=== PATIENT | female | born 1945 | race Caucasian/White ===

== ENCOUNTER 2020-04-24 12:38 | Outpatient (REF) | payer MEDICARE, SELFPAY | END 2020-04-24 12:39 | disposition home or self-care (01) | LOC: HO.HMGCLDS 12:38 | PROVIDERS: PCP Nurse Practitioner Family; Visit Provider Internal Medicine | DX: Z20.822 Contact with and (suspected) exposure to COVID-19 (principal) | CPT/HCPCS: 36415; C9803; U0003; U0005 ==

== ENCOUNTER → 2020-05-12 13:14 | Outpatient (BNVA) | payer MEDICARE, SELFPAY | PROVIDERS: PCP Nurse Practitioner Family; Visit Provider Internal Medicine | DX: J44.9 Chronic obstructive pulmonary disease, unspecified (principal); R91.8 Other nonspecific abnormal finding of lung field | CPT/HCPCS: 99212 ==

== ENCOUNTER 2020-05-19 15:06 | Outpatient (REF) | payer MEDICARE, SELFPAY ==
--- NOTE | ~2020-05-19 | CT_ITS ---
EXAMINATION: CT CHEST WITHOUT CONTRAST CLINICAL INFORMATION: Other nonspecific abnormal finding of lung field. Pulmonary nodules. COMPARISON: Previous chest CT scan most recent August 2018 TECHNIQUE: Multidetector volumetric CT imaging of the chest was done. Axial MIP volume rendering provided. Sagittal and coronal reformatted images were obtained. This CT examination was performed using dose optimization techniques as appropriate, variously including the following: *Automated exposure control *Adjustment of mA and/or kV according to patient size (this includes techniques or standardized protocols for targeted exams where dose is matched to indication/reason for exam; i.e. extremities or head) *Use of iterative reconstruction technique DLP: 135 mGy-cm FINDINGS: LUNGS: There is evidence of emphysema. There is biapical pleural and parenchymal scarring, right greater than left. There is a new abnormal parenchymal density in the medial right lung apex abutting the mediastinum. This measures 1.8 x 0.6 cm in transverse and maximum AP dimension axial image 99 series 4. There is a second new triangular-shaped abnormal parenchymal density in the posterior lateral right upper lobe measuring 0.8 x 1 cm in greatest dimension axial image 112 series 4. These areas may be related to pleural and parenchymal scarring. There is a new 3 mm right lower lobe nodule axial image 437 series 4. No other new pulmonary nodules are seen. There is extensive scarring or subsegmental atelectasis seen in the right middle lobe that is stable. There is a 3 mm right upper lobe nodule axial image 106 series 4 that is stable. There is a 3 x 5 mm peripheral or subpleural left upper lobe nodule adjacent to the fissure axial image 202 series 4 that is stable. There are linear reticular markings in the left upper lobe axial image 249 series 4 that is stable. MEDIASTINUM: There is evidence of atherosclerotic disease. The mediastinum is otherwise normal. PLEURA: There is no pleural effusion. There is a small focus of pleural thickening and calcification adjacent to the right upper lobe axial image 140 series 4 that is stable. AXILLA: No lymphadenopathy. UPPER ABDOMEN: There is a gallstone in the gallbladder. OSSEOUS STRUCTURES: There are degenerative changes of the spine. CT/CT chest wo con IMPRESSION: Emphysema. Biapical pleural parenchymal scarring, right greater than left. 2 new peripheral or subpleural parenchymal opacities in the right upper lobe, question related to increasing pleural and parenchymal scarring. New 3 mm right lower lobe nodule. Attention on follow-up recommended. Otherwise stable pulmonary findings. Gallstone.
== END 2020-05-19 15:07 | disposition home or self-care (01) ==
LOC: HO.CT 15:06
PROVIDERS: Visit Provider Internal Medicine
DX: R91.8 Other nonspecific abnormal finding of lung field (principal)
CPT/HCPCS: 71250

== ENCOUNTER 2020-10-19 08:07 | Outpatient (REF) | payer MEDICARE, SELFPAY ==
--- NOTE | ~2020-10-19 | MM_ITS ---
EXAMINATION: MM SCREENING DIGITAL BREAST TOMOSYNTHESIS, BILATERAL CLINICAL INFORMATION: Screening. Asymptomatic. No known family history breast cancer. The lifetime risk of breast cancer based on the Tyrer-Cuzick Model is 3%. COMPARISON: Mammography: 01/30/2018, outside mammography 10/14/2016 and 05/07/2014 ([facility], [place], [place]). TECHNIQUE: Digital breast tomosynthesis is performed in both the craniocaudal and mediolateral oblique views along with computer-aided detection (CAD). Synthesized 2D images are generated from the tomosynthesis. Additional left CC view is provided. FINDINGS: There are scattered areas of fibroglandular density (ACR BI-RADS breast composition Category b). The right breast has new 2 cm spiculated mass mid 9:30 o'clock position. There are numerous heterogeneous coarse calcifications within the lesion, some extending anteriorly for approximately 3 cm. The right MLO view also has an oval asymmetric density along posterior nipple line 4.2 cm from the nipple 0.7 x 1.2 cm. Finding is likely chronic shifting fibroglandular tissue, similar to outside right MLO views from 2016 and 2014. The axilla and skin contours are unremarkable. Left breast parenchymal pattern is similar to prior exams. There is no interval mass or architectural abnormality or abnormal calcifications. The axilla and skin contours are unremarkable. MM/MM tomosynthesis screening BI IMPRESSION: Right: -New 2 cm spiculated mass mid 9:30 position with heterogeneous calcifications extending anteriorly from the lesion. -Asymmetric parenchymal density anterior central on MLO possibly chronic shifting fibroglandular tissue. Left: -No mammographic evidence of malignancy. ASSESSMENT: BI-RADS 0: Incomplete - Need Additional Imaging Evaluation RECOMMENDATION: 1. Additional views of the right breast (magnification CC and magnification ML for the calcifications and 3D spot ML for the asymmetric parenchymal density). 2. Targeted ultrasound right breast. 3. Radiology department staff will contact the patient for additional imaging. This patient's information was entered into a reminder system with a target due date for their next mammogram.
== END 2020-10-19 08:08 | disposition home or self-care (01) ==
LOC: HO.MAMMO 08:07
PROVIDERS: PCP Nurse Practitioner Family; Visit Provider Nurse Practitioner Family
DX: Z12.31 Encounter for screening mammogram for malignant neoplasm of breast (principal)
CPT/HCPCS: 77063; 77067

== ENCOUNTER 2020-10-27 07:42 | Outpatient (REF) | payer MEDICARE, SELFPAY ==
[2020-10-27 08:40] LABS: Alanine Aminotransferase 21 U/L (0-31); Albumin Level 4.2 g/dL (3.5-5.0); Alkaline Phosphatase 86 U/L (39-117); Anion Gap 12 (12-20); Aspartate Amino Transferase 16 U/L (5-31); Bilirubin Total 0.9 mg/dL (0.0-1.0); Blood Urea Nitrogen 9 mg/dL (9-16); Calcium 9.1 mg/dL (8.4-10.2); Carbon Dioxide 28 mmol/L (22-29); Chloride 107 mmol/L (96-108); Cholesterol 144 mg/dL; Estimated Glomerular Filt Rate > 60; Glucose Fasting 119 mg/dL (60-99); HDL Cholesterol 47 mg/dL; LDL Cholesterol Calculated 83 mg/dl; Potassium 3.6 mmol/L (3.3-5.1); Sodium 143 mmol/L (135-145); Total Protein 6.5 g/dL (6.5-8.0); Triglycerides 71 mg/dL
[2020-10-27 09:03] LABS: TSH reflex Free T4 1.24 uIU/mL (0.32-4.0)
== END 2020-10-27 07:43 | disposition home or self-care (01) ==
LOC: HO.LAB 07:42
PROVIDERS: PCP Nurse Practitioner Family; Visit Provider Nurse Practitioner Family
DX: I10 Essential (primary) hypertension (principal)
CPT/HCPCS: 36415; 80053; 80061; 84443

== ENCOUNTER 2020-10-29 14:03 | Outpatient (REF) | payer MEDICARE, SELFPAY ==
--- NOTE | ~2020-10-29 | MM_ITS ---
EXAMINATION: MM DIAGNOSTIC DIGITAL BREAST TOMOSYNTHESIS, RIGHT TARGETED RIGHT BREAST ULTRASOUND CLINICAL INFORMATION: Spiculated mass with calcifications as well as question to other densities within the right breast. COMPARISON: Mammography: 10/19/2020nd studies dating back to 11/16/2010 TECHNIQUE: Digital breast tomosynthesis is performed. 2D images are generated from the tomosynthesis. The following views are obtained: Spot magnification views of the right breast in craniocaudal and 90 degree mediolateral views. Targeted right breast ultrasound. FINDINGS: There are scattered areas of fibroglandular density (ACR BI-RADS breast composition Category b). Additional mammographic images demonstrate the spiculated calcified mass to be very suspicious looking lying superiorly approximately 11 cm from the nipple measuring approximately 2.9 x 2.5 cm in size. There are some linear calcifications leading anteriorly from the mass. More anteriorly and at the nipple line laterally there is a somewhat ill-defined but not spiculated density which appears more prominent than on prior study measuring approximately 2.0 x 0.8 cm in size 8 cm from the nipple with question of a few calcifications within it as well as the linear calcifications from the larger mass lining to that region. About the inferior lateral aspect of the right breast there is a poorly defined density which appears more prominent than on prior study without spiculated margins or calcifications measuring approximately 1.4 x 0.5 cm in size 5 cm from nipple. MM/MM tomosynthesis added views R Impression: Very suspicious right breast mass approximately 10 o'clock position which is spiculated with calcifications. On ultrasound the abnormality appears significantly smaller than on mammography. The other question densities about the central and inferior lateral aspect of the right breast are not identified on ultrasound. With the appearance of the suspicious lesion and some linear calcification seen directed in the location of the other lesions I would recommend stereotactic core biopsy for the 2 other lesions while ultrasound biopsy of the calcified spiculated lesion could be performed. If there is any question as to whether the other 2 lesions should be sampled then breast MRI could be performed to determine if the other 2 right breast lesions are suspicious. MRI may also be able to better demonstrate the extent of disease present. ASSESSMENT: BI-RADS 4: Suspicious (subcategory 4C: High suspicion for malignancy) RECOMMENDATION: Ultrasound-guided core biopsy of spiculated calcified mass. Stereotactic core biopsy the other 2 more anterior right breast lesions with consideration of Breast MRI prior to stereotactic core biopsy of the other 2 lesions more inferior and lateral to determine if these are suspicious by MRI as well as extent of disease with the radiating microcalcifications. The above recommendation was called to referring provider's office by breast center navigator and myself..
--- NOTE | ~2020-10-29 | US_ITS ---
EXAMINATION: US DIAGNOSTIC ULTRASOUND BREAST, RIGHT CLINICAL INFORMATION: Three right breast densities for ultrasound evaluation. COMPARISON: Mammography of same day and studies dating back to 11/16/2010. TECHNIQUE: Ultrasound of the breast is performed with real-time rodriguez scale imaging and color Doppler. FINDINGS: Targeted right breast ultrasound was then performed. At the 10 o'clock position approximately 10 cm from the nipple there is a heterogeneous irregularly marginated mass measuring 1.4 x 1.2 x 1.7 cm in size with distal sound shadowing. Echogenic calcifications are present. The lesion is taller than wide. No definite internal vascularity was noted. No other masses were identified on ultrasound about the lateral aspect of the right breast. No abnormal axillary lymph nodes appreciated. Results are discussed with the patient at time of visit. US/US breast RT limited IMPRESSION: Very suspicious right breast mass approximately 10 o'clock position which is spiculated with calcifications. On ultrasound the abnormality appears significantly smaller than on mammography. The other question densities about the central and inferior lateral aspect of the right breast are fully identified on ultrasound. With the appearance of the suspicious lesion and some linear calcification seen directed in the location of the other lesions I would recommend stereotactic core biopsy for the 2 other lesions while ultrasound biopsy of the calcified spiculated lesion could be performed. If there is any question as to whether the other 2 lesions should be sampled then breast MRI could be performed to determine if the other 2 right breast lesions are suspicious. MRI would also be able to better demonstrate the extent of disease present. ASSESSMENT: BI-RADS 4: Suspicious (subcategory 4C: High suspicion for malignancy) RECOMMENDATION: Ultrasound-guided core biopsy of spiculated calcified mass. Stereotactic core biopsy for the other 2 more anterior right breast lesions with Consideration of Breast MRI prior to stereotactic core biopsy of the other 2 lesions more inferior and lateral to determine if these are suspicious by MRI. The above recommendation was called to referring provider's office by breast center navigator. I also spoke with Tiffanie Borrero RN at that office about the questioned of getting MRI and patient will be referred to a surgeon.
== END 2020-10-29 14:04 | disposition home or self-care (01) ==
LOC: HO.MAMMO 14:03
PROVIDERS: PCP Nurse Practitioner Family; Visit Provider Nurse Practitioner Family
DX: N64.89 Other specified disorders of breast (principal); R92.1 Mammographic calcification found on diagnostic imaging of breast
CPT/HCPCS: 76642; 77061; 77065

== ENCOUNTER → 2020-11-06 08:21 | Outpatient (BNVA) | payer MEDICARE, SELFPAY | PROVIDERS: PCP Nurse Practitioner Family; Referring Provider Nurse Practitioner Family; Visit Provider Surgery | DX: R92.8 Other abnormal and inconclusive findings on diagnostic imaging of breast (principal) | CPT/HCPCS: 99202 ==

== ENCOUNTER 2020-11-09 07:58 | Outpatient (REF) | payer MEDICARE, SELFPAY ==
--- NOTE | ~2020-11-09 | US_ITS ---
EXAMINATION: STEREOTACTIC TOMOSYNTHESIS-GUIDED VACUUM-ASSISTED BREAST BIOPSY (TWO SITES), RIGHT SPECIMEN RADIOGRAPHS (TWO SPECIMENS), RIGHT UTRASOUND-GUIDED CORE BIOPSY BREAST, RIGHT POST PROCEDURE DIGITAL MAMMOGRAM, RIGHT CLINICAL INFORMATION: 74-year-old with new 2 cm spiculated mass mid 9:30 o'clock position with associated heterogeneous coarse calcifications for ultrasound-guided core biopsy. There are 2 smaller asymmetric densities anterior lateral to the mass right breast for stereotactic sampling. COMPARISON: Mammography 10/19/2020, 10/29/2020, targeted right breast ultrasound 10/29/2020. TECHNIQUE/PROCEDURE STEREOTACTIC BIOPSY RIGHT BREAST - 2 SITES: Informed consent was obtained from the patient after discussion of the benefits, risks, and alternatives to biopsy today. Patient appeared to understand. Gave opportunity for questions. Patient signed consent form. Specimen A: BIOPSY TABLE: Hologic Affirm Prone Biopsy System. LESION: anterior 8:00 position, right breast. LOCAL ANESTHESIA: 10 mL 1% lidocaine; 10 mL 1% lidocaine with epinephrine. DERMATOTOMY: Single skin lino dermatotomy performed. NEEDLE: Suros Eviva 9-gauge vacuum assisted core biopsy device. APPROACH: lateral medial. TARGETING: Digital breast tomosynthesis used for targeting. CORES: 9. CLIP: Suros SecurMark T-shaped marker. SPECIMEN RADIOGRAPH (A): Specimen radiograph is taken in separate room using digital mammography. There are scattered parenchymal densities in the excised cores. Specimen B: Fresh biopsy supplies are used for 2nd biopsy site. BIOPSY TABLE: Hologic Affirm Prone Biopsy System. LESION: mid 8:30 o'clock position, right breast. LOCAL ANESTHESIA: 5 mL 1% lidocaine; 10 mL 1% lidocaine with epinephrine. DERMATOTOMY: Single skin lino dermatotomy performed. NEEDLE: Suros Eviva 9-gauge vacuum assisted core biopsy device. APPROACH: lateral medial. TARGETING: Digital breast tomosynthesis used for targeting. CORES: 8. CLIP: Suros SecurMark Barrel-shaped marker. SPECIMEN RADIOGRAPH (B): Specimen radiograph is taken in separate room using digital mammography. There are scattered parenchymal densities in the excised cores. The patient tolerated the procedure well. No immediate complications. Following the biopsy, patient brought to ultrasound suite for final biopsy right breast. TECHNIQUE/PROCEDURE ULTRASOUND-GUIDED BIOPSY RIGHT BREAST: Proper informed consent is obtained from the patient after discussion of the procedure, potential risks and complications, and alternatives. Patient was given an opportunity for questions. The patient appeared to understand. The patient consented to the procedure and signed the consent form. GUIDANCE: Ultrasound-guided; aseptic technique. LESION: Dominant irregular spiculated mass with heterogeneous calcifications right breast, posterior 9:00. APPROACH: Lateral medial. ANESTHESIA: 15 mL 1% lidocaine. DERMATOTOMY: Single skin lino dermatotomy performed. NEEDLE: 14-gauge Achieve core biopsy device with 13.5-gauge co-axial guide needle. CORES: 7. CLIP: HydroMARK; shape: butterfly. POST PROCEDURE UNILATERAL DIGITAL MAMMOGRAM: The post biopsy mammogram is performed in separate room using separate digital mammography equipment from the biopsy procedure. CC and ML views are obtained. Initially, 3-D imaging was performed, this followed by standard 2-D imaging. There are scattered areas of fibroglandular density (breast composition category: b). The clip markers are in position. The HydroMARK clip is not visible on the 3-D images due to the blooming artifact of the heterogeneous calcifications. The HydroMARK clip is clearly visualized within the mass on the standard non-synthesized 2-D images. No gross hematoma. The patient tolerated the procedure well. No immediate complications. Home instructions reviewed with the patient. Final pathology results are pending. US/US breast ndl core biopsy RT IMPRESSION: 1. Status post 3D stereotactic biopsy right breast anterior 8:00 and mid 8:30 positions (two sites). 2. Status post ultrasound-guided core biopsy right breast, posterior 9:00 position. 2. Clip placed at each location (T shape, Barrel shape, Butterfly shape) 3. Pathology pending. An addendum report will be issued.
== END 2020-11-09 07:59 | disposition home or self-care (01) ==
LOC: HO.MAMMO 07:58
PROVIDERS: Visit Provider Surgery
DX: C50.411 Malignant neoplasm of upper-outer quadrant of right female breast (principal); N64.89 Other specified disorders of breast
CPT/HCPCS: 19081; 19082; 19083; 88305; 88341; 88342; 88360

== ENCOUNTER → 2020-11-11 10:51 | Outpatient (BNVA) | payer MEDICARE, SELFPAY | PROVIDERS: PCP Nurse Practitioner Family; Visit Provider Internal Medicine | DX: J44.9 Chronic obstructive pulmonary disease, unspecified (principal); R91.8 Other nonspecific abnormal finding of lung field | CPT/HCPCS: 99212 ==

== ENCOUNTER → 2020-11-12 12:57 | Outpatient (BNVA) | payer MEDICARE, SELFPAY | PROVIDERS: PCP Nurse Practitioner Family; Referring Provider Nurse Practitioner Family; Visit Provider Surgery | DX: C50.411 Malignant neoplasm of upper-outer quadrant of right female breast (principal); R92.0 Mammographic microcalcification found on diagnostic imaging of breast; M81.0 Age-related osteoporosis without current pathological fracture; M11.20 Other chondrocalcinosis, unspecified site; I10 Essential (primary) hypertension; E78.5 Hyperlipidemia, unspecified; F17.210 Nicotine dependence, cigarettes, uncomplicated; Z17.1 Estrogen receptor negative status [ER-] | CPT/HCPCS: 99212 ==

== ENCOUNTER → 2020-11-27 08:38 | Outpatient (REF) | payer MEDICARE, SELFPAY ==
--- NOTE | 2020-11-27 08:41 | CA_ITS ---
Transthoracic Echocardiogram Patient (Last, First, Middle): Chayo Nevarez M Gender: Female Date of : 1945 Age: 75 Procedure Date: 11/27/2020 Procedure Type: Transthoracic Echocardiogram Location: OP Height: 165.1 cm Weight: 68.04 kg BSA: 1.75 m2 Heart Rate: bpm BP: 132 / 80 mmHg Hose Mender: Referring MD: Yuan Edwards MD Symptoms: Pre chemotherapy for triple negative breast cancer. Study Quality: Fair ECG Rhythm: Sinus Conclusions: - The left ventricular systolic function is low normal. The calculated ejection fraction is 52% by biplane method. - Mildly increased right ventricular cavity size. - No obvious valvular pathology seen on this study. Findings Procedure Information Contrast agent, definity, is being given per protocol with complications as noted. Left Ventricle Normal left ventricular cavity size. There is mildly increased left ventricular wall thickness. The left ventricular systolic function is low normal. The calculated ejection fraction is 52% by biplane method. There is no evidence of regional wall motion abnormalities. Diastolic function is normal for age. Right Ventricle Mildly increased right ventricular cavity size. There is normal right ventricular systolic function. Atria Both atria are normal in size. Aortic Valve There is a normal trileaflet aortic valve. There is no aortic valve stenosis. There is no aortic valve regurgitation. Mitral Valve The mitral valve appears normal. There is no mitral valve regurgitation. There is no mitral valve stenosis. Pulmonic Valve The pulmonic valve was not well visualized. Tricuspid Valve There is trace tricuspid valve regurgitation. The pulmonary artery systolic pressure is normal. Great Vessels The aortic annulus, sinuses of valsalva, and asc aorta are normal in size. Venous The inferior vena cava is normal in size and collapses greater than 50% with inspiration. Pericardium/Pleural There is no evidence of pericardial effusion. Prior Study Comparison No prior study available for comparison. Recommendations, Care & Conclusions No obvious valvular pathology seen on this study. Measurements 2D Linear Measurements IVSd: 1.12 0.6-0.9/0.6-1.0 cm LVIDd: 4.64 3.9-5.3/4.2-5.9 cm LVIDd Index: 2.65 2.4-3.2/2.2-3.1 cm/m2 LVIDs: 2.59 2.0-3.6 cm LVPWd: 1.13 0.7-1.1 cm Ao Root: 3.40 2.1-3.5 cm LA Diam: 3.60 2.7-3.8/3.0-4.0 cm LAIDs Index: 2.06 1.5-2.3 cm/m2 LV Mass: 236.27 67-162/88-224 g LV Mass Index: 135.01 43-95/49-115 g/m2 LVOT Diam: 2.20 3.0+(-)1.3 cm 2D Systolic Function EF 4C: 54.30 >55% EF 2C: 49.60 >55% EF BiP: 52.20 >55% Mitral Valve MV Pk E: 0.42 MV PK A: 0.60 MV Decel Time: 249.00 E/A: 0.70 E'Lateral: 7.18 E'Medial: 5.66 E/E' Med: 7.30 E/E' Lat: 5.80 PHT: 73.00 MVA PHT: 3.01 Decel Rowan: 1.67 Aortic Valve AoV Pk Scout: 1.07 AoV Mn Scout: 0.66 AoV VTI: 0.22 AoV Pk Grad: 5.00 Aov Mn Grad: 2.00 ANNABELLE Cont.VTI: 3.15 LVOT LVOT Pk Scout: 0.76 LVOT Mn Scout: 0.45 LVOT VTI: 0.19 LVOT Pk Grad: 2.00 LVOT Mn Grad: 1.00 LVOT Diam: 2.20 LVOT Area: 3.80 Diastolic Function MV Pk E: 0.42 MV Pk A: 0.60 E/A: 0.70 E'Medial: 5.66 E/E' Med: 7.30 E' Laterial: 7.18 E/E' Lat: 5.80 Right Ventricle TAPSE (mm): 19.00 TVS' Scout: 13.00 Tricuspid Valve TR Pk Scout: 1.69 TR Pk Grad: 11.00 Great Vessels Aorta Ao Root-2D: 3.40 2.0-3.7 cm Ao Asc: 3.50 2.1-3.4 cm Pulmonary Valve PV Pk Scout: 0.65 Peak PV Grad: 2.00 Updated in Other Vendor System with Status of Final Jonathan Bobo MD electronically signed on 11/28/2020 2:16:18 PM with status of Final
== END ==
LOC: HO.CARD 08:38
PROVIDERS: PCP Nurse Practitioner Family; Visit Provider Internal Medicine Medical Oncology
DX: Z01.818 Encounter for other preprocedural examination (principal); C50.919 Malignant neoplasm of unspecified site of unspecified female breast
CPT/HCPCS: 93306; Q9957

== ENCOUNTER 2020-12-16 12:52 | Day surgery (SDC) | payer MEDICARE, SELFPAY ==
--- NOTE | ~2020-12-16 | IR_ITS ---
PROCEDURE: IR INSERTION OF TUNNEL CATHETER CLINICAL INFORMATION: Right breast cancer. COMPARISON: None TECHNIQUE: Procedure and risks and benefits including bleeding, infection and pneumothorax were discussed patient and informed consent was obtained. All elements of maximal sterile barrier technique followed including use of cap, mask, sterile gown, sterile gloves, a sterile full body drape and hand hygiene. Also followed skin preparation with 2% chlorhexidine for cutaneous antisepsis, and sterile ultrasound preparation with sterile gel and probe cover when applicable. The left neck and upper chest were prepped and draped in the usual sterile fashion. The skin and soft tissues were anesthetized with 1% lidocaine with epinephrine. A small incision was made. Using ultrasound guidance and a 5 [place]ian micropuncture system, left internal jugular vein access was obtained. Over a 0.018 wire, a 5 [place]ian dilator was positioned in the left innominate vein. The skin and soft tissues of the left upper anterior chest were anesthetized with 1% lidocaine with epinephrine. A small incision was made. Using blunt dissection, subcutaneous pocket was created. A subcutaneous tunnel from the chest the neck incision was anesthetized with 1% lidocaine with epinephrine. Using a tunneler, a 6.6 [place]ian single-lumen catheter was tunneled from the chest to the neck incision. The catheter was attached to the port. The port and catheter were flushed. A 0.035 guidewire was advanced through the 5 [place]ian dilator into the IVC. 5 [place]ian dilator was exchanged for a peel-away sheath. Using bent wire technique, catheter length was estimated and the catheter was cut. Catheter length is 24 cm. Catheter was fed through the peel-away sheath. The neck incision was closed using a 4-0 absorbable subcuticular suture. Chest incision was closed using three 3-0 absorbable interrupted sutures followed by a running 4-0 absorbable subcuticular suture. Patient given Versed 1 mg and fentanyl 50 mcg intravenously during the procedure. Continuous hemodynamic monitoring was provided by a registered nurse under my direct vision. Total sedation was 44 minutes. Real-time ultrasound guidance was used to document vein patency and for needle entry. A formal ultrasound picture was recorded. Fluoroscopy time 0.8 minutes. DAP 10 Gy-cm2. One saved fluoroscopic image. FINDINGS: There is a left internal jugular Port-A-Cath with tip projecting over the SVC. IR/IR cvc insert tunnel w prt/psychiatric security nurse IMPRESSION: Left internal jugular single lumen 6.6 [place]ian Dignity Port-A-Cath placement.
[2020-12-16 13:04] VITALS: BMI 27.4
[2020-12-16 13:27] LABS: MANUAL DIFF FLAG NO
[2020-12-16 13:31] LABS: Basophils Percent Auto 0.1 % (0-2); Eosinophils Percent Auto 0.2 % (0-4); Hematocrit 44.1 % (37-47); Hemoglobin 15.3 g/dl (12.0-16.0); Imm Gran Abs Auto 0.11 X10*3/uL (0.00-0.03); Imm Gran Pct Auto 0.9 % (0.0-0.4); Lymphocytes Absolute Auto 2.3 X10*3/uL (1.2-4.9); Lymphocytes Percent Auto 18.1 % (20-40); Mean Corpuscular HGB Conc 34.7 g/dl (31.0-35.0); Mean Corpuscular Hemoglobin 29.7 pg (27.0-33.0); Mean Corpuscular Volume 85.6 fL (80-98); Mean Platelet Volume 8.6 fL (9.4-12.3); Monocytes Absolute Auto 1.2 X10*3/uL (0.1-1.2); Monocytes Percent Auto 9.4 % (2-11); Neutrophils Absolute Auto 8.9 X10*3/uL (2.0-8.3); Neutrophils Percent Auto 71.3 % (45-73); Platelet Count 380 X10*3/uL (160-400); Red Blood Count 5.15 X10*6/uL (4.20-5.50); Red Cell Distribution Width 12.5 % (11.0-16.0); White Blood Count 12.4 X10*3/uL (4.8-10.8)
[2020-12-16 13:36] LABS: INTERNATIONAL NORM RATIO 0.9 (0.9-1.1); Prothrombin Time 10.5 SEC (9.9-13.0)
[2020-12-16 13:39] LABS: Partial Thromboplastin Time 26.9 SEC (24.1-38.0)
[2020-12-16 14:00] LABS: Blood Urea Nitrogen 17 mg/dL (9-16); Creatinine Clr Calc Pharmacy 51.8; Estimated Glomerular Filt Rate 56
[2020-12-16 14:20] LABS: Anion Gap 14 (12-20); Carbon Dioxide 28 mmol/L (22-29); Chloride 96 mmol/L (96-108); Potassium 2.9 mmol/L (3.3-5.1); Sodium 135 mmol/L (135-145)
--- NOTE | 2020-12-16 16:25 | HO.RADPN ---
RADIOLOGY Narrative Narrative: [facility]J 6.6 fr single lumen Dignity port placed. Tip in SVC.
[2020-12-16 16:35] VITALS: BP 145/75; PULSE 60; RESP 18; TEMP 36.2; O2SAT 94
[2020-12-16 16:45] VITALS: BP 137/73; PULSE 55; RESP 16; O2SAT 94
[2020-12-16 17:00] VITALS: BP 133/68; PULSE 60; RESP 16; O2SAT 93
[2020-12-16 17:30] VITALS: BP 131/76; PULSE 62; TEMP 36.5; O2SAT 94
[2020-12-17 07:43] LABS: Alanine Aminotransferase 16 U/L (0-31); Albumin Level 4.2 g/dL (3.5-5.0); Alkaline Phosphatase 87 U/L (39-117); Aspartate Amino Transferase 14 U/L (5-31); Bilirubin Direct 0.4 mg/dL (0.0-0.5); Bilirubin Total 0.9 mg/dL (0.0-1.0); Total Protein 6.7 g/dL (6.5-8.0)
[2020-12-17 08:03] LABS: Thyroid Stimulating Hormone 1.76 uIU/mL (0.32-4.0)
[2020-12-17 08:18] LABS: HBS Num1 0.65 mIU/mL (0-7.99); Hepatitis B Core Antibody Nonreactive (Nonreactive); ~Hepatitis B Surface Antibody NONREACTIVE (Nonreactive)
[2020-12-17 08:33] LABS: HBsAGNum1 0.15 S/CO (0.00-0.99); Hepatitis B Surface Antigen Negative (Negative)
== END 2020-12-16 17:36 | disposition home or self-care (01) ==
PROVIDERS: Radiology Diagnostic Radiology; PCP Nurse Practitioner Family; Visit Provider Radiology Diagnostic Radiology
DX: C50.411 Malignant neoplasm of upper-outer quadrant of right female breast (principal); Z17.1 Estrogen receptor negative status [ER-]; D47.2 Monoclonal gammopathy; I10 Essential (primary) hypertension; J44.9 Chronic obstructive pulmonary disease, unspecified
CPT/HCPCS: 36415; 36561; 76937; 80051; 80076; 82565; 84443; 84520; 85025; 85610; 85730; 86704; 86706; 87340; 99152; 99153; C1769; C1788; J0690; J1642; J2250; J3010

== ENCOUNTER 2021-01-07 10:45 | Outpatient (REF) | payer MEDICARE, SELFPAY ==
--- NOTE | ~2021-01-07 | FL_ITS ---
EXAMINATION: XR FLUOROSCOPY CLINICAL INFORMATION: No blood withdrawal lung port aspiration. COMPARISON: None TECHNIQUE: Contrast injection of the left-sided port was performed under fluoroscopy. FINDINGS: There is contrast visualized within the SVC on contrast injection of the left-sided port consistent with widely patent port catheter. FLUOROSCOPY TIME: 0.8 minute DOSE AREA PRODUCT: 17.849 mGy-m2 (microgray-meter squared) FL/FL fluoroscopy <1hr IMPRESSION: Widely patent left-sided venous port.
== END 2021-01-07 10:46 | disposition home or self-care (01) ==
LOC: HO.XRAY 10:45
PROVIDERS: PCP Nurse Practitioner Family; Visit Provider Internal Medicine Medical Oncology
DX: C50.911 Malignant neoplasm of unspecified site of right female breast (principal)
CPT/HCPCS: 76000

== ENCOUNTER 2021-01-18 12:02 | Inpatient (IN) | payer MEDICARE, SELFPAY ==
--- NOTE | ~2021-01-18 | XR_ITS ---
EXAMINATION: XR CHEST CLINICAL INFORMATION: Dyspnea COMPARISON: 03/14/2018 TECHNIQUE: Frontal view of the chest was obtained. FINDINGS: CT compatible left chest wall port overlies the region of confluence of the left brachiocephalic vein with the SVC. Cardiac leads overlie the chest. The lungs are hyperexpanded. There is known emphysema. No dense consolidation. No edema or effusion. No pneumothorax. The cardiomediastinal silhouette is unchanged, with a calcified aorta. XR/XR chest 1V IMPRESSION: Hyperexpanded lungs with no acute pulmonary finding.
--- NOTE | ~2021-01-18 | CT_ITS ---
EXAMINATION: CT ANGIOGRAM OF THE CHEST WITH AND WITHOUT CONTRAST (CT PULMONARY ANGIOGRAM FOR PE) CLINICAL INFORMATION: Dyspnea COMPARISON: Radiograph 01/18/2021. CT from 05/19/2020. TECHNIQUE: Prior to contrast administration, noncontrast localization images were obtained. Subsequently, multidetector volumetric imaging was performed from the thoracic inlet to below the diaphragms following the administration of 65 mL Omnipaque 350 intravenous contrast. No contrast reaction reported Sagittal, coronal, and MIP oblique sagittal reformatted images were obtained on the CT workstation, uploaded to PACS, and reviewed. This CT examination was performed using dose optimization techniques as appropriate, variously including the following: *Automated exposure control *Adjustment of mA and/or kV according to patient size (this includes techniques or standardized protocols for targeted exams where dose is matched to indication/reason for exam; i.e. extremities or head) *Use of iterative reconstruction technique Total exam dose-length product 334 mGy-cm FINDINGS: QUALITY OF STUDY/CONTRAST BOLUS: Satisfactory. PULMONARY ARTERIES: No central or segmental pulmonary emboli. THORACIC AORTA: No aneurysm or dissection. LUNG: The central airways are patent. There is severe centrilobular and paraseptal emphysema. Minimal opacity noted at the lung bases at the right middle lobe and lingula, likely representing atelectasis. Linear bibasilar atelectasis posteriorly. No dense consolidation. PLEURA: No pleural effusion or pneumothorax. MEDIASTINUM: Normal heart size. No pericardial effusion. No hilar or mediastinal lymphadenopathy. Left chest wall port terminating in the brachiocephalic vein. No evidence of septal bowing or right heart strain. CHEST WALL/AXILLA: No axillary or internal mammary lymphadenopathy. Nodular soft tissue density in the right breast soft tissues. This is seen previously with evidence of prior intervention. OSSEOUS STRUCTURES: Mild degenerative changes throughout the spine. New since 05/19/2020, there is mild height loss of the T7 vertebral body. There is approximately 40% loss of anterior vertebral body height. UPPER ABDOMEN: Cholelithiasis. Mild nodular thickening both adrenal glands, likely lipid rich adenomas. No reflux of contrast into the hepatic veins to suggest elevated right heart pressures. CT/CT angio chest PE protocol IMPRESSION: 1. No pulmonary embolism. 2. Severe emphysema. No acute pulmonary finding. VTE: negative
[2021-01-18 13:35] VITALS: BP 164/87; PULSE 98; RESP 20; TEMP 36.5; O2SAT 94; BMI 27.4
--- NOTE | 2021-01-18 14:19 | ECG_ITS ---
Test Reason : DYSPNEA Blood Pressure : / mmHG Vent. Rate : 086 BPM Atrial Rate : 086 BPM P-R Int : 116 ms QRS Dur : 078 ms QT Int : 370 ms P-R-T Axes : 059 020 055 degrees QTc Int : 442 ms Sinus rhythm with occasional Premature ventricular complexes Nonspecific T wave abnormality Anterior leads Abnormal ECG When compared with ECG of 14-MAR-2018 02:53, No significant changes seen Referred By: Robert Staples Electronically Signed By:JACOBO CHATMAN MD
--- NOTE | 2021-01-18 14:23 | ED.GENADULT ---
HPI - General Adult General Chief complaint: Dyspnea Stated complaint: diff breathing Time Seen by Provider: 01/18/21 14:07 Source: patient, family and old records reviewed Limitations: no limitations History of Present Illness HPI narrative: Patient with a history of COPD and a recent diagnosis of breast cancer currently getting chemotherapy, presents with 3 weeks of worsening dyspnea. She is typically not home oxygen dependent. She typically can walk without limits. Her breathing has gotten worse over the last 3 weeks for now she gets very dyspneic and has to rest after approximately 10 ft. When it started she had a cough with green sputum. Cough and sputum have resolved. No fevers or chills. No chest pain other than while she coughs. No leg swelling or calf pain. No history of thromboembolic disease. She does have a history of pneumonia and COPD exacerbations in the past but states they were never as bad as this and always get better with prednisone. She has been on prednisone for the past 4 days, 30 mg daily, with no improvement. She called her PCP recommended she come to the emergency department for further workup. She also complains of a recently placed Port-A-Cath which has been nonfunctioning. She apparently had a skin infection after the insertion as well. She was supposed to go to see the interventional radiologist today for evaluation of about possible removal. Her last chemotherapy was last . Her last lab work was last Monday. Related Data Home Medications Medication Instructions Recorded Confirmed calcium carbonate 500 mg calcium 500 mg PO DAILY 05/12/20 01/14/21 (1,250 mg) tablet (Calcium 500) fluticasone fur. 100 mcg-umeclid 1 puff PO DAILY 11/17/20 01/14/21 62.5 mcg-vilant 25 mcg inhalat.powder (Trelegy Ellipta) ondansetron HCl 4 mg tablet 8 mg PO Q8H PRN 12/31/20 01/14/21 (Zofran) Previous Rx's Medication Instructions Recorded albuterol sulfate 90 mcg/actuation 1 inh INHALATION QID PRN 30 Days 01/21/20 aerosol inhaler (Ventolin HFA) #18 g trazodone 100 mg tablet 100 mg PO BEDTIME #30 tab 08/04/20 amlodipine 5 mg tablet 5 mg PO DAILY #90 tab 10/19/20 acetaminophen 650 mg 650 mg PO Q8H PRN 30 Days #90 tab 12/09/20 tablet,extended release cetirizine 10 mg tablet (All Day 10 mg PO BID PRN 30 Days #60 tab 12/09/20 Allergy (cetirizine)) dexamethasone 4 mg tablet 4 mg PO BID #100 tab 12/10/20 (Decadron) atorvastatin 40 mg tablet 40 mg PO DAILY 90 Days #90 tab 12/24/20 oxybutynin chloride 5 mg tablet 5 mg PO BID 30 Days #60 tab 12/24/20 lisinopril 40 mg tablet 40 mg PO DAILY 90 Days #90 tab 01/12/21 cephalexin 250 mg/5 mL oral 500 mg PO BID #10 ml 01/13/21 suspension cephalexin 500 mg capsule 500 mg PO Q8H #30 cap 01/15/21 levofloxacin 500 mg tablet 500 mg PO Q24H #10 tab 01/15/21 prednisone 10 mg tablet 30 mg PO DAILY #30 tab 01/15/21 Allergies Allergy/AdvReac Type Severity Reaction Status Date / Time hydrochlorothiazide Allergy Unknown hives Verified 12/30/20 12:20 Review of Systems Constitutional: Comments: No fevers chills or weight loss Cardiovascular: Comments: No chest pain Respiratory: Comments: Positive dyspnea with minimal exertion. Initially cough with sputum. No phlegm now. Gastrointestinal: Comments: No nausea vomiting diarrhea or constipation Musculoskeletal: Comments: No leg swelling or calf pain Integumentary/Breasts: Comments: No rash. Redness over her Port-A-Cath site is improving but not resolved completely Neurologic: Comments: No weakness numbness or paresthesias [facility] Past Medical History Medical History (Updated 01/18/21 @ 17:04 by Robert Staples MD) Allergies Anxiety Bladder prolapse Chondrocalcinosis COPD (chronic obstructive pulmonary disease) COPD (chronic obstructive pulmonary disease) Dyslipidemia HTN (hypertension) Mixed incontinence urge and stress Monoclonal gammopathies Osteoporosis Physical exam Pulmonary nodules Surgical History History of section Family History Family History Father No problems noted. Mother HTN (hypertension) CVD (cardiovascular disease) Stroke Brother No problems noted. Sister No problems noted. Son No problems noted. Daughter No problems noted. Other Substance use disorder Social History Social History Housing: Other (mobile home ) Alcohol intake: never Patient Tobacco Use Status: Former Tobacco user Years Smoked: 20 years ago e-Cigarette/Vaping Use: Never Used Second Hand Smoke Exposure: Yes Use of substances other than those prescribed or required for medical reasons: No Advance Directives: Yes Advance Directives on File: Yes Advance Directives Date on File: 12/24/20 Current occupational status: retired Current occupation: works as [employer] Current occupational exposures/hazards: No Physical Exam Vital Signs: Vital Signs: Last Vital Signs Temp 98.4 F 01/18/21 15:25 Pulse 115 H 01/18/21 16:35 Resp 24 H 01/18/21 16:35 BP 165/89 H 01/18/21 15:25 Pulse Ox 97 01/18/21 16:35 Body Mass Index 27.4 Const: General: cooperative, comfortable and no acute distress HENMT: Other: Normocephalic atraumatic Resp: Other: Diminished bilaterally without wheezes rales or rhonchi Cardio: Other: Regular rate and rhythm without murmurs rubs or gallops Skin: Other: Mild erythema over Port-A-Cath insertion site without fluctuance or abscess noted. No other skin abnormalities Neuro: Other: Alert and oriented. No focal neuro deficits Extrem: Other: No pedal edema. No calf tenderness Course Course Course Narrative: Dyspnea with minimal exertion in the setting of active breast cancer on chemotherapy. Pneumonia COPD exacerbation Thromboembolic/pulmonary embolism Pulmonary fibrosis Cardiac ischemia COVID-19 infection 3:47 p.m.. Workup shows white count of 5.9 with 85.4% neutrophils. Creatinine is normal Chest x-ray shows no obvious cause of patient's dyspnea. CT scan ordere 5:[address] scan shows no evidence of PE or pneumonia. Patient, however, gets very dyspneic on minimal exertion. Respiratory rate goes up above 30. Maintains oxygen saturation around 90% with this however. Will hospitalized for further treatment of COPD exacerbation Medical Decision Making Lab Data Result diagrams: 01/18/21 15:08 01/18/21 15:08 Labs: Lab Results 01/18/21 01/18/21 01/18/21 Range/Units 15:08 15:08 15:08 WBC 5.9 (4.8-10.8) X10*3/uL RBC 3.84 L (4.20-5.50) X10*6/uL Hgb 11.3 L (12.0-16.0) g/dl Hct 33.3 L (37.0-47.0) % MCV 86.7 (80.0-98.0) fL MCH 29.4 (27.0-33.0) pg MCHC 33.9 (31.0-35.0) g/dl RDW 15.6 (11.0-16.0) % Plt Count 262 (160-400) X10*3/uL MPV 8.7 L (9.4-12.3) fL Immature Gran % (Auto) 4.1 H (0.0-0.4) % Neut % (Auto) 85.4 H (45-73) % Lymph % (Auto) 4.6 L (20-40) % [place] % (Auto) 5.6 (2-11) % Eos % (Auto) 0.0 (0-4) % Baso % (Auto) 0.3 (0-2) % Lymph # (Auto) 0.3 L (1.2-4.9) X10*3/uL [place] # (Auto) 0.3 (0.1-1.2) X10*3/uL Eos # (Auto) 0.0 (0.0-0.4) X10*3/uL Baso # (Auto) 0.0 (0.0-0.2) X10*3/uL Abs Immat Gran (auto) 0.24 H (0.00-0.03) X10*3/uL Absolute Neuts (auto) 5.02 (2.0-8.3) x10*3/uL Absolute Nucleated RBC 0.000 (0.0-0.012) X10*3/uL Nucleated RBC % (auto) 0.0 (0.0-0.2) /100WBC D-Dimer 898 NG/ML Sodium (135-145) mmol/L Potassium (3.3-5.1) mmol/L Chloride (96-108) mmol/L Carbon Dioxide (22-29) mmol/L Anion Gap (12-20) BUN (9-16) mg/dL Creatinine (0.5-1.4) mg/dL Estim Creat Clear Calc Estimated GFR Random Glucose (60-115) mg/dL Lactic Acid 1.9 (0.5-2.0) mmol/L Calcium (8.4-10.2) mg/dL Total Bilirubin (0.0-1.0) mg/dL AST (5-31) U/L ALT (0-31) U/L Alkaline Phosphatase (39-117) U/L Troponin I High Sens (<3.5-17.0) ng/L B-Natriuretic Peptide (<100) pg/mL Total Protein (6.5-8.0) g/dL Albumin (3.5-5.0) g/dL Urine Color Urine Appearance Urine pH (5.0-8.0) Ur Specific [place] (1.005-1.025) Urine Protein (NEG-TRACE) MG/DL Urine Glucose (UA) (NEG) MG/DL Urine Ketones (NEG) MG/DL Urine Blood (NEG) Urine Nitrite (NEG) Ur Leukocyte Esterase (NEG) Influenza Type A (PCR) (Negative) Influenza Type B (PCR) (Negative) RSV RNA Qual (PCR) (Negative) SARS-CoV-2 RNA (RT-PCR) (Negative) 01/18/21 01/18/21 01/18/21 Range/Units 15:08 15:08 15:08 WBC (4.8-10.8) X10*3/uL RBC (4.20-5.50) X10*6/uL Hgb (12.0-16.0) g/dl Hct (37.0-47.0) % MCV (80.0-98.0) fL MCH (27.0-33.0) pg MCHC (31.0-35.0) g/dl RDW (11.0-16.0) % Plt Count (160-400) X10*3/uL MPV (9.4-12.3) fL Immature Gran % (Auto) (0.0-0.4) % Neut % (Auto) (45-73) % Lymph % (Auto) (20-40) % [place] % (Auto) (2-11) % Eos % (Auto) (0-4) % Baso % (Auto) (0-2) % Lymph # (Auto) (1.2-4.9) X10*3/uL [place] # (Auto) (0.1-1.2) X10*3/uL Eos # (Auto) (0.0-0.4) X10*3/uL Baso # (Auto) (0.0-0.2) X10*3/uL Abs Immat Gran (auto) (0.00-0.03) X10*3/uL Absolute Neuts (auto) (2.0-8.3) x10*3/uL Absolute Nucleated RBC (0.0-0.012) X10*3/uL Nucleated RBC % (auto) (0.0-0.2) /100WBC D-Dimer NG/ML Sodium 138 (135-145) mmol/L Potassium 3.6 (3.3-5.1) mmol/L Chloride 102 (96-108) mmol/L Carbon Dioxide 27 (22-29) mmol/L Anion Gap 13 (12-20) BUN 11 (9-16) mg/dL Creatinine 0.74 (0.5-1.4) mg/dL Estim Creat Clear Calc 68.5 Estimated GFR > 60 Random Glucose 138 H (60-115) mg/dL Lactic Acid (0.5-2.0) mmol/L Calcium 8.6 (8.4-10.2) mg/dL Total Bilirubin 0.9 (0.0-1.0) mg/dL AST 11 D (5-31) U/L ALT 24 (0-31) U/L Alkaline Phosphatase 93 (39-117) U/L Troponin I High Sens 3.6 (<3.5-17.0) ng/L B-Natriuretic Peptide 111 H (<100) pg/mL Total Protein 6.0 L (6.5-8.0) g/dL Albumin 3.9 (3.5-5.0) g/dL Urine Color Urine Appearance Urine pH (5.0-8.0) Ur Specific [place] (1.005-1.025) Urine Protein (NEG-TRACE) MG/DL Urine Glucose (UA) (NEG) MG/DL Urine Ketones (NEG) MG/DL Urine Blood (NEG) Urine Nitrite (NEG) Ur Leukocyte Esterase (NEG) Influenza Type A (PCR) NEGATIVE (Negative) Influenza Type B (PCR) NEGATIVE (Negative) RSV RNA Qual (PCR) NEGATIVE (Negative) SARS-CoV-2 RNA (RT-PCR) NEGATIVE (Negative) 01/18/21 Range/Units 16:34 WBC (4.8-10.8) X10*3/uL RBC (4.20-5.50) X10*6/uL Hgb (12.0-16.0) g/dl Hct (37.0-47.0) % MCV (80.0-98.0) fL MCH (27.0-33.0) pg MCHC (31.0-35.0) g/dl RDW (11.0-16.0) % Plt Count (160-400) X10*3/uL MPV (9.4-12.3) fL Immature Gran % (Auto) (0.0-0.4) % Neut % (Auto) (45-73) % Lymph % (Auto) (20-40) % [place] % (Auto) (2-11) % Eos % (Auto) (0-4) % Baso % (Auto) (0-2) % Lymph # (Auto) (1.2-4.9) X10*3/uL [place] # (Auto) (0.1-1.2) X10*3/uL Eos # (Auto) (0.0-0.4) X10*3/uL Baso # (Auto) (0.0-0.2) X10*3/uL Abs Immat Gran (auto) (0.00-0.03) X10*3/uL Absolute Neuts (auto) (2.0-8.3) x10*3/uL Absolute Nucleated RBC (0.0-0.012) X10*3/uL Nucleated RBC % (auto) (0.0-0.2) /100WBC D-Dimer NG/ML Sodium (135-145) mmol/L Potassium (3.3-5.1) mmol/L Chloride (96-108) mmol/L Carbon Dioxide (22-29) mmol/L Anion Gap (12-20) BUN (9-16) mg/dL Creatinine (0.5-1.4) mg/dL Estim Creat Clear Calc Estimated GFR Random Glucose (60-115) mg/dL Lactic Acid (0.5-2.0) mmol/L Calcium (8.4-10.2) mg/dL Total Bilirubin (0.0-1.0) mg/dL AST (5-31) U/L ALT (0-31) U/L Alkaline Phosphatase (39-117) U/L Troponin I High Sens (<3.5-17.0) ng/L B-Natriuretic Peptide (<100) pg/mL Total Protein (6.5-8.0) g/dL Albumin (3.5-5.0) g/dL Urine Color YELLOW Urine Appearance CLEAR Urine pH 5.5 (5.0-8.0) Ur Specific [place] <= 1.005 (1.005-1.025) Urine Protein NEG (NEG-TRACE) MG/DL Urine Glucose (UA) NEG (NEG) MG/DL Urine Ketones NEG (NEG) MG/DL Urine Blood TRACE (NEG) Urine Nitrite NEG (NEG) Ur Leukocyte Esterase NEG (NEG) Influenza Type A (PCR) (Negative) Influenza Type B (PCR) (Negative) RSV RNA Qual (PCR) (Negative) SARS-CoV-2 RNA (RT-PCR) (Negative) Discharge Plan Discharge Patient Disposition: Admitted As Inpatient Prescriptions: No Action trazodone 100 mg tablet 100 mg PO BEDTIME Qty: 30 RF: 5 amlodipine 5 mg tablet 5 mg PO DAILY Qty: 90 RF: 1 atorvastatin 40 mg tablet 40 mg PO DAILY 90 Days Qty: 90 RF: 2 oxybutynin chloride 5 mg tablet 5 mg PO BID 30 Days Qty: 60 RF: 2 lisinopril 40 mg tablet 40 mg PO DAILY 90 Days Qty: 90 RF: 3 Trelegy Ellipta 100-62.5-25 mcg blister with device 1 puff PO DAILY RF: 0 ondansetron HCl [Zofran] 4 mg tablet 8 mg PO Q8H PRN (Reason: Nausea) RF: 0 cephalexin 250 mg/5 mL Suspension For Reconstitution 500 mg PO BID Qty: 10 RF: 0 prednisone 10 mg Tablet 30 mg PO DAILY Qty: 30 RF: 4 cephalexin 500 mg Capsule 500 mg PO Q8H Qty: 30 RF: 4 levofloxacin 500 mg Tablet 500 mg PO Q24H Qty: 10 RF: 4 dexamethasone [Decadron] 4 mg Tablet 4 mg PO BID Qty: 100 RF: 4 acetaminophen 650 mg tablet extended release 650 mg PO Q8H PRN (Reason: pain) 30 Days Qty: 90 RF: 0 cetirizine [All Day Allergy (cetirizine)] 10 mg tablet 10 mg PO BID PRN (Reason: allergy symptoms) 30 Days Qty: 60 RF: 2 albuterol sulfate [Ventolin HFA] 90 mcg/actuation HFA aerosol inhaler 1 inh inhalation QID PRN (Reason: shortness of breath or wheezing) 30 Days Qty: 18 RF: 12 calcium carbonate [Calcium 500] 500 mg calcium (1,250 mg) tablet 500 mg PO DAILY RF: 0
[2021-01-18] MEDS: Albuterol Sulfate (0.083%) 2.5 MG/3 ML VIAL.NEB 10 MG INHALE (14:40)
[2021-01-18] MEDS: Ipratropium Bromide 0.5 MG/2.5 ML SOLUTION INHALE (14:40)
[2021-01-18 14:41] VITALS: PULSE 96
[2021-01-18 15:17] LABS: MANUAL DIFF FLAG NO
[2021-01-18] MEDS: methylPREDNISolone Sod Succ 125 MG/2 ML VIAL IVPUSH (15:17)
[2021-01-18 15:25] VITALS: BP 165/89; PULSE 100; RESP 22; TEMP 36.9; O2SAT 99
[2021-01-18 15:26] LABS: D Dimer 898 NG/ML
[2021-01-18 15:28] LABS: Lactic Acid 1.9 mmol/L (0.5-2.0)
[2021-01-18 15:29] LABS: Basophils Percent Auto 0.3 % (0-2); Hematocrit 33.3 % (37.0-47.0); Hemoglobin 11.3 g/dl (12.0-16.0); Imm Gran Abs Auto 0.24 X10*3/uL (0.00-0.03); Imm Gran Pct Auto 4.1 % (0.0-0.4); Lymphocytes Absolute Auto 0.3 X10*3/uL (1.2-4.9); Lymphocytes Percent Auto 4.6 % (20-40); Mean Corpuscular HGB Conc 33.9 g/dl (31.0-35.0); Mean Corpuscular Hemoglobin 29.4 pg (27.0-33.0); Mean Corpuscular Volume 86.7 fL (80.0-98.0); Mean Platelet Volume 8.7 fL (9.4-12.3); Monocytes Absolute Auto 0.3 X10*3/uL (0.1-1.2); Monocytes Percent Auto 5.6 % (2-11); Neutrophils Absolute Auto 5.02 x10*3/uL (2.0-8.3); Neutrophils Percent Auto 85.4 % (45-73); Platelet Count 262 X10*3/uL (160-400); Red Blood Count 3.84 X10*6/uL (4.20-5.50); Red Cell Distribution Width 15.6 % (11.0-16.0); White Blood Count 5.9 X10*3/uL (4.8-10.8)
[2021-01-18 15:33] LABS: Alanine Aminotransferase 24 U/L (0-31); Albumin Level 3.9 g/dL (3.5-5.0); Alkaline Phosphatase 93 U/L (39-117); Anion Gap 13 (12-20); Aspartate Amino Transferase 11 U/L (5-31); Bilirubin Total 0.9 mg/dL (0.0-1.0); Blood Urea Nitrogen 11 mg/dL (9-16); Calcium 8.6 mg/dL (8.4-10.2); Carbon Dioxide 27 mmol/L (22-29); Chloride 102 mmol/L (96-108); Creatinine Clr Calc Pharmacy 68.5; Estimated Glomerular Filt Rate > 60; Glucose Random 138 mg/dL (60-115); Potassium 3.6 mmol/L (3.3-5.1); Sodium 138 mmol/L (135-145)
[2021-01-18 15:38] LABS: B Type Natriuretic Peptide 111 pg/mL (<100); Troponin-I High Sensitivity 3.6 ng/L (<3.5-17.0)
[2021-01-18] MEDS: iohexoL 350 MG/ML 100 ML INFUS..BTL 65 ML IV (16:13)
[2021-01-18 16:28] LABS: Influenza A PCR NEGATIVE (Negative); Influenza B PCR NEGATIVE (Negative); Resp Syncy Virus RNA Qual PCR NEGATIVE (Negative); SARS COV2 PCR INHOUSE NEGATIVE (Negative)
[2021-01-18 16:35] VITALS: PULSE 115; RESP 24; O2SAT 97
[2021-01-18 16:46] LABS: Appearance Urine CLEAR; Color Urine YELLOW; Glucose Urine UA NEG (NEG); Leukocyte Esterase Urine NEG (NEG); Nitrite Urine NEG (NEG); PH 5.5 (5.0-8.0); Specific Gravity - Urine <= 1.005 (1.005-1.025); UACC Culture Trigger NO; Urine Blood TRACE (NEG); Urine Ketones NEG (NEG); Urine Protein NEG (NEG-TRACE)
--- NOTE | 2021-01-18 17:01 | PC.NURSE ---
Pt ambulated to the bathroom and pt became tachypneic to a rate of 30 with increased with of breathing and a noted room air spo2 of 88%. Pt placed back in bed and on oxygen via NC at 4lpm with noted improvements. notified.
[2021-01-18 17:02] LABS: WBC Urine 0-2 /HPF (0-4)
--- NOTE | 2021-01-18 17:27 | PM.IMHP ---
History of Present Illness Date of Service: 01/18/21 Chief Complaint: Shortness of breath 75F with recent diagnosis of triple negative breast cancer, started on chemotherapy 4 weeks prior to presentation, complaining of 3 weeks progressive shortness of breath. Patient reports that her shortness of breath is worse on exertion, also reporting orthopnea and sleeps on 2 pillows. She does have severe COPD but is not on home oxygen. She notes a dry cough and chest pain associated with the cough. Denies fever chills. She was started on prednisone, however, she had no improvement. Patient was also recently treated for port site infection. She is still on cephalexin and Levaquin. In ED CT chest was done which was negative for pulmonary embolism or pneumonia. Review of Systems Review of Systems: Constitutional: Denies fever, denies Chills Eyes: denies blurry vision ENT: denies sore throat CVS: chest pain Respiratory: dyspnea GI: no abdominal pain : denies dysuria MSK: denies neck pain Skin: denies rash Neuro: denies specific motor weakness Psych: denies suicidal ideation Endocrine: denies heat/cold intolerance Hematologic: denies easy bleeding Allergy: denies hives [facility] Medical History Allergies Anxiety Bladder prolapse Chondrocalcinosis COPD (chronic obstructive pulmonary disease) COPD (chronic obstructive pulmonary disease) Dyslipidemia HTN (hypertension) Mixed incontinence urge and stress Monoclonal gammopathies Osteoporosis Physical exam Pulmonary nodules Family History Father No problems noted. Mother HTN (hypertension) CVD (cardiovascular disease) Stroke Brother No problems noted. Sister No problems noted. Son No problems noted. Daughter No problems noted. Other Substance use disorder Pertinent family history: . 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 100 mcg-umeclid 1 puff PO DAILY 11/17/20 01/14/21 Unknown History 62.5 mcg-vilant 25 mcg inhalat.powder (Trelegy Ellipta) ondansetron HCl 4 mg tablet 8 mg PO Q8H PRN 12/31/20 01/14/21 Unknown History (Zofran) chlorthalidone 25 mg tablet 1 tab PO DAILY 01/18/21 Unknown History Physical Exam Vital Signs and Narrative: Vital Signs: Last Vital Signs Temp 98.4 F 01/18/21 15:25 Pulse 115 H 01/18/21 16:35 Resp 24 H 01/18/21 16:35 BP 165/89 H 01/18/21 15:25 Pulse Ox 97 01/18/21 16:35 Body Mass Index 27.4 General: Dyspneic, stops to catch her breath after several sentences, cushinoid appearance HEENT: atraumatic Neck: normal to visual inspection CVS: S1, S2, irregular and rapid Resp: Diminished breath sounds Chest: non tender GI: soft, non tender, non distended, hernia present : no CVA tenderness Skin: no rashes Extremities: no edema Neuro: Oriented X3, grossly intact Psych: cooperative Results Labs CBC and Chem 7: 01/18/21 15:08 01/18/21 15:08 Labs: Laboratory Results - last 24 hr 01/18/21 01/18/21 01/18/21 15:08 15:08 15:08 MCV 86.7 MCH 29.4 MCHC 33.9 RDW 15.6 Plt Count 262 MPV 8.7 L Immature Gran % (Auto) 4.1 H Neut % (Auto) 85.4 H Lymph % (Auto) 4.6 L [place] % (Auto) 5.6 Eos % (Auto) 0.0 Baso % (Auto) 0.3 Lymph # (Auto) 0.3 L [place] # (Auto) 0.3 Eos # (Auto) 0.0 Baso # (Auto) 0.0 Abs Immat Gran (auto) 0.24 H Absolute Neuts (auto) 5.02 Absolute Nucleated RBC 0.000 Nucleated RBC % (auto) 0.0 D-Dimer 898 Anion Gap Estim Creat Clear Calc Estimated GFR Random Glucose Lactic Acid 1.9 Calcium Total Bilirubin AST ALT Alkaline Phosphatase Troponin I High Sens B-Natriuretic Peptide Total Protein Albumin Urine Color Urine Appearance Urine pH Ur Specific [place] Urine Protein Urine Glucose (UA) Urine Ketones Urine Blood Urine Nitrite Ur Leukocyte Esterase Urine RBC Urine WBC Ur Squamous Epith Cells Urine Bacteria Influenza Type A (PCR) Influenza Type B (PCR) RSV RNA Qual (PCR) SARS-CoV-2 RNA (RT-PCR) 01/18/21 01/18/21 01/18/21 15:08 15:08 15:08 MCV MCH MCHC RDW Plt Count MPV Immature Gran % (Auto) Neut % (Auto) Lymph % (Auto) [place] % (Auto) Eos % (Auto) Baso % (Auto) Lymph # (Auto) [place] # (Auto) Eos # (Auto) Baso # (Auto) Abs Immat Gran (auto) Absolute Neuts (auto) Absolute Nucleated RBC Nucleated RBC % (auto) D-Dimer Anion Gap 13 Estim Creat Clear Calc 68.5 Estimated GFR > 60 Random Glucose 138 H Lactic Acid Calcium 8.6 Total Bilirubin 0.9 AST 11 D ALT 24 Alkaline Phosphatase 93 Troponin I High Sens 3.6 B-Natriuretic Peptide 111 H Total Protein 6.0 L Albumin 3.9 Urine Color Urine Appearance Urine pH Ur Specific [place] Urine Protein Urine Glucose (UA) Urine Ketones Urine Blood Urine Nitrite Ur Leukocyte Esterase Urine RBC Urine WBC Ur Squamous Epith Cells Urine Bacteria Influenza Type A (PCR) NEGATIVE Influenza Type B (PCR) NEGATIVE RSV RNA Qual (PCR) NEGATIVE SARS-CoV-2 RNA (RT-PCR) NEGATIVE 01/18/21 16:34 MCV MCH MCHC RDW Plt Count MPV Immature Gran % (Auto) Neut % (Auto) Lymph % (Auto) [place] % (Auto) Eos % (Auto) Baso % (Auto) Lymph # (Auto) [place] # (Auto) Eos # (Auto) Baso # (Auto) Abs Immat Gran (auto) Absolute Neuts (auto) Absolute Nucleated RBC Nucleated RBC % (auto) D-Dimer Anion Gap Estim Creat Clear Calc Estimated GFR Random Glucose Lactic Acid Calcium Total Bilirubin AST ALT Alkaline Phosphatase Troponin I High Sens B-Natriuretic Peptide Total Protein Albumin Urine Color YELLOW Urine Appearance CLEAR Urine pH 5.5 Ur Specific [place] <= 1.005 Urine Protein NEG Urine Glucose (UA) NEG Urine Ketones NEG Urine Blood TRACE Urine Nitrite NEG Ur Leukocyte Esterase NEG Urine RBC 1-4 Urine WBC 0-2 Ur Squamous Epith Cells NONE Urine Bacteria NONE Influenza Type A (PCR) Influenza Type B (PCR) RSV RNA Qual (PCR) SARS-CoV-2 RNA (RT-PCR) Imaging Radiologist's Impressions: Impressions Chest X-Ray 01/18/21 14:19 IMPRESSION: Hyperexpanded lungs with no acute pulmonary finding. Chest CTA 01/18/21 15:06 IMPRESSION: 1. No pulmonary embolism. 2. Severe emphysema. No acute pulmonary finding. VTE: negative Assessment and Plan (1) COPD (chronic obstructive pulmonary disease): Status: Acute (2) HTN (hypertension): Status: Acute (3) Triple negative malignant neoplasm of breast: Status: Acute 75F presented with sob COPD with exacerbation Was 90% on room air, oxygen supplementation for goal of 90-94% Solu-Medrol Bronchodilators Frequent PVCs Will check echo Recent port site infection Culture grew MSSA Continue cephalexin Can discontinue Levaquin Hypertension Amlodipine, lisinopril Hyperlipidemia Statin Triple negative breast cancer Outpatient follow-up MGUS Outpatient follow-up DVT prophylaxis- Xarelto DNR DNI Quality Stroke Does the patient have a stroke diagnosis?: No VTE Prior VTE?: No VTE Risk Level:: Medical - moderate - high VTE Device Contraindication: Treatment Not Indicated VTE Drug Contraindication: N/A - Med Ordered
--- NOTE | 2021-01-18 18:08 | PHA.MEDREC ---
Pharmacy Consult ? Medication Reconciliation Pharmacy has completed the medication reconciliation. Jannette DavisD
[2021-01-18 20:12] VITALS: BP 164/85; PULSE 84; RESP 17; TEMP 37.2; O2SAT 97
--- NOTE | 2021-01-18 20:20 | PC.NURSE ---
This RN attempted report x 1
[2021-01-18 22:16] VITALS: BP 167/80; PULSE 96; RESP 20; TEMP 37.1; O2SAT 93
[2021-01-18] MEDS: methylPREDNISolone Sod Succ 125 MG/2 ML VIAL 60 MG IVPUSH (22:34)
[2021-01-19] VITALS: BP 128/77; PULSE 82; RESP 18; TEMP 35.9; O2SAT 98
[2021-01-19] MEDS: 0.9 % Sodium Chloride Flush 3 ML SYRINGE IVFLUSH ×2 (02:16→08:50)
[2021-01-19 04:00] VITALS: BP 169/77; PULSE 85; RESP 20; TEMP 36; O2SAT 94
[2021-01-19 06:11] LABS: Hematocrit 28.4 % (37.0-47.0); Hemoglobin 9.9 g/dl (12.0-16.0); Mean Corpuscular HGB Conc 34.9 g/dl (31.0-35.0); Mean Corpuscular Hemoglobin 29.6 pg (27.0-33.0); Mean Platelet Volume 8.7 fL (9.4-12.3); Platelet Count 254 X10*3/uL (160-400); Red Blood Count 3.34 X10*6/uL (4.20-5.50); Red Cell Distribution Width 15.3 % (11.0-16.0); White Blood Count 4.8 X10*3/uL (4.8-10.8)
[2021-01-19 06:20] LABS: Anion Gap 14 (12-20); Blood Urea Nitrogen 11 mg/dL (9-16); Calcium 8.1 mg/dL (8.4-10.2); Carbon Dioxide 25 mmol/L (22-29); Chloride 101 mmol/L (96-108); Creatinine Clr Calc Pharmacy 76.8; Estimated Glomerular Filt Rate > 60; Glucose Fasting 177 mg/dL (60-99); Magnesium 1.6 mg/dL (1.6-2.6); Potassium 3.7 mmol/L (3.3-5.1); Sodium 136 mmol/L (135-145)
[2021-01-19 07:31] VITALS: BP 182/95; PULSE 81; RESP 19; TEMP 37; O2SAT 94
--- NOTE | 2021-01-19 08:00 | CA_ITS ---
Transthoracic Echocardiogram Patient (Last, First, Middle): Chayo Nevarez M Gender: Female Date of : 1945 Age: 75 Procedure Date: 01/19/2021 Procedure Type: Transthoracic Echocardiogram [place] [facility] [place]: 165.1 cm Weight: 74.84 kg BSA: 1.82 m2 Heart Rate: bpm BP: 169 / 77 mmHg Club Manager: VH/CP Referring MD: Nain Pacheco MD Die Repair: Augustus Peacock MD Symptoms: sob Study Quality: Fair ECG Rhythm: Sinus Conclusions: - 1. Moderately reduced LV ejection fraction with LVEF of 35-40% with grade 1 diastolic dysfunction 2. Normal cardiac valvular Doppler 3. Normal RV systolic pressure 4. Upper limits of normal ascending aortic size 5. No gross pericardial effusion Findings Left Ventricle Normal left ventricular cavity size. There is normal left ventricular wall thickness. The left ventricular systolic function is moderately decreased. The visually estimated ejection fraction is between 35-40%. There is moderate global hypokinesis. Spectral Doppler is indicative of an impaired relaxation filling pattern. E/E prime ratio is <8, consistent with normal filling pressures. Evidence suggests grade I (mild) diastolic dysfunction. Right Ventricle Normal right ventricular cavity size and systolic function. Atria The left atrium is normal in size. There is lipomatous hypertrophy of the interatrial septum. There is no evidence of interatrial shunt. The right atrium is normal in size. Aortic Valve The aortic valve structure and function is likely normal. There is no aortic valve stenosis. There is no aortic valve regurgitation. Mitral Valve Normal mitral valve structure and function. There is trace mitral valve regurgitation. There is no mitral valve stenosis. Pulmonic Valve The pulmonic valve was not well visualized. Tricuspid Valve Likely normal tricuspid valve structure and function. There is trace tricuspid valve regurgitation. The right ventricular systolic pressure is normal. Normal right atrial pressure. There is no evidence of pulmonary hypertension. Great Vessels The pulmonary artery was not well visualized. There is mild dilatation of the ascending aorta measuring 3.70 cm. Venous The inferior vena cava is normal in size and collapses greater than 50% with inspiration. Pericardium/Pleural There is no evidence of pericardial effusion. Prior Study Comparison Changes noted compared to prior study dated: 11/27/2020. LV systolic function is reduced Measurements 2D Linear Measurements IVSd: 1.05 0.6-0.9/0.6-1.0 cm LVIDd: 5.43 3.9-5.3/4.2-5.9 cm LVIDd Index: 2.98 2.4-3.2/2.2-3.1 cm/m2 LVIDs: 3.97 2.0-3.6 cm LVPWd: 1.09 0.7-1.1 cm Ao Root: 3.50 2.1-3.5 cm LA Diam: 3.70 2.7-3.8/3.0-4.0 cm LAIDs Index: 2.03 1.5-2.3 cm/m2 LV Mass: 284.64 67-162/88-224 g LV Mass Index: 156.40 43-95/49-115 g/m2 LVOT Diam: 2.50 3.0+(-)1.3 cm 2D Systolic Function EF 4C: 39.00 >55% EF 2C: 36.50 >55% EF BiP: 38.70 >55% Mitral Valve MV Pk E: 0.40 MV PK A: 0.99 MV Decel Time: 336.00 E/A: 0.40 E'Lateral: 4.03 E'Medial: 3.59 E/E' Med: 11.20 E/E' Lat: 10.00 PHT: 98.00 MVA PHT: 2.24 Decel [place]: 1.20 Aortic Valve AoV Pk Scout: 1.25 AoV Mn Scout: 0.88 AoV VTI: 0.26 AoV Pk Grad: 6.00 Aov Mn Grad: 4.00 ANNABELLE Cont.VTI: 3.62 LVOT LVOT Pk Scout: 0.83 LVOT Mn Scout: 0.58 LVOT VTI: 0.19 LVOT Pk Grad: 3.00 LVOT Mn Grad: 2.00 LVOT Diam: 2.50 LVOT Area: 4.91 Diastolic Function MV Pk E: 0.40 MV Pk A: 0.99 E/A: 0.40 E'Medial: 3.59 E/E' Med: 11.20 E' Laterial: 4.03 E/E' Lat: 10.00 Tricuspid Valve TR Pk Scout: 2.82 TR Pk Grad: 32.00 RA Press: 3.00 RVSP: 35.00 Great Vessels Aorta Ao Root-2D: 3.50 2.0-3.7 cm Ao Asc: 3.70 2.1-3.4 cm Pulmonary Valve PV Pk Scout: 0.71 Peak PV Grad: 2.00 Updated in Other Vendor System with Status of Final Augustus Peacock MD electronically signed on 01/19/2021 1:33:30 PM with status of Final
[2021-01-19] MEDS: methylPREDNISolone Sod Succ 125 MG/2 ML VIAL 60 MG IVPUSH (08:49)
[2021-01-19 08:50] VITALS: BP 182/95; PULSE 81
[2021-01-19] MEDS: Atorvastatin Calcium 40 MG TABLET PO (08:50)
[2021-01-19] MEDS: Calcium + Vitamin D 250 MG TABLET PO (08:50)
[2021-01-19] MEDS: amLODIPine Besylate 5 MG TABLET PO (08:50)
[2021-01-19] MEDS: Rivaroxaban 10 MG TABLET PO (08:50)
[2021-01-19] MEDS: lisinopriL 40 MG TABLET PO (08:50)
[2021-01-19] MEDS: cephALEXin 500 MG CAPSULE PO (09:09)
[2021-01-19 10:00] VITALS: BP 140/88; O2SAT 94
[2021-01-19 11:42] VITALS: BP 152/86; PULSE 104; RESP 19; TEMP 36.7; O2SAT 91
--- NOTE | 2021-01-19 11:47 | P.DS_ITS ---
DS: Providers Provider Date of Service: 01/19/21 Date of admission: 01/18/21 17:26 Primary care physician: Teo Guo [facility] DS: Diagnosis Discharge Diagnosis (1) COPD (chronic obstructive pulmonary disease): Status: Acute (2) HTN (hypertension): Status: Acute (3) Triple negative malignant neoplasm of breast: Status: Acute DS: Summary Hospital Course Hospital Course: Patient was admitted for COPD with exacerbation. She was given Solu-Medrol and bronchodilators. Her symptoms significantly improved faster than expected by the next day she was feeling much better close to baseline. She will be transitioned back to p.o. prednisone and discharged. Patient was noted to have frequent PVCs on telemetry, echo was done and report is pending, this should be followed up as outpatient. Time Spent with Patient Time attestation: Total time spent providing and/or coordinating discharge services: Discharge coordination time: Greater than 30 minutes Quality: Stroke Does the patient have a stroke diagnosis?: No Physical Exam Vital Signs: Vital Signs: Last Vital Signs Temp 98.0 F 01/19/21 11:42 Pulse 104 H 01/19/21 11:42 Resp 19 01/19/21 11:42 BP 152/86 H 01/19/21 11:42 Pulse Ox 91 L 01/19/21 11:42 Body Mass Index 27.4 General: AO X 3, no acute distress Resp: diminished, no accessory muscles used CVS: S1,S2,RRR GI: soft, non tender, non distended Neuro: motor grossly intact, alert Psych: appropriate affect, appropriate insight DS: Data Data Completed and Pending Labs on day of discharge: Laboratory Results - last 24 hr 01/18/21 01/18/21 01/18/21 15:08 15:08 15:08 WBC 5.9 RBC 3.84 L Hgb 11.3 L Hct 33.3 L MCV 86.7 MCH 29.4 MCHC 33.9 RDW 15.6 Plt Count 262 MPV 8.7 L Immature Gran % (Auto) 4.1 H Neut % (Auto) 85.4 H Lymph % (Auto) 4.6 L [place] % (Auto) 5.6 Eos % (Auto) 0.0 Baso % (Auto) 0.3 Lymph # (Auto) 0.3 L [place] # (Auto) 0.3 Eos # (Auto) 0.0 Baso # (Auto) 0.0 Abs Immat Gran (auto) 0.24 H Absolute Neuts (auto) 5.02 Absolute Nucleated RBC 0.000 Nucleated RBC % (auto) 0.0 D-Dimer 898 Sodium Potassium Chloride Carbon Dioxide Anion Gap BUN Creatinine Estim Creat Clear Calc Estimated GFR Random Glucose Fasting Glucose Lactic Acid 1.9 Calcium Magnesium Total Bilirubin AST ALT Alkaline Phosphatase Troponin I High Sens B-Natriuretic Peptide Total Protein Albumin Urine Color Urine Appearance Urine pH Ur Specific [place] Urine Protein Urine Glucose (UA) Urine Ketones Urine Blood Urine Nitrite Ur Leukocyte Esterase Urine RBC Urine WBC Ur Squamous Epith Cells Urine Bacteria Influenza Type A (PCR) Influenza Type B (PCR) RSV RNA Qual (PCR) SARS-CoV-2 RNA (RT-PCR) 01/18/21 01/18/21 01/18/21 15:08 15:08 15:08 WBC RBC Hgb Hct MCV MCH MCHC RDW Plt Count MPV Immature Gran % (Auto) Neut % (Auto) Lymph % (Auto) [place] % (Auto) Eos % (Auto) Baso % (Auto) Lymph # (Auto) [place] # (Auto) Eos # (Auto) Baso # (Auto) Abs Immat Gran (auto) Absolute Neuts (auto) Absolute Nucleated RBC Nucleated RBC % (auto) D-Dimer Sodium 138 Potassium 3.6 Chloride 102 Carbon Dioxide 27 Anion Gap 13 BUN 11 Creatinine 0.74 Estim Creat Clear Calc 68.5 Estimated GFR > 60 Random Glucose 138 H Fasting Glucose Lactic Acid Calcium 8.6 Magnesium Total Bilirubin 0.9 AST 11 D ALT 24 Alkaline Phosphatase 93 Troponin I High Sens 3.6 B-Natriuretic Peptide 111 H Total Protein 6.0 L Albumin 3.9 Urine Color Urine Appearance Urine pH Ur Specific [place] Urine Protein Urine Glucose (UA) Urine Ketones Urine Blood Urine Nitrite Ur Leukocyte Esterase Urine RBC Urine WBC Ur Squamous Epith Cells Urine Bacteria Influenza Type A (PCR) NEGATIVE Influenza Type B (PCR) NEGATIVE RSV RNA Qual (PCR) NEGATIVE SARS-CoV-2 RNA (RT-PCR) NEGATIVE 01/18/21 01/19/21 01/19/21 16:34 05:25 05:25 WBC 4.8 RBC 3.34 L Hgb 9.9 L Hct 28.4 L MCV 85.0 MCH 29.6 MCHC 34.9 RDW 15.3 Plt Count 254 MPV 8.7 L Immature Gran % (Auto) Neut % (Auto) Lymph % (Auto) [place] % (Auto) Eos % (Auto) Baso % (Auto) Lymph # (Auto) [place] # (Auto) Eos # (Auto) Baso # (Auto) Abs Immat Gran (auto) Absolute Neuts (auto) Absolute Nucleated RBC 0.000 Nucleated RBC % (auto) 0.0 D-Dimer Sodium 136 Potassium 3.7 Chloride 101 Carbon Dioxide 25 Anion Gap 14 BUN 11 Creatinine 0.66 Estim Creat Clear Calc 76.8 Estimated GFR > 60 Random Glucose Fasting Glucose 177 H Lactic Acid Calcium 8.1 L Magnesium 1.6 Total Bilirubin AST ALT Alkaline Phosphatase Troponin I High Sens B-Natriuretic Peptide Total Protein Albumin Urine Color YELLOW Urine Appearance CLEAR Urine pH 5.5 Ur Specific [place] <= 1.005 Urine Protein NEG Urine Glucose (UA) NEG Urine Ketones NEG Urine Blood TRACE Urine Nitrite NEG Ur Leukocyte Esterase NEG Urine RBC 1-4 Urine WBC 0-2 Ur Squamous Epith Cells NONE Urine Bacteria NONE Influenza Type A (PCR) Influenza Type B (PCR) RSV RNA Qual (PCR) SARS-CoV-2 RNA (RT-PCR) Discharge Plan Discharge Patient Disposition: Home, Self-Care Discharge Diagnosis: copd Referrals: Teo Guo 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[employer] [Primary Care Provider] - 1 Week Discharge Medications: Continued trazodone 100 mg tablet 100 mg PO BEDTIME Qty: 30 RF: 5 amlodipine 5 mg tablet 5 mg PO DAILY Qty: 90 RF: 1 atorvastatin 40 mg tablet 40 mg PO DAILY 90 Days Qty: 90 RF: 2 oxybutynin chloride 5 mg tablet 5 mg PO BID 30 Days Qty: 60 RF: 2 lisinopril 40 mg tablet 40 mg PO DAILY 90 Days Qty: 90 RF: 3 Trelegy Ellipta 100-62.5-25 mcg blister with device 1 puff PO DAILY RF: 0 ondansetron HCl [Zofran] 4 mg tablet 8 mg PO Q8H PRN (Reason: Nausea) RF: 0 prednisone 10 mg Tablet 30 mg PO DAILY Qty: 30 RF: 4 cephalexin 500 mg Capsule 500 mg PO Q8H Qty: 30 RF: 4 dexamethasone [Decadron] 4 mg Tablet 4 mg PO BID Qty: 100 RF: 4 calcium carbonate-vitamin D3 500 mg(1,250mg) -125 unit Tablet 1 tab PO DAILY RF: 0 acetaminophen 650 mg tablet extended release 650 mg PO Q8H PRN (Reason: pain) 30 Days Qty: 90 RF: 0 cetirizine [All Day Allergy (cetirizine)] 10 mg tablet 10 mg PO BID PRN (Reason: allergy symptoms) 30 Days Qty: 60 RF: 2 albuterol sulfate [Ventolin HFA] 90 mcg/actuation HFA aerosol inhaler 1 inh inhalation QID PRN (Reason: shortness of breath or wheezing) 30 Days Qty: 18 RF: 12 Discontinued levofloxacin 500 mg Tablet 500 mg PO Q24H Qty: 10 RF: 4 Discharge Orders: Discharge Order (Routine); Ordered 01/19/21 Ordered By: Nain Pacheco Diet: advance to usual diet Activity on Discharge: As tolerated Stand Alone Forms: Patient Portal Discharge page Care Plan Goals: recovery Health Concerns: copd Plan of Treatment: prednisone Assessment: see above
--- NOTE | 2021-01-19 12:20 | MHC.CM.PN ---
IMM FEMALE 75 DX COPD IS ADMITTED AND DISCHARGED TODAY. SHE IS INDEPENDENT ALL FUNCTIONAL MOBILITY. [facility] NO SERVICES, DTR PROVIDING TRANSPORT TO HOME.
[2021-01-19 15:08] LABS: MANUAL DIFF FLAG NO
[2021-01-19 15:12] LABS: Basophils Percent Auto 0.2 % (0-2); Imm Gran Abs Auto 0.23 X10*3/uL (0.00-0.03); Imm Gran Pct Auto 4.5 % (0.0-0.4); Lymphocytes Absolute Auto 0.3 X10*3/uL (1.2-4.9); Lymphocytes Percent Auto 5.3 % (20-40); Monocytes Absolute Auto 0.2 X10*3/uL (0.1-1.2)
== END 2021-01-19 13:08 | disposition home or self-care (01) | DRG 192 ==
LOC: HO.ED 17:04 → HO.EDOVER 17:36 → HO.S3 19:36
PROVIDERS: Admitting Provider Internal Medicine; Emergency Provider Emergency Medicine; PCP Nurse Practitioner Family; Visit Provider Internal Medicine
DX: J44.1 Chronic obstructive pulmonary disease with (acute) exacerbation (principal); C50.919 Malignant neoplasm of unspecified site of unspecified female breast; I10 Essential (primary) hypertension; E78.5 Hyperlipidemia, unspecified; I49.3 Ventricular premature depolarization; Z20.822 Contact with and (suspected) exposure to COVID-19; Z87.891 Personal history of nicotine dependence; Z79.899 Other long term (current) drug therapy; Z66 Do not resuscitate
CPT/HCPCS: 0241U; 36415; 71045; 71275; 80048; 80053; 81001; 83605; 83735; 83880; 84484; 85025; 85027; 85379; 87040; 93005; 93306; 94640; 94644; 99285; J2930; Q9967

== ENCOUNTER → 2021-01-21 14:54 | Outpatient (BNVA) | payer MEDICARE, SELFPAY | PROVIDERS: PCP Nurse Practitioner Family; Visit Provider Internal Medicine | DX: J44.9 Chronic obstructive pulmonary disease, unspecified (principal); J30.9 Allergic rhinitis, unspecified; R09.02 Hypoxemia | CPT/HCPCS: 99212 ==

== ENCOUNTER 2021-02-03 10:39 | Inpatient (IN) | payer MEDICARE, SELFPAY ==
[2021-02-03] VITALS (10 sets, daily range): BP systolic 120–159; BP diastolic 68–78; PULSE 87–118; RESP 18–30; TEMP 36.8; O2SAT 87–99; BMI 25.7
--- NOTE | ~2021-02-03 | XR_ITS ---
EXAMINATION: XR CHEST CLINICAL INFORMATION: Shortness of breath COMPARISON: 02/03/2021 TECHNIQUE: Frontal view of the chest was obtained. FINDINGS: Left IJ port catheter tip terminates in the SVC. Pulmonary emphysema is noted with hyperexpanded lungs and patchy hyperlucency in the upper lobes. Patchy airspace consolidation is present within the midlungs and lung bases, most notably at the lateral aspect of the right lung base. This airspace consolidation is slightly more pronounced as compared to prior. No pneumothorax or pleural effusion. Cardiac and mediastinal contours are unchanged. No acute osseous findings. Degenerative spondylosis in the thoracic spine. Bilateral acromioclavicular and glenohumeral osteoarthritis. XR/XR chest 1V IMPRESSION: 1. Slight worsening of the patchy multifocal airspace consolidation in the midlungs and lung bases 2. Pulmonary emphysema.
--- NOTE | ~2021-02-03 | US_ITS ---
EXAMINATION: US VENOUS ULTRASOUND WITH DOPPLER LOWER EXTREMITY, BILATERAL CLINICAL INFORMATION: Pulmonary emboli. COMPARISON: None TECHNIQUE: Ultrasound of the deep veins is performed from the hip to the calf with compression sonography and color and pulse Doppler assessment. Spectral analysis with color-flow imaging is performed. FINDINGS: RIGHT: There is normal venous compression and respiratory variation and augmented flow. The visualized common femoral vein, superficial femoral vein, profunda femoral vein, popliteal vein, and the trifurcation region shows no evidence of deep venous thrombosis. There is no significant popliteal fossa cyst. LEFT: There is normal venous compression and respiratory variation and augmented flow. The visualized common femoral vein, superficial femoral vein, profunda femoral vein, popliteal vein, and the trifurcation region shows no evidence of deep venous thrombosis. There is no significant popliteal fossa cyst. If the patient's symptoms persist, followup ultrasound in 5 days 7 days might be of value to exclude proximal propagation from a non-visualized calf vein. US/US venous duplex LE BI IMPRESSION: No DVT demonstrated in the bilateral lower extremity.
--- NOTE | ~2021-02-03 | XR_ITS ---
EXAMINATION: XR CHEST CLINICAL INFORMATION: SOB and cough. COMPARISON: Chest x-ray 01/18/2021 TECHNIQUE: Frontal view of the chest was obtained. FINDINGS: The lungs are well-expanded with patchy reticular interstitial changes in both midlungs and lower lobes and patchy consolidation right CP angle suggestive of developing interstitial pneumonitis. These findings are new since 01/18/2021. Heart size and pulmonary vascularity is normal. There is left central venous port with its tip in mid SVC.. XR/XR chest 1V IMPRESSION: Bilateral patchy reticular interstitial pneumonitis, new since previous chest x-ray 01/18/2021. There is a left central venous port recently inserted 12/16/2020 with its tip in mid SVC.
--- NOTE | ~2021-02-03 | CT_ITS ---
EXAMINATION: CT ANGIOGRAM OF THE CHEST WITH AND WITHOUT CONTRAST (CT PULMONARY ANGIOGRAM FOR PE) CLINICAL INFORMATION: Reason for Exam SOB, chemo patient, hypoxia COMPARISON: January 18, 2021 and studies dating back to March 14, 2018 TECHNIQUE: Prior to contrast administration, noncontrast localization images were obtained. Subsequently, multidetector volumetric imaging was performed from the thoracic inlet to below the diaphragms following the administration of 65 mL Omnipaque 350 intravenous contrast. No contrast reaction reported Sagittal, coronal, and MIP oblique sagittal reformatted images were obtained on the CT workstation, uploaded to PACS, and reviewed. This CT examination was performed using dose optimization techniques as appropriate, variously including the following: *Automated exposure control *Adjustment of mA and/or kV according to patient size (this includes techniques or standardized protocols for targeted exams where dose is matched to indication/reason for exam; i.e. extremities or head) *Use of iterative reconstruction technique Total exam dose-length product 318 mGy-cm FINDINGS: QUALITY OF STUDY/CONTRAST BOLUS: Satisfactory. PULMONARY ARTERIES: There is a subsegmental filling defects seen within the right lower lobe consistent with acute pulmonary artery embolus. THORACIC AORTA: No aneurysm or dissection. LUNG: There are severe changes of paraseptal and centrilobular emphysema seen. Since study of January 18, 2021 there has been development of bilateral peripheral airspace disease consistent with multifocal pneumonitis. No central bronchial occlusion is identified. No significant bronchial wall thickening is seen. PLEURA: No pleural effusion or pneumothorax. MEDIASTINUM: Normal heart size. No pericardial effusion. There is a stable 1.2 cm anterior mediastinal lymph node and there are other prominent mediastinal lymph nodes seen but not pathologically enlarged. No hilar lymphadenopathy is appreciated. No evidence of septal bowing or right heart strain. CHEST WALL/AXILLA: No axillary or internal mammary lymphadenopathy. Left chest port is seen with catheter tip just proximal to the confluence of the left innominate vein and superior vena cava. OSSEOUS STRUCTURES: No acute or suspicious osseous abnormality. Multilevel degenerative disc disease is seen. There is an approximately 50% anterior compression fracture of T7. UPPER ABDOMEN: Cholelithiasis is present. There is a 1.4 cm right adrenal gland nodule. There is a 1.2 cm left adrenal gland nodule. These are stable since study of March 14, 2018. No reflux of contrast into the hepatic veins to suggest elevated right heart pressures. CT/CT angio chest PE protocol IMPRESSION: Acute pulmonary artery embolus to subsegmental branch right lower lobe. Severe changes of emphysema. Bilateral development of peripheral airspace disease consistent with multifocal pneumonia. VTE: positive This critical result was discussed with Albina Dickens at 1:40 PM on February 03, 2021 and it was ascertained that the content and urgency of the report was understood at the time of direct communication.
--- NOTE | 2021-02-03 10:48 | ECG_ITS ---
Test Reason : sob Blood Pressure : / mmHG Vent. Rate : 105 BPM Atrial Rate : 105 BPM P-R Int : 130 ms QRS Dur : 076 ms QT Int : 306 ms P-R-T Axes : 079 036 138 degrees QTc Int : 404 ms Sinus tachycardia with occasional Premature ventricular complexes Nonspecific ST and T wave abnormality Abnormal ECG When compared with ECG of 18-JAN-2021 14:47, Nonspecific T wave abnormality now evident in Inferior leads T wave amplitude has decreased in Lateral leads Referred By: Albina Dickens Electronically Signed By:JACOBO CHATMAN MD
--- NOTE | 2021-02-03 10:55 | ED_ITS ---
HPI - SOB/Dyspnea General Chief Complaint: Dyspnea Stated Complaint: SOB X'S 3 DAYS,FULLY VACCINATED Time Seen by Provider: 02/03/21 10:48 Source: patient Mode of arrival: EMS Limitations: no limitations History of Present Illness HPI Narrative: 75 year old female with a history of COPD, HTN and a recent diagnosis of breast cancer currently getting chemotherapy presents to the ED with SOB, productive cough, chest pain and malaise X 3 days. Patient states she has been coughing up thick green sputum X3 days. Her SOB has been progressevly worsening. She reports substernal CP, sharp in nature, free of radiation. She also reports generalized malaise and weakness. She wears oxygen at home 1.5 L nasal cannula. Patient is a former smoker, no longer smokes quit 25 years ago. Denies fevers, chills, vomiting, nausea, abdominal pain, recent sick contacts. Currently vaccinated against COVID-19. MD elicited complaint: shortness of breath, cough and chest pain Pertinent past history: COPD and other (breast cancer currently on chemo ) Onset (ago): day(s) (3) Context: recent illness (seen here on 01/18 for COPD exacerbation ) Timing: constant Exacerbating factors: exertion, movement and coughing Relieving factors: nothing Known history of: COPD Associated symptoms: chest pain, cough, sputum production and orthopnea Treatment prior to arrival: oxygen (2L) Related Data Home Medications Medication Instructions Recorded Confirmed fluticasone fur. 100 mcg-umeclid 1 puff PO DAILY 11/17/20 02/03/21 62.5 mcg-vilant 25 mcg inhalat.powder (Trelegy Ellipta) ondansetron HCl 4 mg tablet 8 mg PO Q8H PRN 12/31/20 02/03/21 (Zofran) calcium carbonate 500 mg (1,250 1 tab PO DAILY 01/18/21 02/03/21 mg)-vitamin D3 125 unit tablet Probiotic 1 cap PO DAILY 02/03/21 02/03/21 acetaminophen 650 mg 650 mg PO BID 02/03/21 02/03/21 tablet,extended release chlorthalidone 25 mg tablet 1 tab PO DAILY 02/03/21 02/03/21 loperamide 2 mg capsule 2 mg PO Q4H PRN 02/03/21 02/03/21 Previous Rx's Medication Instructions Recorded albuterol sulfate 90 mcg/actuation 1 inh INHALATION QID PRN 30 Days 01/21/20 aerosol inhaler (Ventolin HFA) #18 g trazodone 100 mg tablet 100 mg PO BEDTIME #30 tab 08/04/20 amlodipine 5 mg tablet 5 mg PO DAILY #90 tab 10/19/20 cetirizine 10 mg tablet (All Day 10 mg PO BID PRN 30 Days #60 tab 12/09/20 Allergy (cetirizine)) dexamethasone 4 mg tablet 4 mg PO BID #100 tab 12/10/20 (Decadron) atorvastatin 40 mg tablet 40 mg PO DAILY 90 Days #90 tab 12/24/20 oxybutynin chloride 5 mg tablet 5 mg PO BID 30 Days #60 tab 12/24/20 lisinopril 40 mg tablet 40 mg PO DAILY 90 Days #90 tab 01/12/21 prednisone 10 mg tablet 30 mg PO DAILY #30 tab 01/15/21 albuterol sulfate 1.25 mg/3 mL 2.5 mg (6 mL) INHALATION Q4-6H PRN 01/21/21 solution for nebulization 30 Days #90 ml Allergies Allergy/AdvReac Type Severity Reaction Status Date / Time hydrochlorothiazide Allergy Unknown hives Verified 01/21/21 15:05 Review of Systems Review of Systems: Constitutional : No Weight loss, No Fever, No Chills, No Fatigue, No Malaise ENT/Mouth : No sore throat, No Rhinorrhea Eyes: No Eye Pain, No Swelling, No Redness Cardiovascular : No Chest Pain, + SOB, + Dyspnea on Exertion, + Orthopnea, No Edema, No Palpitations Respiratory : + Cough, + Sputum, No Wheezing Gastrointestinal : No Nausea, No Vomiting, No Diarrhea, No Constipation, No abdominal Pain, No Hematochezia, No Melena Genitourinary : No Dysuria, No Urinary Frequency, No Hematuria, Musculoskeletal : No joint pain, No Myalgias, No Joint Swelling Skin : No Skin Lesions, No rash Neuro : No Weakness, No Numbness, No Dizziness, No Headache All other systems reviewed and are negative [facility] Past Medical History Medical History (Updated 02/03/21 @ 14:41 by LESTER Sandoval) Allergies Anxiety Bladder prolapse Chondrocalcinosis COPD (chronic obstructive pulmonary disease) COPD (chronic obstructive pulmonary disease) Dyslipidemia HTN (hypertension) Hypoxemia Mixed incontinence urge and stress Monoclonal gammopathies Osteoporosis Physical exam Pulmonary nodules Surgical History History of section Family History Family History Father No problems noted. Mother HTN (hypertension) CVD (cardiovascular disease) Stroke Brother No problems noted. Sister No problems noted. Son No problems noted. Daughter No problems noted. Other Substance use disorder Social History Social History Household Members: Children Housing: Other (mobile home ) Housing Other:: mobile home Do you presently have visiting nurse or other home services: No Alcohol intake: never Patient Tobacco Use Status: Former Tobacco user Years Smoked: 20 years ago e-Cigarette/Vaping Use: Never Used Second Hand Smoke Exposure: Yes Advance Directives Date on File: 12/24/20 service: No Current occupational status: retired Current occupation: works as [employer] Current occupational exposures/hazards: No Physical Exam Vital Signs: Vital Signs: Last Vital Signs Temp 98.3 F 02/03/21 10:51 Pulse 93 02/03/21 15:03 Resp 25 H 02/03/21 15:03 BP 129/77 02/03/21 15:03 Pulse Ox 96 02/03/21 15:03 Body Mass Index 25.7 Appearance: Alert.? Oriented X3.? + mild respiratory distress + accessory muscle use and tracheal tugging +labored breathing + speaking in full sentences due to SOB Head: Normocephalic, atraumatic, no step-offs or deformities Eyes: Pupils equal, round and reactive to light.? ENT: Pharynx normal.? Neck: Normal inspection.? Neck supple.? CVS: Normal heart rate and rhythm.? Pulses normal.? Respiratory: No respiratory distress.?+ diminished breath sounds b/l with crackles right worse than left side. Abdomen: Soft and nontender.? Skin: Skin warm and dry.? Normal skin color.? Normal skin turgor.? Extremities: 1+ bilateral pitting edema.? No calf ttp. 5/5 strength to bilateral upper and lower extremities Back: No midline tenderness, no C-spine tenderness, full range of motion, no CVA tenderness bilaterally Neuro: Oriented X 3.? No motor deficit.? No sensory deficit. Course Reevaluation(s) Reevaluation #1: Baseline anemia noted. Platelets low 141, not patients baseline. Sodium 131, noted to be low in the past. BUN 22, patient slightly dry due to poor PO intake. Calcium low 7.8 and albumin 3.2 which could explain patients lower extremity edema. Trop 21.4, repeat ordered for 1:50 pm. D-dimer pending. CXR pending. COVID negative. Time: 11:27 Reevaluation #2: CXray show sbilateral patchy reticular interstitial pneumonitis. D-dimer higher than previous, patient remains SOB. At this time CTA will be ordred to r/o PE. Time: 12:03 Reevaluation #3: Patient does not appear to be fluid over loaded. Lactic 2.3 fluids ordered at this time. Time: 12:23 Additional Reevaluation(s): 1345 Spoke to reports a small PE in RLL, subsegmental. Bilateral peripheral airspace disease in all lobes. Patient on a venti mask she desaturated to 85% on 4L she is now on a ventimask 96%. Heparin will be initiated. Hospitalist will be reached out to for admission. Dr. Mane reports Dr. Nevarez will be admitting patient. MDM - SOB/Dyspnea MDM Narrative Medical decision making narrative: 1048 75 year old female with a history of COPD, HTN and a recent diagnosis of breast cancer currently getting chemotherapy presents to the ED with SOB, productive cough, chest pain and malaise X 3 days. Patient a former smoker. Vaccinated against COVID-19. Denies fevers, chills, abodminal pain Upon physical examination patient is in mild respiratory distress, speaking in short sentences. She was initially 86% on RA,I put her on 2L NC and she was 90%. Increased work of breathing with accessory muscle use noted and tracheal tuggin g. Diminished lung sounds throughout all lung bueno, crackles noted b/l worse on right. A rapid regular rythem was noted on exam, likely sinus tachycardia rate around 110. No focal neuro deficits noted. 5/5 strength to upper and lower extremities. 2+ pulses equal and bilateral. -rich sign and no calf tenderness. 1+ pitting edema to lower extremities. Plan is to obtain basic labs, lactic, mag, culture, chest xray, ekg, trop, d- dimer, COVID, UA. Will rule out ACS, PE, COPD exacerbation, PNA. At this time infection is suspected. Empiric antibiotics will be administered, double coverage since patient is in an immunocompromised state. And a sepsis focus exam was done. Will hold on fluids at this time to ensure that patient is not fluid overloaded. Will start fluids after Xray results. Medical Records Attestation: I reviewed the patient's medical records. Lab Data Attestation: I reviewed the patient's lab results. Result diagrams: 02/03/21 10:54 02/03/21 10:54 Labs: Lab Results 02/03/21 02/03/21 02/03/21 Range/Units 10:54 10:54 10:54 WBC 9.2 (4.8-10.8) X10*3/uL RBC 3.11 L (4.20-5.50) X10*6/uL Hgb 9.4 L (12.0-16.0) g/dl Hct 26.9 L (37.0-47.0) % MCV 86.5 (80.0-98.0) fL MCH 30.2 (27.0-33.0) pg MCHC 34.9 (31.0-35.0) g/dl RDW 18.6 H (11.0-16.0) % Plt Count 141 L D (160-400) X10*3/uL MPV 9.6 (9.4-12.3) fL Immature Gran % (Auto) Cancelled Neut % (Auto) Cancelled Lymph % (Auto) Cancelled [place] % (Auto) Cancelled Eos % (Auto) Cancelled Baso % (Auto) Cancelled Lymph # (Auto) Cancelled [place] # (Auto) Cancelled Eos # (Auto) Cancelled Baso # (Auto) Cancelled Abs Immat Gran (auto) Cancelled Absolute Neuts (auto) Cancelled Absolute Nucleated RBC 0.000 (0.0-0.012) X10*3/uL Nucleated RBC % (auto) 0.0 (0.0-0.2) /100WBC Neutrophils % (Manual) 80 H (45-73) % Band Neutrophils % 15 H (3-5) % Lymphocytes % (Manual) 3 L (20-40) % Monocytes % (Manual) 1 L (2-11) % Metamyelocytes % 1 % Abs Neuts (Manual) 8.7 H (2.0-8.3) X10*3/uL Lymphocytes # (Manual) 0.3 L (1.2-4.9) X10*3/uL Monocytes # (Manual) 0.1 (0.1-1.2) X10*3/uL Metamyelocytes # 0.1 X10*3/uL Platelet Estimate SLIGHTLY DECREASED (NORMAL) Plt Morphology Comment NORMAL RBC Morphology NOTED Polychromasia 1+ (0-2) /OIF Hypochromasia 1+ (5-14) /OIF Microcytosis 1+ (5-14) /OIF Macrocytosis 1+ (5-14) /OIF [place] Cells 1+ (0-2) /OIF PT (9.9-13.0) SEC INR (0.9-1.1) APTT (24.1-38.0) SEC D-Dimer High Sensitivty NG/ML Sodium 131 L (135-145) mmol/L Potassium 3.5 (3.3-5.1) mmol/L Chloride 95 L (96-108) mmol/L Carbon Dioxide 25 (22-29) mmol/L Anion Gap 15 (12-20) BUN 22 H D (9-16) mg/dL Creatinine 0.79 (0.5-1.4) mg/dL Estim Creat Clear Calc 60.1 Estimated GFR > 60 Random Glucose 246 H (60-115) mg/dL Lactic Acid (0.5-2.0) mmol/L Lactic Acid Fup @ 2Hr (0.5-2.0) mmol/L Calcium 7.8 L D (8.4-10.2) mg/dL Magnesium 1.9 (1.6-2.6) mg/dL Total Bilirubin 2.5 H (0.0-1.0) mg/dL AST 20 (5-31) U/L ALT 25 (0-31) U/L Alkaline Phosphatase 86 (39-117) U/L Troponin I High Sens 21.4 H* D (<3.5-17.0) ng/L B-Natriuretic Peptide (<100) pg/mL Total Protein 5.2 L (6.5-8.0) g/dL Albumin 3.2 L (3.5-5.0) g/dL COVID-19 (JAYASHREE) (Negative) COVID-19 Clin Com Influenza Type A (PCR) (Negative) Influenza Type B (PCR) (Negative) RSV RNA Qual (PCR) (Negative) SARS-CoV-2 RNA (RT-PCR) (Negative) 02/03/21 02/03/21 02/03/21 Range/Units 10:54 11:31 11:31 WBC (4.8-10.8) X10*3/uL RBC (4.20-5.50) X10*6/uL Hgb (12.0-16.0) g/dl Hct (37.0-47.0) % MCV (80.0-98.0) fL MCH (27.0-33.0) pg MCHC (31.0-35.0) g/dl RDW (11.0-16.0) % Plt Count (160-400) X10*3/uL MPV (9.4-12.3) fL Immature Gran % (Auto) Neut % (Auto) Lymph % (Auto) [place] % (Auto) Eos % (Auto) Baso % (Auto) Lymph # (Auto) [place] # (Auto) Eos # (Auto) Baso # (Auto) Abs Immat Gran (auto) Absolute Neuts (auto) Absolute Nucleated RBC (0.0-0.012) X10*3/uL Nucleated RBC % (auto) (0.0-0.2) /100WBC Neutrophils % (Manual) (45-73) % Band Neutrophils % (3-5) % Lymphocytes % (Manual) (20-40) % Monocytes % (Manual) (2-11) % Metamyelocytes % % Abs Neuts (Manual) (2.0-8.3) X10*3/uL Lymphocytes # (Manual) (1.2-4.9) X10*3/uL Monocytes # (Manual) (0.1-1.2) X10*3/uL Metamyelocytes # X10*3/uL Platelet Estimate (NORMAL) Plt Morphology Comment RBC Morphology Polychromasia /OIF Hypochromasia /OIF Microcytosis /OIF Macrocytosis /OIF [place] Cells /OIF PT (9.9-13.0) SEC INR (0.9-1.1) APTT (24.1-38.0) SEC D-Dimer High Sensitivty NG/ML Sodium (135-145) mmol/L Potassium (3.3-5.1) mmol/L Chloride (96-108) mmol/L Carbon Dioxide (22-29) mmol/L Anion Gap (12-20) BUN (9-16) mg/dL Creatinine (0.5-1.4) mg/dL Estim Creat Clear Calc Estimated GFR Random Glucose (60-115) mg/dL Lactic Acid 2.3 H* (0.5-2.0) mmol/L Lactic Acid Fup @ 2Hr (0.5-2.0) mmol/L Calcium (8.4-10.2) mg/dL Magnesium (1.6-2.6) mg/dL Total Bilirubin (0.0-1.0) mg/dL AST (5-31) U/L ALT (0-31) U/L Alkaline Phosphatase (39-117) U/L Troponin I High Sens (<3.5-17.0) ng/L B-Natriuretic Peptide 75 (<100) pg/mL Total Protein (6.5-8.0) g/dL Albumin (3.5-5.0) g/dL COVID-19 (JAYASHREE) Negative (Negative) COVID-19 Clin Com See Note Influenza Type A (PCR) (Negative) Influenza Type B (PCR) (Negative) RSV RNA Qual (PCR) (Negative) SARS-CoV-2 RNA (RT-PCR) (Negative) 02/03/21 02/03/21 02/03/21 Range/Units 11:31 13:59 13:59 WBC (4.8-10.8) X10*3/uL RBC (4.20-5.50) X10*6/uL Hgb (12.0-16.0) g/dl Hct (37.0-47.0) % MCV (80.0-98.0) fL MCH (27.0-33.0) pg MCHC (31.0-35.0) g/dl RDW (11.0-16.0) % Plt Count (160-400) X10*3/uL MPV (9.4-12.3) fL Immature Gran % (Auto) Neut % (Auto) Lymph % (Auto) [place] % (Auto) Eos % (Auto) Baso % (Auto) Lymph # (Auto) [place] # (Auto) Eos # (Auto) Baso # (Auto) Abs Immat Gran (auto) Absolute Neuts (auto) Absolute Nucleated RBC (0.0-0.012) X10*3/uL Nucleated RBC % (auto) (0.0-0.2) /100WBC Neutrophils % (Manual) (45-73) % Band Neutrophils % (3-5) % Lymphocytes % (Manual) (20-40) % Monocytes % (Manual) (2-11) % Metamyelocytes % % Abs Neuts (Manual) (2.0-8.3) X10*3/uL Lymphocytes # (Manual) (1.2-4.9) X10*3/uL Monocytes # (Manual) (0.1-1.2) X10*3/uL Metamyelocytes # X10*3/uL Platelet Estimate (NORMAL) Plt Morphology Comment RBC Morphology Polychromasia /OIF Hypochromasia /OIF Microcytosis /OIF Macrocytosis /OIF [place] Cells /OIF PT 12.8 (9.9-13.0) SEC INR 1.1 (0.9-1.1) APTT 25.3 (24.1-38.0) SEC D-Dimer High Sensitivty 1962 NG/ML Sodium (135-145) mmol/L Potassium (3.3-5.1) mmol/L Chloride (96-108) mmol/L Carbon Dioxide (22-29) mmol/L Anion Gap (12-20) BUN (9-16) mg/dL Creatinine (0.5-1.4) mg/dL Estim Creat Clear Calc Estimated GFR Random Glucose (60-115) mg/dL Lactic Acid (0.5-2.0) mmol/L Lactic Acid Fup @ 2Hr 3.4 H* (0.5-2.0) mmol/L Calcium (8.4-10.2) mg/dL Magnesium (1.6-2.6) mg/dL Total Bilirubin (0.0-1.0) mg/dL AST (5-31) U/L ALT (0-31) U/L Alkaline Phosphatase (39-117) U/L Troponin I High Sens 17.2 H* (<3.5-17.0) ng/L B-Natriuretic Peptide (<100) pg/mL Total Protein (6.5-8.0) g/dL Albumin (3.5-5.0) g/dL COVID-19 (JAYASHREE) (Negative) COVID-19 Clin Com Influenza Type A (PCR) (Negative) Influenza Type B (PCR) (Negative) RSV RNA Qual (PCR) (Negative) SARS-CoV-2 RNA (RT-PCR) (Negative) 02/03/21 Range/Units 13:59 WBC (4.8-10.8) X10*3/uL RBC (4.20-5.50) X10*6/uL Hgb (12.0-16.0) g/dl Hct (37.0-47.0) % MCV (80.0-98.0) fL MCH (27.0-33.0) pg MCHC (31.0-35.0) g/dl RDW (11.0-16.0) % Plt Count (160-400) X10*3/uL MPV (9.4-12.3) fL Immature Gran % (Auto) Neut % (Auto) Lymph % (Auto) [place] % (Auto) Eos % (Auto) Baso % (Auto) Lymph # (Auto) [place] # (Auto) Eos # (Auto) Baso # (Auto) Abs Immat Gran (auto) Absolute Neuts (auto) Absolute Nucleated RBC (0.0-0.012) X10*3/uL Nucleated RBC % (auto) (0.0-0.2) /100WBC Neutrophils % (Manual) (45-73) % Band Neutrophils % (3-5) % Lymphocytes % (Manual) (20-40) % Monocytes % (Manual) (2-11) % Metamyelocytes % % Abs Neuts (Manual) (2.0-8.3) X10*3/uL Lymphocytes # (Manual) (1.2-4.9) X10*3/uL Monocytes # (Manual) (0.1-1.2) X10*3/uL Metamyelocytes # X10*3/uL Platelet Estimate (NORMAL) Plt Morphology Comment RBC Morphology Polychromasia /OIF Hypochromasia /OIF Microcytosis /OIF Macrocytosis /OIF [place] Cells /OIF PT (9.9-13.0) SEC INR (0.9-1.1) APTT (24.1-38.0) SEC D-Dimer High Sensitivty NG/ML Sodium (135-145) mmol/L Potassium (3.3-5.1) mmol/L Chloride (96-108) mmol/L Carbon Dioxide (22-29) mmol/L Anion Gap (12-20) BUN (9-16) mg/dL Creatinine (0.5-1.4) mg/dL Estim Creat Clear Calc Estimated GFR Random Glucose (60-115) mg/dL Lactic Acid (0.5-2.0) mmol/L Lactic Acid Fup @ 2Hr (0.5-2.0) mmol/L Calcium (8.4-10.2) mg/dL Magnesium (1.6-2.6) mg/dL Total Bilirubin (0.0-1.0) mg/dL AST (5-31) U/L ALT (0-31) U/L Alkaline Phosphatase (39-117) U/L Troponin I High Sens (<3.5-17.0) ng/L B-Natriuretic Peptide (<100) pg/mL Total Protein (6.5-8.0) g/dL Albumin (3.5-5.0) g/dL COVID-19 (JAYASHREE) (Negative) COVID-19 Clin Com Influenza Type A (PCR) NEGATIVE (Negative) Influenza Type B (PCR) NEGATIVE (Negative) RSV RNA Qual (PCR) NEGATIVE (Negative) SARS-CoV-2 RNA (RT-PCR) NEGATIVE (Negative) Imaging Data Chest x-ray: Attestation: I personally reviewed and interpreted this imaging study as follows: Radiologist's impression: FINDINGS: The lungs are well-expanded with patchy reticular interstitial changes in both midlungs and lower lobes and patchy consolidation right CP angle suggestive of developing interstitial pneumonitis. These findings are new since 01/18/2021. Heart size and pulmonary vascularity is normal. There is left central venous port with its tip in mid SVC.. XR/XR chest 1V IMPRESSION: Bilateral patchy reticular interstitial pneumonitis, new since previous chest x-ray 01/18/2021. There is a left central venous port recently inserted 12/16/2020 with its tip in mid SVC. ECG Data Attestation: I personally reviewed and interpreted this ECG as follows: ECG interpretation date: 02/03/21 ECG interpretation time: 11:19 Prior ECG tracings: available for review Interpretation: Ventricular rate 109, OK normal, QRS normal, QT/QTC normal. EKG shows sinus tachycardia with periodic PVCs. T wave inversions noted in inferior and lateral leads. No ILIANA no acute ischemia. New t wave inversions when compared to 01/18/2021 Critical Care Time Critical Care Time Critical Care Time: Yes Total Critical Care Time: 45 Attestation: I attest to this time spent taking care of the patient Discharge Plan Discharge Clinical Impression: COPD exacerbation, Shortness of breath, Pulmonary embolism Patient Disposition: Admitted As Inpatient
[2021-02-03] MEDS: methylPREDNISolone Sod Succ 125 MG/2 ML VIAL IVPUSH (10:58)
[2021-02-03] MEDS: Magnesium Sulfate/H2O 2 GM/50 ML PIGGYBACK IV (11:01)
[2021-02-03] MEDS: Albuterol Sulfate (0.083%) 2.5 MG/3 ML VIAL.NEB 10 MG INHALE (11:01)
[2021-02-03 11:05] LABS: Hematocrit 26.9 % (37.0-47.0); Hemoglobin 9.4 g/dl (12.0-16.0); Mean Corpuscular HGB Conc 34.9 g/dl (31.0-35.0); Mean Corpuscular Hemoglobin 30.2 pg (27.0-33.0); Mean Corpuscular Volume 86.5 fL (80.0-98.0); Mean Platelet Volume 9.6 fL (9.4-12.3); Platelet Count 141 X10*3/uL (160-400); Red Blood Count 3.11 X10*6/uL (4.20-5.50); Red Cell Distribution Width 18.6 % (11.0-16.0); White Blood Count 9.2 X10*3/uL (4.8-10.8)
[2021-02-03 11:16] LABS: Alanine Aminotransferase 25 U/L (0-31); Albumin Level 3.2 g/dL (3.5-5.0); Alkaline Phosphatase 86 U/L (39-117); Anion Gap 15 (12-20); Aspartate Amino Transferase 20 U/L (5-31); Bilirubin Total 2.5 mg/dL (0.0-1.0); Blood Urea Nitrogen 22 mg/dL (9-16); Calcium 7.8 mg/dL (8.4-10.2); Carbon Dioxide 25 mmol/L (22-29); Chloride 95 mmol/L (96-108); Creatinine Clr Calc Pharmacy 60.1; Estimated Glomerular Filt Rate > 60; Glucose Random 246 mg/dL (60-115); Magnesium 1.9 mg/dL (1.6-2.6); Potassium 3.5 mmol/L (3.3-5.1); Sodium 131 mmol/L (135-145); Total Protein 5.2 g/dL (6.5-8.0)
[2021-02-03 11:28] LABS: COVID-19 Test Negative (Negative)
[2021-02-03 11:31] LABS: Troponin-I High Sensitivity 21.4 ng/L (<3.5-17.0)
[2021-02-03] MEDS: cefTRIAXone sodium 1 GM in 0.9 % Sodium Chloride 50 ML IV (11:34)
[2021-02-03 11:35] LABS: Band Neutrophils Percent 15 % (3-5); Lymphocytes Absolute Manual 0.3 X10*3/uL (1.2-4.9); Lymphocytes Percent Manual 3 % (20-40); Metamyelocytes Absolute 0.1 X10*3/uL; Metamyelocytes Percent 1 %; Monocytes Absolute Manual 0.1 X10*3/uL (0.1-1.2); Monocytes Percent Manual 1 % (2-11); Neutrophils Absolute Manual 8.7 X10*3/uL (2.0-8.3); Neutrophils Percent Manual 80 % (45-73)
[2021-02-03 11:36] LABS: Burr Cells 1+ (0-2) /OIF; Macrocytosis 1+ (5-14) /OIF; Microcytosis 1+ (5-14) /OIF; RBC Morphology NOTED
[2021-02-03 11:37] LABS: Hypochromasia 1+ (5-14) /OIF; Platelet Estimate SLIGHTLY DECREASED (NORMAL); Platelet Morphology Comment NORMAL; Polychromasia 1+ (0-2) /OIF
[2021-02-03 11:49] LABS: D Dimer High Sensitivity 1962 NG/ML
[2021-02-03 12:08] LABS: B Type Natriuretic Peptide 75 pg/mL (<100)
[2021-02-03 12:23] LABS: Lactic Acid 2.3 mmol/L (0.5-2.0)
--- NOTE | 2021-02-03 12:34 | PHA.MEDREC ---
Pharmacy Consult ? Medication Reconciliation Pharmacy has completed the medication reconciliation. Patient was able to confirm all medications on the list. Patient was just discharge from her 01/18/2021. The only medication patient was unsure of was chlorthalidone which was prescribed by Teo Guo at last PCP visit. Patient reports that she is suppose to start Decadron tomorrow if she is able to go to chemo. Dinora Borden, RyanD
[2021-02-03] MEDS: Azithromycin 500 MG in 0.9 % Sodium Chloride 250 ML 125 MG IV (12:57)
[2021-02-03] MEDS: 0.9 % Sodium Chloride 1,000 ML 999 ML IV ×2 (12:58→15:03)
[2021-02-03] MEDS: iohexoL 350 MG/ML 100 ML INFUS..BTL IV (13:00)
[2021-02-03 13:38] LABS: Reflex Lactate? Lactic Acid Added
[2021-02-03 14:16] LABS: INTERNATIONAL NORM RATIO 1.1 (0.9-1.1); Prothrombin Time 12.8 SEC (9.9-13.0)
[2021-02-03 14:18] LABS: Partial Thromboplastin Time 25.3 SEC (24.1-38.0)
[2021-02-03 14:29] LABS: ~Lactic Acid-LAB USE ONLY 3.4 mmol/L (0.5-2.0)
[2021-02-03] MEDS: Heparin Sodium,Porcine 5,000 UNIT/ML VIAL 5400 UNIT IVPUSH (14:42)
[2021-02-03] MEDS: Heparin Sodium,Porcine/1/2NS 25,000 UNIT/250 ML IV.SOLN 9.53 UNIT IVCONT (14:44)
[2021-02-03 14:52] LABS: Influenza A PCR NEGATIVE (Negative); Influenza B PCR NEGATIVE (Negative); Resp Syncy Virus RNA Qual PCR NEGATIVE (Negative); SARS COV2 PCR INHOUSE NEGATIVE (Negative); Troponin-I High Sensitivity 17.2 ng/L (<3.5-17.0)
[2021-02-03 16:12] LABS: Reflex Lactate? 2 Y
--- NOTE | 2021-02-03 16:15 | PM.IMHP ---
History of Present Illness Date of Service: 02/03/21 Chief Complaint: Shortness of breath 75 year female with history of triple negative breast cancer diagnosed in October of this year and is presently under chemotherapy, she was admitted on January 18 and discharged the next day for COPD exacerbation, other signicant past history as noted below. She presents on this occasion withf with sortness of breath with SOB, productive cough, chest pain and malaise X 3 days. She has productive cough with thick green sputum X3 days. Shortness is being worsening espcially with exertion. she describes no fever. Work up in ED with chest CT has shown both bilater pneumonia and right sidedl PE, she is on heparin drip, Ceftriaxone is given for pneumo Review of Systems Review of Systems: Gen: no fever Resp: + sob, + cough CV: no chest, no GONZALEZ, no leg edema GI: No n/v, no abd pain Neuro: No confusion Yes all other systems are reviewed and are negative [facility] Medical History (Updated 02/13/21 @ 01:13 by LESTER Cooper) Allergies Anxiety Bladder prolapse Chondrocalcinosis COPD (chronic obstructive pulmonary disease) COPD (chronic obstructive pulmonary disease) Dyslipidemia HTN (hypertension) Hypoxemia Mixed incontinence urge and stress Monoclonal gammopathies Osteoporosis Physical exam Pulmonary nodules Family History Father No problems noted. Mother HTN (hypertension) CVD (cardiovascular disease) Stroke Brother No problems noted. Sister No problems noted. Son No problems noted. Daughter No problems noted. Other Substance use disorder Surgical History History of section Social History Household Members: Family Housing: Other Housing Other:: Mobile Home Do you presently have visiting nurse or other home services: No Alcohol intake: never Patient Tobacco Use Status: Former Tobacco user Years Smoked: 20 years ago e-Cigarette/Vaping Use: Never Used Second Hand Smoke Exposure: Yes Use of substances other than those prescribed or required for medical reasons: No Have you been hit, kicked, punched, or otherwise hurt by someone within the past year? If so, by whom?: No Do you feel safe in your current relationship?: No Current Relationship Is there a partner from a previous relationship who is making you feel unsafe now?: No Are you made to feel afraid or neglected: No Spiritual Healthcare Practices: none per patient Hindu Healthcare Practices: none per patient Cultural Healthcare Practices: none per patient Advance Directives: Yes Advance Directives on File: Yes Advance Directives Date on File: 12/24/20 Do you have thoughts of harming others: None Do you have a plan to hurt others: No Plan Recently lost weight without trying: Unsure Eating poorly because of decreased appetite: Yes Nutrition Risks: No Nutritional Risk Patient : No : No Poor oral hygiene: No service: No Current occupational status: retired 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 Current occupational exposures/hazards: No Meds Allergies Allergy/AdvReac Type Severity Reaction Status Date / Time hydrochlorothiazide Allergy Unknown hives Verified 01/21/21 15:05 Active Medications: Current Medications Heparin Sodium (Porcine) (Heparin Sodium,Porcine 5,000 Unit/Ml Vial) 2,700 unit 40 unit/kg (2700 unit) IVPUSH PROTOCOL BOLUS PRN; Protocol PRN Reason: 40 unit/kg - Heparin Protocol Heparin Sodium (Porcine) (Heparin Sodium,Porcine 5,000 Unit/Ml Vial) 5,400 unit 80 unit/kg (5400 unit) IVPUSH PROTOCOL BOLUS PRN; Protocol PRN Reason: 80 unit/kg - Heparin Protocol Heparin Sodium/Sodium Chloride () 25,000 unit in 250 mls @ 0 mls/hr IVCONT .Q0M [facility]; Protocol Last Admin: 02/03/21 14:44 Dose: 14 units/kg/hr, 9.53 mls/hr Documented by: Pharmacy Consult (Consult Rx Perform Med Rec) 1 each MISCELLANE ONCE PRN PRN Reason: Consult order Home Medications Medication Instructions Recorded Confirmed Last Taken Type fluticasone fur. 100 mcg-umeclid 1 puff PO DAILY 11/17/20 02/03/21 01/18/21 History 62.5 mcg-vilant 25 mcg inhalat.powder (Trelegy Ellipta) ondansetron HCl 4 mg tablet 8 mg PO Q8H PRN 12/31/20 02/03/21 Unknown History (Zofran) calcium carbonate 500 mg (1,250 1 tab PO DAILY 01/18/21 02/03/21 01/18/21 History mg)-vitamin D3 125 unit tablet Probiotic 1 cap PO DAILY 02/03/21 02/03/21 Unknown History acetaminophen 650 mg 650 mg PO BID 02/03/21 02/03/21 Unknown History tablet,extended release chlorthalidone 25 mg tablet 1 tab PO DAILY 02/03/21 02/03/21 Unknown History loperamide 2 mg capsule 2 mg PO Q4H PRN 02/03/21 02/03/21 Unknown History Physical Exam Vital Signs and Narrative: Vital Signs: Last Vital Signs Temp 98.3 F 02/03/21 10:51 Pulse 93 02/03/21 15:03 Resp 25 H 02/03/21 15:03 BP 129/77 02/03/21 15:03 Pulse Ox 96 02/03/21 15:03 Body Mass Index 25.7 Const: Other: Constitutional: Alert, in no distress, overweight. Mental Status: Oriented to person, place and time. Eyes: Pupils are equal, round and reactive to light. Ear, Nose and Throat: Oropharynx clear, mucous membranes moist. Ears and nose without eformities. Trachea midline. Respiratory: bilateral rhonchi, no wheezes, no rales. Cardiovascular: S1 S2 regular. No murmurs, rubs or gallops. Gastrointestinal: Abdomen soft, non-tender, non-distended. Normal bowel sounds.? Neurologic: Cranial nerves II-XII grossly intact. No focal neurological deficits. Moves all extremities spontaneously.? Skin: No rashes or lesions.? Musculoskeletal: No cyanosis or clubbing. Psychiatric: Normal mood and affect? Results Labs CBC and Chem 7: 02/10/21 05:56 02/10/21 05:56 Labs: Laboratory Results - last 24 hr 02/03/21 02/03/21 02/03/21 10:54 10:54 10:54 MCV 86.5 MCH 30.2 MCHC 34.9 RDW 18.6 H Plt Count 141 L D MPV 9.6 Immature Gran % (Auto) Cancelled Neut % (Auto) Cancelled Lymph % (Auto) Cancelled Iroquois % (Auto) Cancelled Eos % (Auto) Cancelled Baso % (Auto) Cancelled Lymph # (Auto) Cancelled [place] # (Auto) Cancelled Eos # (Auto) Cancelled Baso # (Auto) Cancelled Abs Immat Gran (auto) Cancelled Absolute Neuts (auto) Cancelled Absolute Nucleated RBC 0.000 Nucleated RBC % (auto) 0.0 Neutrophils % (Manual) 80 H Band Neutrophils % 15 H Lymphocytes % (Manual) 3 L Monocytes % (Manual) 1 L Metamyelocytes % 1 Abs Neuts (Manual) 8.7 H Lymphocytes # (Manual) 0.3 L Monocytes # (Manual) 0.1 Metamyelocytes # 0.1 Platelet Estimate SLIGHTLY DECREASED Plt Morphology Comment NORMAL RBC Morphology NOTED Polychromasia 1+ (0-2) Hypochromasia 1+ (5-14) Microcytosis 1+ (5-14) Macrocytosis 1+ (5-14) Kam Cells 1+ (0-2) PT INR APTT D-Dimer High Sensitivty Anion Gap 15 Estim Creat Clear Calc 60.1 Estimated GFR > 60 Random Glucose 246 H Lactic Acid Lactic Acid Fup @ 2Hr Calcium 7.8 L D Magnesium 1.9 Total Bilirubin 2.5 H AST 20 ALT 25 Alkaline Phosphatase 86 Troponin I High Sens 21.4 H* D B-Natriuretic Peptide Total Protein 5.2 L Albumin 3.2 L COVID-19 ([facility]REE) COVID-19 Clin Com Influenza Type A (PCR) Influenza Type B (PCR) RSV RNA Qual (PCR) SARS-CoV-2 RNA (RT-PCR) 02/03/21 02/03/21 02/03/21 10:54 11:31 11:31 MCV MCH MCHC RDW Plt Count MPV Immature Gran % (Auto) Neut % (Auto) Lymph % (Auto) [place] % (Auto) Eos % (Auto) Baso % (Auto) Lymph # (Auto) [place] # (Auto) Eos # (Auto) Baso # (Auto) Abs Immat Gran (auto) Absolute Neuts (auto) Absolute Nucleated RBC Nucleated RBC % (auto) Neutrophils % (Manual) Band Neutrophils % Lymphocytes % (Manual) Monocytes % (Manual) Metamyelocytes % Abs Neuts (Manual) Lymphocytes # (Manual) Monocytes # (Manual) Metamyelocytes # Platelet Estimate Plt Morphology Comment RBC Morphology Polychromasia Hypochromasia Microcytosis Macrocytosis Kam Cells PT INR APTT D-Dimer High Sensitivty Anion Gap Estim Creat Clear Calc Estimated GFR Random Glucose Lactic Acid 2.3 H* Lactic Acid Fup @ 2Hr Calcium Magnesium Total Bilirubin AST ALT Alkaline Phosphatase Troponin I High Sens B-Natriuretic Peptide 75 Total Protein Albumin COVID-19 ([facility]REE) Negative COVID-19 Clin Com See Note Influenza Type A (PCR) Influenza Type B (PCR) RSV RNA Qual (PCR) SARS-CoV-2 RNA (RT-PCR) 02/03/21 02/03/21 02/03/21 11:31 13:59 13:59 MCV MCH MCHC RDW Plt Count MPV Immature Gran % (Auto) Neut % (Auto) Lymph % (Auto) [place] % (Auto) Eos % (Auto) Baso % (Auto) Lymph # (Auto) [place] # (Auto) Eos # (Auto) Baso # (Auto) Abs Immat Gran (auto) Absolute Neuts (auto) Absolute Nucleated RBC Nucleated RBC % (auto) Neutrophils % (Manual) Band Neutrophils % Lymphocytes % (Manual) Monocytes % (Manual) Metamyelocytes % Abs Neuts (Manual) Lymphocytes # (Manual) Monocytes # (Manual) Metamyelocytes # Platelet Estimate Plt Morphology Comment RBC Morphology Polychromasia Hypochromasia Microcytosis Macrocytosis Kam Cells PT 12.8 INR 1.1 APTT 25.3 D-Dimer High Sensitivty 1962 Anion Gap Estim Creat Clear Calc Estimated GFR Random Glucose Lactic Acid Lactic Acid Fup @ 2Hr 3.4 H* Calcium Magnesium Total Bilirubin AST ALT Alkaline Phosphatase Troponin I High Sens 17.2 H* B-Natriuretic Peptide Total Protein Albumin COVID-19 ([facility]REE) COVID-19 Clin Com Influenza Type A (PCR) Influenza Type B (PCR) RSV RNA Qual (PCR) SARS-CoV-2 RNA (RT-PCR) 02/03/21 13:59 MCV MCH MCHC RDW Plt Count MPV Immature Gran % (Auto) Neut % (Auto) Lymph % (Auto) [place] % (Auto) Eos % (Auto) Baso % (Auto) Lymph # (Auto) [place] # (Auto) Eos # (Auto) Baso # (Auto) Abs Immat Gran (auto) Absolute Neuts (auto) Absolute Nucleated RBC Nucleated RBC % (auto) Neutrophils % (Manual) Band Neutrophils % Lymphocytes % (Manual) Monocytes % (Manual) Metamyelocytes % Abs Neuts (Manual) Lymphocytes # (Manual) Monocytes # (Manual) Metamyelocytes # Platelet Estimate Plt Morphology Comment RBC Morphology Polychromasia Hypochromasia Microcytosis Macrocytosis Kam Cells PT INR APTT D-Dimer High Sensitivty Anion Gap Estim Creat Clear Calc Estimated GFR Random Glucose Lactic Acid Lactic Acid Fup @ 2Hr Calcium Magnesium Total Bilirubin AST ALT Alkaline Phosphatase Troponin I High Sens B-Natriuretic Peptide Total Protein Albumin COVID-19 ([facility]AYASHREE) COVID-19 Clin Com Influenza Type A (PCR) NEGATIVE Influenza Type B (PCR) NEGATIVE RSV RNA Qual (PCR) NEGATIVE SARS-CoV-2 RNA (RT-PCR) NEGATIVE Imaging Radiologist's Impressions: Impressions Chest X-Ray 02/03/21 10:49 IMPRESSION: Bilateral patchy reticular interstitial pneumonitis, new since previous chest x-ray 01/18/2021. There is a left central venous port recently inserted 12/16/2020 with its tip in mid SVC. Chest CTA 02/03/21 12:01 IMPRESSION: Acute pulmonary artery embolus to subsegmental branch right lower lobe. Severe changes of emphysema. Bilateral development of peripheral airspace disease consistent with multifocal pneumonia. VTE: positive This critical result was discussed with Albina Dickens at 1:40 PM on February 03, 2021 and it was ascertained that the content and urgency of the report was understood at the time of direct communication. Assessment and Plan (1) Pulmonary embolism: Status: Acute (2) Acute respiratory failure with hypoxia: Status: Acute (3) Shortness of breath: Status: Acute 75 year female with copd, triple negative breast CA under chemo here with sob, productive cough and found to have bilateral Pneumonia, and right sided PE Acute hypoxic respiratory failure due to PE and PNA, -treat these underlying causes, supplemental Oxygen Pulmonary embolism in the setting of malignancy -IV Heparin and once improve tansition to Xarelto or Eliquis -Onolcogy/heme to see -get Echo Bilateral Pnumonia--add Zosyn given that it is now HCAP COPD --Bronchodialtors by Neb Recent port site infection Culture grew MSSA Completed treatment with Cephalexin elevated bili--chronic and not related to sepsis High troponin--no chest pain, likely demand ischemia from PE and PNA Hypertension-continue Amlodipine, lisinopril Hyperlipidemia--continue Statin Triple negative breast cancer Oncology follow up [facility] Outpatient follow-up DNR/DNI Quality Stroke Does the patient have a stroke diagnosis?: No VTE Prior VTE?: No VTE Risk Level:: Medical - moderate - high VTE Device Contraindication: Treatment Not Indicated VTE Drug Contraindication: N/A - Med Ordered
[2021-02-03 17:54] LABS: Appearance Urine CLEAR; Color Urine YELLOW; Glucose Urine UA >=1000 MG/DL (NEG); Leukocyte Esterase Urine NEG (NEG); Nitrite Urine NEG (NEG); PH 5.5 (5.0-8.0); Specific Gravity - Urine 1.015 (1.005-1.025); UACC Culture Trigger NO; Urine Blood 1+ (NEG); Urine Ketones 5 MG/DL (NEG); Urine Protein 1+ MG/DL (NEG-TRACE)
[2021-02-03 18:01] LABS: Granular Casts Urine 0-2 /LPF; Squamous Epithelial Cell Urine 1+ /LPF
[2021-02-03 18:03] LABS: Amorphous Sediment Urine TRACE /LPF; RBC Urine 0-2 /HPF (0); WBC Urine 0-2 /HPF (0-4)
[2021-02-03 18:29] LABS: Glucose, Whole Blood 254 mg/dL (60-115)
[2021-02-03 18:38] LABS: Hemoglobin 8.5 g/dl (12.0-16.0); Mean Corpuscular Hemoglobin 29.6 pg (27.0-33.0); Mean Corpuscular Volume 87.1 fL (80.0-98.0); Mean Platelet Volume 9.6 fL (9.4-12.3); Platelet Count 132 X10*3/uL (160-400); Red Blood Count 2.87 X10*6/uL (4.20-5.50); Red Cell Distribution Width 18.7 % (11.0-16.0); White Blood Count 5.9 X10*3/uL (4.8-10.8)
[2021-02-03 18:45] LABS: PTT Heparin Drip 48.6 SEC (53-77.9)
[2021-02-03 18:47] LABS: ~Lactic Acid-LAB USE ONLY 2.3 mmol/L (0.5-2.0)
[2021-02-03] MEDS: Piperacillin Sodium/Tazobactam 4.5 GM in 0.9 % Sodium Chloride 100 ML IV (18:55)
[2021-02-03] MEDS: dexAMETHasone 4 MG TABLET PO (20:06)
[2021-02-03] MEDS: traZODone HCL 100 MG TABLET PO (20:06)
[2021-02-03 20:45] LABS: Glucose, Whole Blood 271 mg/dL (60-115)
[2021-02-03 21:09] LABS: PTT Heparin Drip 40.1 SEC (53-77.9)
[2021-02-03] MEDS: Heparin Sodium,Porcine 5,000 UNIT/ML VIAL 2700 UNIT IVPUSH (22:09)
[2021-02-03] MEDS: Insulin Lispro 100 UNIT/ML 3 ML VIAL SUBCUT (22:09)
--- NOTE | 2021-02-03 22:22 | PM.HEMONCCN ---
Subjective - Subjective Chief complaint: Consult for: 1.Breast Cancer, 2. P.E. Patient: new to practice Consult date: 02/03/21 Requesting Physician: Roque. Primary Care Provider: Nacho Kovacs MD Medical Summary: DIAGNOSIS: BREAST CANCER. P.E. HPI - Consult Narrative Reason for consult: 1. P.E. 2. BREAST CANCER. Narrative: Chayo Nevarez is a pleasant 75 year old lady, with recent h/o breast cancer, on chemotherapy, presented with SOB. CT Scan revealed: A saddle P.E, and pneumonia. HPI: She was admitted on January 18 and discharged the next day for COPD exacerbation. She presents on this occasion with shortness of breath, productive cough, chest pain and malaise X 3 days. She has productive cough with thick green sputum X3 days. Shortness is being worsening especially with exertion. She describes no fever. Work up in ED with chest CT has shown both bilater pneumonia and right sided PE. She was on heparin drip. Ceftriaxone given for pneumonia. PMH: H/O of triple negative breast cancer diagnosed in October of this year and is presently under chemotherapy. Review of Systems - Constitutional Reports system reviewed and no additional complaints, except as documented, Reports lack of energy, Reports malaise, Reports weakness, Reports weight loss - Eyes Reports system reviewed and no additional complaints, except as documented, Denies blurry vision, Denies bulging eyes - ENT Reports system reviewed and no additional complaints, except as documented - Cardiovascular Reports system reviewed and no additional complaints, except as documented, Reports shortness of breath, Denies chest pain at rest - Respiratory Reports no additional respiratory complaints, Reports change in phlegm color, Reports chest congestion, Denies hemoptysis - Gastrointestinal Reports system reviewed and no additional complaints, except as documented - Genitourinary Reports no additional female genitourinary complaints - Musculoskeletal Reports system reviewed and no additional complaints, except as documented - Integumentary/Breasts Skin/Breast: Reports no additional skin complaints - Neurologic Reports system reviewed and no additional complaints, except as documented - Psychiatric Reports system reviewed and no additional complaints, except as documented - Endocrine Reports no additional endocrine complaints - Hematologic/Lymphatic Reports system reviewed and no additional complaints, except as documented - Allergic/Immunologic Reports system reviewed and no additional complaints, except as documented Oncology Screenings - ECOG Performance Status ECOG Performance Status: 1 [facility] Medical History: Medical History (Last Reviewed 02/03/21 @ 16:16 by Leonidas Nevarez MD) Allergies Anxiety Bladder prolapse Chondrocalcinosis COPD (chronic obstructive pulmonary disease) COPD (chronic obstructive pulmonary disease) Dyslipidemia HTN (hypertension) Hypoxemia Mixed incontinence urge and stress Monoclonal gammopathies Osteoporosis Physical exam Pulmonary nodules Functional capacity: independent ambulation Patient : No Family History: Family History (Last Reviewed 02/03/21 @ 16:16 by Leonidas Nevarez MD) Father No problems noted. Mother HTN (hypertension) CVD (cardiovascular disease) Stroke Brother No problems noted. Sister No problems noted. Son No problems noted. Daughter No problems noted. Other Substance use disorder Surgical History: Surgical History (Last Reviewed 02/03/21 @ 16:16 by Leonidas Nevarez MD) History of section Social History: Social History (Last Reviewed 02/03/21 @ 16:16 by Leonidas Nevarez MD) Living Situation History: Household Members: Family Housing: House Housing Other:: mobile home Do you presently have visiting nurse or other home services: No Alcohol History: Alcohol intake: never Alcohol History Details: Alcohol intake frequency: 0-2 drinks per day Alcohol type: beer Tobacco History: Patient Tobacco Use Status: Former Tobacco user Years Smoked: 20 years ago e-Cigarette/Vaping Use: Never Used Second Hand Smoke Exposure: Yes Substance Use History: Use of substances other than those prescribed or required for medical reasons: No Currently Displaying Signs/Symptoms of Drug Intoxication Withdrawal: No Domestic Abuse History: Have you been hit, kicked, punched, or otherwise hurt by someone within the past year? If so, by whom?: No Do you feel safe in your current relationship?: No Current Relationship Is there a partner from a previous relationship who is making you feel unsafe now?: No Are you made to feel afraid or neglected: No Advance Directives: Advance Directives: Yes Advance Directives on File: Yes Advance Directives Date on File: 12/24/20 Homicidal Assessment: Do you have thoughts of harming others: None Do you have a plan to hurt others: No Plan Nutrition Assessment: Recently lost weight without trying: No Nutrition Risks: No Nutritional Risk Patient : No : No Poor oral hygiene: No Occupation Assessmet: service: No Current occupational status: retired 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 Current occupational exposures/hazards: No Home Medications and Allergies Current Medications: Current Medications Acetaminophen (Acetaminophen 325 Mg Tablet) 650 mg PO Q6H PRN PRN Reason: Pain, Mild (Pain Scale 1-3) Albuterol Sulfate (Albuterol Sulfate (0.042%) 1.25 Mg/3 Ml Vial.Neb) 2.5 mg INHALE Q4H PRN PRN Reason: shortness of breath or wheezing Albuterol Sulfate (Albuterol Sulfate 90 Mcg 8 Gm Inhaler) 1 puff INHALE QID PRN PRN Reason: shortness of breath or wheezing Amlodipine Besylate (Amlodipine Besylate 5 Mg Tablet) 5 mg PO DAILY [facility]; Protocol Atorvastatin Calcium (Atorvastatin Calcium 40 Mg Tablet) 40 mg PO DAILY [facility] Calcium Carbonate/Cholecalciferol (Calcium + Vitamin D 250 Mg Tablet) 500 mg PO DAILY [facility] Dexamethasone (Dexamethasone 4 Mg Tablet) 4 mg PO BID [facility] Last Admin: 02/03/21 20:06 Dose: 4 mg Documented by: Heparin Sodium (Porcine) (Heparin Sodium,Porcine 5,000 Unit/Ml Vial) 2,700 unit 40 unit/kg (2700 unit) IVPUSH PROTOCOL BOLUS PRN; Protocol PRN Reason: 40 unit/kg - Heparin Protocol Last Admin: 02/03/21 22:09 Dose: 2,700 unit Documented by: Heparin Sodium (Porcine) (Heparin Sodium,Porcine 5,000 Unit/Ml Vial) 5,400 unit 80 unit/kg (5400 unit) IVPUSH PROTOCOL BOLUS PRN; Protocol PRN Reason: 80 unit/kg - Heparin Protocol Heparin Sodium/Sodium Chloride () 25,000 unit in 250 mls @ 0 mls/hr IVCONT .Q0M [facility]; Protocol Last Titration: 02/03/21 22:11 Dose: 16 units/kg/hr, 10.89 mls/hr Documented by: Piperacillin Sod/Tazobactam (Sod 4.5 gm/ Sodium Chloride) 100 mls @ 200 mls/hr IV Q6H [facility] Last Infusion: 02/03/21 19:47 Dose: Infused Documented by: Insulin Human Lispro (Insulin Lispro 100 Unit/Ml 3 Ml Vial) 0 unit SUBCUT QIDACHS [facility]; Protocol Last Admin: 02/03/21 22:09 Dose: 6 unit Documented by: Lisinopril (Lisinopril 40 Mg Tablet) 40 mg PO DAILY [facility]; Protocol Loperamide HCl (Loperamide Hcl 2 Mg Capsule) 2 mg PO Q4H PRN PRN Reason: Diarrhea Loratadine (Loratadine 10 Mg Tablet) 10 mg PO BID PRN PRN Reason: allergy symptoms Melatonin (Melatonin 3 Mg Tablet) 6 mg PO BEDTIME PRN PRN Reason: Insomnia Non-Formulary Medication (Chlorthalidone) 1 tab PO DAILY [facility] Non-Formulary Medication (Bbngfttgurz-Fblxfczzm-Rcnjlhww [Trelegy Ellipta]) 1 puff PO DAILY [facility] Oxybutynin Chloride (Oxybutynin Chloride Er 5 Mg Tab.Er.24) 10 mg PO DAILY [facility] Pharmacy Consult (Consult Rx Perform Med Rec) 1 each MISCELLANE ONCE PRN PRN Reason: Consult order Prednisone (Prednisone 10 Mg Tablet) 30 mg PO DAILY [facility] Sodium Chloride (0.9 % Sodium Chloride Flush 3 Ml Syringe) 3 ml IVFLUSH QSHIFT [facility] Trazodone HCl (Trazodone Hcl 100 Mg Tablet) 100 mg PO BEDTIME [facility] Last Admin: 02/03/21 20:06 Dose: 100 mg Documented by: Home Medications Medication Instructions Recorded Confirmed Type fluticasone fur. 100 mcg-umeclid 1 puff PO DAILY 11/17/20 02/03/21 History 62.5 mcg-vilant 25 mcg inhalat.powder (Trelegy Ellipta) ondansetron HCl 4 mg tablet 8 mg PO Q8H PRN 12/31/20 02/03/21 History (Zofran) calcium carbonate 500 mg (1,250 1 tab PO DAILY 01/18/21 02/03/21 History mg)-vitamin D3 125 unit tablet Probiotic 1 cap PO DAILY 02/03/21 02/03/21 History acetaminophen 650 mg 650 mg PO BID 02/03/21 02/03/21 History tablet,extended release chlorthalidone 25 mg tablet 1 tab PO DAILY 02/03/21 02/03/21 History loperamide 2 mg capsule 2 mg PO Q4H PRN 02/03/21 02/03/21 History Allergies Allergy/AdvReac Type Severity Reaction Status Date / Time hydrochlorothiazide Allergy Unknown hives Verified 01/21/21 15:05 Physical Exam Vital signs: Vital Signs Temp 98.3 F 02/03/21 18:35 Pulse 87 02/03/21 18:35 Resp 18 02/03/21 18:35 BP 128/73 02/03/21 18:35 Pulse Ox 94 02/03/21 18:44 Intake & Output 02/03/21 02/03/21 02/04/21 06:59 18:59 06:59 Intake Total 2350 / 2520.999 170.999 / 2520.999 Balance 2350 / 2520.999 170.999 / 2520.999 Intake: Intake, IV Amount 2350 / 2520.999 170.999 / 2520.999 0.9 % Sodium Chloride 1,000 ml 2000 / 2000 @ 999 mls/hr IV .Q1H1M [facility] Rx#: [id number] Azithromycin 500 mg In 0.9 % 250 / 250 Sodium Chloride 250 ml @ 125 mls/hr IV ONCE ONE Rx#: [id number] Magnesium Sulfate/H2O 2 gm In 50 / 50 50 ml @ 25 mls/hr IV ONCE ONE Rx#:[id number] Piperacillin Sodium/Tazobactam 100 / 100 4.5 gm In 0.9 % Sodium Chloride 100 ml @ 200 mls/hr IV Q6H [facility] Rx#:[id number] cefTRIAXone sodium 1 gm In 0.9 50 / 50 % Sodium Chloride 50 ml @ 100 mls/hr IV ONCE ONE Rx#: [id number] Heparin Sodium,Porcine/1/2NS 25 70.999 / 70.999 ,000 unit In 250 ml @ Per Protocol IVCONT .Q0M [facility] Rx#: [id number] Other: Weight 68.039 kg 68.03 kg Weight in Grams 18720 Weight 68.03 kg - Constitutional Present: mild distress - Routine HEENT Exam Head: Present: normal inspection ENT: Present: mucous membranes moist Hem/Onc Consult Result - Labs CBC & Chem 7: 02/07/21 05:52 02/07/21 05:52 Labs: Short CBC 02/03/21 02/03/21 Range/Units 10:54 18:23 WBC 9.2 5.9 (4.8-10.8) X10*3/uL Hgb 9.4 L 8.5 L (12.0-16.0) g/dl Hct 26.9 L 25.0 L (37.0-47.0) % Plt Count 141 L D 132 L (160-400) X10*3/uL BMP 02/03/21 10:54 Sodium 131 L Potassium 3.5 Chloride 95 L Carbon Dioxide 25 BUN 22 H D Creatinine 0.79 Calcium 7.8 L D Liver Function 02/03/21 Range/Units 10:54 Total Bilirubin 2.5 H (0.0-1.0) mg/dL AST 20 (5-31) U/L ALT 25 (0-31) U/L Alkaline Phosphatase 86 (39-117) U/L Albumin 3.2 L (3.5-5.0) g/dL Urine 02/03/21 Range/Units 17:43 Urine Color YELLOW Urine Appearance CLEAR Urine pH 5.5 (5.0-8.0) Ur Specific [place] 1.015 (1.005-1.025) Urine Protein 1+ H (NEG-TRACE) MG/DL Urine Glucose (UA) >=1000 H (NEG) MG/DL Assessment and Plan Patient Active problem list reviewed?: Yes (1) Pulmonary embolism Status: Acute Assessment and plan: 75 year old lady with P.E. On IV Heparin. Her symptoms were improving however today her H&H dropped. It was 7.4/21. Most likely related to recent chemotherapy with an element of dilution. Heparin drip was put on hold. PLAN: To give her blood transfusion. Will resume IV heparin, considering the risk and benefit ratio. Will keep the PT towards the low to mid range. Will follow blood count carefully. Once she stabilizes, will switch over to Eliquis without the loading dose, since she has been on IV heparin. Thank you, Will follow. - Time Spent With Patient Time Spent with Patient (in minutes): 30
[2021-02-04] VITALS (10 sets, daily range): BP systolic 119–161; BP diastolic 56–86; PULSE 78–96; RESP 15–20; TEMP 36.1–37.7; O2SAT 93–98
[2021-02-04] MEDS: Piperacillin Sodium/Tazobactam 4.5 GM in 0.9 % Sodium Chloride 100 ML IV ×5 (01:39→23:57)
[2021-02-04 04:11] LABS: MANUAL DIFF FLAG NO
[2021-02-04 04:13] LABS: Hemoglobin 7.1 g/dl (12.0-16.0); Imm Gran Abs Auto 0.05 X10*3/uL (0.00-0.03); Imm Gran Pct Auto 1.4 % (0.0-0.4); Lymphocytes Absolute Auto 0.2 X10*3/uL (1.2-4.9); Lymphocytes Percent Auto 4.6 % (20-40); Mean Corpuscular Hemoglobin 30.5 pg (27.0-33.0); Mean Corpuscular Volume 87.1 fL (80.0-98.0); Mean Platelet Volume 9.2 fL (9.4-12.3); Monocytes Absolute Auto 0.2 X10*3/uL (0.1-1.2); Monocytes Percent Auto 6.6 % (2-11); Neutrophils Absolute Auto 3.1 x10*3/uL (2.0-8.3); Neutrophils Percent Auto 87.4 % (45-73); Platelet Count 110 X10*3/uL (160-400); Red Blood Count 2.33 X10*6/uL (4.20-5.50); Red Cell Distribution Width 18.8 % (11.0-16.0); White Blood Count 3.5 X10*3/uL (4.8-10.8)
[2021-02-04 04:19] LABS: Hematocrit 20.3 % (37.0-47.0)
[2021-02-04 04:25] LABS: Prothrombin Time 10.8 SEC (9.9-13.0)
[2021-02-04 04:28] LABS: PTT Heparin Drip 44.3 SEC (53-77.9)
--- NOTE | 2021-02-04 04:32 | PM.EVENT ---
Event Note Date of Service: 02/08/21 Event Note: pt hemgolobin significantly dropped from 8.5 to 7.1 with no active bleed. pt pale with no acute complaint. will hold the heparin drip, start SCds . consult hematology
--- NOTE | 2021-02-04 04:44 | PC.NURSE ---
pt has critical h&h of 7.1/20.3. Vitals stable at 137/71 p 84 T 98.0. No obvious signs of bleeding or new bruising noted. MD notified, instructed to turn off heparin gtt at this time. Pt educated about signs and symptoms of GI bleed, or internal bleeding, is very receptive to discussion and is agreeable to receive a transfusion if needed. Instructed to notify RN if she has any dark stool, bright red blood in stool or coffee ground emesis Discussed with patient the process of blood transfusion, and potential symptoms to watch out for. Heparin gtt shut off at approx 0440. Will continue to closely monitor.
[2021-02-04 05:10] LABS: Anion Gap 13 (12-20); Blood Urea Nitrogen 19 mg/dL (9-16); Calcium 7.6 mg/dL (8.4-10.2); Carbon Dioxide 24 mmol/L (22-29); Chloride 103 mmol/L (96-108); Creatinine Clr Calc Pharmacy 69.8; Estimated Glomerular Filt Rate > 60; Glucose Random 153 mg/dL (60-115); Potassium 3.2 mmol/L (3.3-5.1); Sodium 137 mmol/L (135-145)
[2021-02-04] MEDS: Potassium Chloride Packet 20 MEQ PACKET 40 MEQ PO ×2 (06:54→12:29)
[2021-02-04 06:56] LABS: Hemoglobin 7.1 g/dl (12.0-16.0)
[2021-02-04 07:35] LABS: Glucose, Whole Blood 136 mg/dL (60-115)
--- NOTE | 2021-02-04 08:17 | P.CDIC_ITS ---
CDI Concurrent Query Documentation Clarification: PHYSICIAN'S DOCUMENTATION REQUEST Date of Query: 02/04/21 0817 Patient Name: Chayo Nevarez Admit Date: 02/03/21 Dear Doctor, A review of the medical record indicates additional documentation may be needed. Please review below and update the documentation accordingly. Clinical Indicators: Respiratory failure was documented on 02/03/21. Risk Factors/Clinical Indicators/Treatments Per ED note 02/03/21: SOB, cough accessory muscle use, respiratory distress, labored breathing On home oxygen at 1.5 liters Treated with 8 liters Venturi mask If possible, please further clarify the type and acuity of respiratory failure: Acuity: * Acute * Chronic * Acute on chronic * Unable to determine Use of terms such as suspected, likely, concern for, or probable (associated with a specific diagnosis that is being evaluated, monitored, or treated as if it exists) are acceptable and can be coded in the inpatient setting, when documented at the time of discharge. Thank you, Deborah Weiss RN Extension: [phone] Please use your independent medical judgment in providing your response. THIS QUERY IS PART OF THE PERMANENT MEDICAL RECORD Provider Response: Other Other Diagnosis: Acute on Chronic Respiratory failure with hypoxia
--- NOTE | 2021-02-04 09:22 | MHC.CM.PN ---
CM met with Patient at bedside and addressed IMM, providing her with the original and placing a copy on the chart. Patient lives in a trailer with her Daughter/HCP, adult Grandson, and his Girlfriend and her goal is to return home and resume home O2 through [employer].CM has initiated and will follow for dc planning.PCP is DR. Nacho Kovacs and Patient is presently receiving chemo.Patient also sees Dr. Esparza.
--- NOTE | 2021-02-04 09:34 | HO.PM.IMPN ---
Subjective Subjective Date of Service: 02/04/21 Interval History: seen and examined this morning follow up for PE, Pneumonia H/H dropped early this morning, heparin drip held at that time has been feeling short of breath. no fever, chills Review of Systems Review of Systems: Yes all other systems are reviewed and are negative Constitutional Constitutional: Denies chills and Denies fever(s) Cardiovascular Cardiovascular: Denies chest pain and Reports dyspnea Respiratory Respiratory: Reports dyspnea Gastrointestinal Gastrointestinal: Denies abdominal pain Physical Exam Vital Signs: Vital Signs: Last Vital Signs Temp 97.9 F 02/04/21 07:49 Pulse 94 02/04/21 07:49 Resp 20 02/04/21 07:49 BP 161/79 H 02/04/21 07:49 Pulse Ox 93 02/04/21 07:49 Body Mass Index 25.7 Const: General: alert, awake and ill appearing Nutritional Appearance: well nourished Orientation/consciousness: patient oriented x3 HENMT: Head: Yes normocephalic and Yes atraumatic Eyes: Sclerae: sclerae normal Resp: Effort & Inspection: tachypneic Auscultation: diminished lung sounds Cardio: Rate: regular rate Rhythm: regular rhythm GI: Palpation (GI): Soft to palpation and nontender Neuro: General: patient oriented x3 Cranial nerves: Yes CN's II-XII intact bilaterally and Yes Bilaterally intact EOM present Extrem: Other: no leg edema Objective Data Active Medications Acetaminophen (Acetaminophen 325 Mg Tablet) 650 mg PO Q6H PRN PRN Reason: Pain, Mild (Pain Scale 1-3) Albuterol Sulfate (Albuterol Sulfate (0.042%) 1.25 Mg/3 Ml Vial.Neb) 2.5 mg INHALE Q4H PRN PRN Reason: shortness of breath or wheezing Albuterol Sulfate (Albuterol Sulfate 90 Mcg 8 Gm Inhaler) 1 puff INHALE QID PRN PRN Reason: shortness of breath or wheezing Atorvastatin Calcium (Atorvastatin Calcium 40 Mg Tablet) 40 mg PO DAILY [facility] Calcium Carbonate/Cholecalciferol (Calcium + Vitamin D 250 Mg Tablet) 500 mg PO DAILY [facility] Dexamethasone (Dexamethasone 4 Mg Tablet) 4 mg PO BID [facility] Last Admin: 02/03/21 20:06 Dose: 4 mg Documented by: TYRESE Heparin Sodium (Porcine) (Heparin Sodium,Porcine 5,000 Unit/Ml Vial) 2,700 unit 40 unit/kg (2700 unit) IVPUSH PROTOCOL BOLUS PRN; Protocol PRN Reason: 40 unit/kg - Heparin Protocol Last Admin: 02/03/21 22:09 Dose: 2,700 unit Documented by: NEELIMA Heparin Sodium (Porcine) (Heparin Sodium,Porcine 5,000 Unit/Ml Vial) 5,400 unit 80 unit/kg (5400 unit) IVPUSH PROTOCOL BOLUS PRN; Protocol PRN Reason: 80 unit/kg - Heparin Protocol Heparin Sodium/Sodium Chloride () 25,000 unit in 250 mls @ 0 mls/hr IVCONT .Q0M [facility]; Protocol Last Titration: 02/04/21 04:32 Dose: 0 units/kg/hr, 0 mls/hr Documented by: NEELIMA Cosigned by: BEAN Piperacillin Sod/Tazobactam (Sod 4.5 gm/ Sodium Chloride) 100 mls @ 200 mls/hr IV Q6H [facility] Last Infusion: 02/04/21 07:07 Dose: 0 mls/hr Documented by: NEELIMA Insulin Human Lispro (Insulin Lispro 100 Unit/Ml 3 Ml Vial) 0 unit SUBCUT QIDACHS [facility]; Protocol Last Admin: 02/04/21 08:05 Dose: Not Given Documented by: DAMASO Non-Admin Reason: No Insulin Coverage Loperamide HCl (Loperamide Hcl 2 Mg Capsule) 2 mg PO Q4H PRN PRN Reason: Diarrhea Loratadine (Loratadine 10 Mg Tablet) 10 mg PO BID PRN PRN Reason: allergy symptoms Melatonin (Melatonin 3 Mg Tablet) 6 mg PO BEDTIME PRN PRN Reason: Insomnia Non-Formulary Medication (Yyjseijucuz-Annsxrvnj-Hnrbnecc [Trelegy Ellipta]) 1 puff PO DAILY [facility] Oxybutynin Chloride (Oxybutynin Chloride Er 5 Mg Tab.Er.24) 10 mg PO DAILY [facility] Pharmacy Consult (Consult Rx Perform Med Rec) 1 each MISCELLANE ONCE PRN PRN Reason: Consult order Potassium Chloride (Potassium Chloride Packet 20 Meq Packet) 40 meq PO Q4H [facility] Stop: 02/04/21 10:01 Last Admin: 02/04/21 06:54 Dose: 40 meq Documented by: NEELIMA Prednisone (Prednisone 10 Mg Tablet) 30 mg PO DAILY [facility] Sodium Chloride (0.9 % Sodium Chloride Flush 3 Ml Syringe) 3 ml IVFLUSH QSHIFT [facility] Last Admin: 02/04/21 01:39 Dose: Not Given Documented by: NEELIMA Non-Admin Reason: IV Running Trazodone HCl (Trazodone Hcl 100 Mg Tablet) 100 mg PO BEDTIME [facility] Last Admin: 02/03/21 20:06 Dose: 100 mg Documented by: TYRESE Labs CBC & Chem 7: 02/04/21 06:27 02/04/21 04:06 Labs: Laboratory Results - last 24 hr 02/03/21 02/03/21 02/03/21 10:54 10:54 10:54 MCV 86.5 MCH 30.2 MCHC 34.9 RDW 18.6 H Plt Count 141 L D MPV 9.6 Immature Gran % (Auto) Cancelled Neut % (Auto) Cancelled Lymph % (Auto) Cancelled [place] % (Auto) Cancelled Eos % (Auto) Cancelled Baso % (Auto) Cancelled Lymph # (Auto) Cancelled [place] # (Auto) Cancelled Eos # (Auto) Cancelled Baso # (Auto) Cancelled Abs Immat Gran (auto) Cancelled Absolute Neuts (auto) Cancelled Absolute Nucleated RBC 0.000 Nucleated RBC % (auto) 0.0 Neutrophils % (Manual) 80 H Band Neutrophils % 15 H Lymphocytes % (Manual) 3 L Monocytes % (Manual) 1 L Metamyelocytes % 1 Abs Neuts (Manual) 8.7 H Lymphocytes # (Manual) 0.3 L Monocytes # (Manual) 0.1 Metamyelocytes # 0.1 Platelet Estimate SLIGHTLY DECREASED Plt Morphology Comment NORMAL RBC Morphology NOTED Polychromasia 1+ (0-2) Hypochromasia 1+ (5-14) Microcytosis 1+ (5-14) Macrocytosis 1+ (5-14) [place] Cells 1+ (0-2) PT INR APTT PTT (Heparin Protocol) D-Dimer High Sensitivty Anion Gap 15 Estim Creat Clear Calc 60.1 Estimated GFR > 60 POC Glucose Random Glucose 246 H Lactic Acid Lactic Acid Fup @ 2Hr Lactic Acid Fup @ 4Hr Calcium 7.8 L D Magnesium 1.9 Total Bilirubin 2.5 H AST 20 ALT 25 Alkaline Phosphatase 86 Troponin I High Sens 21.4 H* D B-Natriuretic Peptide Total Protein 5.2 L Albumin 3.2 L Urine Color Urine Appearance Urine pH Ur Specific [place] Urine Protein Urine Glucose (UA) Urine Ketones Urine Blood Urine Nitrite Ur Leukocyte Esterase Urine RBC Urine WBC Ur Squamous Epith Cells Amorphous Sediment Urine Bacteria Granular Casts COVID-19 (JAYASHREE) COVID-19 Clin Com Influenza Type A (PCR) Influenza Type B (PCR) RSV RNA Qual (PCR) SARS-CoV-2 RNA (RT-PCR) 02/03/21 02/03/21 02/03/21 10:54 11:31 11:31 MCV MCH MCHC RDW Plt Count MPV Immature Gran % (Auto) Neut % (Auto) Lymph % (Auto) [place] % (Auto) Eos % (Auto) Baso % (Auto) Lymph # (Auto) [place] # (Auto) Eos # (Auto) Baso # (Auto) Abs Immat Gran (auto) Absolute Neuts (auto) Absolute Nucleated RBC Nucleated RBC % (auto) Neutrophils % (Manual) Band Neutrophils % Lymphocytes % (Manual) Monocytes % (Manual) Metamyelocytes % Abs Neuts (Manual) Lymphocytes # (Manual) Monocytes # (Manual) Metamyelocytes # Platelet Estimate Plt Morphology Comment RBC Morphology Polychromasia Hypochromasia Microcytosis Macrocytosis Kam Cells PT INR APTT PTT (Heparin Protocol) D-Dimer High Sensitivty Anion Gap Estim Creat Clear Calc Estimated GFR POC Glucose Random Glucose Lactic Acid 2.3 H* Lactic Acid Fup @ 2Hr Lactic Acid Fup @ 4Hr Calcium Magnesium Total Bilirubin AST ALT Alkaline Phosphatase Troponin I High Sens B-Natriuretic Peptide 75 Total Protein Albumin Urine Color Urine Appearance Urine pH Ur Specific [place] Urine Protein Urine Glucose (UA) Urine Ketones Urine Blood Urine Nitrite Ur Leukocyte Esterase Urine RBC Urine WBC Ur Squamous Epith Cells Amorphous Sediment Urine Bacteria Granular Casts COVID-19 (JAYASHREE) Negative COVID-19 Clin Com See Note Influenza Type A (PCR) Influenza Type B (PCR) RSV RNA Qual (PCR) SARS-CoV-2 RNA (RT-PCR) 02/03/21 02/03/21 02/03/21 11:31 13:59 13:59 MCV MCH MCHC RDW Plt Count MPV Immature Gran % (Auto) Neut % (Auto) Lymph % (Auto) [place] % (Auto) Eos % (Auto) Baso % (Auto) Lymph # (Auto) [place] # (Auto) Eos # (Auto) Baso # (Auto) Abs Immat Gran (auto) Absolute Neuts (auto) Absolute Nucleated RBC Nucleated RBC % (auto) Neutrophils % (Manual) Band Neutrophils % Lymphocytes % (Manual) Monocytes % (Manual) Metamyelocytes % Abs Neuts (Manual) Lymphocytes # (Manual) Monocytes # (Manual) Metamyelocytes # Platelet Estimate Plt Morphology Comment RBC Morphology Polychromasia Hypochromasia Microcytosis Macrocytosis Kam Cells PT 12.8 INR 1.1 APTT 25.3 PTT (Heparin Protocol) D-Dimer High Sensitivty 1962 Anion Gap Estim Creat Clear Calc Estimated GFR POC Glucose Random Glucose Lactic Acid Lactic Acid Fup @ 2Hr 3.4 H* Lactic Acid Fup @ 4Hr Calcium Magnesium Total Bilirubin AST ALT Alkaline Phosphatase Troponin I High Sens 17.2 H* B-Natriuretic Peptide Total Protein Albumin Urine Color Urine Appearance Urine pH Ur Specific [place] Urine Protein Urine Glucose (UA) Urine Ketones Urine Blood Urine Nitrite Ur Leukocyte Esterase Urine RBC Urine WBC Ur Squamous Epith Cells Amorphous Sediment Urine Bacteria Granular Casts COVID-19 (JAYASHREE) COVID-19 Clin Com Influenza Type A (PCR) Influenza Type B (PCR) RSV RNA Qual (PCR) SARS-CoV-2 RNA (RT-PCR) 02/03/21 02/03/21 02/03/21 13:59 17:43 18:23 MCV 87.1 MCH 29.6 MCHC 34.0 RDW 18.7 H Plt Count 132 L MPV 9.6 Immature Gran % (Auto) Neut % (Auto) Lymph % (Auto) [place] % (Auto) Eos % (Auto) Baso % (Auto) Lymph # (Auto) [place] # (Auto) Eos # (Auto) Baso # (Auto) Abs Immat Gran (auto) Absolute Neuts (auto) Absolute Nucleated RBC 0.000 Nucleated RBC % (auto) 0.0 Neutrophils % (Manual) Band Neutrophils % Lymphocytes % (Manual) Monocytes % (Manual) Metamyelocytes % Abs Neuts (Manual) Lymphocytes # (Manual) Monocytes # (Manual) Metamyelocytes # Platelet Estimate Plt Morphology Comment RBC Morphology Polychromasia Hypochromasia Microcytosis Macrocytosis [place] Cells PT INR APTT PTT (Heparin Protocol) D-Dimer High Sensitivty Anion Gap Estim Creat Clear Calc Estimated GFR POC Glucose Random Glucose Lactic Acid Lactic Acid Fup @ 2Hr Lactic Acid Fup @ 4Hr Calcium Magnesium Total Bilirubin AST ALT Alkaline Phosphatase Troponin I High Sens B-Natriuretic Peptide Total Protein Albumin Urine Color YELLOW Urine Appearance CLEAR Urine pH 5.5 Ur Specific [place] 1.015 Urine Protein 1+ H Urine Glucose (UA) >=1000 H Urine Ketones 5 Urine Blood 1+ H Urine Nitrite NEG Ur Leukocyte Esterase NEG Urine RBC 0-2 Urine WBC 0-2 Ur Squamous Epith Cells 1+ Amorphous Sediment TRACE Urine Bacteria NONE Granular Casts 0-2 COVID-19 (JAYASHREE) COVID-19 Clin Com Influenza Type A (PCR) NEGATIVE Influenza Type B (PCR) NEGATIVE RSV RNA Qual (PCR) NEGATIVE SARS-CoV-2 RNA (RT-PCR) NEGATIVE 02/03/21 02/03/21 02/03/21 18:23 18:23 18:24 MCV MCH MCHC RDW Plt Count MPV Immature Gran % (Auto) Neut % (Auto) Lymph % (Auto) [place] % (Auto) Eos % (Auto) Baso % (Auto) Lymph # (Auto) [place] # (Auto) Eos # (Auto) Baso # (Auto) Abs Immat Gran (auto) Absolute Neuts (auto) Absolute Nucleated RBC Nucleated RBC % (auto) Neutrophils % (Manual) Band Neutrophils % Lymphocytes % (Manual) Monocytes % (Manual) Metamyelocytes % Abs Neuts (Manual) Lymphocytes # (Manual) Monocytes # (Manual) Metamyelocytes # Platelet Estimate Plt Morphology Comment RBC Morphology Polychromasia Hypochromasia Microcytosis Macrocytosis [place] Cells PT INR APTT PTT (Heparin Protocol) 48.6 L D-Dimer High Sensitivty Anion Gap Estim Creat Clear Calc Estimated GFR POC Glucose 254 H Random Glucose Lactic Acid Lactic Acid Fup @ 2Hr Lactic Acid Fup @ 4Hr 2.3 H* Calcium Magnesium Total Bilirubin AST ALT Alkaline Phosphatase Troponin I High Sens B-Natriuretic Peptide Total Protein Albumin Urine Color Urine Appearance Urine pH Ur Specific [place] Urine Protein Urine Glucose (UA) Urine Ketones Urine Blood Urine Nitrite Ur Leukocyte Esterase Urine RBC Urine WBC Ur Squamous Epith Cells Amorphous Sediment Urine Bacteria Granular Casts COVID-19 (JAYASHREE) COVID-19 Clin Com Influenza Type A (PCR) Influenza Type B (PCR) RSV RNA Qual (PCR) SARS-CoV-2 RNA (RT-PCR) 02/03/21 02/03/21 02/04/21 20:41 20:50 04:06 MCV MCH MCHC RDW Plt Count MPV Immature Gran % (Auto) Neut % (Auto) Lymph % (Auto) [place] % (Auto) Eos % (Auto) Baso % (Auto) Lymph # (Auto) [place] # (Auto) Eos # (Auto) Baso # (Auto) Abs Immat Gran (auto) Absolute Neuts (auto) Absolute Nucleated RBC Nucleated RBC % (auto) Neutrophils % (Manual) Band Neutrophils % Lymphocytes % (Manual) Monocytes % (Manual) Metamyelocytes % Abs Neuts (Manual) Lymphocytes # (Manual) Monocytes # (Manual) Metamyelocytes # Platelet Estimate Plt Morphology Comment RBC Morphology Polychromasia Hypochromasia Microcytosis Macrocytosis [place] Cells PT 10.8 INR 1.0 APTT PTT (Heparin Protocol) 40.1 L 44.3 L D-Dimer High Sensitivty Anion Gap Estim Creat Clear Calc Estimated GFR POC Glucose 271 H Random Glucose Lactic Acid Lactic Acid Fup @ 2Hr Lactic Acid Fup @ 4Hr Calcium Magnesium Total Bilirubin AST ALT Alkaline Phosphatase Troponin I High Sens B-Natriuretic Peptide Total Protein Albumin Urine Color Urine Appearance Urine pH Ur Specific [place] Urine Protein Urine Glucose (UA) Urine Ketones Urine Blood Urine Nitrite Ur Leukocyte Esterase Urine RBC Urine WBC Ur Squamous Epith Cells Amorphous Sediment Urine Bacteria Granular Casts COVID-19 (JAYASHREE) COVID-19 Clin Com Influenza Type A (PCR) Influenza Type B (PCR) RSV RNA Qual (PCR) SARS-CoV-2 RNA (RT-PCR) 02/04/21 02/04/21 02/04/21 04:06 04:06 04:06 MCV 87.1 MCH 30.5 MCHC 35.0 RDW 18.8 H Plt Count 110 L MPV 9.2 L Immature Gran % (Auto) 1.4 H Neut % (Auto) 87.4 H Lymph % (Auto) 4.6 L [place] % (Auto) 6.6 Eos % (Auto) 0.0 Baso % (Auto) 0.0 Lymph # (Auto) 0.2 L [place] # (Auto) 0.2 Eos # (Auto) 0.0 Baso # (Auto) 0.0 Abs Immat Gran (auto) 0.05 H Absolute Neuts (auto) 3.1 Absolute Nucleated RBC 0.000 Nucleated RBC % (auto) 0.0 Neutrophils % (Manual) Band Neutrophils % Lymphocytes % (Manual) Monocytes % (Manual) Metamyelocytes % Abs Neuts (Manual) Lymphocytes # (Manual) Monocytes # (Manual) Metamyelocytes # Platelet Estimate Plt Morphology Comment RBC Morphology Polychromasia Hypochromasia Microcytosis Macrocytosis Kam Cells PT Cancelled INR Cancelled APTT PTT (Heparin Protocol) D-Dimer High Sensitivty Anion Gap 13 Estim Creat Clear Calc 69.8 Estimated GFR > 60 POC Glucose Random Glucose 153 H Lactic Acid Lactic Acid Fup @ 2Hr Lactic Acid Fup @ 4Hr Calcium 7.6 L Magnesium Total Bilirubin AST ALT Alkaline Phosphatase Troponin I High Sens B-Natriuretic Peptide Total Protein Albumin Urine Color Urine Appearance Urine pH Ur Specific [place] Urine Protein Urine Glucose (UA) Urine Ketones Urine Blood Urine Nitrite Ur Leukocyte Esterase Urine RBC Urine WBC Ur Squamous Epith Cells Amorphous Sediment Urine Bacteria Granular Casts COVID-19 (JAYASHREE) COVID-19 Clin Com Influenza Type A (PCR) Influenza Type B (PCR) RSV RNA Qual (PCR) SARS-CoV-2 RNA (RT-PCR) 02/04/21 07:31 MCV MCH MCHC RDW Plt Count MPV Immature Gran % (Auto) Neut % (Auto) Lymph % (Auto) [place] % (Auto) Eos % (Auto) Baso % (Auto) Lymph # (Auto) [place] # (Auto) Eos # (Auto) Baso # (Auto) Abs Immat Gran (auto) Absolute Neuts (auto) Absolute Nucleated RBC Nucleated RBC % (auto) Neutrophils % (Manual) Band Neutrophils % Lymphocytes % (Manual) Monocytes % (Manual) Metamyelocytes % Abs Neuts (Manual) Lymphocytes # (Manual) Monocytes # (Manual) Metamyelocytes # Platelet Estimate Plt Morphology Comment RBC Morphology Polychromasia Hypochromasia Microcytosis Macrocytosis Kam Cells PT INR APTT PTT (Heparin Protocol) D-Dimer High Sensitivty Anion Gap Estim Creat Clear Calc Estimated GFR POC Glucose 136 H Random Glucose Lactic Acid Lactic Acid Fup @ 2Hr Lactic Acid Fup @ 4Hr Calcium Magnesium Total Bilirubin AST ALT Alkaline Phosphatase Troponin I High Sens B-Natriuretic Peptide Total Protein Albumin Urine Color Urine Appearance Urine pH Ur Specific [place] Urine Protein Urine Glucose (UA) Urine Ketones Urine Blood Urine Nitrite Ur Leukocyte Esterase Urine RBC Urine WBC Ur Squamous Epith Cells Amorphous Sediment Urine Bacteria Granular Casts COVID-19 (JAYASHREE) COVID-19 Clin Com Influenza Type A (PCR) Influenza Type B (PCR) RSV RNA Qual (PCR) SARS-CoV-2 RNA (RT-PCR) Microbiology Microbiology Results: Microbiology 02/03/21 11:31 Blood Culture - Preliminary Blood - Venous Assessment and Plan (1) Pulmonary embolism: Status: Acute (2) Acute respiratory failure with hypoxia: Status: Acute (3) COPD exacerbation: Status: Acute (4) Pulmonary embolism: Status: Acute Assessment and Plan: this is a 75 year old female with a history of Breast cancer currently undergoing chemotherapy who presented with sob/cough found to have pneumonia and PE acute on chronic hypoxic respiratory failure r/t underlying PNA and PE on a background of COPD Pulmonary embolism in the setting of malignancy H/H trending down, heparin held early this morning - IV heparin on hold, will discuss with hematology - hematology consult pending Acute on chronic normocytic anemia no evidence of blood loss may be related to chemotherapy -check stool occult -heparin on hold for now -follow H/H Pancytopenia likely result of chemo, last treatment 01/28 follow CBC Bilateral Pnumonia- -continue IV Zosyn, started 02/03 COPD supplemental o2 prn -Bronchodialtors by Neb -continue home dose of prednisone hyperglycemia possibly r/t steroids. no h/o DM check Hba1c HTN will hold norvasc, lisinopril and chlorthalidone in light of anemia follow trend and resume as BP allows Recent port site infection Culture grew MSSA Completed treatment with Cephalexin elevated bili--chronic and not related to sepsis High troponin--no chest pain, likely demand ischemia from PE and PNA trops flat Hyperlipidemia continue Statin Triple negative breast cancer Oncology follow up [facility] Outpatient follow-up DNR/DNI attending; dr rosenberg Quality Stroke Does the patient have a stroke diagnosis?: No VTE Prior VTE?: No VTE Risk Level:: Medical - moderate - high VTE Device Contraindication: Treatment Not Indicated VTE Drug Contraindication: N/A - Med Ordered
[2021-02-04 10:23] LABS: Estimated Average Glucose 111 mg/dL; Hemoglobin A1c % 5.5 %
[2021-02-04 11:23] LABS: Glucose, Whole Blood 183 mg/dL (60-115)
[2021-02-04 12:27] LABS: Hematocrit 21.3 % (37.0-47.0); Hemoglobin 7.4 g/dl (12.0-16.0)
[2021-02-04] MEDS: Atorvastatin Calcium 40 MG TABLET PO (12:31)
[2021-02-04] MEDS: Calcium + Vitamin D 250 MG TABLET 500 MG PO (12:31)
[2021-02-04] MEDS: predniSONE 10 MG TABLET 30 MG PO (12:31)
[2021-02-04] MEDS: 0.9 % Sodium Chloride Flush 3 ML SYRINGE IVFLUSH ×3 (12:31→21:17)
[2021-02-04] MEDS: Insulin Lispro 100 UNIT/ML 3 ML VIAL SUBCUT (12:32)
[2021-02-04] MEDS: Heparin Sodium,Porcine 5,000 UNIT/ML VIAL 2700 UNIT IVPUSH ×2 (15:02→19:31)
[2021-02-04] MEDS: Heparin Sodium,Porcine/1/2NS 25,000 UNIT/250 ML IV.SOLN 12.25 UNIT IVCONT (15:06)
[2021-02-04 17:27] LABS: Glucose, Whole Blood 143 mg/dL (60-115)
[2021-02-04 19:06] LABS: PTT Heparin Drip 39.8 SEC (53-77.9)
--- NOTE | 2021-02-04 20:39 | PC.NURSE ---
Heparin Drip Pt heparin drip that was paused to her low H&H was restarted per MD order @ 1506, and was to be started due to pt previous low PTTHD. bolus was given per protocol and a new bag was hung as the previous one was . Next PTTHD was placed for 6 hours after per protocol.
[2021-02-04 21:10] LABS: Glucose, Whole Blood 142 mg/dL (60-115)
[2021-02-04] MEDS: traZODone HCL 100 MG TABLET PO (21:17)
[2021-02-05 02:01] LABS: PTT Heparin Drip 62.9 SEC (53-77.9)
[2021-02-05] MEDS: Piperacillin Sodium/Tazobactam 4.5 GM in 0.9 % Sodium Chloride 100 ML IV ×4 (05:27→23:04)
[2021-02-05 06:00] VITALS: BP 144/80; PULSE 72; RESP 18; TEMP 36.6; O2SAT 97
[2021-02-05 07:25] LABS: Glucose, Whole Blood 99 mg/dL (60-115)
[2021-02-05] MEDS: Calcium + Vitamin D 250 MG TABLET 500 MG PO (07:49)
[2021-02-05] MEDS: Loperamide HCl 2 MG CAPSULE PO (07:49)
[2021-02-05] MEDS: Atorvastatin Calcium 40 MG TABLET PO (07:49)
[2021-02-05] MEDS: 0.9 % Sodium Chloride Flush 3 ML SYRINGE IVFLUSH ×3 (07:49→23:09)
[2021-02-05] MEDS: predniSONE 10 MG TABLET 30 MG PO (07:50)
[2021-02-05 08:10] LABS: MANUAL DIFF FLAG NO
[2021-02-05 08:14] LABS: Basophils Percent Auto 0.2 % (0-2); Hematocrit 27.8 % (37.0-47.0); Hemoglobin 9.5 g/dl (12.0-16.0); Imm Gran Abs Auto 0.22 X10*3/uL (0.00-0.03); Imm Gran Pct Auto 3.9 % (0.0-0.4); Lymphocytes Absolute Auto 0.4 X10*3/uL (1.2-4.9); Lymphocytes Percent Auto 7.2 % (20-40); Mean Corpuscular HGB Conc 34.2 g/dl (31.0-35.0); Mean Corpuscular Hemoglobin 30.8 pg (27.0-33.0); Mean Corpuscular Volume 90.3 fL (80.0-98.0); Mean Platelet Volume 8.7 fL (9.4-12.3); Monocytes Absolute Auto 0.4 X10*3/uL (0.1-1.2); Monocytes Percent Auto 7.3 % (2-11); NRBC Pct Auto 0.5 /100WBC (0.0-0.2); Neutrophils Absolute Auto 4.5 x10*3/uL (2.0-8.3); Neutrophils Percent Auto 81.4 % (45-73); Platelet Count 113 X10*3/uL (160-400); Red Blood Count 3.08 X10*6/uL (4.20-5.50); Red Cell Distribution Width 18.6 % (11.0-16.0); White Blood Count 5.6 X10*3/uL (4.8-10.8)
[2021-02-05 08:22] LABS: PTT Heparin Drip 65.8 SEC (53-77.9)
[2021-02-05 08:28] VITALS: BP 164/69; PULSE 80; RESP 20; TEMP 36.2; O2SAT 96
[2021-02-05 08:58] LABS: Anion Gap 14 (12-20); Blood Urea Nitrogen 25 mg/dL (9-16); Calcium 8.4 mg/dL (8.4-10.2); Carbon Dioxide 22 mmol/L (22-29); Chloride 107 mmol/L (96-108); Creatinine Clr Calc Pharmacy 71.9; Estimated Glomerular Filt Rate > 60; Glucose Random 92 mg/dL (60-115); Potassium 3.6 mmol/L (3.3-5.1); Sodium 139 mmol/L (135-145)
--- NOTE | 2021-02-05 09:08 | PC.NURSE ---
Skin assessment completed today. Patient has a healed scabbed rash on right mid back from previous shingles. Slight redness in anal area from diarrhea-barrier cream applied. Scattered bruising on arms. No other skin issues noted at this time.
[2021-02-05] MEDS: Heparin Sodium,Porcine/1/2NS 25,000 UNIT/250 ML IV.SOLN 13.61 UNIT IVCONT (09:21)
--- NOTE | 2021-02-05 09:36 | HO.PM.IMPN ---
Subjective Subjective Date of Service: 02/05/21 Interval History: seen and examined this morning follow up for PE/anemia/pneumonia still having cough productive of green phlegm, but overall breathing feeling better this morning Review of Systems Review of Systems: Yes all other systems are reviewed and are negative Constitutional Constitutional: Denies chills and Denies fever(s) Cardiovascular Cardiovascular: Denies chest pain Gastrointestinal Gastrointestinal: Denies abdominal pain Physical Exam Vital Signs: Vital Signs: Last Vital Signs Temp 97.2 F 02/05/21 08:28 Pulse 80 02/05/21 08:28 Resp 20 02/05/21 08:28 BP 164/69 H 02/05/21 08:28 Pulse Ox 96 02/05/21 08:28 Body Mass Index 25.7 Const: General: cooperative, comfortable, no acute distress, alert and awake Orientation/consciousness: patient oriented x3 HENMT: Head: Yes normocephalic and Yes atraumatic Eyes: Sclerae: sclerae normal Pupils: Equal, round and reactive pupils present Resp: Effort & Inspection: normal respiratory effort and no respiratory distress Cardio: Rate: regular rate Rhythm: regular rhythm GI: Palpation (GI): Soft to palpation and nontender Neuro: General: patient oriented x3 Cranial nerves: Yes CN's II-XII intact bilaterally, Yes Equal, round and reactive pupils present and Yes Bilaterally intact EOM present Extrem: Other: no leg edema Objective Data Active Medications Acetaminophen (Acetaminophen 325 Mg Tablet) 650 mg PO Q6H PRN PRN Reason: Pain, Mild (Pain Scale 1-3) Albuterol Sulfate (Albuterol Sulfate (0.042%) 1.25 Mg/3 Ml Vial.Neb) 2.5 mg INHALE Q4H PRN PRN Reason: shortness of breath or wheezing Albuterol Sulfate (Albuterol Sulfate 90 Mcg 8 Gm Inhaler) 1 puff INHALE QID PRN PRN Reason: shortness of breath or wheezing Atorvastatin Calcium (Atorvastatin Calcium 40 Mg Tablet) 40 mg PO DAILY [facility] Last Admin: 02/05/21 07:49 Dose: 40 mg Documented by: TIERA Calcium Carbonate/Cholecalciferol (Calcium + Vitamin D 250 Mg Tablet) 500 mg PO DAILY [facility] Last Admin: 02/05/21 07:49 Dose: 500 mg Documented by: TIERA Heparin Sodium (Porcine) (Heparin Sodium,Porcine 5,000 Unit/Ml Vial) 2,700 unit 40 unit/kg (2700 unit) IVPUSH PROTOCOL BOLUS PRN; Protocol PRN Reason: 40 unit/kg - Heparin Protocol Last Admin: 02/04/21 19:31 Dose: 2,700 unit Documented by: DAVIDA Heparin Sodium (Porcine) (Heparin Sodium,Porcine 5,000 Unit/Ml Vial) 5,400 unit 80 unit/kg (5400 unit) IVPUSH PROTOCOL BOLUS PRN; Protocol PRN Reason: 80 unit/kg - Heparin Protocol Heparin Sodium/Sodium Chloride () 25,000 unit in 250 mls @ 0 mls/hr IVCONT .Q0M [facility]; Protocol Last Admin: 02/05/21 09:21 Dose: 20 units/kg/hr, 13.61 mls/hr Documented by: TIERA Cosigned by: FAVIAN Piperacillin Sod/Tazobactam (Sod 4.5 gm/ Sodium Chloride) 100 mls @ 200 mls/hr IV Q6H [facility] Last Infusion: 02/05/21 06:01 Dose: 0 mls/hr Documented by: DAVIDA Insulin Human Lispro (Insulin Lispro 100 Unit/Ml 3 Ml Vial) 0 unit SUBCUT QIDACHS [facility]; Protocol Last Admin: 02/05/21 07:42 Dose: Not Given Documented by: TIERA Non-Admin Reason: No Insulin Coverage Loperamide HCl (Loperamide Hcl 2 Mg Capsule) 2 mg PO Q4H PRN PRN Reason: Diarrhea Last Admin: 02/05/21 07:49 Dose: 2 mg Documented by: TIERA Loratadine (Loratadine 10 Mg Tablet) 10 mg PO BID PRN PRN Reason: allergy symptoms Melatonin (Melatonin 3 Mg Tablet) 6 mg PO BEDTIME PRN PRN Reason: Insomnia Patient Own (Medication (Trelegy)) 1 each INHALE RDAILY [facility] Last Admin: 02/05/21 07:53 Dose: 1 each Documented by: TIERA Oxybutynin Chloride (Oxybutynin Chloride Er 5 Mg Tab.Er.24) 10 mg PO DAILY [facility] Last Admin: 02/05/21 07:50 Dose: 10 mg Documented by: TIERA Pharmacy Consult (Consult Rx Perform Med Rec) 1 each MISCELLANE ONCE PRN PRN Reason: Consult order Prednisone (Prednisone 10 Mg Tablet) 30 mg PO DAILY [facility] Last Admin: 02/05/21 07:50 Dose: 30 mg Documented by: TIERA Sodium Chloride (0.9 % Sodium Chloride Flush 3 Ml Syringe) 3 ml IVFLUSH QSHIFT [facility] Last Admin: 02/05/21 07:49 Dose: 3 ml Documented by: TIERA Trazodone HCl (Trazodone Hcl 100 Mg Tablet) 100 mg PO BEDTIME [facility] Last Admin: 02/04/21 21:17 Dose: 100 mg Documented by: DAVIDA Labs CBC & Chem 7: 02/05/21 07:54 02/05/21 07:54 Labs: Laboratory Results - last 24 hr 02/04/21 02/04/21 02/04/21 04:06 04:06 09:06 MCV MCH MCHC RDW Plt Count MPV Immature Gran % (Auto) Neut % (Auto) Lymph % (Auto) [place] % (Auto) Eos % (Auto) Baso % (Auto) Lymph # (Auto) [place] # (Auto) Eos # (Auto) Baso # (Auto) Abs Immat Gran (auto) Absolute Neuts (auto) Absolute Nucleated RBC Nucleated RBC % (auto) Smear Path Review SEE NOTE PTT (Heparin Protocol) Anion Gap Estim Creat Clear Calc Estimated GFR POC Glucose Random Glucose Estimat Average Glucose 111 Hemoglobin A1c % 5.5 Calcium Blood Type O Positive Antibody Screen NEGATIVE Crossmatch See Detail 02/04/21 02/04/21 02/04/21 11:20 17:22 18:49 MCV MCH MCHC RDW Plt Count MPV Immature Gran % (Auto) Neut % (Auto) Lymph % (Auto) [place] % (Auto) Eos % (Auto) Baso % (Auto) Lymph # (Auto) [place] # (Auto) Eos # (Auto) Baso # (Auto) Abs Immat Gran (auto) Absolute Neuts (auto) Absolute Nucleated RBC Nucleated RBC % (auto) Smear Path Review PTT (Heparin Protocol) 39.8 L Anion Gap Estim Creat Clear Calc Estimated GFR POC Glucose 183 H 143 H Random Glucose Estimat Average Glucose Hemoglobin A1c % Calcium Blood Type Antibody Screen Crossmatch 02/04/21 02/05/21 02/05/21 20:59 01:31 07:19 MCV MCH MCHC RDW Plt Count MPV Immature Gran % (Auto) Neut % (Auto) Lymph % (Auto) [place] % (Auto) Eos % (Auto) Baso % (Auto) Lymph # (Auto) [place] # (Auto) Eos # (Auto) Baso # (Auto) Abs Immat Gran (auto) Absolute Neuts (auto) Absolute Nucleated RBC Nucleated RBC % (auto) Smear Path Review PTT (Heparin Protocol) 62.9 D Anion Gap Estim Creat Clear Calc Estimated GFR POC Glucose 142 H 99 Random Glucose Estimat Average Glucose Hemoglobin A1c % Calcium Blood Type Antibody Screen Crossmatch 02/05/21 02/05/21 02/05/21 07:54 07:54 07:54 MCV 90.3 MCH 30.8 MCHC 34.2 RDW 18.6 H Plt Count 113 L MPV 8.7 L Immature Gran % (Auto) 3.9 H Neut % (Auto) 81.4 H Lymph % (Auto) 7.2 L [place] % (Auto) 7.3 Eos % (Auto) 0.0 Baso % (Auto) 0.2 Lymph # (Auto) 0.4 L [place] # (Auto) 0.4 Eos # (Auto) 0.0 Baso # (Auto) 0.0 Abs Immat Gran (auto) 0.22 H Absolute Neuts (auto) 4.5 Absolute Nucleated RBC 0.030 H Nucleated RBC % (auto) 0.5 H Smear Path Review PTT (Heparin Protocol) 65.8 Anion Gap 14 Estim Creat Clear Calc 71.9 Estimated GFR > 60 POC Glucose Random Glucose 92 Estimat Average Glucose Hemoglobin A1c % Calcium 8.4 D Blood Type Antibody Screen Crossmatch Microbiology Microbiology Results: Microbiology 02/03/21 11:31 Blood Culture - Preliminary Blood - Venous No growth after 48 hours. 02/03/21 11:33 Blood Culture - Preliminary Blood - Venous No growth after 24 hours. Assessment and Plan (1) Pulmonary embolism: Status: Acute (2) Acute respiratory failure with hypoxia: Status: Acute Assessment and Plan: This is a 75 year old female with a history of Breast cancer currently undergoing chemotherapy who presented with sob/cough found to have pneumonia and PE acute on chronic hypoxic respiratory failure r/t underlying PNA and PE on a background of COPD Pulmonary embolism in the setting of malignancy - continue to IV heparin for now, likely transition to Eliquis on discharge - hematology following Acute on chronic normocytic anemia s/p 1U blood with appropriate rise in H/H no evidence of blood loss likely related to chemotherapy -stool occult pending Pancytopenia likely result of chemo, last treatment 01/28 follow CBC Bilateral Pnumonia- -continue IV Zosyn, started 02/03 COPD supplemental o2 prn -Bronchodialtors prn -continue home dose of prednisone hyperglycemia possibly r/t steroids. no h/o DM Hba1c 5.5 HTN will hold norvasc, lisinopril and chlorthalidone in light of anemia follow trend and resume as BP allows Recent port site infection Culture grew MSSA Completed treatment with Cephalexin elevated bili- chronic and not related to sepsis High troponin- no chest pain, likely demand ischemia from PE and PNA trops flat Hyperlipidemia continue Statin Triple negative breast cancer Outpatient Oncology follow up [facility] Outpatient follow-up DVT ppx - heparin attending; dr rosenberg Quality Stroke Does the patient have a stroke diagnosis?: No VTE Prior VTE?: No VTE Risk Level:: Medical - moderate - high VTE Device Contraindication: Treatment Not Indicated VTE Drug Contraindication: N/A - Med Ordered
[2021-02-05 11:35] LABS: Glucose, Whole Blood 128 mg/dL (60-115)
[2021-02-05 14:00] VITALS: BP 162/88; PULSE 81; RESP 20; TEMP 36.7; O2SAT 95
[2021-02-05 16:16] VITALS: BP 169/74; PULSE 79; RESP 19; TEMP 37.1; O2SAT 95
[2021-02-05 16:25] LABS: Glucose, Whole Blood 142 mg/dL (60-115)
[2021-02-05 19:27] VITALS: BP 154/74; PULSE 78; RESP 19; TEMP 37; O2SAT 97
[2021-02-05 20:37] LABS: Glucose, Whole Blood 151 mg/dL (60-115)
[2021-02-05 22:00] VITALS: BP 155/76; PULSE 78; RESP 19; TEMP 37.1; O2SAT 97
[2021-02-05] MEDS: Insulin Lispro 100 UNIT/ML 3 ML VIAL SUBCUT (23:03)
[2021-02-05] MEDS: traZODone HCL 100 MG TABLET PO (23:03)
[2021-02-05] MEDS: Acetaminophen 325 MG TABLET 650 MG PO (23:09)
[2021-02-06] VITALS (9 sets, daily range): BP systolic 144–170; BP diastolic 68–86; PULSE 80–92; RESP 18–22; TEMP 36.1–36.8; O2SAT 91–96
[2021-02-06] MEDS: Albuterol Sulfate (0.042%) 1.25 MG/3 ML VIAL.NEB 2.5 MG INHALE (00:17)
[2021-02-06] MEDS: Heparin Sodium,Porcine/1/2NS 25,000 UNIT/250 ML IV.SOLN 13.61 UNIT IVCONT (04:21)
[2021-02-06] MEDS: Piperacillin Sodium/Tazobactam 4.5 GM in 0.9 % Sodium Chloride 100 ML IV ×3 (05:38→17:24)
[2021-02-06 06:06] LABS: Hematocrit 26.1 % (37.0-47.0); Hemoglobin 8.9 g/dl (12.0-16.0); Mean Corpuscular HGB Conc 34.1 g/dl (31.0-35.0); Mean Corpuscular Hemoglobin 30.6 pg (27.0-33.0); Mean Corpuscular Volume 89.7 fL (80.0-98.0); Mean Platelet Volume 9.2 fL (9.4-12.3); Platelet Count 112 X10*3/uL (160-400); Red Blood Count 2.91 X10*6/uL (4.20-5.50); Red Cell Distribution Width 18.6 % (11.0-16.0); White Blood Count 4.4 X10*3/uL (4.8-10.8)
[2021-02-06 06:14] LABS: NRBC Pct Auto 2.1 /100WBC (0.0-0.2)
[2021-02-06 06:21] LABS: PTT Heparin Drip 62.3 SEC (53-77.9)
[2021-02-06 06:25] LABS: Anion Gap 13 (12-20); Blood Urea Nitrogen 18 mg/dL (9-16); Calcium 7.8 mg/dL (8.4-10.2); Carbon Dioxide 23 mmol/L (22-29); Chloride 106 mmol/L (96-108); Estimated Glomerular Filt Rate > 60; Glucose Random 83 mg/dL (60-115); Potassium 3.4 mmol/L (3.3-5.1); Sodium 139 mmol/L (135-145)
[2021-02-06 07:26] LABS: Glucose, Whole Blood 91 mg/dL (60-115)
--- NOTE | 2021-02-06 09:24 | P.PNIM_ITS ---
Subjective Subjective Date of Service: 02/06/21 <LESTER Clements - Last Filed: 02/06/21 09:28> 02/13/21 <Leonidas Nevarez MD - Last Filed: 02/13/21 16:50> Interval History: seen and examined follow up for PNA/PE still having cough, reporting nasal congestion <LESTER Clements - Last Filed: 02/06/21 09:28> Review of Systems Review of Systems: Yes all other systems are reviewed and are negative <LESTER Clements - Last Filed: 02/06/21 09:28> Constitutional Constitutional: Denies chills and Denies fever(s) <LESTER Clements - Last Filed: 02/06/21 09:28> Cardiovascular Cardiovascular: Denies chest pain <LESTER Clements - Last Filed: 02/06/21 09:28> Gastrointestinal Gastrointestinal: Denies abdominal pain <LESTER Clements - Last Filed: 02/06/21 09:28> Physical Exam Vital Signs: Vital Signs: Last Vital Signs Temp 98 F 02/06/21 07:08 Pulse 89 02/06/21 07:08 Resp 22 H 02/06/21 07:08 BP 159/71 H 02/06/21 07:08 Pulse Ox 94 02/06/21 07:08 Body Mass Index 25.7 <LESTER Clements - Last Filed: 02/06/21 09:28> Const: General: cooperative, comfortable, no acute distress, alert, awake and ill appearing <LESTER Clements - Last Filed: 02/06/21 09:28> Nutritional Appearance: well nourished <LESTER Clements - Last Filed: 02/06/21 09:28> Orientation/consciousness: patient oriented x3 <LESTER Clements - Last Filed: 02/06/21 09:28> HENMT: Head: Yes normocephalic and Yes atraumatic <LESTER Clements Last Filed: 02/06/21 09:28> Eyes: Sclerae: sclerae normal <LESTER Clements - Last Filed: 02/06/21:28> Pupils: Equal, round and reactive pupils present <LESTER Clements - Last Filed: 02/06/21 09:28> Resp: Effort & Inspection: normal respiratory effort, no respiratory distress and tachypneic <LESTER Clements - Last Filed: 02/06/21 09:28> Auscultation: diminished lung sounds <LESTER Clements - Last Filed: 02/06/21:28> Cardio: Rate: regular rate <LESTER Clements - Last Filed: 02/06/21:28> Rhythm: regular rhythm <LESTER Clements - Last Filed: 02/06/21:28> GI: Palpation (GI): Soft to palpation and nontender <LESTER Clements - Last Filed: 02/06/21 09:28> Neuro: General: patient oriented x3 <LESTER Clements - Last Filed: 02/06/21:28> Cranial nerves: Yes CN's II-XII intact bilaterally, Yes Equal, round and reactive pupils present and Yes Bilaterally intact EOM present <LESTER Clements - Last Filed: 02/06/21 09:28> Extrem: Other: no leg edema <LESTER Clements - Last Filed: 02/06/21 09:28> Objective Data Active Medications Acetaminophen (Acetaminophen 325 Mg Tablet) 650 mg PO Q6H PRN PRN Reason: Pain, Mild (Pain Scale 1-3) Last Admin: 02/05/21 23:09 Dose: 650 mg Documented by: PILI Albuterol Sulfate (Albuterol Sulfate (0.042%) 1.25 Mg/3 Ml Vial.Neb) 2.5 mg INHALE Q4H PRN PRN Reason: shortness of breath or wheezing Last Admin: 02/06/21 00:17 Dose: 1.25 mg Documented by: ROBERTA Albuterol/Ipratropium (Albuterol/Iprat 2.5/0.5mg 3 Ml Ampul.Neb) 3 ml INHALE RQ6H WHILE AWAKE VU Amlodipine Besylate (Amlodipine Besylate 5 Mg Tablet) 5 mg PO DAILY [facility]; Protocol Atorvastatin Calcium (Atorvastatin Calcium 40 Mg Tablet) 40 mg PO DAILY [facility] Last Admin: 02/05/21 07:49 Dose: 40 mg Documented by: TIERA Benzonatate (Benzonatate 100 Mg Capsule) 100 mg PO TID PRN PRN Reason: Cough Calcium Carbonate/Cholecalciferol (Calcium + Vitamin D 250 Mg Tablet) 500 mg PO DAILY [facility] Last Admin: 02/05/21 07:49 Dose: 500 mg Documented by: TIERA Heparin Sodium (Porcine) (Heparin Sodium,Porcine 5,000 Unit/Ml Vial) 2,700 unit 40 unit/kg (2700 unit) IVPUSH PROTOCOL BOLUS PRN; Protocol PRN Reason: 40 unit/kg - Heparin Protocol Last Admin: 02/04/21 19:31 Dose: 2,700 unit Documented by: DAVIDA Heparin Sodium (Porcine) (Heparin Sodium,Porcine 5,000 Unit/Ml Vial) 5,400 unit 80 unit/kg (5400 unit) IVPUSH PROTOCOL BOLUS PRN; Protocol PRN Reason: 80 unit/kg - Heparin Protocol Heparin Sodium/Sodium Chloride () 25,000 unit in 250 mls @ 0 mls/hr IVCONT .Q0M [facility]; Protocol Last Titration: 02/06/21 07:22 Dose: 20 units/kg/hr, 13.61 mls/hr Documented by: CHRISTIAN Cosigned by: PILI Piperacillin Sod/Tazobactam (Sod 4.5 gm/ Sodium Chloride) 100 mls @ 200 mls/hr IV Q6H [facility] Last Infusion: 02/06/21 06:19 Dose: 0 mls/hr Documented by: PILI Insulin Human Lispro (Insulin Lispro 100 Unit/Ml 3 Ml Vial) 0 unit SUBCUT QIDACHS [facility]; Protocol Last Admin: 02/06/21 07:31 Dose: Not Given Documented by: CHRISTIAN Non-Admin Reason: No Insulin Coverage Loperamide HCl (Loperamide Hcl 2 Mg Capsule) 2 mg PO Q4H PRN PRN Reason: Diarrhea Last Admin: 02/05/21 07:49 Dose: 2 mg Documented by: TIERA Loratadine (Loratadine 10 Mg Tablet) 10 mg PO BID PRN PRN Reason: allergy symptoms Melatonin (Melatonin 3 Mg Tablet) 6 mg PO BEDTIME PRN PRN Reason: Insomnia Patient Own (Medication (Trelegy)) 1 each INHALE RDAILY [facility] Last Admin: 02/05/21 07:53 Dose: 1 each Documented by: TIERA Oxybutynin Chloride (Oxybutynin Chloride Er 5 Mg Tab.Er.24) 10 mg PO DAILY [facility] Last Admin: 02/05/21 07:50 Dose: 10 mg Documented by: TIERA Pharmacy Consult (Consult Rx Perform Med Rec) 1 each MISCELLANE ONCE PRN PRN Reason: Consult order Prednisone (Prednisone 10 Mg Tablet) 30 mg PO DAILY [facility] Last Admin: 02/05/21 07:50 Dose: 30 mg Documented by: TIERA Sodium Chloride (0.9 % Sodium Chloride Flush 3 Ml Syringe) 3 ml IVFLUSH QSHIFT [facility] Last Admin: 02/05/21 23:09 Dose: 3 ml Documented by: PILI Sodium Chloride (Sodium Chloride 0.65 % Nasal 44 Ml Sprbtl) 1 spray NOSTRIL-B Q1H PRN PRN Reason: Nasal Congestion Trazodone HCl (Trazodone Hcl 100 Mg Tablet) 100 mg PO BEDTIME [facility] Last Admin: 02/05/21 23:03 Dose: 100 mg Documented by: PILI <LESTER Clements - Last Filed: 02/06/21 09:28> Labs CBC & Chem 7: : 02/10/21 05:56 02/10/21 05:56 <LESTER Clements - Last Filed: 02/06/21 09:28> Labs: Laboratory Results - last 24 hr 02/05/21 02/05/21 02/05/21 11:29 16:21 20:27 MCV MCH MCHC RDW Plt Count MPV Absolute Nucleated RBC Nucleated RBC % (auto) PTT (Heparin Protocol) Anion Gap Estim Creat Clear Calc Estimated GFR POC Glucose 128 H 142 H 151 H Random Glucose Calcium 02/06/21 02/06/21 02/06/21 05:55 05:55 05:55 MCV 89.7 MCH 30.6 MCHC 34.1 RDW 18.6 H Plt Count 112 L MPV 9.2 L Absolute Nucleated RBC 0.090 H Nucleated RBC % (auto) 2.1 H PTT (Heparin Protocol) 62.3 Anion Gap 13 Estim Creat Clear Calc 73.0 Estimated GFR > 60 POC Glucose Random Glucose 83 Calcium 7.8 L D 02/06/21 07:08 MCV MCH MCHC RDW Plt Count MPV Absolute Nucleated RBC Nucleated RBC % (auto) PTT (Heparin Protocol) Anion Gap Estim Creat Clear Calc Estimated GFR POC Glucose 91 Random Glucose Calcium <LESTER Clements - Last Filed: 02/06/21 09:28> Microbiology Microbiology Results: Microbiology 02/03/21 11:33 Blood Culture - Preliminary Blood - Venous No growth after 48 hours. 02/03/21 11:31 Blood Culture - Preliminary Blood - Venous No growth after 48 hours. <LESTER Clements - Last Filed: 02/06/21 09:28> Assessment and Plan (1) Pulmonary embolism: Status: Acute <LESTER Clements - Last Filed: 02/06/21 09:28> (2) Acute respiratory failure with hypoxia: Status: Acute <LESTER Clements - Last Filed: 02/06/21 09:28> Assessment and Plan: This is a 75 year old female with a history of Breast cancer currently undergoing chemotherapy who presented with sob/cough found to have pneumonia and PE acute on chronic hypoxic respiratory failure r/t underlying PNA and PE on a background of COPD Pulmonary embolism in the setting of malignancy - continue to IV heparin for now, likely transition to Eliquis or Lovenox on discharge - hematology following Acute on chronic normocytic anemia s/p 1U blood with appropriate rise in H/H no evidence of blood loss likely related to chemotherapy -stool occult pending Pancytopenia likely result of chemo, last treatment 01/28 follow CBC Bilateral Pnumonia- -continue IV Zosyn, started 02/03 COPD supplemental o2 prn -Bronchodialtors prn -continue home dose of prednisone hyperglycemia possibly r/t steroids. no h/o DM Hba1c 5.5 HTN BP rebounding will resume norvasc hold lisinopril and chlorthalidone, follow trend and resume as BP allows Recent port site infection Culture grew MSSA Completed treatment with Cephalexin elevated bili- chronic and not related to sepsis High troponin- no chest pain, likely demand ischemia from PE and PNA trops flat Hyperlipidemia continue Statin Triple negative breast cancer Outpatient Oncology follow up [facility] Outpatient follow-up DVT ppx - heparin attending; dr nevarez <LESTER Clements - Last Filed: 02/06/21 09:28> This is a 75 year old female with a history of Breast cancer currently undergoing chemotherapy who presented with sob/cough found to have pneumonia and PE acute on chronic hypoxic respiratory failure r/t underlying PNA and PE on a background of COPD Pulmonary embolism in the setting of malignancy - continue to IV heparin for now, likely transition to Eliquis or Lovenox on discharge - hematology following Acute on chronic normocytic anemia s/p 1U blood with appropriate rise in H/H no evidence of blood loss likely related to chemotherapy -stool occult pending Pancytopenia likely result of chemo, last treatment 01/28 follow CBC Bilateral Pnumonia- -continue IV Zosyn, started 02/03 COPD supplemental o2 prn -Bronchodialtors prn -continue home dose of prednisone hyperglycemia possibly r/t steroids. no h/o DM Hba1c 5.5 HTN BP rebounding will resume norvasc hold lisinopril and chlorthalidone, follow trend and resume as BP allows Recent port site infection Culture grew MSSA Completed treatment with Cephalexin elevated bili- chronic and not related to sepsis High troponin- no chest pain, likely demand ischemia from PE and PNA trops flat Hyperlipidemia continue Statin Triple negative breast cancer Outpatient Oncology follow up [facility] Outpatient follow-up DVT ppx - heparin attending; dr nevarez I saw and examined patient and discussed findings with midlevel provider and i agree with the above <Leonidas Nevarez MD - Last Filed: 02/13/21 16:50> Quality Stroke Does the patient have a stroke diagnosis?: No <LESTER Clements - Last Filed: 02/06/21 09:28> VTE Prior VTE?: No <LESTER Clements - Last Filed: 02/06/21 09:28> VTE Risk Level:: Medical - moderate - high <LESTER Clements - Last Filed: 02/06/21 09:28> VTE Device Contraindication: Treatment Not Indicated <LESTER Clements - Last Filed: 02/06/21 09:28> VTE Drug Contraindication: N/A - Med Ordered <LESTER Clements - Last Filed: 02/06/21 09:28>
[2021-02-06] MEDS: Calcium + Vitamin D 250 MG TABLET 500 MG PO (09:33)
[2021-02-06] MEDS: predniSONE 10 MG TABLET 30 MG PO (09:33)
[2021-02-06] MEDS: Sodium Chloride 0.65 % Nasal 44 ML SPRBTL 1 SPRAY NOSTRIL-B (09:33)
[2021-02-06] MEDS: Atorvastatin Calcium 40 MG TABLET PO (09:34)
[2021-02-06] MEDS: Loperamide HCl 2 MG CAPSULE PO ×2 (09:34→21:18)
[2021-02-06] MEDS: 0.9 % Sodium Chloride Flush 3 ML SYRINGE IVFLUSH ×2 (09:34→17:29)
[2021-02-06] MEDS: Benzonatate 100 MG CAPSULE PO (09:34)
[2021-02-06] MEDS: amLODIPine Besylate 5 MG TABLET PO (09:39)
[2021-02-06 11:26] LABS: Glucose, Whole Blood 132 mg/dL (60-115)
[2021-02-06] MEDS: Albuterol/Iprat 2.5/0.5MG 3 ML AMPUL.NEB INHALE ×2 (15:28→20:21)
[2021-02-06 16:53] LABS: Glucose, Whole Blood 181 mg/dL (60-115)
[2021-02-06] MEDS: Insulin Lispro 100 UNIT/ML 3 ML VIAL SUBCUT ×2 (17:20→21:10)
[2021-02-06 20:50] LABS: Glucose, Whole Blood 200 mg/dL (60-115)
[2021-02-06] MEDS: traZODone HCL 100 MG TABLET PO (21:10)
[2021-02-06] MEDS: Apixaban 5 MG TABLET PO (21:10)
[2021-02-07] VITALS (12 sets, daily range): BP systolic 144–163; BP diastolic 68–88; PULSE 78–114; RESP 18–20; TEMP 36.4–37.7; O2SAT 90–95
[2021-02-07] MEDS: Piperacillin Sodium/Tazobactam 4.5 GM in 0.9 % Sodium Chloride 100 ML IV ×2 (00:19→05:46)
[2021-02-07] MEDS: 0.9 % Sodium Chloride Flush 3 ML SYRINGE IVFLUSH ×3 (00:20→17:24)
[2021-02-07 06:14] LABS: Hematocrit 28.9 % (37.0-47.0); Hemoglobin 9.7 g/dl (12.0-16.0); Mean Corpuscular HGB Conc 33.6 g/dl (31.0-35.0); Mean Corpuscular Hemoglobin 30.1 pg (27.0-33.0); Mean Corpuscular Volume 89.8 fL (80.0-98.0); Platelet Count 119 X10*3/uL (160-400); Red Blood Count 3.22 X10*6/uL (4.20-5.50); Red Cell Distribution Width 19.3 % (11.0-16.0); White Blood Count 5.1 X10*3/uL (4.8-10.8)
[2021-02-07 06:33] LABS: NRBC Pct Auto 2.6 /100WBC (0.0-0.2)
[2021-02-07] MEDS: Albuterol/Iprat 2.5/0.5MG 3 ML AMPUL.NEB INHALE ×3 (06:39→19:52)
[2021-02-07 06:51] LABS: Anion Gap 13 (12-20); Blood Urea Nitrogen 8 mg/dL (9-16); Calcium 7.7 mg/dL (8.4-10.2); Carbon Dioxide 25 mmol/L (22-29); Chloride 102 mmol/L (96-108); Creatinine Clr Calc Pharmacy 74.1; Estimated Glomerular Filt Rate > 60; Glucose Random 96 mg/dL (60-115); Potassium 3.1 mmol/L (3.3-5.1); Sodium 137 mmol/L (135-145)
[2021-02-07 07:49] LABS: PTT Heparin Drip 25.2 SEC (53-77.9)
[2021-02-07 07:54] LABS: Glucose, Whole Blood 112 mg/dL (60-115)
[2021-02-07] MEDS: Apixaban 5 MG TABLET PO ×2 (08:09→21:48)
[2021-02-07] MEDS: lisinopriL 40 MG TABLET PO (08:09)
[2021-02-07] MEDS: Atorvastatin Calcium 40 MG TABLET PO (08:09)
[2021-02-07] MEDS: predniSONE 10 MG TABLET 30 MG PO (08:09)
[2021-02-07] MEDS: amLODIPine Besylate 5 MG TABLET PO (08:09)
[2021-02-07] MEDS: Calcium + Vitamin D 250 MG TABLET 500 MG PO (08:09)
[2021-02-07] MEDS: Acetaminophen 325 MG TABLET 650 MG PO (08:16)
[2021-02-07] MEDS: Loperamide HCl 2 MG CAPSULE PO ×2 (08:16→17:56)
[2021-02-07 11:31] LABS: Glucose, Whole Blood 217 mg/dL (60-115)
--- NOTE | 2021-02-07 11:46 | P.PNIM_ITS ---
Subjective Subjective Date of Service: 02/07/21 Interval History: seen and examined this morning follow up for pna and PE feeling congested and sob this morning cough more dry today Review of Systems Review of Systems: Yes all other systems are reviewed and are negative Constitutional Constitutional: Denies chills and Denies fever(s) Cardiovascular Cardiovascular: Denies chest pain Respiratory Respiratory: Reports cough Gastrointestinal Gastrointestinal: Denies abdominal pain Physical Exam Vital Signs: Vital Signs: Last Vital Signs Temp 98.6 F 02/07/21 11:05 Pulse 99 02/07/21 11:05 Resp 20 02/07/21 11:05 BP 144/76 H 02/07/21 11:05 Pulse Ox 94 02/07/21 11:05 Body Mass Index 25.7 Const: General: cooperative, comfortable, no acute distress, alert, awake and ill appearing Nutritional Appearance: well nourished Orientation/consciousness: patient oriented x3 HENMT: Head: Yes normocephalic and Yes atraumatic Eyes: Sclerae: sclerae normal Pupils: Equal, round and reactive pupils present Resp: Effort & Inspection: normal respiratory effort, no respiratory distress and tachypneic Auscultation: diminished lung sounds Cardio: Rate: regular rate Rhythm: regular rhythm GI: Palpation (GI): Soft to palpation and nontender Neuro: General: patient oriented x3 Cranial nerves: Yes CN's II-XII intact bilaterally, Yes Equal, round and reactive pupils present and Yes Bilaterally intact EOM present Extrem: Other: no leg edema Objective Data Active Medications Acetaminophen (Acetaminophen 325 Mg Tablet) 650 mg PO Q6H PRN PRN Reason: Pain, Mild (Pain Scale 1-3) Last Admin: 02/07/21 08:16 Dose: 650 mg Documented by: CONRADO Albuterol Sulfate (Albuterol Sulfate (0.042%) 1.25 Mg/3 Ml Vial.Neb) 2.5 mg INHALE Q4H PRN PRN Reason: shortness of breath or wheezing Last Admin: 02/06/21 00:17 Dose: 1.25 mg Documented by: ROBERTA Albuterol/Ipratropium (Albuterol/Iprat 2.5/0.5mg 3 Ml Ampul.Neb) 3 ml INHALE RQ6H WHILE AWAKE [facility] Last Admin: 02/07/21 06:39 Dose: 3 ml Documented by: BARBARA Amlodipine Besylate (Amlodipine Besylate 5 Mg Tablet) 5 mg PO DAILY [facility]; Protocol Last Admin: 02/07/21 08:09 Dose: 5 mg Documented by: CONRADO Apixaban (Apixaban 5 Mg Tablet) 5 mg PO BID [facility] Last Admin: 02/07/21 08:09 Dose: 5 mg Documented by: CONRADO Atorvastatin Calcium (Atorvastatin Calcium 40 Mg Tablet) 40 mg PO DAILY [facility] Last Admin: 02/07/21 08:09 Dose: 40 mg Documented by: CONRADO Benzonatate (Benzonatate 100 Mg Capsule) 100 mg PO TID PRN PRN Reason: Cough Last Admin: 02/06/21 09:34 Dose: 100 mg Documented by: CHRISTIAN Calcium Carbonate/Cholecalciferol (Calcium + Vitamin D 250 Mg Tablet) 500 mg PO DAILY [facility] Last Admin: 02/07/21 08:09 Dose: 500 mg Documented by: CONRADO Piperacillin Sod/Tazobactam (Sod 4.5 gm/ Sodium Chloride) 100 mls @ 200 mls/hr IV Q6H [facility] Last Infusion: 02/07/21 06:57 Dose: 0 mls/hr Documented by: TYRESE Insulin Human Lispro (Insulin Lispro 100 Unit/Ml 3 Ml Vial) 0 unit SUBCUT QIDACHS [facility]; Protocol Last Admin: 02/07/21 07:57 Dose: Not Given Documented by: CONRADO Non-Admin Reason: No Insulin Coverage Lisinopril (Lisinopril 40 Mg Tablet) 40 mg PO DAILY [facility]; Protocol Last Admin: 02/07/21 08:09 Dose: 40 mg Documented by: CONRADO Loperamide HCl (Loperamide Hcl 2 Mg Capsule) 2 mg PO Q4H PRN PRN Reason: Diarrhea Last Admin: 02/07/21 08:16 Dose: 2 mg Documented by: CONRADO Loratadine (Loratadine 10 Mg Tablet) 10 mg PO BID PRN PRN Reason: allergy symptoms Melatonin (Melatonin 3 Mg Tablet) 6 mg PO BEDTIME PRN PRN Reason: Insomnia Patient Own (Medication (Trelegy)) 1 each INHALE RDAILY [facility] Last Admin: 02/07/21 06:55 Dose: 1 each Documented by: [email or web address] Oxybutynin Chloride (Oxybutynin Chloride Er 5 Mg Tab.Er.24) 10 mg PO DAILY [facility] Last Admin: 02/07/21 08:09 Dose: 10 mg Documented by: CONRADO Pharmacy Consult (Consult Rx Perform Med Rec) 1 each MISCELLANE ONCE PRN PRN Reason: Consult order Prednisone (Prednisone 10 Mg Tablet) 30 mg PO DAILY [facility] Last Admin: 02/07/21 08:09 Dose: 30 mg Documented by: CONRADO Sodium Chloride (0.9 % Sodium Chloride Flush 3 Ml Syringe) 3 ml IVFLUSH QSHIFT [facility] Last Admin: 02/07/21 08:10 Dose: 3 ml Documented by: CONRADO Sodium Chloride (Sodium Chloride 0.65 % Nasal 44 Ml Sprbtl) 1 spray NOSTRIL-B Q1H PRN PRN Reason: Nasal Congestion Last Admin: 02/06/21 09:33 Dose: 1 spray Documented by: CHRISTIAN Trazodone HCl (Trazodone Hcl 100 Mg Tablet) 100 mg PO BEDTIME [facility] Last Admin: 02/06/21 21:10 Dose: 100 mg Documented by: TASHA Labs CBC & Chem 7: 02/07/21 05:52 02/07/21 05:52 Labs: Laboratory Results - last 24 hr 02/06/21 02/06/21 02/07/21 16:50 20:45 05:52 MCV 89.8 MCH 30.1 MCHC 33.6 RDW 19.3 H Plt Count 119 L MPV 9.0 L Absolute Nucleated RBC 0.130 H Nucleated RBC % (auto) 2.6 H PTT (Heparin Protocol) Anion Gap Estim Creat Clear Calc Estimated GFR POC Glucose 181 H 200 H Random Glucose Calcium 02/07/21 02/07/21 02/07/21 05:52 05:52 07:38 MCV MCH MCHC RDW Plt Count MPV Absolute Nucleated RBC Nucleated RBC % (auto) PTT (Heparin Protocol) 25.2 L D Anion Gap 13 Estim Creat Clear Calc 74.1 Estimated GFR > 60 POC Glucose 112 Random Glucose 96 Calcium 7.7 L 02/07/21 11:23 MCV MCH MCHC RDW Plt Count MPV Absolute Nucleated RBC Nucleated RBC % (auto) PTT (Heparin Protocol) Anion Gap Estim Creat Clear Calc Estimated GFR POC Glucose 217 H Random Glucose Calcium Assessment and Plan (1) Pulmonary embolism: Status: Acute (2) Acute respiratory failure with hypoxia: Status: Acute (3) COPD exacerbation: Status: Acute Assessment and Plan: This is a 75 year old female with a history of Breast cancer currently undergoing chemotherapy who presented with sob/cough found to have pneumonia and PE acute on chronic hypoxic respiratory failure r/t underlying PNA and PE on a background of COPD Pulmonary embolism in the setting of malignancy - initially treated with IV heparin, transitioned to Eliquis 02/06 Acute on chronic normocytic anemia s/p 1U blood with appropriate rise in H/H no evidence of blood loss likely related to chemotherapy H/H has remained stable -stool occult pending Pancytopenia likely result of chemo, last treatment 01/28 follow CBC Bilateral Pnumonia- -Initially treated with IV Zosyn, started 02/03; transioned to po augmentin 02/07; day 5/7 of abx COPD supplemental o2 prn -Bronchodialtors prn -continue home dose of prednisone hyperglycemia likely r/t steroid use no h/o DM Hba1c 5.5 HTN BP rebounding will resume norvasc, lisinopril chlorthalidone NF, on hold follow BP Recent port site infection Culture grew MSSA Completed treatment with Cephalexin elevated bili- chronic and not related to sepsis High troponin- no chest pain, likely demand ischemia from PE and PNA trops flat Hyperlipidemia continue Statin Triple negative breast cancer Outpatient Oncology follow up [facility] Outpatient follow-up DVT ppx - Ajit attending; dr Jung Quality Stroke Does the patient have a stroke diagnosis?: No VTE Prior VTE?: No VTE Risk Level:: Medical - moderate - high VTE Device Contraindication: Treatment Not Indicated VTE Drug Contraindication: N/A - Med Ordered
[2021-02-07] MEDS: Insulin Lispro 100 UNIT/ML 3 ML VIAL SUBCUT ×3 (13:14→21:55)
[2021-02-07] MEDS: Potassium Chloride ER 20 MEQ TAB.ER.PRT 40 MEQ PO (13:16)
[2021-02-07] MEDS: Amoxicillin/Potassium Clav 875 MG TABLET PO (13:16)
[2021-02-07 16:33] LABS: Glucose, Whole Blood 204 mg/dL (60-115)
[2021-02-07 20:28] LABS: Glucose, Whole Blood 178 mg/dL (60-115)
[2021-02-07] MEDS: traZODone HCL 100 MG TABLET PO (21:48)
[2021-02-07] MEDS: Benzonatate 100 MG CAPSULE PO (21:48)
[2021-02-08] VITALS (14 sets, daily range): BP systolic 103–169; BP diastolic 72–88; PULSE 86–121; RESP 18–27; TEMP 36.1–37.6; O2SAT 84–98
[2021-02-08] MEDS: Amoxicillin/Potassium Clav 875 MG TABLET PO (00:25)
[2021-02-08] MEDS: 0.9 % Sodium Chloride Flush 3 ML SYRINGE IVFLUSH ×4 (00:26→23:09)
--- NOTE | 2021-02-08 06:30 | PM.EVENT ---
Event Note Date of Service: 02/08/21 Event Note: Patient complaining of worsening shortness of breath, patient was initially on 2.5 L satting 95%, she suddenly became short of breath, now on 6 L of nasal cannula satting 91%. Heart rate of 120 sinus tachy. Will obtain a chest x-ray, morphine for respiratory distress
[2021-02-08] MEDS: Morphine Sulfate 4 MG/ML CARTRIDGE IVPUSH (06:38)
[2021-02-08 06:46] LABS: Anion Gap 14 (12-20); Blood Urea Nitrogen 7 mg/dL (9-16); Carbon Dioxide 25 mmol/L (22-29); Chloride 99 mmol/L (96-108); Creatinine Clr Calc Pharmacy 83.3; Estimated Glomerular Filt Rate > 60; Glucose Random 129 mg/dL (60-115); Potassium 3.3 mmol/L (3.3-5.1); Sodium 135 mmol/L (135-145)
[2021-02-08 06:53] LABS: Hematocrit 30.9 % (37.0-47.0); Hemoglobin 10.5 g/dl (12.0-16.0); Mean Corpuscular Hemoglobin 30.6 pg (27.0-33.0); Mean Corpuscular Volume 90.1 fL (80.0-98.0); Mean Platelet Volume 9.4 fL (9.4-12.3); Platelet Count 133 X10*3/uL (160-400); Red Blood Count 3.43 X10*6/uL (4.20-5.50); Red Cell Distribution Width 20.1 % (11.0-16.0); White Blood Count 7.2 X10*3/uL (4.8-10.8)
[2021-02-08 06:54] LABS: NRBC Pct Auto 1.1 /100WBC (0.0-0.2)
[2021-02-08 07:15] LABS: Glucose, Whole Blood 145 mg/dL (60-115)
[2021-02-08] MEDS: Albuterol/Iprat 2.5/0.5MG 3 ML AMPUL.NEB INHALE ×3 (07:56→18:57)
[2021-02-08] MEDS: Calcium + Vitamin D 250 MG TABLET 500 MG PO (07:56)
[2021-02-08] MEDS: lisinopriL 40 MG TABLET PO (07:58)
[2021-02-08] MEDS: predniSONE 10 MG TABLET 30 MG PO (07:58)
[2021-02-08] MEDS: Atorvastatin Calcium 40 MG TABLET PO (07:58)
[2021-02-08] MEDS: Apixaban 5 MG TABLET PO ×2 (07:59→21:04)
[2021-02-08] MEDS: amLODIPine Besylate 5 MG TABLET PO (08:03)
[2021-02-08 08:45] LABS: ABG Base Excess 7.6 mmol/L; ABG HCO3 30 mmol/L (22-26); ABG pCO2 37 mmHg (32-45); ABG pCO2 TC 38 mmHg (32-45); ABG pH 7.52 (7.35-7.45); ABG pH TC 7.51 (7.35-7.45); ABG pO2 92 mmHg (83-108); ABG pO2 TC 96 (83-108)
[2021-02-08 08:46] LABS: ABG Refer to POC result
--- NOTE | 2021-02-08 08:57 | P.PNIM_ITS ---
Subjective Subjective Date of Service: 02/08/21 Interval History: Follow up PNA Still with sob especially at night sitting up in a chair Physical Exam Vital Signs: Vital Signs: Last Vital Signs Temp 99.6 F 02/08/21 07:44 Pulse 118 H 02/08/21 08:03 Resp 27 H 02/08/21 07:44 BP 103/72 02/08/21 08:03 Pulse Ox 92 02/08/21 07:44 Body Mass Index 25.7 Appearing in no acute distress lung sounds are clear/diminished heart regular rate rhythm, clear S1, S2 positive bowel sounds, abdomen is soft, nontender neuro patient is alert x3, no focal deficits Objective Data Active Medications Acetaminophen (Acetaminophen 325 Mg Tablet) 650 mg PO Q6H PRN PRN Reason: Pain, Mild (Pain Scale 1-3) Last Admin: 02/07/21 08:16 Dose: 650 mg Documented by: CONRADO Albuterol Sulfate (Albuterol Sulfate (0.083%) 2.5 Mg/3 Ml Vial.Neb) 2.5 mg INHALE Q4H PRN PRN Reason: shortness of breath or wheezing Albuterol/Ipratropium (Albuterol/Iprat 2.5/0.5mg 3 Ml Ampul.Neb) 3 ml INHALE RQ6H WHILE AWAKE [facility] Last Admin: 02/08/21 07:56 Dose: 3 ml Documented by: SIDNEY Amlodipine Besylate (Amlodipine Besylate 5 Mg Tablet) 5 mg PO DAILY [facility]; Protocol Last Admin: 02/08/21 08:03 Dose: 5 mg Documented by: ROBERTH Amoxicillin/Clavulanate Potassium (Amoxicillin/Potassium Clav 875 Mg Tablet) 875 mg PO Q12H [facility] Last Admin: 02/08/21 00:25 Dose: 875 mg Documented by: BEAN Apixaban (Apixaban 5 Mg Tablet) 5 mg PO BID [facility] Last Admin: 02/08/21 07:59 Dose: 5 mg Documented by: ROBERTH Atorvastatin Calcium (Atorvastatin Calcium 40 Mg Tablet) 40 mg PO DAILY [facility] Last Admin: 02/08/21 07:58 Dose: 40 mg Documented by: ROBERTH Benzocaine (Throat Lozenge, Medicated Lozenge) 1 lozenge MUCOUS MEM Q2H PRN PRN Reason: Sore Throat Benzonatate (Benzonatate 100 Mg Capsule) 100 mg PO TID PRN PRN Reason: Cough Last Admin: 02/07/21 21:48 Dose: 100 mg Documented by: BEAN Calcium Carbonate/Cholecalciferol (Calcium + Vitamin D 250 Mg Tablet) 500 mg PO DAILY [facility] Last Admin: 02/08/21 07:56 Dose: 500 mg Documented by: ROBERTH Insulin Human Lispro (Insulin Lispro 100 Unit/Ml 3 Ml Vial) 0 unit SUBCUT QIDACHS [facility]; Protocol Last Admin: 02/08/21 08:05 Dose: Not Given Documented by: ROBERTH Non-Admin Reason: No Insulin Coverage Lisinopril (Lisinopril 40 Mg Tablet) 40 mg PO DAILY [facility]; Protocol Last Admin: 02/08/21 07:58 Dose: 40 mg Documented by: ROBERTH Loperamide HCl (Loperamide Hcl 2 Mg Capsule) 2 mg PO Q4H PRN PRN Reason: Diarrhea Last Admin: 02/07/21 17:56 Dose: 2 mg Documented by: ROBERTH Loratadine (Loratadine 10 Mg Tablet) 10 mg PO BID PRN PRN Reason: allergy symptoms Melatonin (Melatonin 3 Mg Tablet) 6 mg PO BEDTIME PRN PRN Reason: Insomnia Patient Own (Medication (Trelegy)) 1 each INHALE RDAILY [facility] Last Admin: 02/07/21 06:55 Dose: 1 each Documented by: TYRESE Oxybutynin Chloride (Oxybutynin Chloride Er 5 Mg Tab.Er.24) 10 mg PO DAILY [facility] Last Admin: 02/08/21 07:55 Dose: 10 mg Documented by: ROBERTH Pharmacy Consult (Consult Rx Perform Med Rec) 1 each MISCELLANE ONCE PRN PRN Reason: Consult order Prednisone (Prednisone 10 Mg Tablet) 30 mg PO DAILY [facility] Last Admin: 02/08/21 07:58 Dose: 30 mg Documented by: ROBERTH Sodium Chloride (0.9 % Sodium Chloride Flush 3 Ml Syringe) 3 ml IVFLUSH QSHIFT [facility] Last Admin: 02/08/21 08:04 Dose: 3 ml Documented by: ROBERTH Sodium Chloride (Sodium Chloride 0.65 % Nasal 44 Ml Sprbtl) 1 spray NOSTRIL-B Q1H PRN PRN Reason: Nasal Congestion Last Admin: 02/06/21 09:33 Dose: 1 spray Documented by: CHRISTIAN Trazodone HCl (Trazodone Hcl 100 Mg Tablet) 100 mg PO BEDTIME VU Last Admin: 02/07/21 21:48 Dose: 100 mg Documented by: BEAN Labs CBC & Chem 7: 02/08/21 05:51 02/08/21 05:51 Labs: Laboratory Results - last 24 hr 02/07/21 02/07/21 02/07/21 11:23 16:29 20:24 MCV MCH MCHC RDW Plt Count MPV Absolute Nucleated RBC Nucleated RBC % (auto) O2 Saturation ABG pH at Pt Temp ABG pH (Temp Correct) ABG pCO2 at Pt Temp ABG pCO2 (Temp Corrct ABG pO2 at Pt Temp ABG pO2 (Temp Correct ABG HCO3 ABG Base Excess (Actual) Anion Gap Estim Creat Clear Calc Estimated GFR POC Glucose 217 H 204 H 178 H Random Glucose Calcium 02/08/21 02/08/21 02/08/21 05:51 05:51 07:12 MCV 90.1 MCH 30.6 MCHC 34.0 RDW 20.1 H Plt Count 133 L MPV 9.4 Absolute Nucleated RBC 0.080 H Nucleated RBC % (auto) 1.1 H O2 Saturation ABG pH at Pt Temp ABG pH (Temp Correct) ABG pCO2 at Pt Temp ABG pCO2 (Temp Corrct ABG pO2 at Pt Temp ABG pO2 (Temp Correct ABG HCO3 ABG Base Excess (Actual) Anion Gap 14 Estim Creat Clear Calc 83.3 Estimated GFR > 60 POC Glucose 145 H Random Glucose 129 H Calcium 8.0 L 02/08/21 08:39 MCV MCH MCHC RDW Plt Count MPV Absolute Nucleated RBC Nucleated RBC % (auto) O2 Saturation 98.0 ABG pH at Pt Temp 7.52 H ABG pH (Temp Correct) 7.51 H ABG pCO2 at Pt Temp 37 ABG pCO2 (Temp Corrct 38 ABG pO2 at Pt Temp 92 ABG pO2 (Temp Correct 96 ABG HCO3 30 H ABG Base Excess (Actual) 7.6 Anion Gap Estim Creat Clear Calc Estimated GFR POC Glucose Random Glucose Calcium Assessment and Plan (1) Pulmonary embolism: Status: Acute (2) Acute respiratory failure with hypoxia: Status: Acute Assessment and Plan: This is a 75 year old female with a history of Breast cancer currently undergoing chemotherapy who presented with sob/cough found to have pneumonia and PE Acute on chronic hypoxic respiratory failure r/t underlying PNA and PE on a background of COPD HFrEF. New changes on Echo ? component of heart failure with worsening sob Consult cardiology will add BNP if elevated five dose of Lasix Pulmonary embolism in the setting of malignancy - initially treated with IV heparin, transitioned to Eliquis 02/06 Bilateral Pnumonia- -Initially treated with IV Zosyn, started 02/03; transitioned to po augmentin 02/07 total 7 days Acute on chronic normocytic anemia s/p 1U blood with appropriate rise in H/H no evidence of blood loss likely related to chemotherapy H/H has remained stable -stool occult pending Pancytopenia likely result of chemo, last treatment 01/28 follow CBC COPD supplemental o2 prn -Bronchodialtors prn -continue home dose of prednisone hyperglycemia likely r/t steroid use no h/o DM Hba1c 5.5 HTN BP rebounding will resume norvasc, lisinopril chlorthalidone NF, on hold follow BP Recent port site infection Culture grew MSSA Completed treatment with Cephalexin elevated bili- chronic and not related to sepsis High troponin- no chest pain, likely demand ischemia from PE and PNA trops flat Hyperlipidemia continue Statin Triple negative breast cancer Outpatient Oncology follow up [facility] Outpatient follow-up DVT ppx - Ajit attending Dr. Rueda Quality Stroke Does the patient have a stroke diagnosis?: No VTE Prior VTE?: No VTE Risk Level:: Medical - moderate - high VTE Device Contraindication: Treatment Not Indicated VTE Drug Contraindication: N/A - Med Ordered
[2021-02-08 09:43] LABS: B Type Natriuretic Peptide 64 pg/mL (<100)
--- NOTE | 2021-02-08 10:24 | P.CONCA_ITS ---
History of Present Illness History of Present Illness Date of Service: 02/08/21 Requesting physician: Kristie Celis Chief complaint: SOB Narrative: I was requested to see Chayo in cardiology consultation today for shortness of breath. She is a pleasant 75-year-old woman with prior history of severe COPD/emphysema, recent admission with COPD exacerbation at which time she was started on oxygen therapy by Dr. Esparza, whom she has seen for many years. She also has long history of hypertension. No prior cardiac history. However echocardiogram done on January 19 at shown LVEF of 35-40%. She does not recall having been told that she has weak muscle of the heart. She came to the hospital with progressive shortness of breath, cough productive of greenish phlegm and was noted to have bilateral pulmonary infiltrates as well as pulmonary embolism. She has been getting chemotherapy for breast cancer, she says this is advanced. She is currently been started on IV heparin and switch to oral Eliquis. She said her last night she was not feeling well and was having on and off shortness of breath and could not lay in bed. She is therefore sleeping in the recliner. She also notes to of leg edema. This led to the concern for congestive heart failure. She continues to have cough productive of phlegm. Her BNP done this morning was 64. She has sinus tachycardia. She has no prior history of heart failure. Review of Systems Constitutional: Constitutional: Reports fatigue and Reports malaise Eyes: Eyes: Reports no additional eye complaints ENT: Reports system reviewed and no additional complaints, except as documented Cardiovascular: Cardiovascular: Denies chest pain, Reports leg edema, Denies lightheadedness, Denies Loss of Consciousness, Denies palpitations and Reports dyspnea Respiratory: Respiratory: Reports cough, Reports excessive phlegm production and Reports dyspnea Gastrointestinal: Gastrointestinal: Reports no additional gastrointestinal complaints Genitourinary: Genitourinary: Reports no additional female genitourinary c omplaints Musculoskeletal: Musculoskeletal: Reports no additional musculoskeletal complaints Integumentary/Breasts: Skin/Breast: Reports system reviewed and no additional complaints, except as docu Neurologic: Reports system reviewed and no additional complaints, except as documented Psychiatric: Psychiatric: Reports no additional psychiatric complaints Endocrine: Endocrine: Reports fatigue and Denies palpitations PMFSH Past Medical History Medical History Allergies Anxiety Bladder prolapse Chondrocalcinosis COPD (chronic obstructive pulmonary disease) COPD (chronic obstructive pulmonary disease) Dyslipidemia HTN (hypertension) Hypoxemia Mixed incontinence urge and stress Monoclonal gammopathies Osteoporosis Physical exam Pulmonary nodules Functional capacity: independent ambulation Family History Family History Father No problems noted. Mother HTN (hypertension) CVD (cardiovascular disease) Stroke Brother No problems noted. Sister No problems noted. Son No problems noted. Daughter No problems noted. Other Substance use disorder Surgical History Surgical History History of section Social History Social History Household Members: Family Housing: House Housing Other:: mobile home Do you presently have visiting nurse or other home services: No Alcohol intake: never Patient Tobacco Use Status: Former Tobacco user Years Smoked: 20 years ago e-Cigarette/Vaping Use: Never Used Second Hand Smoke Exposure: Yes Use of substances other than those prescribed or required for medical reasons: No Currently Displaying Signs/Symptoms of Drug Intoxication Withdrawal: No Have you been hit, kicked, punched, or otherwise hurt by someone within the past year? 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[employer] Current occupational exposures/hazards: No Meds Allergies Allergy/AdvReac Type Severity Reaction Status Date / Time hydrochlorothiazide Allergy Unknown hives Verified 01/21/21 15:05 Active Medications: Current Medications Acetaminophen (Acetaminophen 325 Mg Tablet) 650 mg PO Q6H PRN PRN Reason: Pain, Mild (Pain Scale 1-3) Last Admin: 02/07/21 08:16 Dose: 650 mg Documented by: Albuterol Sulfate (Albuterol Sulfate (0.083%) 2.5 Mg/3 Ml Vial.Neb) 2.5 mg INHALE Q4H PRN PRN Reason: shortness of breath or wheezing Albuterol/Ipratropium (Albuterol/Iprat 2.5/0.5mg 3 Ml Ampul.Neb) 3 ml INHALE RQ6H WHILE AWAKE [facility] Last Admin: 02/08/21 07:56 Dose: 3 ml Documented by: Amlodipine Besylate (Amlodipine Besylate 5 Mg Tablet) 5 mg PO DAILY [facility]; Protocol Last Admin: 02/08/21 08:03 Dose: 5 mg Documented by: Amoxicillin/Clavulanate Potassium (Amoxicillin/Potassium Clav 875 Mg Tablet) 875 mg PO Q12H [facility] Last Admin: 02/08/21 00:25 Dose: 875 mg Documented by: Apixaban (Apixaban 5 Mg Tablet) 5 mg PO BID [facility] Last Admin: 02/08/21 07:59 Dose: 5 mg Documented by: Atorvastatin Calcium (Atorvastatin Calcium 40 Mg Tablet) 40 mg PO DAILY [facility] Last Admin: 02/08/21 07:58 Dose: 40 mg Documented by: Benzocaine (Throat Lozenge, Medicated Lozenge) 1 lozenge MUCOUS MEM Q2H PRN PRN Reason: Sore Throat Benzonatate (Benzonatate 100 Mg Capsule) 100 mg PO TID PRN PRN Reason: Cough Last Admin: 02/07/21 21:48 Dose: 100 mg Documented by: Calcium Carbonate/Cholecalciferol (Calcium + Vitamin D 250 Mg Tablet) 500 mg PO DAILY [facility] Last Admin: 02/08/21 07:56 Dose: 500 mg Documented by: Insulin Human Lispro (Insulin Lispro 100 Unit/Ml 3 Ml Vial) 0 unit SUBCUT QIDACHS [facility]; Protocol Last Admin: 02/08/21 08:05 Dose: Not Given Documented by: Lisinopril (Lisinopril 40 Mg Tablet) 40 mg PO DAILY [facility]; Protocol Last Admin: 02/08/21 07:58 Dose: 40 mg Documented by: Loperamide HCl (Loperamide Hcl 2 Mg Capsule) 2 mg PO Q4H PRN PRN Reason: Diarrhea Last Admin: 02/07/21 17:56 Dose: 2 mg Documented by: Loratadine (Loratadine 10 Mg Tablet) 10 mg PO BID PRN PRN Reason: allergy symptoms Melatonin (Melatonin 3 Mg Tablet) 6 mg PO BEDTIME PRN PRN Reason: Insomnia Patient Own (Medication (Trelegy)) 1 each INHALE RDAILY [facility] Last Admin: 02/07/21 06:55 Dose: 1 each Documented by: Oxybutynin Chloride (Oxybutynin Chloride Er 5 Mg Tab.Er.24) 10 mg PO DAILY [facility] Last Admin: 02/08/21 07:55 Dose: 10 mg Documented by: Pharmacy Consult (Consult Rx Perform Med Rec) 1 each MISCELLANE ONCE PRN PRN Reason: Consult order Prednisone (Prednisone 10 Mg Tablet) 30 mg PO DAILY [facility] Last Admin: 02/08/21 07:58 Dose: 30 mg Documented by: Sodium Chloride (0.9 % Sodium Chloride Flush 3 Ml Syringe) 3 ml IVFLUSH QSHIFT [facility] Last Admin: 02/08/21 08:04 Dose: 3 ml Documented by: Sodium Chloride (Sodium Chloride 0.65 % Nasal 44 Ml Sprbtl) 1 spray NOSTRIL-B Q1H PRN PRN Reason: Nasal Congestion Last Admin: 02/06/21 09:33 Dose: 1 spray Documented by: Trazodone HCl (Trazodone Hcl 100 Mg Tablet) 100 mg PO BEDTIME [facility] Last Admin: 02/07/21 21:48 Dose: 100 mg Documented by: Home Medications Medication Instructions Recorded Confirmed Last Taken Type fluticasone fur. 100 mcg-umeclid 1 puff PO DAILY 11/17/20 02/03/21 01/18/21 History 62.5 mcg-vilant 25 mcg inhalat.powder (Trelegy Ellipta) ondansetron HCl 4 mg tablet 8 mg PO Q8H PRN 12/31/20 02/03/21 Unknown History (Zofran) calcium carbonate 500 mg (1,250 1 tab PO DAILY 01/18/21 02/03/21 01/18/21 History mg)-vitamin D3 125 unit tablet Probiotic 1 cap PO DAILY 02/03/21 02/03/21 Unknown History acetaminophen 650 mg 650 mg PO BID 02/03/21 02/03/21 Unknown History tablet,extended release chlorthalidone 25 mg tablet 1 tab PO DAILY 02/03/21 02/03/21 Unknown History loperamide 2 mg capsule 2 mg PO Q4H PRN 02/03/21 02/03/21 Unknown History Physical Exam Vital Signs: Vital Signs: Last Vital Signs Temp 99.6 F 02/08/21 07:44 Pulse 118 H 02/08/21 08:03 Resp 27 H 02/08/21 07:44 BP 103/72 02/08/21 08:03 Pulse Ox 92 02/08/21 07:44 Body Mass Index 25.7 Const: General: cooperative, comfortable, alert and in distress mild and respiratory Nutritional Appearance: average body habitus Orientation/consciousness: patient oriented x3 HENMT: Head: Yes normocephalic and Yes atraumatic Neck: Neck: Yes trachea midline, Yes supple and Yes no JVD Chest: Chest palpation & inspection: abnormal inspection of the chest kyphotic Resp: Effort & Inspection: normal respiratory effort Auscultation: no crackles, no rales, rhonchi, wheezes and diminished lung sounds Cardio: Jugular venous distension: no JVD Rate: regular rate and tachycardic Rhythm: regular rhythm Heart sounds: S1 normal heart sound present, S2 normal heart sound present, no click, no gallops, no murmurs and no rubs GI: Auscultation: normal bowel sounds Skin: General skin exam: no rashes or lesions noted and ecchymosis Neuro: General: patient oriented x3 and no focal motor deficits Extrem: General: No clubbing, No cyanosis and Yes edema Objective Labs and Meds Result diagrams: 02/08/21 05:51 02/08/21 05:51 Lab results: Laboratory Results - last 24 hr 02/07/21 02/07/21 02/07/21 11:23 16:29 20:24 WBC RBC Hgb Hct MCV MCH MCHC RDW Plt Count MPV Absolute Nucleated RBC Nucleated RBC % (auto) O2 Saturation ABG pH at Pt Temp ABG pH (Temp Correct) ABG pCO2 at Pt Temp ABG pCO2 (Temp Corrct ABG pO2 at Pt Temp ABG pO2 (Temp Correct ABG HCO3 ABG Base Excess (Actual) Sodium Potassium Chloride Carbon Dioxide Anion Gap BUN Creatinine Estim Creat Clear Calc Estimated GFR POC Glucose 217 H 204 H 178 H Random Glucose Calcium B-Natriuretic Peptide 02/08/21 02/08/21 02/08/21 05:51 05:51 05:51 WBC 7.2 RBC 3.43 L Hgb 10.5 L Hct 30.9 L MCV 90.1 MCH 30.6 MCHC 34.0 RDW 20.1 H Plt Count 133 L MPV 9.4 Absolute Nucleated RBC 0.080 H Nucleated RBC % (auto) 1.1 H O2 Saturation ABG pH at Pt Temp ABG pH (Temp Correct) ABG pCO2 at Pt Temp ABG pCO2 (Temp Corrct ABG pO2 at Pt Temp ABG pO2 (Temp Correct ABG HCO3 ABG Base Excess (Actual) Sodium 135 Potassium 3.3 Chloride 99 Carbon Dioxide 25 Anion Gap 14 BUN 7 L Creatinine 0.57 Estim Creat Clear Calc 83.3 Estimated GFR > 60 POC Glucose Random Glucose 129 H Calcium 8.0 L B-Natriuretic Peptide 64 02/08/21 02/08/21 07:12 08:39 WBC RBC Hgb Hct MCV MCH MCHC RDW Plt Count MPV Absolute Nucleated RBC Nucleated RBC % (auto) O2 Saturation 98.0 ABG pH at Pt Temp 7.52 H ABG pH (Temp Correct) 7.51 H ABG pCO2 at Pt Temp 37 ABG pCO2 (Temp Corrct 38 ABG pO2 at Pt Temp 92 ABG pO2 (Temp Correct 96 ABG HCO3 30 H ABG Base Excess (Actual) 7.6 Sodium Potassium Chloride Carbon Dioxide Anion Gap BUN Creatinine Estim Creat Clear Calc Estimated GFR POC Glucose 145 H Random Glucose Calcium B-Natriuretic Peptide Imaging Radiologist's impression: Impressions Chest X-Ray 02/08/21 07:00 IMPRESSION: 1. Slight worsening of the patchy multifocal airspace consolidation in the midlungs and lung bases 2. Pulmonary emphysema. Assessment and Plan (1) Acute respiratory failure with hypoxia: Status: Acute Patient admitted with acute hypoxic respiratory failure which appears to be secondary to underlying COPD with worsening pulmonary infiltrates as well as pulmonary embolism with V/Q mismatch. She continues to remain short of breath. Does not appear to be clinically in congestive heart failure with fluid overload. I do not think she needs diuretics. Especially currently a BNP is within normal limits. This appears to be mostly a related to underlying pulmonary issues related to may be persistent bronchospastic airway disease or worsening infiltrates. Possible recurrent pulmonary embolism should be consider even the patient is on oral anticoagulant therapy. Pulmonary deconditioning is also possible in this elderly woman who is admitted for few days. Consider pulmonary consultation. No need for IV diuretics at this point in time. (2) Cardiomyopathy: Status: Acute Newly diagnosed cardiomyopathy with moderate LV systolic dysfunction. Unclear etiology at this point time. Does appear to be in overt heart failure. No need for diuretics. Already on lisinopril therapy as a neurohormonal modulator. Continue the same. Target goal blood pressure less than 130/84. Would avoid beta-blockers in her case given her severe underlying pulmonary cond ition persistent bronchospastic airway disease. Will sign of the case at this point time. Please re-consult if the situation changes Procedures Date of Service Date of Service: 02/08/21
[2021-02-08] MEDS: Piperacillin Sodium/Tazobactam 3.375 GM in 0.9 % Sodium Chloride 50 ML IV ×3 (11:00→23:05)
[2021-02-08 11:15] LABS: Glucose, Whole Blood 252 mg/dL (60-115)
--- NOTE | 2021-02-08 12:25 | MHC.CM.PN ---
EMR REVIEWED, PER HOSPITALIST PT NOT READY FOR D/C,[facility] CONSUL[facility] ORDERED D/T PT'S ANXIETY, CARDIOLOGY CONSULTED AND THEY RECOMMEND PULMONARY CONSULT, NO PLAN FOR D/C TODAY, CM WILL CONT TO FOLLOW D/C NEEDS.
[2021-02-08] MEDS: Insulin Lispro 100 UNIT/ML 3 ML VIAL SUBCUT ×3 (12:30→21:04)
[2021-02-08] MEDS: LORazepam 0.5 MG TABLET 0.25 MG PO (14:55)
--- NOTE | 2021-02-08 14:59 | P.CNPS_ITS ---
History of Present Illness Date of Service: 02/08/21 Chief Complaint: SOB Reason for Consult: severe anxiety Requesting physician: Kristie Celis Discussed with referring provider: Yes Sources of Information: patient interviewed and chart reviewed Additional Sources of Information: Patient's daughter was present, with patient's permission. HPI Narrative: Patient reports that she has no history of depression or anxiety disorder. She states she has never taken any type of psychiatric medications in the past, has never been hospitalized, no therapy or prescriber. Denies AH, VH, HI, SI. States she has never had any thought in the past or present to harm either herself or anyone else. Reports that she feels safe in her home. She reports that when she was diagnosed with cancer 2 months ago, she 1st started having symptoms of anxiety. She describes symptoms of feeling clammy at times, with racing thoughts, a frightened luck, and a sense of impending doom at times. She reports trouble relaxing during those times, with excessive worry. She states that some of this is also due to her requiring oxygen, and feeling at times as if she cannot breathe. She is willing to consider use of a p.r.n. medication, but is not interested in any type of scheduled medication to treat anxiety. Past Psychiatric History: Patient denies any type of psychiatric history. Medical Evaluation Reviewed: Yes Personal & Social History: Lives with adult children and grandchildren in a home. Retired. Multiple serious health issues at this time. Review of Systems Review of Systems Full review of systems was completed and was negative with the exception of pertinent positives noted in history of the presenting illness (HPI). Constitutional: Reports as per HPI and Reports no additional constitutional complaints Eyes: Reports as per HPI and Reports no additional eye complaints Reports Normal hearing present Reports Normal hearing present [facility] Medical History (Updated 02/08/21 @ 15:13 by Micki Porter) Allergies Anxiety Bladder prolapse Chondrocalcinosis COPD (chronic obstructive pulmonary disease) COPD (chronic obstructive pulmonary disease) Dyslipidemia HTN (hypertension) Hypoxemia Mixed incontinence urge and stress Monoclonal gammopathies Osteoporosis Physical exam Pulmonary nodules Surgical History History of section Family History: No family medical history reported. Social History: Lives with multiple family members. Substance History: No substance use history reported. Remote history nicotine use. Trauma History: None reported. Diagnostics Vital Signs (24Hr): Vital Signs - 24 hr 02/07/21 15:11 02/07/21 15:39 02/07/21 19:24 Temperature 97.5 F 97.8 F Pulse Rate 86 94 90 Respiratory Rate 18 18 Blood Pressure 148/75 H 153/85 H Pulse Oximetry 95 95 02/07/21 19:52 02/07/21 23:33 02/08/21 05:38 Temperature 97.9 F 98.7 F Pulse Rate 90 99 99 Respiratory Rate 18 20 Blood Pressure 158/79 H 169/83 H Pulse Oximetry 92 92 02/08/21 06:10 02/08/21 06:24 02/08/21 06:38 Temperature Pulse Rate 120 H Respiratory Rate 22 H 26 H Blood Pressure 166/88 H Pulse Oximetry 84 L 91 L 02/08/21 07:44 02/08/21 07:57 02/08/21 07:58 Temperature 99.6 F Pulse Rate 121 H 118 H 118 H Respiratory Rate 27 H Blood Pressure 103/72 103/72 Pulse Oximetry 92 02/08/21 08:03 02/08/21 11:37 02/08/21 13:41 Temperature Pulse Rate 118 H 97 Respiratory Rate Blood Pressure 103/72 Pulse Oximetry 94 Body Mass Index 25.7 Labs Results: 02/08/21 05:51 02/08/21 05:51 Labs: Laboratory Results - last 48 hr 02/06/21 02/06/21 02/07/21 16:50 20:45 05:52 WBC 5.1 RBC 3.22 L Hgb 9.7 L Hct 28.9 L MCV 89.8 MCH 30.1 MCHC 33.6 RDW 19.3 H Plt Count 119 L MPV 9.0 L Absolute Nucleated RBC 0.130 H Nucleated RBC % (auto) 2.6 H PTT (Heparin Protocol) O2 Saturation ABG pH at Pt Temp ABG pH (Temp Correct) ABG pCO2 at Pt Temp ABG pCO2 (Temp Corrct ABG pO2 at Pt Temp ABG pO2 (Temp Correct ABG HCO3 ABG Base Excess (Actual) Sodium Potassium Chloride Carbon Dioxide Anion Gap BUN Creatinine Estim Creat Clear Calc Estimated GFR POC Glucose 181 H 200 H Random Glucose Calcium B-Natriuretic Peptide 02/07/21 02/07/2121 05:52 05:52 07:38 WBC RBC Hgb Hct MCV MCH MCHC RDW Plt Count MPV Absolute Nucleated RBC Nucleated RBC % (auto) PTT (Heparin Protocol) 25.2 L D O2 Saturation ABG pH at Pt Temp ABG pH (Temp Correct) ABG pCO2 at Pt Temp ABG pCO2 (Temp Corrct ABG pO2 at Pt Temp ABG pO2 (Temp Correct ABG HCO3 ABG Base Excess (Actual) Sodium 137 Potassium 3.1 L Chloride 102 Carbon Dioxide 25 Anion Gap 13 BUN 8 L D Creatinine 0.64 Estim Creat Clear Calc 74.1 Estimated GFR > 60 POC Glucose 112 Random Glucose 96 Calcium 7.7 L B-Natriuretic Peptide 02/07/21 02/07/21 02/07/21 11:23 16:29 20:24 WBC RBC Hgb Hct MCV MCH MCHC RDW Plt Count MPV Absolute Nucleated RBC Nucleated RBC % (auto) PTT (Heparin Protocol) O2 Saturation ABG pH at Pt Temp ABG pH (Temp Correct) ABG pCO2 at Pt Temp ABG pCO2 (Temp Corrct ABG pO2 at Pt Temp ABG pO2 (Temp Correct ABG HCO3 ABG Base Excess (Actual) Sodium Potassium Chloride Carbon Dioxide Anion Gap BUN Creatinine Estim Creat Clear Calc Estimated GFR POC Glucose 217 H 204 H 178 H Random Glucose Calcium B-Natriuretic Peptide 02/08/21 02/08/21 02/08/21 05:51 05:51 05:51 WBC 7.2 RBC 3.43 L Hgb 10.5 L Hct 30.9 L MCV 90.1 MCH 30.6 MCHC 34.0 RDW 20.1 H Plt Count 133 L MPV 9.4 Absolute Nucleated RBC 0.080 H Nucleated RBC % (auto) 1.1 H PTT (Heparin Protocol) O2 Saturation ABG pH at Pt Temp ABG pH (Temp Correct) ABG pCO2 at Pt Temp ABG pCO2 (Temp Corrct ABG pO2 at Pt Temp ABG pO2 (Temp Correct ABG HCO3 ABG Base Excess (Actual) Sodium 135 Potassium 3.3 Chloride 99 Carbon Dioxide 25 Anion Gap 14 BUN 7 L Creatinine 0.57 Estim Creat Clear Calc 83.3 Estimated GFR > 60 POC Glucose Random Glucose 129 H Calcium 8.0 L B-Natriuretic Peptide 64 02/08/21 02/08/21 02/08/21 07:12 08:39 11:10 WBC RBC Hgb Hct MCV MCH MCHC RDW Plt Count MPV Absolute Nucleated RBC Nucleated RBC % (auto) PTT (Heparin Protocol) O2 Saturation 98.0 ABG pH at Pt Temp 7.52 H ABG pH (Temp Correct) 7.51 H ABG pCO2 at Pt Temp 37 ABG pCO2 (Temp Corrct 38 ABG pO2 at Pt Temp 92 ABG pO2 (Temp Correct 96 ABG HCO3 30 H ABG Base Excess (Actual) 7.6 Sodium Potassium Chloride Carbon Dioxide Anion Gap BUN Creatinine Estim Creat Clear Calc Estimated GFR POC Glucose 145 H 252 H Random Glucose Calcium B-Natriuretic Peptide Imaging Radiology Impressions: ITS Impressions Chest X-Ray 02/03/21 10:49 IMPRESSION: Bilateral patchy reticular interstitial pneumonitis, new since previous chest x-ray 01/18/2021. There is a left central venous port recently inserted 12/16/2020 with its tip in mid SVC. Chest CTA 02/03/21 12:01 IMPRESSION: Acute pulmonary artery embolus to subsegmental branch right lower lobe. Severe changes of emphysema. Bilateral development of peripheral airspace disease consistent with multifocal pneumonia. VTE: positive This critical result was discussed with Albina Dickens at 1:40 PM on February 03, 2021 and it was ascertained that the content and urgency of the report was understood at the time of direct communication. Venous Duplex 02/04/21 16:49 IMPRESSION: No DVT demonstrated in the bilateral lower extremity. Chest X-Ray 02/08/21 07:00 IMPRESSION: 1. Slight worsening of the patchy multifocal airspace consolidation in the midlungs and lung bases 2. Pulmonary emphysema. Mental Status Exam Mental Status Exam Narrative: Well developed female, in NAD, although appears ill / fatigued. Dres sed in hospital garb. Grooming appropriate. Alert and oriented x4. Resting in chair, legs elevated. Eye contact within normal limits. No involuntary movements noted, motor activity calm. Manner and behavior were calm, cooperative. Speech was fluent, unimpaired, normal rate and volume. Somewhat anxious mood and affect. Thought process and associations linear, goal directed. Thought content was normal, future oriented. No evidence of any type of delusional thoughts or hallucinations noted. Patient denies any SI, HI. Appears to be a reliable historian, cognition and memory appear fully intact. Judgment and insight appear intact at this time. Ambulation was not observed, no cogwheeling or rigidity noted. Medications Medications Current Medications Acetaminophen (Acetaminophen 325 Mg Tablet) 650 mg PO Q6H PRN PRN Reason: Pain, Mild (Pain Scale 1-3) Last Admin: 02/07/21 08:16 Dose: 650 mg Documented by: Albuterol Sulfate (Albuterol Sulfate (0.083%) 2.5 Mg/3 Ml Vial.Neb) 2.5 mg INHALE Q4H PRN PRN Reason: shortness of breath or wheezing Albuterol/Ipratropium (Albuterol/Iprat 2.5/0.5mg 3 Ml Ampul.Neb) 3 ml INHALE RQ6H WHILE AWAKE ON LICENSE OF [facility] Last Admin: 02/08/21 13:40 Dose: 3 ml Documented by: Amlodipine Besylate (Amlodipine Besylate 5 Mg Tablet) 5 mg PO DAILY ON LICENSE OF [facility]; Protocol Last Admin: 02/08/21 08:03 Dose: 5 mg Documented by: Apixaban (Apixaban 5 Mg Tablet) 5 mg PO BID ON LICENSE OF [facility] Last Admin: 02/08/21 07:59 Dose: 5 mg Documented by: Atorvastatin Calcium (Atorvastatin Calcium 40 Mg Tablet) 40 mg PO DAILY ON LICENSE OF [facility] Last Admin: 02/08/21 07:58 Dose: 40 mg Documented by: Benzocaine (Throat Lozenge, Medicated Lozenge) 1 lozenge MUCOUS MEM Q2H PRN PRN Reason: Sore Throat Benzonatate (Benzonatate 100 Mg Capsule) 100 mg PO TID PRN PRN Reason: Cough Last Admin: 02/07/21 21:48 Dose: 100 mg Documented by: Calcium Carbonate/Cholecalciferol (Calcium + Vitamin D 250 Mg Tablet) 500 mg PO DAILY ON LICENSE OF [facility] Last Admin: 02/08/21 07:56 Dose: 500 mg Documented by: Piperacillin Sod/Tazobactam (Sod 3.375 gm/ Sodium Chloride) 50 mls @ 100 mls/hr IV Q6H ON LICENSE OF [facility] Last Infusion: 02/08/21 11:47 Dose: Infused Documented by: Insulin Human Lispro (Insulin Lispro 100 Unit/Ml 3 Ml Vial) 0 unit SUBCUT QIDACHS ON LICENSE OF [facility]; Protocol Last Admin: 02/08/21 12:30 Dose: 6 unit Documented by: Lisinopril (Lisinopril 40 Mg Tablet) 40 mg PO DAILY ON LICENSE OF [facility]; Protocol Last Admin: 02/08/21 07:58 Dose: 40 mg Documented by: Loperamide HCl (Loperamide Hcl 2 Mg Capsule) 2 mg PO Q4H PRN PRN Reason: Diarrhea Last Admin: 02/07/21 17:56 Dose: 2 mg Documented by: Loratadine (Loratadine 10 Mg Tablet) 10 mg PO BID PRN PRN Reason: allergy symptoms Lorazepam (Lorazepam 0.5 Mg Tablet) 0.25 mg PO Q8H PRN PRN Reason: anxiety Last Admin: 02/08/21 14:55 Dose: 0.25 mg Documented by: Melatonin (Melatonin 3 Mg Tablet) 6 mg PO BEDTIME PRN PRN Reason: Insomnia Patient Own (Medication (Trelegy)) 1 each INHALE RDAILY ON LICENSE OF [facility] Last Admin: 02/08/21 10:38 Dose: 1 each Documented by: Oxybutynin Chloride (Oxybutynin Chloride Er 5 Mg Tab.Er.24) 10 mg PO DAILY ON LICENSE OF [facility] Last Admin: 02/08/21 07:55 Dose: 10 mg Documented by: Pharmacy Consult (Consult Rx Perform Med Rec) 1 each MISCELLANE ONCE PRN PRN Reason: Consult order Prednisone (Prednisone 10 Mg Tablet) 30 mg PO DAILY ON LICENSE OF [facility] Last Admin: 02/08/21 07:58 Dose: 30 mg Documented by: Sodium Chloride (0.9 % Sodium Chloride Flush 3 Ml Syringe) 3 ml IVFLUSH QSHIFT ON LICENSE OF [facility] Last Admin: 02/08/21 08:04 Dose: 3 ml Documented by: Sodium Chloride (Sodium Chloride 0.65 % Nasal 44 Ml Sprbtl) 1 spray NOSTRIL-B Q1H PRN PRN Reason: Nasal Congestion Last Admin: 02/06/21 09:33 Dose: 1 spray Documented by: Trazodone HCl (Trazodone Hcl 100 Mg Tablet) 100 mg PO BEDTIME ON LICENSE OF [facility] Last Admin: 02/07/21 21:48 Dose: 100 mg Documented by: Allergies Allergies Allergy/AdvReac Type Severity Reaction Status Date / Time hydrochlorothiazide Allergy Unknown hives Verified 01/21/21 15:05 Assessment & Plan Assessment & Plan (1) Anxiety: Status: Acute Code(s): F41.9 - Anxiety disorder, unspecified Assessment and Plan: Patient reports that she 1st began experiencing symptoms of anxiety approximately 2 months ago, when she was diagnosed with cancer. She reports at times she feels a sense of panic, and feels nervous, excessive worry, difficulty relaxing, fatigue, a sense of impending doom. She states it is directly related to times when she feels she is not getting enough air/oxygen, and when she starts to worry about her cancer treatment and diagnosis. She states that otherwise she has always been a healthy person, and has only been hospitalized when delivering her children until this most recent diagnosis. We discussed medications, including scheduled medication such as an SSRI. Low- dose sertraline was discussed, patient is not interested in any type of scheduled medication for anxiety. She is however willing to utilize a medication short-term p.r.n., such as lorazepam. She states that she is trying to take as few prescribed scheduled medications as possible. Assessment and Plan: 1. Recommend continue with p.r.n. lorazepam as ordered while inpatient, may want to consider sending home with script for p.r.n. Ativan, such as 0.5 mg either once daily p.r.n. or b.i.d. p.r.n.. This recommendation has been shared with Kristie Celis NP. Thank you for this consultation. Psychiatry will sign off on this patient's care at this point. If you have any further questions or concerns, please do not hesitate to contact Psychiatry Service again. I spent minutes with the patient and/or on the patient floor today, greater than?50% of which was spent counseling/coordinating care.
[2021-02-08 16:18] LABS: Glucose, Whole Blood 209 mg/dL (60-115)
[2021-02-08 20:17] LABS: Glucose, Whole Blood 181 mg/dL (60-115)
[2021-02-08] MEDS: traZODone HCL 100 MG TABLET PO (21:04)
[2021-02-09] VITALS (8 sets, daily range): BP systolic 130–155; BP diastolic 65–72; PULSE 67–101; RESP 18–20; TEMP 36.7–37.3; O2SAT 95–98
[2021-02-09] MEDS: Piperacillin Sodium/Tazobactam 3.375 GM in 0.9 % Sodium Chloride 50 ML IV ×3 (04:59→17:42)
[2021-02-09 06:54] LABS: Hematocrit 26.3 % (37.0-47.0); Hemoglobin 8.8 g/dl (12.0-16.0); Mean Corpuscular HGB Conc 33.5 g/dl (31.0-35.0); Mean Corpuscular Hemoglobin 30.6 pg (27.0-33.0); Mean Corpuscular Volume 91.3 fL (80.0-98.0); NRBC Pct Auto 0.5 /100WBC (0.0-0.2); Platelet Count 117 X10*3/uL (160-400); Red Blood Count 2.88 X10*6/uL (4.20-5.50); Red Cell Distribution Width 19.9 % (11.0-16.0); White Blood Count 4.3 X10*3/uL (4.8-10.8)
[2021-02-09 07:08] LABS: Anion Gap 13 (12-20); Blood Urea Nitrogen 14 mg/dL (9-16); Carbon Dioxide 27 mmol/L (22-29); Chloride 99 mmol/L (96-108); Creatinine Clr Calc Pharmacy 70.8; Estimated Glomerular Filt Rate > 60; Glucose Random 155 mg/dL (60-115); Potassium 2.9 mmol/L (3.3-5.1); Sodium 136 mmol/L (135-145)
[2021-02-09 07:17] LABS: Glucose, Whole Blood 143 mg/dL (60-115)
[2021-02-09] MEDS: Albuterol/Iprat 2.5/0.5MG 3 ML AMPUL.NEB INHALE ×3 (08:13→19:58)
[2021-02-09] MEDS: 0.9 % Sodium Chloride Flush 3 ML SYRINGE IVFLUSH ×2 (09:07→17:43)
[2021-02-09] MEDS: Atorvastatin Calcium 40 MG TABLET PO (09:07)
[2021-02-09] MEDS: Calcium + Vitamin D 250 MG TABLET 500 MG PO (09:07)
[2021-02-09] MEDS: Potassium Chloride ER 20 MEQ TAB.ER.PRT 40 MEQ PO (09:07)
[2021-02-09] MEDS: Apixaban 5 MG TABLET PO ×2 (09:08→21:20)
[2021-02-09] MEDS: lisinopriL 40 MG TABLET PO (09:08)
[2021-02-09] MEDS: amLODIPine Besylate 5 MG TABLET PO (09:08)
[2021-02-09] MEDS: predniSONE 10 MG TABLET 30 MG PO (09:08)
[2021-02-09] MEDS: Acetaminophen 325 MG TABLET 650 MG PO (09:29)
--- NOTE | 2021-02-09 10:50 | P.PNIM_ITS ---
Subjective Subjective Date of Service: 02/09/21 Review of Systems Follow up PNA breathing better today sitting up in a chair Physical Exam Vital Signs: Vital Signs: Last Vital Signs Temp 98.4 F 02/09/21 07:31 Pulse 97 02/09/21 09:08 Resp 20 02/09/21 07:31 BP 130/71 02/09/21 09:08 Pulse Ox 96 02/09/21 07:31 Body Mass Index 25.7 Appearing in no acute distress lung sounds are clear to auscultation, on O2 heart regular rate rhythm, clear S1, S2 positive bowel sounds, abdomen is soft, nontender neuro patient is alert x3, no focal deficits Objective Data Active Medications Acetaminophen (Acetaminophen 325 Mg Tablet) 650 mg PO Q6H PRN PRN Reason: Pain, Mild (Pain Scale 1-3) Last Admin: 02/09/21 09:29 Dose: 650 mg Documented by: CONRADO Albuterol Sulfate (Albuterol Sulfate (0.083%) 2.5 Mg/3 Ml Vial.Neb) 2.5 mg INHALE Q4H PRN PRN Reason: shortness of breath or wheezing Albuterol/Ipratropium (Albuterol/Iprat 2.5/0.5mg 3 Ml Ampul.Neb) 3 ml INHALE RQ6H WHILE AWAKE [facility] Last Admin: 02/09/21 08:13 Dose: 3 ml Documented by: MARIEL Amlodipine Besylate (Amlodipine Besylate 5 Mg Tablet) 5 mg PO DAILY [facility]; Protocol Last Admin: 02/09/21 09:08 Dose: 5 mg Documented by: CONRADO Apixaban (Apixaban 5 Mg Tablet) 5 mg PO BID [facility] Last Admin: 02/09/21 09:08 Dose: 5 mg Documented by: CONRADO Atorvastatin Calcium (Atorvastatin Calcium 40 Mg Tablet) 40 mg PO DAILY [facility] Last Admin: 02/09/21 09:07 Dose: 40 mg Documented by: CONRADO Benzocaine (Throat Lozenge, Medicated Lozenge) 1 lozenge MUCOUS MEM Q2H PRN PRN Reason: Sore Throat Benzonatate (Benzonatate 100 Mg Capsule) 100 mg PO TID PRN PRN Reason: Cough Last Admin: 02/07/21 21:48 Dose: 100 mg Documented by: HO.NAUMOC Calcium Carbonate/Cholecalciferol (Calcium + Vitamin D 250 Mg Tablet) 500 mg PO DAILY [facility] Last Admin: 02/09/21 09:07 Dose: 500 mg Documented by: CONRADO Piperacillin Sod/Tazobactam (Sod 3.375 gm/ Sodium Chloride) 50 mls @ 100 mls/hr IV Q6H [facility] Last Infusion: 02/09/21 05:29 Dose: 0 mls/hr Documented by: APRIL Insulin Human Lispro (Insulin Lispro 100 Unit/Ml 3 Ml Vial) 0 unit SUBCUT QIDACHS [facility]; Protocol Last Admin: 02/09/21 07:38 Dose: Not Given Documented by: CONRADO Non-Admin Reason: No Insulin Coverage Lisinopril (Lisinopril 40 Mg Tablet) 40 mg PO DAILY [facility]; Protocol Last Admin: 02/09/21 09:08 Dose: 40 mg Documented by: CONRADO Loperamide HCl (Loperamide Hcl 2 Mg Capsule) 2 mg PO Q4H PRN PRN Reason: Diarrhea Last Admin: 02/07/21 17:56 Dose: 2 mg Documented by: ROBERTH Loratadine (Loratadine 10 Mg Tablet) 10 mg PO BID PRN PRN Reason: allergy symptoms Lorazepam (Lorazepam 0.5 Mg Tablet) 0.25 mg PO Q8H PRN PRN Reason: anxiety Last Admin: 02/08/21 14:55 Dose: 0.25 mg Documented by: ROBERTH Melatonin (Melatonin 3 Mg Tablet) 6 mg PO BEDTIME PRN PRN Reason: Insomnia Patient Own (Medication (Trelegy)) 1 each INHALE RDAILY [facility] Last Admin: 02/08/21 10:38 Dose: 1 each Documented by: RUTH Oxybutynin Chloride (Oxybutynin Chloride Er 5 Mg Tab.Er.24) 10 mg PO DAILY [facility] Last Admin: 02/09/21 09:07 Dose: 10 mg Documented by: CONRADO Pharmacy Consult (Consult Rx Perform Med Rec) 1 each MISCELLANE ONCE PRN PRN Reason: Consult order Prednisone (Prednisone 10 Mg Tablet) 30 mg PO DAILY [facility] Last Admin: 02/09/21 09:08 Dose: 30 mg Documented by: CONRADO Sodium Chloride (0.9 % Sodium Chloride Flush 3 Ml Syringe) 3 ml IVFLUSH QSHIFT [facility] Last Admin: 02/09/21 09:07 Dose: 3 ml Documented by: CONRADO Sodium Chloride (Sodium Chloride 0.65 % Nasal 44 Ml Sprbtl) 1 spray NOSTRIL-B Q1H PRN PRN Reason: Nasal Congestion Last Admin: 02/06/21 09:33 Dose: 1 spray Documented by: CHRISTIAN Trazodone HCl (Trazodone Hcl 100 Mg Tablet) 100 mg PO BEDTIME [facility] Last Admin: 02/08/21 21:04 Dose: 100 mg Documented by: APRIL Labs CBC & Chem 7: 02/09/21 05:51 02/09/21 05:51 Labs: Laboratory Results - last 24 hr 02/08/21 02/08/21 02/08/21 11:10 15:55 20:09 MCV MCH MCHC RDW Plt Count MPV Absolute Nucleated RBC Nucleated RBC % (auto) Anion Gap Estim Creat Clear Calc Estimated GFR POC Glucose 252 H 209 H 181 H Random Glucose Calcium 02/09/21 02/09/21 02/09/21 05:51 05:51 07:12 MCV 91.3 MCH 30.6 MCHC 33.5 RDW 19.9 H Plt Count 117 L MPV 10.0 Absolute Nucleated RBC 0.020 H Nucleated RBC % (auto) 0.5 H Anion Gap 13 Estim Creat Clear Calc 70.8 Estimated GFR > 60 POC Glucose 143 H Random Glucose 155 H Calcium 8.0 L Microbiology Microbiology Results: Microbiology 02/03/21 11:33 Blood Culture - Final Blood - Venous No growth after 5 days. 02/03/21 11:31 Blood Culture - Final Blood - Venous No growth after 5 days. Assessment and Plan (1) Acute respiratory failure with hypoxia: Status: Acute (2) Hypoxemia: Status: Acute (3) COPD (chronic obstructive pulmonary disease): Status: Acute (4) Pulmonary embolism: Status: Acute Assessment and Plan: This is a 75 year old female with a history of Breast cancer currently undergoing chemotherapy who presented with sob/cough found to have pneumonia and PE Acute on chronic hypoxic respiratory failure r/t underlying PNA and PE on a background of COPD HFrEF. New changes on Echo Seen and evaluated by cardiology, no CHF exacerbation Pulmonary embolism in the setting of malignancy - initially treated with IV heparin, transitioned to Eliquis 02/06 Bilateral [place]num[place]. worsening on CXR -Initially treated with IV Zosyn, started 02/03; transitioned to po augmentin 02/07 total 7 days started back on Zosyn Acute on chronic normocytic anemia s/p 1U blood with appropriate rise in H/H no evidence of blood loss likely related to chemotherapy H/H has remained stable -stool occult pending Pancytopenia likely result of chemo, last treatment 01/28 follow CBC COPD supplemental o2 prn -Bronchodialtors prn -continue home dose of prednisone hyperglycemia likely r/t steroid use no h/o DM Hba1c 5.5 HTN BP rebounding will resume norvasc, lisinopril chlorthalidone NF, on hold follow BP Recent port site infection Culture grew MSSA Completed treatment with Cephalexin elevated bili- chronic and not related to sepsis High troponin- no chest pain, likely demand ischemia from PE and PNA trops flat Hyperlipidemia continue Statin Triple negative breast cancer Outpatient Oncology follow up [facility] Outpatient follow-up DVT ppx - Ajit attending Dr. Rueda Quality Stroke Does the patient have a stroke diagnosis?: No VTE Prior VTE?: No VTE Risk Level:: Medical - moderate - high VTE Device Contraindication: Treatment Not Indicated VTE Drug Contraindication: N/A - Med Ordered
[2021-02-09 11:19] LABS: Glucose, Whole Blood 234 mg/dL (60-115)
[2021-02-09] MEDS: Insulin Lispro 100 UNIT/ML 3 ML VIAL SUBCUT ×3 (12:49→21:20)
[2021-02-09] MEDS: LORazepam 0.5 MG TABLET 0.25 MG PO (16:25)
[2021-02-09 16:32] LABS: Glucose, Whole Blood 231 mg/dL (60-115)
[2021-02-09 21:15] LABS: Glucose, Whole Blood 185 mg/dL (60-115)
[2021-02-09] MEDS: traZODone HCL 100 MG TABLET PO (21:20)
[2021-02-10] VITALS (8 sets, daily range): BP systolic 136–154; BP diastolic 70–81; PULSE 95–123; RESP 18–20; TEMP 36.6–37.3; O2SAT 91–96
[2021-02-10] MEDS: Piperacillin Sodium/Tazobactam 3.375 GM in 0.9 % Sodium Chloride 50 ML IV ×4 (00:09→15:27)
[2021-02-10 06:53] LABS: Hemoglobin 8.4 g/dl (12.0-16.0); Mean Corpuscular HGB Conc 33.6 g/dl (31.0-35.0); Mean Corpuscular Hemoglobin 30.2 pg (27.0-33.0); Mean Corpuscular Volume 89.9 fL (80.0-98.0); Mean Platelet Volume 9.5 fL (9.4-12.3); Platelet Count 133 X10*3/uL (160-400); Red Blood Count 2.78 X10*6/uL (4.20-5.50); Red Cell Distribution Width 19.7 % (11.0-16.0); White Blood Count 5.1 X10*3/uL (4.8-10.8)
[2021-02-10 07:00] LABS: Anion Gap 13 (12-20); Blood Urea Nitrogen 10 mg/dL (9-16); Calcium 7.7 mg/dL (8.4-10.2); Carbon Dioxide 27 mmol/L (22-29); Chloride 99 mmol/L (96-108); Creatinine Clr Calc Pharmacy 84.7; Estimated Glomerular Filt Rate > 60; Glucose Random 116 mg/dL (60-115); Potassium 3.4 mmol/L (3.3-5.1); Sodium 136 mmol/L (135-145)
[2021-02-10 07:38] LABS: Glucose, Whole Blood 109 mg/dL (60-115)
[2021-02-10] MEDS: Albuterol/Iprat 2.5/0.5MG 3 ML AMPUL.NEB INHALE ×2 (07:38→12:56)
[2021-02-10] MEDS: Apixaban 5 MG TABLET PO (09:07)
[2021-02-10] MEDS: predniSONE 10 MG TABLET 30 MG PO (09:07)
[2021-02-10] MEDS: Calcium + Vitamin D 250 MG TABLET 500 MG PO (09:07)
[2021-02-10] MEDS: Atorvastatin Calcium 40 MG TABLET PO (09:07)
[2021-02-10] MEDS: 0.9 % Sodium Chloride Flush 3 ML SYRINGE IVFLUSH ×2 (09:08→15:04)
[2021-02-10] MEDS: lisinopriL 40 MG TABLET PO (09:08)
[2021-02-10] MEDS: amLODIPine Besylate 5 MG TABLET PO (09:08)
[2021-02-10] MEDS: LORazepam 0.5 MG TABLET 0.25 MG PO (09:12)
[2021-02-10 11:06] LABS: Glucose, Whole Blood 200 mg/dL (60-115)
[2021-02-10] MEDS: Insulin Lispro 100 UNIT/ML 3 ML VIAL SUBCUT (11:34)
--- NOTE | 2021-02-10 14:40 | MHC.CM.PN ---
IMM 02/10/21 Female 75 Will discharge to home to family today. Her daughter is providing transportation home. She also has oxygen for the transport home.
[2021-02-10] MEDS: Loperamide HCl 2 MG CAPSULE PO (15:27)
--- NOTE | 2021-02-10 15:37 | P.DS_ITS ---
DS: Providers Provider Date of Service: 02/10/21 Date of admission: 02/03/21 16:54 Date of discharge: 02/10/21 Primary care physician: Nacho Kovacs MD Consults: 02/03/21 16:52 Consult to Hematology / Oncology Routine Consulting Provider: Yuan Edwards Reason for consultation: PE, lung cancer 02/08/21 08:22 Consult to Cardiology Routine Consulting Provider: Augustus Peacock Reason for consultation: reduced EF from previous Has provider been notified: No 02/08/21 10:50 Consult to Psychiatry Routine Consulting Provider: Psych Covering Reason for consultation: severe anxiety Has provider been notified: No DS: Diagnosis Discharge Diagnosis (1) Acute respiratory failure with hypoxia: Status: Acute (2) Hypoxemia: Status: Acute (3) COPD (chronic obstructive pulmonary disease): Status: Acute (4) Pulmonary embolism: Status: Acute DS: Summary Hospital Course Hospital Course: 75-year-old female with diagnosis of triple negative breast cancer October 2020 on concurrent chemotherapy presents with persistent COPD exacerbation. Workup in the ER demonstrated bilateral pneumonia and right-sided pulmonary embolus. She was admitted on heparin drip and subsequently transition to Eliquis to will she will continue in to followed up by Dr. Edwards. She has been on our IV Zosyn will be switched to Augmentin to complete a p.o. dosing regimen of 10 additional days. She will be discharged home in the care of her daughter Time Spent with Patient Time attestation: Total time spent providing and/or coordinating discharge services: Discharge coordination time: Greater than 30 minutes Quality: Stroke Does the patient have a stroke diagnosis?: No Physical Exam Vital Signs: Vital Signs: Last Vital Signs Temp 99.1 F 02/10/21 11:21 Pulse 95 02/10/21 12:58 Resp 20 02/10/21 11:21 BP 154/81 H 02/10/21 11:21 Pulse Ox 94 02/10/21 11:21 Body Mass Index 25.7 Const: Other: Wake alert oriented x3 no acute distress Resp: Other: Clear but diminished all bueno Cardio: Other: No S4; positive S1-S2; GI: Other: Soft nontender nondistended with normoactive bowel sounds Extrem: Other: No edema bilaterally DS: Data Data Completed and Pending Labs on day of discharge: Laboratory Results - last 24 hr 02/09/21 02/09/21 02/10/21 16:24 21:02 05:56 WBC 5.1 RBC 2.78 L Hgb 8.4 L Hct 25.0 L MCV 89.9 MCH 30.2 MCHC 33.6 RDW 19.7 H Plt Count 133 L MPV 9.5 Absolute Nucleated RBC 0.000 Nucleated RBC % (auto) 0.0 Sodium Potassium Chloride Carbon Dioxide Anion Gap BUN Creatinine Estim Creat Clear Calc Estimated GFR POC Glucose 231 H 185 H Random Glucose Calcium 02/10/21 02/10/21 02/10/21 05:56 07:28 11:01 WBC RBC Hgb Hct MCV MCH MCHC RDW Plt Count MPV Absolute Nucleated RBC Nucleated RBC % (auto) Sodium 136 Potassium 3.4 Chloride 99 Carbon Dioxide 27 Anion Gap 13 BUN 10 Creatinine 0.56 Estim Creat Clear Calc 84.7 Estimated GFR > 60 POC Glucose 109 200 H Random Glucose 116 H Calcium 7.7 L Discharge Plan Discharge Patient Disposition: Home Health Service Discharge Diagnosis: Interstitial pneumonia Referrals: Nacho Kovacs MD [Primary Care Provider] - 1 Week Discharge Medications: New Eliquis 5 mg Tablet 5 mg PO BID Qty: 60 RF: 3 amoxicillin-pot clavulanate [Augmentin] 875-125 mg tablet 1 tab PO BID Qty: 20 RF: 0 Continued trazodone 100 mg tablet 100 mg PO BEDTIME Qty: 30 RF: 5 amlodipine 5 mg tablet 5 mg PO DAILY Qty: 90 RF: 1 atorvastatin 40 mg tablet 40 mg PO DAILY 90 Days Qty: 90 RF: 2 oxybutynin chloride 5 mg tablet 5 mg PO BID 30 Days Qty: 60 RF: 2 lisinopril 40 mg tablet 40 mg PO DAILY 90 Days Qty: 90 RF: 3 albuterol sulfate [Ventolin HFA] 90 mcg/actuation HFA aerosol inhaler 1 inh inhalation QID PRN (Reason: shortness of breath or wheezing) 30 Days Qty: 18 RF: 12 Trelegy Ellipta 100-62.5-25 mcg blister with device 1 puff PO DAILY RF: 0 ondansetron HCl [Zofran] 4 mg tablet 8 mg PO Q8H PRN (Reason: Nausea) RF: 0 prednisone 10 mg Tablet 30 mg PO DAILY Qty: 30 RF: 4 dexamethasone [Decadron] 4 mg Tablet 4 mg PO BID Qty: 100 RF: 4 calcium carbonate-vitamin D3 500 mg(1,250mg) -125 unit Tablet 1 tab PO DAILY RF: 0 chlorthalidone 25 mg tablet 1 tab PO DAILY RF: 0 loperamide 2 mg Capsule 2 mg PO Q4H PRN (Reason: Diarrhea) RF: 0 Probiotic 1 cap PO DAILY RF: 0 acetaminophen 650 mg tablet extended release 650 mg PO BID RF: 0 cetirizine [All Day Allergy (cetirizine)] 10 mg tablet 10 mg PO BID PRN (Reason: allergy symptoms) 30 Days Qty: 60 RF: 2 albuterol sulfate 1.25 mg/3 mL solution for nebulization 2.5 mg inhalation Q4-6H PRN (Reason: shortness of breath or wheezing) 30 Days Qty: 90 RF: 2 Discharge Orders: Discharge Order (Routine); Ordered 02/10/21 Ordered By: Carmelo Díaz Diet: advance to usual diet Activity on Discharge: As tolerated Stand Alone Forms: Patient Portal Discharge page Care Plan Goals: Complete course of Augmentin; continue home O2 3 liters/minute; at the [facility] Concerns: Follow-up with Dr. Edwards for ongoing therapy Plan of Treatment: Eliquis for PE; Augmentin for pneumonia Assessment: Improved
== END 2021-02-10 16:28 | disposition home health service (06) | DRG 193 ==
LOC: HO.ED 14:41 → HO.EDOVER 16:55 → HO.IMC 17:31
PROVIDERS: Internal Medicine; Nurse Practitioner Acute Care; Physician Assistant; Physician Assistant Medical; Admitting Provider Internal Medicine; Emergency Provider Emergency Medicine Emergency Medical Services; PCP Internal Medicine; Visit Provider Hospitalist
DX: J18.9 Pneumonia, unspecified organism (principal); J96.01 Acute respiratory failure with hypoxia; I26.92 Saddle embolus of pulmonary artery without acute cor pulmonale; D61.810 Antineoplastic chemotherapy induced pancytopenia; J96.21 Acute and chronic respiratory failure with hypoxia; T80.219A Unspecified infection due to central venous catheter, initial encounter; J44.1 Chronic obstructive pulmonary disease with (acute) exacerbation; J44.0 Chronic obstructive pulmonary disease with (acute) lower respiratory infection; I42.9 Cardiomyopathy, unspecified; D47.2 Monoclonal gammopathy; C50.919 Malignant neoplasm of unspecified site of unspecified female breast; B95.61 Methicillin susceptible Staphylococcus aureus infection as the cause of diseases classified elsewhere; D64.9 Anemia, unspecified; F41.9 Anxiety disorder, unspecified; E78.5 Hyperlipidemia, unspecified; I10 Essential (primary) hypertension; Z20.822 Contact with and (suspected) exposure to COVID-19; Z23 Encounter for immunization; Z87.891 Personal history of nicotine dependence; Z79.01 Long term (current) use of anticoagulants; Z79.899 Other long term (current) drug therapy; Z66 Do not resuscitate
CPT/HCPCS: 0241U; 36415; 36600; 71045; 71275; 80048; 80053; 81001; 82803; 82947; 83036; 83605; 83735; 83880; 84484; 85007; 85014; 85018; 85025; 85027; 85379; 85610; 85730; 86850; 86900; 86901; 86923; 87040; 87635; 90686; 93005; 93970; 94640; 94644; 96361; 96365; 96366; 96367; 96375; 97110; 97162; 99285; 99291; J0456; J0696; J2270; J2543; J2930; J3475; J8540; P9016; Q9967

== ENCOUNTER 2021-02-12 22:19 | Inpatient (IN) | payer MEDICARE, SELFPAY ==
--- NOTE | ~2021-02-12 | XR_ITS ---
EXAMINATION: XR CHEST CLINICAL INFORMATION: SOB. COMPARISON: Chest 02/13/2021 TECHNIQUE: Frontal view of the chest was obtained. FINDINGS: There is bilateral patchy opacities seen in both lower lobes and lingular segments. There is a small right pleural effusion, stable. Heart size and pulmonary vascularity is normal. There is a left central venous port with its tip in proximal SVC. No gross bony abnormality seen. XR/XR chest 1V IMPRESSION: Bilateral patchy opacities show improvement compared to 02/13/2021. Small right pleural effusion is stable.
--- NOTE | ~2021-02-12 | CT_ITS ---
EXAMINATION: CT CHEST WITHOUT CONTRAST CLINICAL INFORMATION: Progressive hypoxia. COMPARISON: CTA chest 03/05/2021 TECHNIQUE: Multidetector volumetric CT imaging of the chest was done. Axial MIP volume rendering provided. Sagittal and coronal reformatted images were obtained. This CT examination was performed using dose optimization techniques as appropriate, variously including the following: *Automated exposure control *Adjustment of mA and/or kV according to patient size (this includes techniques or standardized protocols for targeted exams where dose is matched to indication/reason for exam; i.e. extremities or head) *Use of iterative reconstruction technique DLP: 212 mGy-cm FINDINGS: CUSHION GUM APPLICATOR: Hypoexpanded lungs with bilateral lower lobe interstitial thickening. LUNGS: There are centrilobular emphysematous changes of both lungs with prominent reticular interstitial interlobular and intralobular thickening with mild honeycombing-like appearance in the anterior apices bilaterally. There is a right upper lobe 6 mm nodule with adjacent linear stranding likely part of apical scarring. There is a left upper lobe subpleural-based patchy opacity/scarring throughout the left upper lobe and lingular segments. There is patchy subpleural thickening and extensive reticular interstitial changes and patchy opacities in both lower lobes and lingula slightly greater/worse in the left lower lobe. These findings are also appreciated on the chest x-ray from 02/22/2021. Left lower lobe findings are new, and there is worsening of the right lower lobe findings from 02/03/2021 CT chest exam. MEDIASTINUM: The thyroid lobes are symmetrical and normal. There is vascular calcification along the right brachiocephalic artery. There is a left subclavian central venous catheter. No abnormal sized mediastinal or hilar lymph nodes seen. The heart size is borderline normal. The thoracic aorta is of normal caliber. No aneurysm seen. There is no pericardial effusion. PLEURA: There is bilateral posterior pleural thickening. AXILLA: There are no abnormal axillary lymph nodes. UPPER ABDOMEN: The visualized liver, spleen, and pancreas appear unremarkable. There is a solitary gallstone. There are prominent bilateral adrenal glands. OSSEOUS STRUCTURES: There is a compression fracture the T7 vertebra, unchanged to last exam 02/03/2021. There is mild spondylosis mid and lower dorsal spine. CT/CT chest wo con IMPRESSION: Emphysematous changes of both lungs with new patchy subpleural thickening, patchy opacity of left upper lobes and progression of right lower lobe and lingular peripheral-based airspace disease. Findings of atelectasis and subpleural reticular changes were seen in the left upper lobe on previous exam 01/18/2021. There is progressive worsening and suggestion of chronic interstitial lung changes or chronic interstitial pneumonitis. Recommend clinical correlation and further evaluation with a bronchoscopy with lavage or tissue biopsy. Fleischner guidelines were followed.
--- NOTE | ~2021-02-12 | XR_ITS ---
EXAMINATION: XR CHEST CLINICAL INFORMATION: Acute hypoxemic respiratory failure COMPARISON: Previous chest x-rays most recent 02/17/2021 TECHNIQUE: Frontal view of the chest was obtained. FINDINGS: The cardiac and mediastinal contours are stable. There is a left jugular port with tip projecting over the SVC. There are bibasilar infiltrates and small bilateral pleural effusions. This does not appear appreciably changed from most recent exam 02/17/2021. Bony structures are unremarkable. XR/XR chest 1V IMPRESSION: Bibasilar infiltrates and small bilateral pleural effusions similar to 02/17/2021 exam.
--- NOTE | ~2021-02-12 | XR_ITS ---
EXAMINATION: XR CHEST CLINICAL INFORMATION: Shortness of breath and hypoxia. COMPARISON: Chest radiograph dated from 02/08/2021. TECHNIQUE: AP view of the chest was obtained. FINDINGS: Left-sided CT compatible chest port terminating overlying the lower SVC, similar to prior. Unchanged appearance of the cardiomediastinal silhouette. Worsening pulmonary aeration with increased patchy opacities in the lower lungs and new small right greater than left pleural effusions. No pneumothorax emphysematous changes. No acute osseous findings. XR/XR chest 1V IMPRESSION: Increased patchy opacities bilaterally with also new small pleural effusions.
--- NOTE | ~2021-02-12 | US_ITS ---
EXAMINATION: US VENOUS ULTRASOUND WITH DOPPLER LOWER EXTREMITY, BILATERAL CLINICAL INFORMATION: Swollen right leg. Prior pulmonary embolism. COMPARISON: Bilateral lower extremity venous ultrasound dated 02/04/2021. TECHNIQUE: Ultrasound of the deep veins is performed from the hip to the calf with compression sonography and color and pulse Doppler assessment. Spectral analysis with color-flow imaging is performed. FINDINGS: RIGHT: There is normal venous compression and respiratory variation and augmented flow. The visualized common femoral vein, superficial femoral vein, profunda femoral vein, popliteal vein, and the trifurcation region shows no evidence of deep venous thrombosis. There is no significant popliteal fossa cyst. LEFT: There is normal venous compression and respiratory variation and augmented flow. The visualized common femoral vein, superficial femoral vein, profunda femoral vein, popliteal vein, and the trifurcation region shows no evidence of deep venous thrombosis. There is no significant popliteal fossa cyst. If the patient's symptoms persist, followup ultrasound in 5-7 days might be of value to exclude proximal propagation from a non-visualized calf vein. US/US venous duplex LE BI IMPRESSION: No DVT demonstrated in the right and left lower extremity.
--- NOTE | ~2021-02-12 | XR_ITS ---
EXAMINATION: XR CHEST CLINICAL INFORMATION: Shortness of breath. COMPARISON: Radiographs on 02/22/2021. TECHNIQUE: Frontal view of the chest was obtained. FINDINGS: A left-sided chest wall port catheter terminates in the region of the proximal to mid SVC. EKG leads overlie the chest. The patient's left arm overlies the base of the left lung somewhat obscuring evaluation. The cardiomediastinal and hilar contours are grossly unchanged. There are persistent bibasilar opacities, left greater than right, which are not significantly increased from the comparison examination. Likely small bilateral pleural effusions. No pneumothorax identified. XR/XR chest 1V IMPRESSION: Persistent bibasilar opacities and small pleural effusions not significantly increased from a comparison on 02/22/2021.
--- NOTE | 2021-02-12 22:25 | ECG_ITS ---
Test Reason : SHORTNESS OF BREATH Blood Pressure : / mmHG Vent. Rate : 116 BPM Atrial Rate : 116 BPM P-R Int : 088 ms QRS Dur : 098 ms QT Int : 350 ms P-R-T Axes : 000 042 088 degrees QTc Int : 486 ms Sinus tachycardia with short [place] Nonspecific ST abnormality Abnormal ECG When compared with ECG of 03-FEB-2021 11:19, Premature ventricular complexes are no longer Present Questionable change in QRS duration Referred By: Karolyn Medina Electronically Signed By:JACOBO CHATMAN MD
--- NOTE | 2021-02-12 22:39 | ED_ITS ---
HPI - SOB/Dyspnea General Chief Complaint: Dyspnea Stated Complaint: SOB Time Seen by Provider: 02/12/21 22:25 Source: patient, EMS, RN notes reviewed and old records reviewed Mode of arrival: EMS Limitations: no limitations History of Present Illness HPI Narrative: 75 y/o female with history of COPD, chronic hypoxic respiratory failure on 2L NC at baseline, hx breast cancer on chemotherapy, MGUS, anxiety, cardiomyopathy with EF 35-40%, HTN, anxiety with recent admission to [facility] 02/03/21-02/10/21 for COPD exacerbation, multifocal PNA and acute pulmonary emboli discharged on Eliquis and Augmentin presents back to the ER with ongoing SOB and GONZALEZ that has been worsening since discharge. She reports her nebulizer machine 3 4 times a day with no improvement. She was very dyspneic with any exertion as well as when resting. She increased her usual oxygen from 2 L to 4 L nasal cannula. She continued to feel unwell and called EMS. On EMS arrival patient's O2 saturations were 84% on 4 L nasal cannula. She was awake and alert but in moderate respiratory distress. They placed her on 100% non-rebreather and brought her to the Emergency Department for further evaluation. Patient reports a baseline chronic cough productive of yellow phlegm which is unchanged. She denies any fever or chills. She has been compliant with all her medications including her anticoagulation and her antibiotics. MD elicited complaint: shortness of breath and cough Pertinent past history: COPD and congestive heart failure Onset (ago): day(s) (2-3) Context: recent illness Timing: constant Severity: similar to previous episodes Exacerbating factors: lying flat, exertion and coughing Relieving factors: oxygen, rest, bronchodilators and upright position Known history of: COPD and congestive heart failure Associated symptoms: cough, wheezing, orthopnea and chest congestion Treatment prior to arrival: oxygen Related Data Home oxygen amount: 2 liters Home Medications Medication Instructions Recorded Confirmed fluticasone fur. 100 mcg-umeclid 1 puff PO DAILY 11/17/20 02/03/21 62.5 mcg-vilant 25 mcg inhalat.powder (Trelegy Ellipta) ondansetron HCl 4 mg tablet 8 mg PO Q8H PRN 12/31/20 02/03/21 (Zofran) calcium carbonate 500 mg (1,250 1 tab PO DAILY 01/18/21 02/03/21 mg)-vitamin D3 125 unit tablet Probiotic 1 cap PO DAILY 02/03/21 02/03/21 acetaminophen 650 mg 650 mg PO BID 02/03/21 02/03/21 tablet,extended release chlorthalidone 25 mg tablet 1 tab PO DAILY 02/03/21 02/03/21 loperamide 2 mg capsule 2 mg PO Q4H PRN 02/03/21 02/03/21 Previous Rx's Medication Instructions Recorded trazodone 100 mg tablet 100 mg PO BEDTIME #30 tab 08/04/20 amlodipine 5 mg tablet 5 mg PO DAILY #90 tab 10/19/20 cetirizine 10 mg tablet (All Day 10 mg PO BID PRN 30 Days #60 tab 12/09/20 Allergy (cetirizine)) dexamethasone 4 mg tablet 4 mg PO BID #100 tab 12/10/20 (Decadron) atorvastatin 40 mg tablet 40 mg PO DAILY 90 Days #90 tab 12/24/20 oxybutynin chloride 5 mg tablet 5 mg PO BID 30 Days #60 tab 12/24/20 lisinopril 40 mg tablet 40 mg PO DAILY 90 Days #90 tab 01/12/21 prednisone 10 mg tablet 30 mg PO DAILY #30 tab 01/15/21 albuterol sulfate 1.25 mg/3 mL 2.5 mg (6 mL) INHALATION Q4-6H PRN 01/21/21 solution for nebulization 30 Days #90 ml albuterol sulfate 90 mcg/actuation 1 inh INHALATION QID PRN 30 Days 02/05/21 aerosol inhaler (Ventolin HFA) #18 g amoxicillin 875 mg-potassium 1 tab PO BID #20 tab 02/10/21 clavulanate 125 mg tablet (Augmentin) apixaban 5 mg tablet (Eliquis) 5 mg PO BID #60 tab 02/10/21 lorazepam 0.5 mg tablet (Ativan) 0.5 mg PO BID PRN #30 tab 02/10/21 Allergies Allergy/AdvReac Type Severity Reaction Status Date / Time hydrochlorothiazide Allergy Unknown hives Verified 01/21/21 15:05 Review of Systems Review of Systems: Constitutional: No Fever, No Chills ENT/Mouth: No sore throat, No Rhinorrhea, No Swallowing Difficulty Eyes: No Eye Pain, No Swelling, No Redness Cardiovascular: No Chest Pain, + SOB, + Orthopnea, No Edema Respiratory: + Cough, + Sputum, + Wheezing, + dyspnea Gastrointestinal: No Nausea, No Vomiting, No Diarrhea, No abdominal Pain Genitourinary: No Dysuria, No Urinary Frequency, No Hematuria Musculoskeletal: No joint pain, No Myalgias Skin: No Skin Lesions, No rash Neuro: + Weakness, No Numbness, No Dizziness, No Headache Psych: + Anxiety/Panic, No Depression Heme/Lymph: No Bruising, No Lymphadenopathy Endocrine: No Polyuria, No Polydipsia [facility] Past Medical History Medical History (Updated 02/13/21 @ 01:13 by LESTER Cooper) Allergies Anxiety Bladder prolapse Chondrocalcinosis COPD (chronic obstructive pulmonary disease) COPD (chronic obstructive pulmonary disease) Dyslipidemia HTN (hypertension) Hypoxemia Mixed incontinence urge and stress Monoclonal gammopathies Osteoporosis Physical exam Pulmonary nodules Surgical History History of section Family History Family History Father No problems noted. Mother HTN (hypertension) CVD (cardiovascular disease) Stroke Brother No problems noted. Sister No problems noted. Son No problems noted. Daughter No problems noted. 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 Oriented X3. Alopecia. Appears pale Eyes: Pupils equal, round and reactive to light. ENT: Pharynx normal. Neck: Normal inspection. Neck supple. CVS: Tachycardic, regular rhythm. Pulses normal. Respiratory: Moderate respiratory distress with increased respiratory rate and accessory muscle use. Respiratory rate middle 30s. Very minimal air movement throughout. Abdomen: Obese, Soft and nontender. +BS x4 Skin: Skin warm and dry. Normal skin color. Normal skin turgor. No rashes. Extremities: No lower extremity edema. No calf tenderness. Neuro: Oriented X 3. No motor deficit. No sensory deficit. Globally weak. Course Course Course Narrative: 75-year-old female with a history of O2 dependent COPD, breast cancer on active chemotherapy, recently diagnosed PEs and pneumonia presents back to the ER 3 days after discharge with ongoing shortness of breath and difficulty breathing. She was hypoxic to 80% on 4 L nasal cannula. On arrival to the ER she is saturating 90% on non-rebreather. Respiratory rate mid 30s. Her blood pressure on arrival was 87/50. She was not lightheaded or dizzy. Repeated was 92/56. Will give 1 L IV fluid bolus. She has ejection fraction of 35% so need to be cautious with IV fluids. Will cover with vanco and Zosyn given her recent hospitalization. Her daughter is at the bedside who reports she is DNR/DNI, this was confirmed with the patient. Upon review her CTA on 02/03 showed multifocal PNA, severe emphysematous changes and acute PEs in the subsegmental branches of the RLL. She had negative LE dopplers on 02/04. Doubt additional pulmonary emboli contributing to patient's current hypoxia and WOB. She was discharged on 02/10 after her CXR on 02/08 showed worsening opacities. She will require readmission. Reevaluation(s) Reevaluation #1: Patient continues to have increased work of breathing after DuoNeb and IV steroids. She complained of sudden onset nausea and the neb mask was taken off. She was placed on 6 L nasal cannula after the aerosol treatment with O2 saturations 85%. Patient transitioned to 100% non-rebreather, saturations dipped to as low as 70%. She took a few minutes to recover with eventual improvement in saturations to 88%. BP improved with IVF. RT called to the bedside and rescue BiPAP to be so started now. Upon review of previous ABGs she does not appears to be a chronic CO2 retainer - BiPAP being started for WOB. Updated patient and daughter at the bedside. Reevaluation #2: Patient has been on BiPAP for an hour, 14/6 with 45% FiO2, TV 350. ABG showing mild resp alk. She feels better. RR still mid 30's. CXR showing worsening opacities consistent with evolving PNA, also with new small pleural effusions. Broad spectrum abx have been ordered. She will require ICU level of care for ongoing rescue BiPAP support. Dr. Pastor aware and will let Layo know to evaluate her. Reevaluation #3: Spoke with Shubham MART from ICU - does not agree with BiPAP at this time given PNA and PE with concern for mucus plugging and sending subsegmental PE's father - he is recommending trial of Hiflow NC and low dose morphine. No ICU beds at this time anyhow. Will give trial of HF and see how it goes, although patient's accessory muscle use and WOB have improved on BiPAP. If she does not tolerate will place back on BiPAP and re-evaluate her respiratory status in the morning. ICU to have nurses in the AM. Consultations Consultation #1: Critical care Dr. Pastor/Shubham BATISTA MDM - SOB/Dyspnea Differential Diagnosis Differential diagnosis: Likely acute exacerbation of chronic obstructive airways disease, congestive heart failure, pneumonia, asthma with exacerbation, pulmonary embolism, pleural effusion, sleep apnea and anemia Medical Records Attestation: I reviewed the patient's medical records. Lab Data Attestation: I reviewed the patient's lab results. Result diagrams: 02/12/21 22:47 02/12/21 22:47 Labs: Lab Results 02/12/21 02/12/21 02/12/21 Range/Units 22:47 22:47 22:47 WBC 8.2 (4.8-10.8) X10*3/uL RBC 2.88 L (4.20-5.50) X10*6/uL Hgb 8.8 L (12.0-16.0) g/dl Hct 26.3 L (37.0-47.0) % MCV 91.3 (80.0-98.0) fL MCH 30.6 (27.0-33.0) pg MCHC 33.5 (31.0-35.0) g/dl RDW 19.7 H (11.0-16.0) % Plt Count 187 D (160-400) X10*3/uL MPV 9.1 L (9.4-12.3) fL Immature Gran % (Auto) 1.5 H (0.0-0.4) % Neut % (Auto) 86.4 H (45-73) % Lymph % (Auto) 7.5 L (20-40) % Haralson % (Auto) 4.5 (2-11) % Eos % (Auto) 0.0 (0-4) % Baso % (Auto) 0.1 (0-2) % Lymph # (Auto) 0.6 L (1.2-4.9) X10*3/uL [place]on # (Auto) 0.4 (0.1-1.2) X10*3/uL Eos # (Auto) 0.0 (0.0-0.4) X10*3/uL Baso # (Auto) 0.0 (0.0-0.2) X10*3/uL Abs Immat Gran (auto) 0.12 H (0.00-0.03) X10*3/uL Absolute Neuts (auto) 7.1 (2.0-8.3) x10*3/uL Absolute Nucleated RBC 0.020 H (0.0-0.012) X10*3/uL Nucleated RBC % (auto) 0.2 (0.0-0.2) /100WBC O2 Saturation % ABG pH at Pt Temp (7.35-7.45) ABG pCO2 at Pt Temp (32-45) mmHg ABG pO2 at Pt Temp (83-108) mmHg ABG HCO3 (22-26) mmol/L ABG Base Excess (Actual) mmol/L Sodium 135 (135-145) mmol/L Potassium 3.4 (3.3-5.1) mmol/L Chloride 93 L (96-108) mmol/L Carbon Dioxide 30 H (22-29) mmol/L Anion Gap 15 (12-20) BUN 11 (9-16) mg/dL Creatinine 0.89 (0.5-1.4) mg/dL Estim Creat Clear Calc 60.2 Estimated GFR > 60 Random Glucose 153 H (60-115) mg/dL Lactic Acid 1.5 (0.5-2.0) mmol/L Calcium 7.4 L (8.4-10.2) mg/dL Magnesium 1.4 L* (1.6-2.6) mg/dL Total Bilirubin 1.4 H (0.0-1.0) mg/dL Direct Bilirubin 0.7 H (0.0-0.5) mg/dL AST 21 (5-31) U/L ALT 33 H (0-31) U/L Alkaline Phosphatase 84 (39-117) U/L Troponin I High Sens (<3.5-17.0) ng/L B-Natriuretic Peptide (<100) pg/mL Total Protein 5.1 L (6.5-8.0) g/dL Albumin 2.7 L (3.5-5.0) g/dL Procalcitonin ng/mL COVID-19 (JAYASHREE) (Negative) COVID-19 Clin Com 02/12/21 02/12/21 02/12/21 Range/Units 22:47 22:47 22:47 WBC (4.8-10.8) X10*3/uL RBC (4.20-5.50) X10*6/uL Hgb (12.0-16.0) g/dl Hct (37.0-47.0) % MCV (80.0-98.0) fL MCH (27.0-33.0) pg MCHC (31.0-35.0) g/dl RDW (11.0-16.0) % Plt Count (160-400) X10*3/uL MPV (9.4-12.3) fL Immature Gran % (Auto) (0.0-0.4) % Neut % (Auto) (45-73) % Lymph % (Auto) (20-40) % Haralson % (Auto) (2-11) % Eos % (Auto) (0-4) % Baso % (Auto) (0-2) % Lymph # (Auto) (1.2-4.9) X10*3/uL Har[place]on # (Auto) (0.1-1.2) X10*3/uL Eos # (Auto) (0.0-0.4) X10*3/uL Baso # (Auto) (0.0-0.2) X10*3/uL Abs Immat Gran (auto) (0.00-0.03) X10*3/uL Absolute Neuts (auto) (2.0-8.3) x10*3/uL Absolute Nucleated RBC (0.0-0.012) X10*3/uL Nucleated RBC % (auto) (0.0-0.2) /100WBC O2 Saturation % ABG pH at Pt Temp (7.35-7.45) ABG pCO2 at Pt Temp (32-45) mmHg ABG pO2 at Pt Temp (83-108) mmHg ABG HCO3 (22-26) mmol/L ABG Base Excess (Actual) mmol/L Sodium (135-145) mmol/L Potassium (3.3-5.1) mmol/L Chloride (96-108) mmol/L Carbon Dioxide (22-29) mmol/L Anion Gap (12-20) BUN (9-16) mg/dL Creatinine (0.5-1.4) mg/dL Estim Creat Clear Calc Estimated GFR Random Glucose (60-115) mg/dL Lactic Acid (0.5-2.0) mmol/L Calcium (8.4-10.2) mg/dL Magnesium (1.6-2.6) mg/dL Total Bilirubin (0.0-1.0) mg/dL Direct Bilirubin (0.0-0.5) mg/dL AST (5-31) U/L ALT (0-31) U/L Alkaline Phosphatase (39-117) U/L Troponin I High Sens 17.3 H* (<3.5-17.0) ng/L B-Natriuretic Peptide 35 (<100) pg/mL Total Protein (6.5-8.0) g/dL Albumin (3.5-5.0) g/dL Procalcitonin 0.32 ng/mL COVID-19 (JAYASHREE) Negative (Negative) COVID-19 Clin Com See Note 02/13/21 Range/Units 00:33 WBC (4.8-10.8) X10*3/uL RBC (4.20-5.50) X10*6/uL Hgb (12.0-16.0) g/dl Hct (37.0-47.0) % MCV (80.0-98.0) fL MCH (27.0-33.0) pg MCHC (31.0-35.0) g/dl RDW (11.0-16.0) % Plt Count (160-400) X10*3/uL MPV (9.4-12.3) fL Immature Gran % (Auto) (0.0-0.4) % Neut % (Auto) (45-73) % Lymph % (Auto) (20-40) % Haralson % (Auto) (2-11) % Eos % (Auto) (0-4) % Baso % (Auto) (0-2) % Lymph # (Auto) (1.2-4.9) X10*3/uL [place]on # (Auto) (0.1-1.2) X10*3/uL Eos # (Auto) (0.0-0.4) X10*3/uL Baso # (Auto) (0.0-0.2) X10*3/uL Abs Immat Gran (auto) (0.00-0.03) X10*3/uL Absolute Neuts (auto) (2.0-8.3) x10*3/uL Absolute Nucleated RBC (0.0-0.012) X10*3/uL Nucleated RBC % (auto) (0.0-0.2) /100WBC O2 Saturation 94.0 % ABG pH at Pt Temp 7.49 H (7.35-7.45) ABG pCO2 at Pt Temp 39 (32-45) mmHg ABG pO2 at Pt Temp 72 L (83-108) mmHg ABG HCO3 30 H (22-26) mmol/L ABG Base Excess (Actual) 7.1 mmol/L Sodium (135-145) mmol/L Potassium (3.3-5.1) mmol/L Chloride (96-108) mmol/L Carbon Dioxide (22-29) mmol/L Anion Gap (12-20) BUN (9-16) mg/dL Creatinine (0.5-1.4) mg/dL Estim Creat Clear Calc Estimated GFR Random Glucose (60-115) mg/dL Lactic Acid (0.5-2.0) mmol/L Calcium (8.4-10.2) mg/dL Magnesium (1.6-2.6) mg/dL Total Bilirubin (0.0-1.0) mg/dL Direct Bilirubin (0.0-0.5) mg/dL AST (5-31) U/L ALT (0-31) U/L Alkaline Phosphatase (39-117) U/L Troponin I High Sens (<3.5-17.0) ng/L B-Natriuretic Peptide (<100) pg/mL Total Protein (6.5-8.0) g/dL Albumin (3.5-5.0) g/dL Procalcitonin ng/mL COVID-19 (JAYASHREE) (Negative) COVID-19 Clin Com ECG Data Attestation: I personally reviewed and interpreted this ECG as follows: ECG interpretation date: 02/12/21 ECG interpretation time: 23:57 Prior ECG tracings: available for review Interpretation: Sinus tachycardia, heart rate 116 beats per minute, normal QRS, short LA interval 88 MS, somewhat defect is present but no ST segment elevations or depressions noted. Critical Care Time Critical Care Time Critical Care Time: Yes Total Critical Care Time: 60 Attestation: I have personally provided critical care time exclusive of time spent on separately billable procedures. Time includes review of lab data, radiology results, discussion with consultants, and monitoring for potential decompensation. Intervention performed as documented. Discharge Plan Discharge Clinical Impression: Acute exacerbation of chronic obstructive pulmonary disease (COPD), Acute and chronic respiratory failure with hypoxia, Multifocal pneumonia Patient Disposition: Admitted As Inpatient
--- NOTE | 2021-02-12 22:41 | ED.BACK ---
HPI - Back Pain/Injury General Stated Complaint: SOB Time Seen by Provider: 02/12/21 22:25 Source: patient, EMS, RN notes reviewed and old records reviewed Limitations: no limitations History of Present Illness HPI Narrative: 75 y/o female with history of COPD, chronic hypoxic respiratory failure on 2L NC at baseline, hx breast cancer on chemotherapy, MGUS, anxiety, cardiomyopathy with EF 35-40%, HTN, anxiety with recent admission to [facility] – [place] 02/03/21-02/10/21 for COPD exacerbation, PNA and acute pulmonary emboli Related Data Home Medications Medication Instructions Recorded Confirmed fluticasone fur. 100 mcg-umeclid 1 puff PO DAILY 11/17/20 02/03/21 62.5 mcg-vilant 25 mcg inhalat.powder (Trelegy Ellipta) ondansetron HCl 4 mg tablet 8 mg PO Q8H PRN 12/31/20 02/03/21 (Zofran) calcium carbonate 500 mg (1,250 1 tab PO DAILY 01/18/21 02/03/21 mg)-vitamin D3 125 unit tablet Probiotic 1 cap PO DAILY 02/03/21 02/03/21 acetaminophen 650 mg 650 mg PO BID 02/03/21 02/03/21 tablet,extended release chlorthalidone 25 mg tablet 1 tab PO DAILY 02/03/21 02/03/21 loperamide 2 mg capsule 2 mg PO Q4H PRN 02/03/21 02/03/21 Previous Rx's Medication Instructions Recorded trazodone 100 mg tablet 100 mg PO BEDTIME #30 tab 08/04/20 amlodipine 5 mg tablet 5 mg PO DAILY #90 tab 10/19/20 cetirizine 10 mg tablet (All Day 10 mg PO BID PRN 30 Days #60 tab 12/09/20 Allergy (cetirizine)) dexamethasone 4 mg tablet 4 mg PO BID #100 tab 12/10/20 (Decadron) atorvastatin 40 mg tablet 40 mg PO DAILY 90 Days #90 tab 12/24/20 oxybutynin chloride 5 mg tablet 5 mg PO BID 30 Days #60 tab 12/24/20 lisinopril 40 mg tablet 40 mg PO DAILY 90 Days #90 tab 01/12/21 prednisone 10 mg tablet 30 mg PO DAILY #30 tab 01/15/21 albuterol sulfate 1.25 mg/3 mL 2.5 mg (6 mL) INHALATION Q4-6H PRN 01/21/21 solution for nebulization 30 Days #90 ml albuterol sulfate 90 mcg/actuation 1 inh INHALATION QID PRN 30 Days 02/05/21 aerosol inhaler (Ventolin HFA) #18 g amoxicillin 875 mg-potassium 1 tab PO BID #20 tab 02/10/21 clavulanate 125 mg tablet (Augmentin) apixaban 5 mg tablet (Eliquis) 5 mg PO BID #60 tab 02/10/21 lorazepam 0.5 mg tablet (Ativan) 0.5 mg PO BID PRN #30 tab 02/10/21 Allergies Allergy/AdvReac Type Severity Reaction Status Date / Time hydrochlorothiazide Allergy Unknown hives Verified 01/21/21 15:05 [facility] Past Medical History Medical History (Updated 02/09/21 @ 10:55 by Kristie Celis NP) Allergies Anxiety Bladder prolapse Chondrocalcinosis COPD (chronic obstructive pulmonary disease) COPD (chronic obstructive pulmonary disease) Dyslipidemia HTN (hypertension) Hypoxemia Mixed incontinence urge and stress Monoclonal gammopathies Osteoporosis Physical exam Pulmonary nodules Surgical History History of section Family History Family History Father No problems noted. Mother HTN (hypertension) CVD (cardiovascular disease) Stroke Brother No problems noted. Sister No problems noted. Son No problems noted. Daughter No problems noted. 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 Current occupational exposures/hazards: No Discharge Plan Discharge Prescriptions: No Action trazodone 100 mg tablet 100 mg PO BEDTIME Qty: 30 RF: 5 amlodipine 5 mg tablet 5 mg PO DAILY Qty: 90 RF: 1 atorvastatin 40 mg tablet 40 mg PO DAILY 90 Days Qty: 90 RF: 2 oxybutynin chloride 5 mg tablet 5 mg PO BID 30 Days Qty: 60 RF: 2 lisinopril 40 mg tablet 40 mg PO DAILY 90 Days Qty: 90 RF: 3 albuterol sulfate [Ventolin HFA] 90 mcg/actuation HFA aerosol inhaler 1 inh inhalation QID PRN (Reason: shortness of breath or wheezing) 30 Days Qty: 18 RF: 12 Trelegy Ellipta 100-62.5-25 mcg blister with device 1 puff PO DAILY RF: 0 ondansetron HCl [Zofran] 4 mg tablet 8 mg PO Q8H PRN (Reason: Nausea) RF: 0 prednisone 10 mg Tablet 30 mg PO DAILY Qty: 30 RF: 4 dexamethasone [Decadron] 4 mg Tablet 4 mg PO BID Qty: 100 RF: 4 calcium carbonate-vitamin D3 500 mg(1,250mg) -125 unit Tablet 1 tab PO DAILY RF: 0 chlorthalidone 25 mg tablet 1 tab PO DAILY RF: 0 loperamide 2 mg Capsule 2 mg PO Q4H PRN (Reason: Diarrhea) RF: 0 Probiotic 1 cap PO DAILY RF: 0 acetaminophen 650 mg tablet extended release 650 mg PO BID RF: 0 Eliquis 5 mg Tablet 5 mg PO BID Qty: 60 RF: 3 amoxicillin-pot clavulanate [Augmentin] 875-125 mg tablet 1 tab PO BID Qty: 20 RF: 0 lorazepam [Ativan] 0.5 mg tablet 0.5 mg PO BID PRN (Reason: anxiety) Qty: 30 RF: 0 cetirizine [All Day Allergy (cetirizine)] 10 mg tablet 10 mg PO BID PRN (Reason: allergy symptoms) 30 Days Qty: 60 RF: 2 albuterol sulfate 1.25 mg/3 mL solution for nebulization 2.5 mg inhalation Q4-6H PRN (Reason: shortness of breath or wheezing) 30 Days Qty: 90 RF: 2
[2021-02-12] MEDS: Albuterol/Iprat 2.5/0.5MG 3 ML AMPUL.NEB INHALE (22:42)
[2021-02-12 22:48] VITALS: PULSE 118; O2SAT 94
[2021-02-12 22:54] LABS: Basophils Percent Auto 0.1 % (0-2); Hematocrit 26.3 % (37.0-47.0); Hemoglobin 8.8 g/dl (12.0-16.0); Imm Gran Abs Auto 0.12 X10*3/uL (0.00-0.03); Imm Gran Pct Auto 1.5 % (0.0-0.4); Lymphocytes Absolute Auto 0.6 X10*3/uL (1.2-4.9); Lymphocytes Percent Auto 7.5 % (20-40); MANUAL DIFF FLAG NO; Mean Corpuscular HGB Conc 33.5 g/dl (31.0-35.0); Mean Corpuscular Hemoglobin 30.6 pg (27.0-33.0); Mean Corpuscular Volume 91.3 fL (80.0-98.0); Mean Platelet Volume 9.1 fL (9.4-12.3); Monocytes Absolute Auto 0.4 X10*3/uL (0.1-1.2); Monocytes Percent Auto 4.5 % (2-11); NRBC Pct Auto 0.2 /100WBC (0.0-0.2); Neutrophils Absolute Auto 7.1 x10*3/uL (2.0-8.3); Neutrophils Percent Auto 86.4 % (45-73); Platelet Count 187 X10*3/uL (160-400); Red Blood Count 2.88 X10*6/uL (4.20-5.50); Red Cell Distribution Width 19.7 % (11.0-16.0); White Blood Count 8.2 X10*3/uL (4.8-10.8)
[2021-02-12 22:57] VITALS: BP 107/64; BP 95/43; PULSE 121; PULSE 122; RESP 30; TEMP 36.9; O2SAT 85; O2SAT 91; BMI 30.7
[2021-02-12 23:05] LABS: COVID-19 Test Negative (Negative)
[2021-02-12 23:08] LABS: Lactic Acid 1.5 mmol/L (0.5-2.0)
[2021-02-12] MEDS: Magnesium Sulfate/H2O 2 GM/50 ML PIGGYBACK IV (23:25)
[2021-02-12] MEDS: methylPREDNISolone Sod Succ 125 MG/2 ML VIAL IVPUSH (23:25)
[2021-02-12] MEDS: 0.9 % Sodium Chloride 1,000 ML 999 ML IVCONT (23:25)
[2021-02-12 23:26] VITALS: BP 106/59; PULSE 118; RESP 36; O2SAT 90
[2021-02-12 23:26] LABS: Alanine Aminotransferase 33 U/L (0-31); Albumin Level 2.7 g/dL (3.5-5.0); Alkaline Phosphatase 84 U/L (39-117); Anion Gap 15 (12-20); Aspartate Amino Transferase 21 U/L (5-31); B Type Natriuretic Peptide 35 pg/mL (<100); Bilirubin Direct 0.7 mg/dL (0.0-0.5); Bilirubin Total 1.4 mg/dL (0.0-1.0); Blood Urea Nitrogen 11 mg/dL (9-16); Calcium 7.4 mg/dL (8.4-10.2); Carbon Dioxide 30 mmol/L (22-29); Chloride 93 mmol/L (96-108); Creatinine Clr Calc Pharmacy 60.2; Estimated Glomerular Filt Rate > 60; Glucose Random 153 mg/dL (60-115); Potassium 3.4 mmol/L (3.3-5.1); Sodium 135 mmol/L (135-145); Total Protein 5.1 g/dL (6.5-8.0); Troponin-I High Sensitivity 17.3 ng/L (<3.5-17.0)
[2021-02-12 23:38] LABS: Magnesium 1.4 mg/dL (1.6-2.6)
[2021-02-12 23:41] LABS: Procalcitonin 0.32 ng/mL
[2021-02-12] MEDS: ondansetron HCL 4 MG/2 ML VIAL IVPUSH (23:58)
[2021-02-13] VITALS (18 sets, daily range): BP systolic 90–126; BP diastolic 42–67; PULSE 80–100; RESP 14–25; TEMP 36.2–37.4; O2SAT 90–99
[2021-02-13 00:38] LABS: ABG Base Excess 7.1 mmol/L; ABG HCO3 30 mmol/L (22-26); ABG pCO2 39 mmHg (32-45); ABG pH 7.49 (7.35-7.45); ABG pO2 72 mmHg (83-108)
[2021-02-13] MEDS: Piperacillin Sodium/Tazobactam 4.5 GM in 0.9 % Sodium Chloride 100 ML IV ×3 (01:23→21:11)
[2021-02-13 01:29] LABS: ABG Refer to POC result
--- NOTE | 2021-02-13 01:41 | PM.SEPSISNOT ---
Sepsis Bolus Exclusion Sepsis Bolus Exclusion CHF/Renal Failure This patient met severe sepsis criteria due to the following condition(s):: Hypotension (respiratory faliure requiring BiPAP) In my clinical judgement the administration of 30 ml/kg of crystalloid would be detrimental to this patient due to the patient's following conditions:: NYHA class III or IV Heart Failure(symptoms with low exertion or rest) Replace the 30 mls/kg with: Crystalloids amount given in mls:: 1,000 Colloids amount given in mls:: 0
[2021-02-13] MEDS: vancomycin HCL 1,000 MG in 0.9 % Sodium Chloride 250 ML 270 MG IV (01:52)
[2021-02-13] MEDS: Albuterol/Iprat 2.5/0.5MG 3 ML AMPUL.NEB INHALE (01:53)
[2021-02-13] MEDS: Morphine Sulfate 2 MG/ML CARTRIDGE IVPUSH (02:18)
--- NOTE | 2021-02-13 07:37 | PC.NURSE ---
pt assigned to room 261. report given receiving nurse JUANITA Bernardo. pt will be transported to ICU by this caption writer along with Respiratory Therapist.
--- NOTE | 2021-02-13 11:36 | MHC.CM.PN ---
Pt in ICU after Bipap: resting: call placed to pt's dtr/HCP Bertha to discuss d/c needs. Per Bertha, she resides with pt and assists with care needs: pt currently receiving chemotherapy - 5 more weeks need to be completed: pt has [employer] O2 and Bertha assists with all other needs including transportation. Bertha states pt would not be [id number] to [facility] but may be ok with [facility] Referred to [facility] for new skilled RN services: Pt is COVID vaccinated, HCP on file. CM to follow for finalization of d/c needs
--- NOTE | 2021-02-13 15:28 | PM.CCHP ---
History of Present Illness Date of Service: 02/13/21 Attending physician on admission: Shakir Pastor Mrs Nevarez was admitted to the ICU this morning with acute respiratory failure. The patient is a 75 yo woman with the following PMHx: - COPD currently on 2L NC at home.? Previous [facility] labs show no evidence of CO2 retention. - Triple negative breast cancer dx?d 10/2020, port implanted 12/15, started chemo begin of December. - HTN - Dyslipidemia - Cardiomyopathy (see below) She was admitted to [facility] Jan 18 for COPD exacerbation.? Improved quickly with Solu-Medrol and bronchodilators, and was discharged the next day. ECHO 01/19 notable for: - Normal LV cavity size and wall thickness.? EF 35-40%, with grade I (mild) diastolic dysfunction. - Normal RV cavity size and systolic function. - Normal IVC with > 50% inspiratory collapse.? RVSP 35mm. She was admitted again to the [facility] for pneumonia and a small segmental pulmonary embolism on February 03.? She was treated with heparin and Zosyn.? Transitioned to Eliquis.? Discharged on February 10 on Augmentin to complete 10 days of antibiotics. HISTORY OF PRESENT ILLNESS:? BIBA last night with ongoing SOB and GONZALEZ that has been worsening since discharge. ?She?d increased her usual oxygen from 2 L to 4 L nasal cannula.? At the scene, EMS found Sat 84% on 4 L NC, with moderate respiratory distress.? They placed her on NRBFM and brought her to the Emergency Department.? Patient reported a baseline chronic cough productive of yellow phlegm which was unchanged.? She denied fever or chills.? She has been compliant with all her medications including her anticoagulation and her antibiotics. In the ED, respiratory rate was 36 with sat 90% on NRBFM.? She was afebrile.? BP 87/50.? She had moderate respiratory distress with accessory muscle use and minimal air movement. Labs in the ED were notable for WBC 8.2, Hb 8.8, BUN/creat 11/0.8 (baseline creatinine probably 0.6), T bili 1.4 (down from 2.5), albumin 2.7.? Lactic acid was 1.5. ?ABG (unstated FiO2) showed 7.49/39/72/+7.? CXR was read as showing bilateral lower lobe ?patchy opacities? qualitatively similar to her previous film of February 08, but quantitatively worse.? Blunting of both costophrenic angle suggestive of pleural effusions, was present on the previous film, but now is significantly worse on the right side.? COVID JAYASHREE was negative. Patient was given fluids and her blood pressure improved.? She was given Zosyn and vancomycin. ?She was started on BiPAP for work of breathing.? ICU admission was requested but held for bed availability.? The patient was transferred to the ICU this morning at 08:00. On my exam the patient if fully A&O, completely normal mental status.? She talks easily.? She looks thoroughly nontoxic.? RR is 18-20 with a hint of increased WOB.? About half the time she breathes with pursed lips. ?Sat is low 90?s on 4L NC. ?HR 87, BP 92/42. Afebrile -- in fact, she has been afebrile throughout all three of her hospitalizations this month.? Furthermore, her white count has not been elevated all 3 hospitalizations.? She does have a wet cough.? She complains of a dry mouth, and in fact has dry mucous membranes.? No JVD at 30?.? On auscultation of the chest, I heard and occasional crackle at the right base.? Expiratory phase is normal.? Heart rate and rhythm are regular, with normal-sounding S1 and S2, I heard no murmur or gallops.? The abdomen is benign.? She has 1+ pretibial edema of the right leg only, not on the left.? No central edema. LABORATORY DATA: Above. MICROBIOLOGY:? Sputum sample obtained via cough this morning was thick and brown.? On lab analysis, microscopic exam was reported to suggest oropharyngeal contamination, therefore culture was not performed. IMPRESSION: 1. Underlying COPD 2. COPD exacerbation -- based on her cough and sputum production. 3. Breast cancer, now on chemo. 4. ?Bilateral pulmonary infiltrates.? On my reading of the chest x-ray, the look more interstitial then airspace to me. 5. Hypoxemic respiratory failure. 2? to above. 6. Hypovolemia.? She is prob dry. ?But she has CMOP with EF 35%.? I will give her another ? liter of LR, then put her on a low dose infusion. 7. Right leg has edema, left leg doesn?t.? R/o DVT.? I?ve ordered a duplex scan. Mrs. Nevarez has been admitted to the hospital 3 times now in less than 30 days, and treated for infectious complications.? At no time has she been febrile and she has not had an elevated white count (although 3 out of her 15 white count determinations have been mildly low).? The chest x-rays clearly show progression of disease.? She does not look at all toxic, septic, or infected.? In fact, if her current pulmonary infiltrates were typical bacterial pneumonia, she would be much much sicker, much more hypoxemic, and likely intubated. ?And her pulmonary infiltrates do not look like atypical or viral pneumonia either. It?s my opinion that her infiltrates are not infectious, rather they represent lymphangitic spread of her cancer.? I have discussed this with Dr. Celis.? He will see her tomorrow and schedule a bronchoscopy if indicated. For now, I will continue vanco and Zosyn for 48 hrs, pending further eval.? She is stable for [place] [facility] If WOB increases, I would use opiates and HFNC. Will sign out to the hospitalists. Time:? [id number]. [facility] Past Medical History Medical History (Updated 02/13/21 @ 01:13 by LESTER Cooper) Allergies Anxiety Bladder prolapse Chondrocalcinosis COPD (chronic obstructive pulmonary disease) COPD (chronic obstructive pulmonary disease) Dyslipidemia HTN (hypertension) Hypoxemia Mixed incontinence urge and stress Monoclonal gammopathies Osteoporosis Physical exam Pulmonary nodules Family History Family History Father No problems noted. Mother HTN (hypertension) CVD (cardiovascular disease) Stroke Brother No problems noted. Sister No problems noted. Son No problems noted. Daughter No problems noted. Other Substance use disorder Surgical History Surgical History History of section Social History Social History Household Members: Family Housing: Other Housing Other:: Mobile Home Do you presently have visiting nurse or other home services: No Alcohol intake: never Patient Tobacco Use Status: Former Tobacco user Years Smoked: 20 years ago e-Cigarette/Vaping Use: Never Used Second Hand Smoke Exposure: Yes Use of substances other than those prescribed or required for medical reasons: No Have you been hit, kicked, punched, or otherwise hurt by someone within the past year? If so, by whom?: No Do you feel safe in your current relationship?: No Current Relationship Is there a partner from a previous relationship who is making you feel unsafe now?: No Are you made to feel afraid or neglected: No Spiritual Healthcare Practices: none per patient Moravian Healthcare Practices: none per patient Cultural Healthcare Practices: none per patient Advance Directives: Yes Advance Directives on File: Yes Advance Directives Date on File: 12/24/20 Do you have thoughts of harming others: None Do you have a plan to hurt others: No Plan Recently lost weight without trying: Unsure Eating poorly because of decreased appetite: Yes Nutrition Risks: No Nutritional Risk Patient : No : No Poor oral hygiene: No service: No Current occupational status: retired 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 100 mcg-umeclid 1 puff PO DAILY 11/17/20 02/03/21 01/18/21 History 62.5 mcg-vilant 25 mcg inhalat.powder (Trelegy Ellipta) ondansetron HCl 4 mg tablet 8 mg PO Q8H PRN 12/31/20 02/03/21 Unknown History (Zofran) calcium carbonate 500 mg (1,250 1 tab PO DAILY 01/18/21 02/03/21 01/18/21 History mg)-vitamin D3 125 unit tablet Probiotic 1 cap PO DAILY 02/03/21 02/03/21 Unknown History acetaminophen 650 mg 650 mg PO BID 02/03/21 02/03/21 Unknown History tablet,extended release chlorthalidone 25 mg tablet 1 tab PO DAILY 02/03/21 02/03/21 Unknown History loperamide 2 mg capsule 2 mg PO Q4H PRN 02/03/21 02/03/21 Unknown History Physical Exam Vital Signs: Vital Signs: Last Vital Signs Temp 98.7 F 02/13/21 12:00 Pulse 84 02/13/21 15:00 Resp 15 02/13/21 15:00 BP 92/42 L 02/13/21 15:00 Pulse Ox 98 02/13/21 15:00 Oxygen Flow Rate 7 02/12/21 22:57 Body Mass Index 30.7 Results Labs CBC and Chem 7: 02/12/21 22:47 02/12/21 22:47 Labs: Laboratory Results - last 24 hr 02/12/21 02/12/21 02/12/21 22:47 22:47 22:47 MCV 91.3 MCH 30.6 MCHC 33.5 RDW 19.7 H Plt Count 187 D MPV 9.1 L Immature Gran % (Auto) 1.5 H Neut % (Auto) 86.4 H Lymph % (Auto) 7.5 L [place] % (Auto) 4.5 Eos % (Auto) 0.0 Baso % (Auto) 0.1 Lymph # (Auto) 0.6 L [place] # (Auto) 0.4 Eos # (Auto) 0.0 Baso # (Auto) 0.0 Abs Immat Gran (auto) 0.12 H Absolute Neuts (auto) 7.1 Absolute Nucleated RBC 0.020 H Nucleated RBC % (auto) 0.2 O2 Saturation ABG pH at Pt Temp ABG pCO2 at Pt Temp ABG pO2 at Pt Temp ABG HCO3 ABG Base Excess (Actual) Anion Gap 15 Estim Creat Clear Calc 60.2 Estimated GFR > 60 Random Glucose 153 H Lactic Acid 1.5 Calcium 7.4 L Magnesium 1.4 L* Total Bilirubin 1.4 H Direct Bilirubin 0.7 H AST 21 ALT 33 H Alkaline Phosphatase 84 Troponin I High Sens B-Natriuretic Peptide Total Protein 5.1 L Albumin 2.7 L Procalcitonin COVID-19 (JAYASHREE) COVID-19 Clin Com 02/12/21 02/12/21 02/12/21 22:47 22:47 22:47 MCV MCH MCHC RDW Plt Count MPV Immature Gran % (Auto) Neut % (Auto) Lymph % (Auto) [place] % (Auto) Eos % (Auto) Baso % (Auto) Lymph # (Auto) [place] # (Auto) Eos # (Auto) Baso # (Auto) Abs Immat Gran (auto) Absolute Neuts (auto) Absolute Nucleated RBC Nucleated RBC % (auto) O2 Saturation ABG pH at Pt Temp ABG pCO2 at Pt Temp ABG pO2 at Pt Temp ABG HCO3 ABG Base Excess (Actual) Anion Gap Estim Creat Clear Calc Estimated GFR Random Glucose Lactic Acid Calcium Magnesium Total Bilirubin Direct Bilirubin AST ALT Alkaline Phosphatase Troponin I High Sens 17.3 H* B-Natriuretic Peptide 35 Total Protein Albumin Procalcitonin 0.32 COVID-19 (JAYASHREE) Negative COVID-19 Clin Com See Note 02/13/21 00:33 MCV MCH MCHC RDW Plt Count MPV Immature Gran % (Auto) Neut % (Auto) Lymph % (Auto) [place] % (Auto) Eos % (Auto) Baso % (Auto) Lymph # (Auto) [place] # (Auto) Eos # (Auto) Baso # (Auto) Abs Immat Gran (auto) Absolute Neuts (auto) Absolute Nucleated RBC Nucleated RBC % (auto) O2 Saturation 94.0 ABG pH at Pt Temp 7.49 H ABG pCO2 at Pt Temp 39 ABG pO2 at Pt Temp 72 L ABG HCO3 30 H ABG Base Excess (Actual) 7.1 Anion Gap Estim Creat Clear Calc Estimated GFR Random Glucose Lactic Acid Calcium Magnesium Total Bilirubin Direct Bilirubin AST ALT Alkaline Phosphatase Troponin I High Sens B-Natriuretic Peptide Total Protein Albumin Procalcitonin COVID-19 (JAYASHREE) COVID-19 Clin Com Imaging Radiologist's Impressions: Impressions Chest X-Ray 02/13/21 00:01 IMPRESSION: Increased patchy opacities bilaterally with also new small pleural effusions.
[2021-02-13] MEDS: Potassium Chloride Packet 20 MEQ PACKET 40 MEQ PO (16:15)
[2021-02-13] MEDS: Lactated Ringers 500 ML 250 ML IV (16:15)
[2021-02-13 16:24] LABS: Estimated Glomerular Filt Rate 37
[2021-02-13 16:35] LABS: Anion Gap 16 (12-20); Blood Urea Nitrogen 25 mg/dL (9-16); Calcium 7.1 mg/dL (8.4-10.2); Carbon Dioxide 27 mmol/L (22-29); Chloride 98 mmol/L (96-108); Glucose Random 229 mg/dL (60-115); Magnesium 2.1 mg/dL (1.6-2.6); Sodium 138 mmol/L (135-145)
[2021-02-13] MEDS: Lactated Ringers 1,000 ML 50 ML IVCONT (18:05)
--- NOTE | 2021-02-13 18:32 | PC.NURSE ---
Patient arrived to unit at 0830 - at that time patient was incontinent x1. Purawick placed and patient unable to void. Bladder scan done at 1400 and showed 250cc. Bladder scan done at [address] Nevarez notified and lindsey catheter placed.
[2021-02-13 19:05] LABS: Appearance Urine CLEAR; Color Urine DK YELLOW; Glucose Urine UA NEG (NEG); Leukocyte Esterase Urine NEG (NEG); Nitrite Urine NEG (NEG); PH 5.5 (5.0-8.0); Specific Gravity - Urine 1.025 (1.005-1.025); Urine Blood NEG (NEG); Urine Ketones NEG (NEG); Urine Protein TRACE MG/DL (NEG-TRACE)
[2021-02-13] MEDS: traZODone HCL 100 MG TABLET PO (21:11)
[2021-02-13] MEDS: Apixaban 5 MG TABLET PO (21:11)
[2021-02-13] MEDS: vancomycin HCL 1,250 MG in 0.9 % Sodium Chloride 250 ML 166.67 MG IV (22:54)
[2021-02-14] VITALS (12 sets, daily range): BP systolic 99–120; BP diastolic 52–67; PULSE 80–118; RESP 18–22; TEMP 36.1–36.8; O2SAT 85–98; BMI 28.1
[2021-02-14] MEDS: Loperamide HCl 2 MG CAPSULE PO ×3 (00:36→21:05)
[2021-02-14] MEDS: Piperacillin Sodium/Tazobactam 4.5 GM in 0.9 % Sodium Chloride 100 ML IV ×4 (04:37→20:28)
[2021-02-14] MEDS: Lactated Ringers 1,000 ML 50 ML IVCONT ×2 (04:38→23:27)
[2021-02-14 06:59] LABS: Hematocrit 23.5 % (37.0-47.0); Hemoglobin 7.4 g/dl (12.0-16.0); Mean Corpuscular HGB Conc 31.5 g/dl (31.0-35.0); Mean Corpuscular Hemoglobin 29.2 pg (27.0-33.0); Mean Corpuscular Volume 92.9 fL (80.0-98.0); Mean Platelet Volume 8.7 fL (9.4-12.3); Platelet Count 193 X10*3/uL (160-400); Red Blood Count 2.53 X10*6/uL (4.20-5.50); Red Cell Distribution Width 19.9 % (11.0-16.0); White Blood Count 5.1 X10*3/uL (4.8-10.8)
[2021-02-14 07:01] LABS: VBG Base Excess 11.4 mmol/L; VBG HCO3 37 mmol/L (22-26); VBG pCO2 55 mmHg; VBG pH 7.43 (7.32-7.43); VBG pO2 59 mmHg
[2021-02-14 07:10] LABS: D Dimer High Sensitivity 805 NG/ML
[2021-02-14 07:41] LABS: Alanine Aminotransferase 27 U/L (0-31); Albumin Level 2.2 g/dL (3.5-5.0); Alkaline Phosphatase 62 U/L (39-117); Anion Gap 12 (12-20); Aspartate Amino Transferase 19 U/L (5-31); Bilirubin Total 0.8 mg/dL (0.0-1.0); Blood Urea Nitrogen 24 mg/dL (9-16); Calcium 7.1 mg/dL (8.4-10.2); Carbon Dioxide 30 mmol/L (22-29); Chloride 101 mmol/L (96-108); Creatinine Clr Calc Pharmacy 58.3; Estimated Glomerular Filt Rate > 60; Glucose Random 122 mg/dL (60-115); Magnesium 2.1 mg/dL (1.6-2.6); Phosphorus 3.4 mg/dL (2.7-4.5); Potassium 3.5 mmol/L (3.3-5.1); Sodium 139 mmol/L (135-145); Total Protein 4.4 g/dL (6.5-8.0)
[2021-02-14 07:44] LABS: Venous Blood Gas Refer to POC result
--- NOTE | 2021-02-14 07:53 | PHA.MEDREC ---
Pharmacy Consult ? Medication Reconciliation Pharmacy has completed the medication reconciliation. Completed med rec based on dc summary from a few days ago
[2021-02-14] MEDS: Atorvastatin Calcium 40 MG TABLET PO (09:39)
[2021-02-14] MEDS: Apixaban 5 MG TABLET PO ×2 (09:40→20:28)
[2021-02-14] MEDS: Albuterol/Iprat 2.5/0.5MG 3 ML AMPUL.NEB INHALE ×3 (10:26→20:27)
[2021-02-14] MEDS: LORazepam 0.5 MG TABLET PO (12:50)
--- NOTE | 2021-02-14 13:13 | P.CONPL_ITS ---
History of Present Illness History of Present Illness Consult date: 02/14/21 Chief complaint: Sepsis, hypoxic resp failure Narrative: This is an inpatient pulmonary consultation. The patient is a 75-year-old woman with a known history of COPD with extensive emphysema, new diagnosis of breast cancer that occurred back in the summer 2020 and currently on chemotherapy. The patient now presents 3 times to the hospital with worsening respiratory status. Apparently after her diagnosis of the breast cancer he was considered to be triple negative. She was evaluated by Oncology and was placed on chemotherapy which included initially Cytoxan and Adriamycin then starting Taxol. The patient had her port placed in started her initial chemotherapy. Subsequently after that on January 18 she was admitted to the hospital worsening respiratory status. She was diagnosed with COPD exacerbation and also beginning some pneumonia. She was subsequently discharged to be readmitted several days later with worsening respiratory status needing oxygen. She had a repeat CTA demonstrating now more extensive airspace disease primarily in the periphery bilaterally in addition to a pulmonary emboli on the right. She was placed on anticoagulation and was given additional antibiotics and moises murphy is discharged again. Now she returns for the 3rd time with worsening respiratory status. Significant respiratory distress requiring BiPAP in ICU level of care briefly. She was placed on IV antibiotics for the pneumonia pre she aided on CT scan in addition to oxygen. The patient also has a cough difficult to expectorate. She understands that on the chemotherapy she is immune suppressed. Therefore was smoldering immuno compromising conditions a to be considered. But more than that the distribution of disease primarily in the periphery appears to be of an organizing pneumonia type picture which may be due to chemotherapy. Based on the chemotherapy that she has been on the Adriamycin is the most likely. At this point will start her on steroids continue on the on the antibiotics. If the patient is no better then consider bronchoscopy to assess for immuno compromising conditions. Review of Systems Review of Systems: Constitutional: No Fever, No Chills ENT/Mouth: No sore throat, No Rhinorrhea, No Swallowing Difficulty Eyes: No Eye Pain, No Swelling, No Redness Cardiovascular: No Chest Pain, + SOB, + Orthopnea, No Edema Respiratory: + Cough, + Sputum, + Wheezing, + dyspnea Gastrointestinal: No Nausea, No Vomiting, No Diarrhea, No abdominal Pain Genitourinary: No Dysuria, No Urinary Frequency, No Hematuria Musculoskeletal: No joint pain, No Myalgias Skin: No Skin Lesions, No rash Neuro: + Weakness, No Numbness, No Dizziness, No Headache Psych: + Anxiety/Panic, No Depression Heme/Lymph: No Bruising, No Lymphadenopathy Endocrine: No Polyuria, No Polydipsia [facility] Past Medical History Medical History (Updated 02/13/21 @ 01:13 by LESTER Cooper) Allergies Anxiety Bladder prolapse Chondrocalcinosis COPD (chronic obstructive pulmonary disease) COPD (chronic obstructive pulmonary disease) Dyslipidemia HTN (hypertension) Hypoxemia Mixed incontinence urge and stress Monoclonal gammopathies Osteoporosis Physical exam Pulmonary nodules Family History Family History Father No problems noted. Mother HTN (hypertension) CVD (cardiovascular disease) Stroke Brother No problems noted. Sister No problems noted. Son No problems noted. Daughter No problems noted. Other Substance use disorder Surgical History Surgical History History of section Social History Social History Household Members: Family Housing: Other Housing Other:: Mobile Home Do you presently have visiting nurse or other home services: No Alcohol intake: never Patient Tobacco Use Status: Former Tobacco user Years Smoked: 20 years ago e-Cigarette/Vaping Use: Never Used Second Hand Smoke Exposure: Yes Use of substances other than those prescribed or required for medical reasons: No Currently Displaying Signs/Symptoms of Drug Intoxication Withdrawal: No Have you been hit, kicked, punched, or otherwise hurt by someone within the past year? If so, by whom?: No Do you feel safe in your current relationship?: No Current Relationship Is there a partner from a previous relationship who is making you feel unsafe now?: No Are you made to feel afraid or neglected: No Spiritual Healthcare Practices: none per patient Nondenominational Healthcare Practices: none per patient Cultural Healthcare Practices: none per patient Advance Directives: Yes Advance Directives on File: Yes Advance Directives Date on File: 12/24/20 Do you have thoughts of harming others: None Do you have a plan to hurt others: No Plan Recently lost weight without trying: Unsure Eating poorly because of decreased appetite: Yes Nutrition Risks: No Nutritional Risk Patient : No : No Poor oral hygiene: No service: No Current occupational status: retired 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 [employer] Current occupational exposures/hazards: No Meds Allergies Allergy/AdvReac Type Severity Reaction Status Date / Time hydrochlorothiazide Allergy Unknown hives Verified 01/21/21 15:05 Active Medications: Current Medications Albuterol/Ipratropium (Albuterol/Iprat 2.5/0.5mg 3 Ml Ampul.Neb) 3 ml INHALE RQ4H WHILE AWAKE [facility] Last Admin: 02/14/21 10:26 Dose: 3 ml Documented by: Apixaban (Apixaban 5 Mg Tablet) 5 mg PO BID [facility] Last Admin: 02/14/21 09:40 Dose: 5 mg Documented by: Atorvastatin Calcium (Atorvastatin Calcium 40 Mg Tablet) 40 mg PO DAILY [facility] Last Admin: 02/14/21 09:39 Dose: 40 mg Documented by: Piperacillin Sod/Tazobactam (Sod 4.5 gm/ Sodium Chloride) 100 mls @ 200 mls/hr IV Q6H [facility] Last Infusion: 02/14/21 10:21 Dose: Infused Documented by: Vancomycin HCl 1,250 mg/ (Sodium Chloride) 250 mls @ 166.667 mls/hr IV Q24H [facility] Last Infusion: 02/14/21 00:49 Dose: Infused Documented by: Lactated Ringer's (Lr) 1,000 mls @ 50 mls/hr IVCONT .Q20H [facility] Last Admin: 02/14/21 04:38 Dose: 50 mls/hr Documented by: Loperamide HCl (Loperamide Hcl 2 Mg Capsule) 2 mg PO Q4H PRN PRN Reason: Diarrhea Last Admin: 02/14/21 09:50 Dose: 2 mg Documented by: Lorazepam (Lorazepam 0.5 Mg Tablet) 0.5 mg PO BID PRN PRN Reason: Anxiety Last Admin: 02/14/21 12:50 Dose: 0.5 mg Documented by: Ondansetron HCl (Ondansetron Odt 4 Mg Tab.Rapdis) 8 mg TRANSLINGU Q8H PRN PRN Reason: Nausea and Vomiting Oxybutynin Chloride (Oxybutynin Chloride Er 5 Mg Tab.Er.24) 10 mg PO DAILY [facility] Last Admin: 02/14/21 09:39 Dose: 10 mg Documented by: Pharmacy Consult (Consult Rx Perform Med Rec) 1 each MISCELLANE ONCE PRN PRN Reason: Consult order Trazodone HCl (Trazodone Hcl 100 Mg Tablet) 100 mg PO BEDTIME VU Last Admin: 02/13/21 21:11 Dose: 100 mg Documented by: Home Medications Medication Instructions Recorded Confirmed Last Taken Type fluticasone fur. 100 mcg-umeclid 1 puff PO DAILY 11/17/20 02/14/21 01/18/21 History 62.5 mcg-vilant 25 mcg inhalat.powder (Trelegy Ellipta) ondansetron HCl 4 mg tablet 8 mg PO Q8H PRN 12/31/20 02/14/21 Unknown History (Zofran) calcium carbonate 500 mg (1,250 1 tab PO DAILY 01/18/21 02/14/21 01/18/21 History mg)-vitamin D3 125 unit tablet Probiotic 1 cap PO DAILY 02/03/21 02/14/21 Unknown History acetaminophen 650 mg 650 mg PO BID 02/03/21 02/14/21 Unknown History tablet,extended release chlorthalidone 25 mg tablet 1 tab PO DAILY 02/03/21 02/14/21 Unknown History loperamide 2 mg capsule 2 mg PO Q4H PRN 02/03/21 02/14/21 Unknown History Physical Exam Vital Signs: Vital Signs: Last Vital Signs Temp 97.5 F 02/14/21 11:55 Pulse 95 02/14/21 11:55 Resp 20 02/14/21 11:55 BP 114/67 02/14/21 11:55 Pulse Ox 90 L 02/14/21 11:55 Oxygen Flow Rate 7 02/12/21 22:57 Body Mass Index 28.1 Const: General: alert HENMT: Head: Yes other (alopecia from chemo) General nose exam: Abnormal external nose present and Nasal discharge present Neck: Neck: Yes normal visual inspection, Yes full ROM and Yes no lymphadenopathy Chest: Chest palpation & inspection: normal inspection of the chest Resp: Auscultation: diminished lung sounds Cardio: Rate: regular rate Rhythm: regular rhythm Heart sounds: S1 normal heart sound present and S2 normal heart sound present GI: Palpation (GI): Soft to palpation and nontender Auscultation: normal bowel sounds Skin: General skin exam: rashes and/or lesions noted Results Laboratory Findings CBC and BMP: 02/14/21 06:49 02/14/21 06:49 Abnormal lab findings: Abnormal Labs 02/12/21 02/12/21 02/12/21 22:47 22:47 22:47 RBC 2.88 L Hgb 8.8 L Hct 26.3 L RDW 19.7 H MPV 9.1 L Immature Gran % (Auto) 1.5 H Neut % (Auto) 86.4 H Lymph % (Auto) 7.5 L Lymph # (Auto) 0.6 L Abs Immat Gran (auto) 0.12 H Absolute Nucleated RBC 0.020 H ABG pH at Pt Temp ABG pO2 at Pt Temp ABG HCO3 VBG HCO3 Potassium Chloride 93 L Carbon Dioxide 30 H BUN Creatinine Random Glucose 153 H Calcium 7.4 L Magnesium 1.4 L* Total Bilirubin 1.4 H Direct Bilirubin 0.7 H ALT 33 H Troponin I High Sens 17.3 H* Total Protein 5.1 L Albumin 2.7 L 02/13/21 02/13/21 02/14/21 00:33 15:48 06:49 RBC 2.53 L Hgb 7.4 L Hct 23.5 L RDW 19.9 H MPV 8.7 L Immature Gran % (Auto) Neut % (Auto) Lymph % (Auto) Lymph # (Auto) Abs Immat Gran (auto) Absolute Nucleated RBC ABG pH at Pt Temp 7.49 H ABG pO2 at Pt Temp 72 L ABG HCO3 30 H VBG HCO3 Potassium 3.0 L Chloride Carbon Dioxide BUN 25 H D Creatinine 1.41 H Random Glucose 229 H Calcium 7.1 L Magnesium Total Bilirubin Direct Bilirubin ALT Troponin I High Sens Total Protein Albumin 02/14/21 02/14/21 06:49 06:54 RBC Hgb Hct RDW MPV Immature Gran % (Auto) Neut % (Auto) Lymph % (Auto) Lymph # (Auto) Abs Immat Gran (auto) Absolute Nucleated RBC ABG pH at Pt Temp ABG pO2 at Pt Temp ABG HCO3 VBG HCO3 37 H Potassium Chloride Carbon Dioxide 30 H BUN 24 H Creatinine Random Glucose 122 H Calcium 7.1 L Magnesium Total Bilirubin Direct Bilirubin ALT Troponin I High Sens Total Protein 4.4 L Albumin 2.2 L Microbiology: Microbiology 02/14/21 09:00 Sputum - Expectorated Gram Stain - Final 02/13/21 08:46 Sputum - Expectorated Gram Stain - Final 02/13/21 08:46 Sputum - Expectorated Sputum Culture - Final 02/13/21 00:55 Blood - Venous Blood Culture - Preliminary No growth after 24 hours. 02/13/21 00:45 Blood - Venous Blood Culture - Preliminary No growth after 24 hours. Assessment and Plan (1) Acute exacerbation of chronic obstructive pulmonary disease (COPD): Status: Acute (2) Acute and chronic respiratory failure with hypoxia: Status: Acute (3) Multifocal pneumonia: Status: Acute (4) Pulmonary embolism: Status: Acute (5) Triple negative malignant neoplasm of breast: Status: Acute It is likely the patient has organizing pneumonia from her chemotherapy based on her lack of response to multiple courses of antibiotics. Immunocompromised conditions will be less likely. Continue Antibiotic therapy Start Solumedrol to treat forthe potential chemotherapy induced orgamizing pneumonia Bloodwork Consider bronchoscopy if no better. But she would be considered hi risk and would have to come off her anticoagulation that would also be risky so close to her initial emboli. Will follow Procedures Date of Service Date of Service: 02/14/21
--- NOTE | 2021-02-14 13:32 | P.PNCC_ITS ---
Critical Care Event Note Summary Date of Service: 02/14/21 Code activated: No Narrative: I went up to room 444 to see Mrs. Nevarez in follow-up of my visit with her yesterday. She had just had a bowel movement, and was a bit tachypneic and labored, with pursed slips breathing. I wrote her for p.r.n. Dilaudid and high- flow nasal cannula, which is what she should have gotten yesterday. Dr. Leo has seen her. What he says in his note sounds reasonable. D/w Dr. Díaz. Critical Care Time (minutes): 0
[2021-02-14] MEDS: methylPREDNISolone Sod Succ 125 MG/2 ML VIAL 60 MG IVPUSH ×2 (14:38→19:30)
[2021-02-14 15:46] LABS: Erythrocyte Sedimentation Rate 57 MM/HR (0-20)
--- NOTE | 2021-02-14 16:33 | P.PNIM_ITS ---
Subjective Subjective Date of Service: 02/14/21 Interval History: moderately short of breath with minimal exertion Review of Systems denies chest pain admits to shortness of breath with minimal exertion Denies nausea vomiting diarrhea Physical Exam Vital Signs: Vital Signs: Last Vital Signs Temp 98.3 F 02/14/21 15:47 Pulse 118 H 02/14/21 15:47 Resp 22 H 02/14/21 15:48 BP 113/62 02/14/21 15:47 Pulse Ox 94 02/14/21 15:47 Oxygen Flow Rate 7 02/12/21 22:57 Body Mass Index 28.1 Const: Other: a somewhat tachypneic but no acute distress Resp: Other: diminished all bueno Cardio: Other: no S4; positive S1-S2; no S3 murmurs rubs gallops GI: Other: soft nontender nondistended with normoactive bowel sounds Neuro: Other: cranial nerves 2-12 grossly intact as tested; motor is 5/5 all extremities; sensation intact Extrem: Other: trace edema Objective Data Active Medications Albuterol/Ipratropium (Albuterol/Iprat 2.5/0.5mg 3 Ml Ampul.Neb) 3 ml INHALE RQ4H WHILE AWAKE [facility] Last Admin: 02/14/21 15:44 Dose: 3 ml Documented by: BENNIE Apixaban (Apixaban 5 Mg Tablet) 5 mg PO BID [facility] Last Admin: 02/14/21 09:40 Dose: 5 mg Documented by: FAVIAN Atorvastatin Calcium (Atorvastatin Calcium 40 Mg Tablet) 40 mg PO DAILY [facility] Last Admin: 02/14/21 09:39 Dose: 40 mg Documented by: FAVIAN Hydromorphone HCl (Hydromorphone Hcl 0.5 Mg/0.5 Ml Syringe) 0.5 mg IVPUSH Q1H PRN; Protocol PRN Reason: work of breathing Piperacillin Sod/Tazobactam (Sod 4.5 gm/ Sodium Chloride) 100 mls @ 200 mls/hr IV Q6H [facility] Last Admin: 02/14/21 15:49 Dose: 200 mls/hr Documented by: FAVIAN Vancomycin HCl 1,250 mg/ (Sodium Chloride) 250 mls @ 166.667 mls/hr IV Q24H [facility] Last Infusion: 02/14/21 00:49 Dose: 0 mls/hr Documented by: JOSE Lactated Ringer's (Lr) 1,000 mls @ 50 mls/hr IVCONT .Q20H [facility] Last Admin: 02/14/21 04:38 Dose: 50 mls/hr Documented by: JOSE Loperamide HCl (Loperamide Hcl 2 Mg Capsule) 2 mg PO Q4H PRN PRN Reason: Diarrhea Last Admin: 02/14/21 09:50 Dose: 2 mg Documented by: FAVIAN Lorazepam (Lorazepam 0.5 Mg Tablet) 0.5 mg PO BID PRN PRN Reason: Anxiety Last Admin: 02/14/21 12:50 Dose: 0.5 mg Documented by: FAVIAN Methylprednisolone Sodium Succinate (Methylprednisolone Sod Succ 125 Mg/2 Ml Vial) 60 mg IVPUSH Q6H [facility] Last Admin: 02/14/21 14:38 Dose: 60 mg Documented by: FAVIAN Ondansetron HCl (Ondansetron Odt 4 Mg Tab.Rapdis) 8 mg TRANSLINGU Q8H PRN PRN Reason: Nausea and Vomiting Oxybutynin Chloride (Oxybutynin Chloride Er 5 Mg Tab.Er.24) 10 mg PO DAILY [facility] Last Admin: 02/14/21 09:39 Dose: 10 mg Documented by: FAVIAN Pharmacy Consult (Consult Rx Perform Med Rec) 1 each MISCELLANE ONCE PRN PRN Reason: Consult order Trazodone HCl (Trazodone Hcl 100 Mg Tablet) 100 mg PO BEDTIME [facility] Last Admin: 02/13/21 21:11 Dose: 100 mg Documented by: JOSE Labs CBC & Chem 7: 02/14/21 06:49 02/14/21 06:49 Labs: Laboratory Results - last 24 hr 02/13/21 02/13/21 02/14/21 15:48 18:43 06:49 MCV 92.9 MCH 29.2 MCHC 31.5 RDW 19.9 H Plt Count 193 MPV 8.7 L Absolute Nucleated RBC 0.000 Nucleated RBC % (auto) 0.0 ESR D-Dimer High Sensitivty VBG pH VBG pCO2 VBG pO2 VBG HCO3 VBG O2 Saturation VBG Base Excess Anion Gap 16 Estim Creat Clear Calc Estimated GFR Random Glucose 229 H Calcium 7.1 L Phosphorus Magnesium 2.1 Total Bilirubin AST ALT Alkaline Phosphatase Total Protein Albumin Urine Color DK YELLOW Urine Appearance CLEAR Urine pH 5.5 Ur Specific [place] 1.025 Urine Protein TRACE Urine Glucose (UA) NEG Urine Ketones NEG Urine Blood NEG Urine Nitrite NEG Ur Leukocyte Esterase NEG 02/14/21 02/14/21 02/14/21 06:49 06:49 06:54 MCV MCH MCHC RDW Plt Count MPV Absolute Nucleated RBC Nucleated RBC % (auto) ESR D-Dimer High Sensitivty 805 VBG pH 7.43 VBG pCO2 55 VBG pO2 59 VBG HCO3 37 H VBG O2 Saturation 88.0 VBG Base Excess 11.4 Anion Gap 12 Estim Creat Clear Calc 58.3 Estimated GFR > 60 Random Glucose 122 H Calcium 7.1 L Phosphorus 3.4 Magnesium 2.1 Total Bilirubin 0.8 AST 19 ALT 27 Alkaline Phosphatase 62 D Total Protein 4.4 L Albumin 2.2 L Urine Color Urine Appearance Urine pH Ur Specific [place] Urine Protein Urine Glucose (UA) Urine Ketones Urine Blood Urine Nitrite Ur Leukocyte Esterase 02/14/21 13:50 MCV MCH MCHC RDW Plt Count MPV Absolute Nucleated RBC Nucleated RBC % (auto) ESR 57 H D-Dimer High Sensitivty VBG pH VBG pCO2 VBG pO2 VBG HCO3 VBG O2 Saturation VBG Base Excess Anion Gap Estim Creat Clear Calc Estimated GFR Random Glucose Calcium Phosphorus Magnesium Total Bilirubin AST ALT Alkaline Phosphatase Total Protein Albumin Urine Color Urine Appearance Urine pH Ur Specific [place] Urine Protein Urine Glucose (UA) Urine Ketones Urine Blood Urine Nitrite Ur Leukocyte Esterase Microbiology Microbiology Results: Microbiology 02/14/21 09:00 Gram Stain - Final Sputum - Expectorated 02/13/21 08:46 Gram Stain - Final Sputum - Expectorated Sputum Culture - Final 02/13/21 00:55 Blood Culture - Preliminary Blood - Venous No growth after 24 hours. 02/13/21 00:45 Blood Culture - Preliminary Blood - Venous No growth after 24 hours. 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 She was recently admitted to [facility] x2 over the last 2 months. Upon arrival to ER she was found to be 84% on 4 L; subsequently placed on non-rebreather with a respiratory rate of 36 was satting 90%. She was initially treated with vanco and Zosyn along with a short course of BiPAP which improved her overall respiratory status. At this point in time she is improved however still short of breath with minimal exertion. Despite this she voices very little complaints 1. COPD exacerbation in backdrop of multifocal pneumonia Continue vancomycin and Zosyn as ordered. Continue Solu-Medrol pulse dose as ordered. Seen by pulmonology; will follow-up. Further plans based on response to therapy and forthcoming data. 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 Pulmonary embolism Established on 1st admission; continue Eliquis as ordered 3. Hypertension Continue amlodipine at as ordered adjust as indicated Full code Eliquis Quality Stroke Does the patient have a stroke diagnosis?: No VTE Prior VTE?: No VTE Risk Level:: Medical - moderate - high VTE Device Contraindication: N/A - Device Ordered VTE Drug Contraindication: N/A - Med Ordered
[2021-02-14] MEDS: traZODone HCL 100 MG TABLET PO (20:28)
[2021-02-14] MEDS: vancomycin HCL 1,250 MG in 0.9 % Sodium Chloride 250 ML 166.67 MG IV (21:05)
[2021-02-15] VITALS (13 sets, daily range): BP systolic 131–150; BP diastolic 68–80; PULSE 85–100; RESP 16–22; TEMP 36.6–37.1; O2SAT 93–100; BMI 28.0
[2021-02-15] MEDS: methylPREDNISolone Sod Succ 125 MG/2 ML VIAL 60 MG IVPUSH ×4 (00:48→20:37)
[2021-02-15] MEDS: Piperacillin Sodium/Tazobactam 4.5 GM in 0.9 % Sodium Chloride 100 ML IV ×4 (04:31→20:38)
[2021-02-15 06:00] LABS: MANUAL DIFF FLAG NO
[2021-02-15 06:04] LABS: Hematocrit 23.4 % (37.0-47.0); Hemoglobin 7.5 g/dl (12.0-16.0); Imm Gran Abs Auto 0.08 X10*3/uL (0.00-0.03); Imm Gran Pct Auto 1.6 % (0.0-0.4); Lymphocytes Absolute Auto 0.5 X10*3/uL (1.2-4.9); Mean Corpuscular HGB Conc 32.1 g/dl (31.0-35.0); Mean Corpuscular Volume 93.6 fL (80.0-98.0); Mean Platelet Volume 8.9 fL (9.4-12.3); Monocytes Absolute Auto 0.1 X10*3/uL (0.1-1.2); Monocytes Percent Auto 2.8 % (2-11); Neutrophils Absolute Auto 4.2 x10*3/uL (2.0-8.3); Neutrophils Percent Auto 85.6 % (45-73); Platelet Count 208 X10*3/uL (160-400); Red Cell Distribution Width 19.8 % (11.0-16.0); White Blood Count 4.9 X10*3/uL (4.8-10.8)
[2021-02-15 06:37] LABS: Alanine Aminotransferase 26 U/L (0-31); Albumin Level 2.5 g/dL (3.5-5.0); Alkaline Phosphatase 63 U/L (39-117); Anion Gap 14 (12-20); Aspartate Amino Transferase 17 U/L (5-31); Bilirubin Total 0.8 mg/dL (0.0-1.0); Blood Urea Nitrogen 21 mg/dL (9-16); Calcium 7.5 mg/dL (8.4-10.2); Carbon Dioxide 28 mmol/L (22-29); Chloride 101 mmol/L (96-108); Estimated Glomerular Filt Rate > 60; Glucose Fasting 157 mg/dL (60-99); Potassium 3.7 mmol/L (3.3-5.1); Sodium 139 mmol/L (135-145); Total Protein 4.9 g/dL (6.5-8.0)
[2021-02-15] MEDS: Albuterol/Iprat 2.5/0.5MG 3 ML AMPUL.NEB INHALE ×4 (07:46→18:55)
[2021-02-15] MEDS: Atorvastatin Calcium 40 MG TABLET PO (09:07)
[2021-02-15] MEDS: Apixaban 5 MG TABLET PO ×2 (09:07→20:37)
--- NOTE | 2021-02-15 09:16 | MHC.CM.PN ---
Female 75 DX Sepsis hypoxic respiratory failure. She was discharged last Monday02/10/21. She returned to er with SOB. He has been readmitted. She was an [place] tx [place] [facility]. DP is home with VNA services. Family will provide transportation. Pulmonary consult has been completed.
--- NOTE | 2021-02-15 11:35 | HO.PM.IMPN ---
Subjective Subjective Date of Service: 02/15/21 Interval History: She feels better today, oxygenation better sating 100% on high flow Review of Systems denies chest pain admits to shortness of breath with minimal exertion Denies nausea vomiting diarrhea Physical Exam Vital Signs: Vital Signs: Last Vital Signs Temp 98.7 F 02/15/21 11:21 Pulse 92 02/15/21 11:21 Resp 22 H 02/15/21 11:21 BP 132/72 02/15/21 11:21 Pulse Ox 99 02/15/21 11:21 Oxygen Flow Rate 7 02/12/21 22:57 Body Mass Index 28.0 Const: Other: a somewhat tachypneic but no acute distress Resp: Other: diminished all bueno Cardio: Other: no S4; positive S1-S2; no S3 murmurs rubs gallops GI: Other: soft nontender nondistended with normoactive bowel sounds Neuro: Other: cranial nerves 2-12 grossly intact as tested; motor is 5/5 all extremities; sensation intact Extrem: Other: trace edema Objective Data Active Medications Albuterol/Ipratropium (Albuterol/Iprat 2.5/0.5mg 3 Ml Ampul.Neb) 3 ml INHALE RQ4H WHILE AWAKE [facility] Last Admin: 02/15/21 11:33 Dose: 3 ml Documented by: JOSE Apixaban (Apixaban 5 Mg Tablet) 5 mg PO BID [facility] Last Admin: 02/15/21 09:07 Dose: 5 mg Documented by: ROBERTH Atorvastatin Calcium (Atorvastatin Calcium 40 Mg Tablet) 40 mg PO DAILY [facility] Last Admin: 02/15/21 09:07 Dose: 40 mg Documented by: ROBERTH Hydromorphone HCl (Hydromorphone Hcl 0.5 Mg/0.5 Ml Syringe) 0.5 mg IVPUSH Q1H PRN; Protocol PRN Reason: work of breathing Piperacillin Sod/Tazobactam (Sod 4.5 gm/ Sodium Chloride) 100 mls @ 200 mls/hr IV Q6H [facility] Last Infusion: 02/15/21 10:17 Dose: 0 mls/hr Documented by: ROBERTH Vancomycin HCl 1,250 mg/ (Sodium Chloride) 250 mls @ 166.667 mls/hr IV Q24H [facility] Last Infusion: 02/14/21 22:40 Dose: 0 mls/hr Documented by: NEELIMA Lactated Ringer's (Lr) 1,000 mls @ 50 mls/hr IVCONT .Q20H [facility] Last Admin: 02/14/21 23:27 Dose: 50 mls/hr Documented by: NEELIMA Loperamide HCl (Loperamide Hcl 2 Mg Capsule) 2 mg PO Q4H PRN PRN Reason: Diarrhea Last Admin: 02/14/21 21:05 Dose: 2 mg Documented by: NEELIMA Lorazepam (Lorazepam 0.5 Mg Tablet) 0.5 mg PO BID PRN PRN Reason: Anxiety Last Admin: 02/14/21 12:50 Dose: 0.5 mg Documented by: FAVIAN Methylprednisolone Sodium Succinate (Methylprednisolone Sod Succ 125 Mg/2 Ml Vial) 60 mg IVPUSH Q6H [facility] Last Admin: 02/15/21 09:05 Dose: 60 mg Documented by: ROBERTH Ondansetron HCl (Ondansetron Odt 4 Mg Tab.Rapdis) 8 mg TRANSLINGU Q8H PRN PRN Reason: Nausea and Vomiting Oxybutynin Chloride (Oxybutynin Chloride Er 5 Mg Tab.Er.24) 10 mg PO DAILY [facility] Last Admin: 02/15/21 09:06 Dose: 10 mg Documented by: ROBERTH Pharmacy Consult (Consult Rx Perform Med Rec) 1 each MISCELLANE ONCE PRN PRN Reason: Consult order Trazodone HCl (Trazodone Hcl 100 Mg Tablet) 100 mg PO BEDTIME [facility] Last Admin: 02/14/21 20:28 Dose: 100 mg Documented by: NEELIMA Labs CBC & Chem 7: 02/15/21 05:22 02/15/21 05:22 Labs: Laboratory Results - last 24 hr 02/14/21 02/15/21 02/15/21 13:50 05:22 05:22 MCV 93.6 MCH 30.0 MCHC 32.1 RDW 19.8 H Plt Count 208 MPV 8.9 L Immature Gran % (Auto) 1.6 H Neut % (Auto) 85.6 H Lymph % (Auto) 10.0 L [place] % (Auto) 2.8 Eos % (Auto) 0.0 Baso % (Auto) 0.0 Lymph # (Auto) 0.5 L [place] # (Auto) 0.1 Eos # (Auto) 0.0 Baso # (Auto) 0.0 Abs Immat Gran (auto) 0.08 H Absolute Neuts (auto) 4.2 Absolute Nucleated RBC 0.000 Nucleated RBC % (auto) 0.0 ESR 57 H Anion Gap 14 Estim Creat Clear Calc 64.0 Estimated GFR > 60 Fasting Glucose 157 H Calcium 7.5 L Total Bilirubin 0.8 AST 17 ALT 26 Alkaline Phosphatase 63 Total Protein 4.9 L Albumin 2.5 L Microbiology Microbiology Results: Microbiology 02/14/21 09:00 Gram Stain - Final Sputum - Expectorated Sputum Culture - Preliminary Culture in progress. 02/13/21 00:55 Blood Culture - Preliminary Blood - Venous No growth after 48 hours. 02/13/21 00:45 Blood Culture - Preliminary Blood - Venous No growth after 48 hours. 02/13/21 08:46 Gram Stain - Final Sputum - Expectorated Sputum Culture - Final Assessment and Plan (1) Acute exacerbation of chronic obstructive pulmonary disease (COPD): Status: Acute (2) Acute and chronic respiratory failure with hypoxia: Status: Acute Assessment and Plan: 75-year-old female with known COPD on 2 L of oxygen by nasal cannula at home presents to the emergency room with ongoing shortness of breath and worsening dyspnea on exertion. She was recently admitted to [place] [id number] over the last 2 months. Upon arrival to ER she was found to be 84% on 4 L; subsequently placed on non-rebreather with a respiratory rate of 36 was satting 90%. She was initially treated with vanco and Zosyn along with a short course of BiPAP which improved her overall respiratory status. At this point in time she is improved however still short of breath with minimal exertion. Despite this she voices very little complaints 1. COPD exacerbation in backdrop of multifocal pneumonia Continue vancomycin and Zosyn as ordered. Continue Solu-Medrol pulse dose as ordered. Seen by pulmonology; will follow-up. Further plans based on response to therapy and forthcoming data. 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 Pulmonary embolism Established on last admission; continue Eliquis as ordered 3. Hypertension Continue amlodipine at as ordered adjust as indicated Full code Eliquis Quality Stroke Does the patient have a stroke diagnosis?: No VTE Prior VTE?: No VTE Risk Level:: Medical - moderate - high VTE Device Contraindication: N/A - Device Ordered VTE Drug Contraindication: N/A - Med Ordered
--- NOTE | 2021-02-15 15:14 | PC.NURSE ---
Skin/wound assessment completed today. Patient has a stage 2 pressure injury to coccyx and redness/rash to perineal/groin area. Triad applied to all areas and coccyx covered with foam. No other skin issues noted at this time.
[2021-02-15 15:16] LABS: Cyclic Citrullinated Peptide <16 UNITS
[2021-02-15 18:37] LABS: Anti Nuclear Antibody Screen NEGATIVE (NEGATIVE)
[2021-02-15 20:32] LABS: Vancomycin Trough 8.9 mcg/mL (10.0-20.0)
[2021-02-15] MEDS: traZODone HCL 100 MG TABLET PO (20:37)
[2021-02-15] MEDS: Lactated Ringers 1,000 ML 50 ML IVCONT (20:38)
[2021-02-15] MEDS: vancomycin HCL 1,500 MG in 0.9 % Sodium Chloride 500 ML 333.33 MG IV (23:03)
[2021-02-16] VITALS (16 sets, daily range): BP systolic 134–185; BP diastolic 71–86; PULSE 74–96; RESP 16–30; TEMP 36.5–37.1; O2SAT 90–100
[2021-02-16] MEDS: methylPREDNISolone Sod Succ 125 MG/2 ML VIAL 60 MG IVPUSH (01:54)
[2021-02-16] MEDS: Piperacillin Sodium/Tazobactam 4.5 GM in 0.9 % Sodium Chloride 100 ML IV ×4 (04:26→21:40)
[2021-02-16 05:49] LABS: MANUAL DIFF FLAG NO
[2021-02-16 05:54] LABS: Imm Gran Abs Auto 0.11 X10*3/uL (0.00-0.03); Imm Gran Pct Auto 2.9 % (0.0-0.4); Lymphocytes Absolute Auto 0.4 X10*3/uL (1.2-4.9); Lymphocytes Percent Auto 9.2 % (20-40); Mean Corpuscular HGB Conc 31.9 g/dl (31.0-35.0); Mean Corpuscular Hemoglobin 30.2 pg (27.0-33.0); Mean Corpuscular Volume 94.6 fL (80.0-98.0); Mean Platelet Volume 8.6 fL (9.4-12.3); Monocytes Absolute Auto 0.1 X10*3/uL (0.1-1.2); Monocytes Percent Auto 3.4 % (2-11); Neutrophils Absolute Auto 3.2 x10*3/uL (2.0-8.3); Neutrophils Percent Auto 84.5 % (45-73); Platelet Count 166 X10*3/uL (160-400); Red Blood Count 2.22 X10*6/uL (4.20-5.50); Red Cell Distribution Width 18.9 % (11.0-16.0); White Blood Count 3.8 X10*3/uL (4.8-10.8)
[2021-02-16 06:24] LABS: Hemoglobin 6.7 g/dl (12.0-16.0)
[2021-02-16 06:31] LABS: Alanine Aminotransferase 25 U/L (0-31); Albumin Level 2.4 g/dL (3.5-5.0); Alkaline Phosphatase 61 U/L (39-117); Anion Gap 10 (12-20); Aspartate Amino Transferase 16 U/L (5-31); Bilirubin Total 0.5 mg/dL (0.0-1.0); Blood Urea Nitrogen 19 mg/dL (9-16); Calcium 7.8 mg/dL (8.4-10.2); Carbon Dioxide 32 mmol/L (22-29); Chloride 102 mmol/L (96-108); Creatinine Clr Calc Pharmacy 71.1; Estimated Glomerular Filt Rate > 60; Glucose Fasting 156 mg/dL (60-99); Potassium 3.5 mmol/L (3.3-5.1); Sodium 140 mmol/L (135-145); Total Protein 4.6 g/dL (6.5-8.0)
--- NOTE | 2021-02-16 06:31 | P.EN_ITS ---
Event Note Date of Service: 02/16/21 Event Note: patient anemic this morning with hemoglobin of 6.7. No active b leed. Will transfuse 1 unit of PRBC
--- NOTE | 2021-02-16 06:31 | PM.EVENT ---
Event Note Date of Service: 02/16/21 Event Note: patient anemic this morning with hemoglobin of 6.7. No active bleed. Will transfuse 1 unit of PRBC
[2021-02-16] MEDS: Albuterol/Iprat 2.5/0.5MG 3 ML AMPUL.NEB INHALE ×4 (07:25→20:25)
[2021-02-16 08:44] LABS: Iron 70 mcg/dL (30-160); Percent Iron Saturation 46 % (15-50); Total Iron Binding Capacity 153 mcg/dL (228-428); Unsaturated Iron Binding 83 ug/dL
[2021-02-16] MEDS: predniSONE 20 MG TABLET 40 MG PO (08:45)
[2021-02-16] MEDS: Atorvastatin Calcium 40 MG TABLET PO (08:46)
[2021-02-16] MEDS: Omeprazole 20 MG CAPSULE.DR PO ×2 (08:47→15:22)
[2021-02-16 08:52] LABS: Immunoglobulin E 22 kU/L (<OR=114)
[2021-02-16 09:21] LABS: Estimated Average Glucose 105 mg/dL; Hemoglobin A1c % 5.3 %
[2021-02-16 09:31] LABS: Ferritin 1494 ng/mL (10-250)
[2021-02-16 10:02] LABS: Vitamin B12 658 pg/mL (200-900)
[2021-02-16 13:04] LABS: OBS Int Ctl Valid YES; OBS1 POSITIVE (NEGATIVE)
[2021-02-16 13:54] LABS: Hematocrit 27.2 % (37.0-47.0); Hemoglobin 8.7 g/dl (12.0-16.0)
--- NOTE | 2021-02-16 16:38 | HO.PM.IMPN ---
Subjective Subjective Date of Service: 02/16/21 Interval History: copd excerebation , anemia worsening Review of Systems shortness of breath seems improving, received 1 PRBC denies any chest pain or cough or phlegm. Denies any fever or chills. Physical Exam Vital Signs: Vital Signs: Last Vital Signs Temp 98 F 02/16/21 15:19 Pulse 86 02/16/21 15:26 Resp 16 02/16/21 15:19 BP 160/80 H 02/16/21 15:19 Pulse Ox 98 02/16/21 15:19 Oxygen Flow Rate 7 02/12/21 22:57 Body Mass Index 28.0 Physical exam: Appearance: Alert.? Oriented X3.sob improving.? Eyes: Pupils equal, round and reactive to light.? Sclera nonicteric.? ENT: Pharynx normal.? Moist mucous membranes. cvs: rrr, [id number] , no murmur res:diminshed at bases, has few rhonchii abd: no rebound or guarding ,nt, bs present. ext pulses present , no cyanosis . neuro: axo3 , nonfocal. Objective Data Active Medications Albuterol/Ipratropium (Albuterol/Iprat 2.5/0.5mg 3 Ml Ampul.Neb) 3 ml INHALE RQ4H WHILE AWAKE [facility] Last Admin: 02/16/21 15:24 Dose: 3 ml Documented by: MARIEL Apixaban (Apixaban 5 Mg Tablet) 5 mg PO BID [facility] Last Admin: 02/15/21 20:37 Dose: 5 mg Documented by: NEELIMA Atorvastatin Calcium (Atorvastatin Calcium 40 Mg Tablet) 40 mg PO DAILY [facility] Last Admin: 02/16/21 08:46 Dose: 40 mg Documented by: ROBERTH Hydromorphone HCl (Hydromorphone Hcl 0.5 Mg/0.5 Ml Syringe) 0.5 mg IVPUSH Q1H PRN; Protocol PRN Reason: work of breathing Piperacillin Sod/Tazobactam (Sod 4.5 gm/ Sodium Chloride) 100 mls @ 200 mls/hr IV Q6H [facility] Last Infusion: 02/16/21 16:00 Dose: 0 mls/hr Documented by: ROBERTH Vancomycin HCl 1,500 mg/ (Sodium Chloride) 500 mls @ 333.333 mls/hr IV Q24H [facility] Last Infusion: 02/16/21 00:37 Dose: 0 mls/hr Documented by: NEELIMA Loperamide HCl (Loperamide Hcl 2 Mg Capsule) 2 mg PO Q4H PRN PRN Reason: Diarrhea Last Admin: 02/14/21 21:05 Dose: 2 mg Documented by: NEELIMA Lorazepam (Lorazepam 0.5 Mg Tablet) 0.5 mg PO BID PRN PRN Reason: Anxiety Last Admin: 02/14/21 12:50 Dose: 0.5 mg Documented by: FAVIAN Patient Own Medication (Trelegy Ellipta) 1 each INHALE RDAILY [facility] Last Admin: 02/16/21 07:27 Dose: 1 each Documented by: MARIEL Omeprazole (Omeprazole 20 Mg Capsule.Dr) 20 mg PO BID@0630,1630 [facility] Last Admin: 02/16/21 15:22 Dose: 20 mg Documented by: ROBERTH Ondansetron HCl (Ondansetron Odt 4 Mg Tab.Rapdis) 8 mg TRANSLINGU Q8H PRN PRN Reason: Nausea and Vomiting Oxybutynin Chloride (Oxybutynin Chloride Er 5 Mg Tab.Er.24) 10 mg PO DAILY [facility] Last Admin: 02/16/21 08:45 Dose: 10 mg Documented by: ROBERTH Pharmacy Consult (Consult Rx Perform Med Rec) 1 each MISCELLANE ONCE PRN PRN Reason: Consult order Prednisone (Prednisone 20 Mg Tablet) 40 mg PO DAILY [facility] Last Admin: 02/16/21 08:45 Dose: 40 mg Documented by: ROBERTH Trazodone HCl (Trazodone Hcl 100 Mg Tablet) 100 mg PO BEDTIME [facility] Last Admin: 02/15/21 20:37 Dose: 100 mg Documented by: NEELIMA Labs CBC & Chem 7: 02/16/21 13:42 02/16/21 05:10 Labs: Laboratory Results - last 24 hr 02/14/21 02/14/21 02/15/21 13:50 13:50 19:42 MCV MCH MCHC RDW Plt Count MPV Immature Gran % (Auto) Neut % (Auto) Lymph % (Auto) [place] % (Auto) Eos % (Auto) Baso % (Auto) Lymph # (Auto) [place] # (Auto) Eos # (Auto) Baso # (Auto) Abs Immat Gran (auto) Absolute Neuts (auto) Absolute Nucleated RBC Nucleated RBC % (auto) Anion Gap Estim Creat Clear Calc Estimated GFR Fasting Glucose Estimat Average Glucose Hemoglobin A1c % Calcium Iron TIBC % Saturation Unsat Iron Binding Ferritin Total Bilirubin AST ALT Alkaline Phosphatase Total Protein Albumin Vitamin B12 Folate Stool Occult Blood Vancomycin Trough 8.9 L IgE 22 SAFIA Screen NEGATIVE SAFIA Titer TNP SAFIA Titer 2 TNP SAFIA Titer 3 TNP SAFIA Pattern TNP SAFIA Pattern 2 TNP SAFIA Pattern 3 TNP Blood Type Antibody Screen Crossmatch 02/16/21 02/16/21 02/16/21 05:10 05:10 05:10 MCV 94.6 MCH 30.2 MCHC 31.9 RDW 18.9 H Plt Count 166 MPV 8.6 L Immature Gran % (Auto) 2.9 H Neut % (Auto) 84.5 H Lymph % (Auto) 9.2 L [place] % (Auto) 3.4 Eos % (Auto) 0.0 Baso % (Auto) 0.0 Lymph # (Auto) 0.4 L [place] # (Auto) 0.1 Eos # (Auto) 0.0 Baso # (Auto) 0.0 Abs Immat Gran (auto) 0.11 H Absolute Neuts (auto) 3.2 Absolute Nucleated RBC 0.000 Nucleated RBC % (auto) 0.0 Anion Gap 10 L Estim Creat Clear Calc 71.1 Estimated GFR > 60 Fasting Glucose 156 H Estimat Average Glucose 105 Hemoglobin A1c % 5.3 Calcium 7.8 L Iron 70 TIBC 153 L % Saturation 46 Unsat Iron Binding 83 Ferritin 1494 H Total Bilirubin 0.5 AST 16 ALT 25 Alkaline Phosphatase 61 Total Protein 4.6 L Albumin 2.4 L Vitamin B12 Folate Stool Occult Blood Vancomycin Trough IgE SAFIA Screen SAFIA Titer SAFIA Titer 2 SAFIA Titer 3 SAFIA Pattern SAFIA Pattern 2 SAFIA Pattern 3 Blood Type Antibody Screen Crossmatch 02/16/21 02/16/21 02/16/21 05:10 06:55 12:45 MCV MCH MCHC RDW Plt Count MPV Immature Gran % (Auto) Neut % (Auto) Lymph % (Auto) [place] % (Auto) Eos % (Auto) Baso % (Auto) Lymph # (Auto) [place] # (Auto) Eos # (Auto) Baso # (Auto) Abs Immat Gran (auto) Absolute Neuts (auto) Absolute Nucleated RBC Nucleated RBC % (auto) Anion Gap Estim Creat Clear Calc Estimated GFR Fasting Glucose Estimat Average Glucose Hemoglobin A1c % Calcium Iron TIBC % Saturation Unsat Iron Binding Ferritin Total Bilirubin AST ALT Alkaline Phosphatase Total Protein Albumin Vitamin B12 658 Folate 6.0 Stool Occult Blood POSITIVE Vancomycin Trough IgE SAFIA Screen SAFIA Titer SAFIA Titer 2 SAFIA Titer 3 SAFIA Pattern SAFIA Pattern 2 SAFIA Pattern 3 Blood Type O Positive Antibody Screen NEGATIVE Crossmatch See Detail Microbiology Microbiology Results: Microbiology 02/14/21 09:00 Gram Stain - Final Sputum - Expectorated Sputum Culture - Final Assessment and Plan (1) Acute exacerbation of chronic obstructive pulmonary disease (COPD): Status: Acute (2) Multifocal pneumonia: Status: Acute (3) Anemia: Status: Acute Assessment and Plan: 75-year-old female with known COPD on 2 L of oxygen by nasal cannula at home presents to the emergency room with ongoing shortness of breath and worsening dyspnea on exertion.? She was recently? admitted to [place] [address] over the last 2 months.? Upon arrival to ER she was found to be 84% on 4 L; subsequently placed on non-rebreather with a respiratory rate of 36 was satting 90%.? She was initially treated with vanco and Zosyn along with a short course of BiPAP which improved her overall respiratory status.? At this point in time she is improved however still short of breath with minimal exertion.? Despite this she voices very little complaints 1. COPD exacerbation in backdrop of multifocal pneumonia Continue vancomycin and Zosyn as ordered.? plum following-Wean off high flow,switched to po prednisone since sob improving , and h/h trending down and had fbt positive. 2. Pulmonary embolism:Established? on last admission; continue Eliquis . 3. Hypertension:?Continue amlodipine. 4. macrocytic anemia :iron studies-seems fine with low tibc and elevated ferritin , b12 and folate normal. h/h respond better than 1 prbc : h/h 8.7/27.2 fobt positive added gi eval-since worsening anemia /on eliquis ppi ?Full code ?Eliquis Quality Stroke Does the patient have a stroke diagnosis?: No VTE Prior VTE?: No VTE Risk Level:: Medical - moderate - high VTE Device Contraindication: N/A - Device Ordered VTE Drug Contraindication: N/A - Med Ordered
--- NOTE | 2021-02-16 18:11 | P.PNPL_ITS ---
Subjective Subjective Date of Service: 02/16/21 Principal diagnosis: pneumonia/Resp. distress Interval history: Patient seen today for pulmonary follow-up She is slowly improving but still requires high-flow O2. No fever chills or chest pain. Has some nasal congestion. Patient is on IV Solu-Medrol now change to prednisone 40 mg a day. She is also on broad-spectrum antibiotic coverage with Zosyn and vancomycin for possibility of pneumonia. Objective Data Labs CBC & Chem 7: 02/16/21 13:42 02/16/21 05:10 Labs: Laboratory Results - last 24 hr 02/14/21 02/14/21 02/15/21 13:50 13:50 19:42 WBC RBC Hgb Hct MCV MCH MCHC RDW Plt Count MPV Immature Gran % (Auto) Neut % (Auto) Lymph % (Auto) [place] % (Auto) Eos % (Auto) Baso % (Auto) Lymph # (Auto) [place] # (Auto) Eos # (Auto) Baso # (Auto) Abs Immat Gran (auto) Absolute Neuts (auto) Absolute Nucleated RBC Nucleated RBC % (auto) Sodium Potassium Chloride Carbon Dioxide Anion Gap BUN Creatinine Estim Creat Clear Calc Estimated GFR Fasting Glucose Estimat Average Glucose Hemoglobin A1c % Calcium Iron TIBC % Saturation Unsat Iron Binding Ferritin Total Bilirubin AST ALT Alkaline Phosphatase Total Protein Albumin Vitamin B12 Folate Stool Occult Blood Vancomycin Trough 8.9 L IgE 22 SAFIA Screen NEGATIVE SAFIA Titer TNP SAFIA Titer 2 TNP SAFIA Titer 3 TNP SAFIA Pattern TNP SAFIA Pattern 2 TNP SAFIA Pattern 3 TNP Blood Type Antibody Screen Crossmatch 02/16/21 02/16/21 02/16/21 05:10 05:10 05:10 WBC 3.8 L RBC 2.22 L Hgb 6.7 L* Hct 21.0 L* MCV 94.6 MCH 30.2 MCHC 31.9 RDW 18.9 H Plt Count 166 MPV 8.6 L Immature Gran % (Auto) 2.9 H Neut % (Auto) 84.5 H Lymph % (Auto) 9.2 L [place] % (Auto) 3.4 Eos % (Auto) 0.0 Baso % (Auto) 0.0 Lymph # (Auto) 0.4 L [place] # (Auto) 0.1 Eos # (Auto) 0.0 Baso # (Auto) 0.0 Abs Immat Gran (auto) 0.11 H Absolute Neuts (auto) 3.2 Absolute Nucleated RBC 0.000 Nucleated RBC % (auto) 0.0 Sodium 140 Potassium 3.5 Chloride 102 Carbon Dioxide 32 H Anion Gap 10 L BUN 19 H Creatinine 0.72 Estim Creat Clear Calc 71.1 Estimated GFR > 60 Fasting Glucose 156 H Estimat Average Glucose 105 Hemoglobin A1c % 5.3 Calcium 7.8 L Iron 70 TIBC 153 L % Saturation 46 Unsat Iron Binding 83 Ferritin 1494 H Total Bilirubin 0.5 AST 16 ALT 25 Alkaline Phosphatase 61 Total Protein 4.6 L Albumin 2.4 L Vitamin B12 Folate Stool Occult Blood Vancomycin Trough IgE SAFIA Screen SAFIA Titer SAFIA Titer 2 SAFIA Titer 3 SAFIA Pattern SAFIA Pattern 2 SAFIA Pattern 3 Blood Type Antibody Screen Crossmatch 02/16/21 02/16/21 02/16/21 05:10 06:55 12:45 WBC RBC Hgb Hct MCV MCH MCHC RDW Plt Count MPV Immature Gran % (Auto) Neut % (Auto) Lymph % (Auto) [place] % (Auto) Eos % (Auto) Baso % (Auto) Lymph # (Auto) [place] # (Auto) Eos # (Auto) Baso # (Auto) Abs Immat Gran (auto) Absolute Neuts (auto) Absolute Nucleated RBC Nucleated RBC % (auto) Sodium Potassium Chloride Carbon Dioxide Anion Gap BUN Creatinine Estim Creat Clear Calc Estimated GFR Fasting Glucose Estimat Average Glucose Hemoglobin A1c % Calcium Iron TIBC % Saturation Unsat Iron Binding Ferritin Total Bilirubin AST ALT Alkaline Phosphatase Total Protein Albumin Vitamin B12 658 Folate 6.0 Stool Occult Blood POSITIVE Vancomycin Trough IgE SAFIA Screen SAFIA Titer SAFIA Titer 2 SAFIA Titer 3 SAFIA Pattern SAFIA Pattern 2 SAFIA Pattern 3 Blood Type O Positive Antibody Screen NEGATIVE Crossmatch See Detail 02/16/21 13:42 WBC RBC Hgb 8.7 L D Hct 27.2 L D MCV MCH MCHC RDW Plt Count MPV Immature Gran % (Auto) Neut % (Auto) Lymph % (Auto) [place] % (Auto) Eos % (Auto) Baso % (Auto) Lymph # (Auto) [place] # (Auto) Eos # (Auto) Baso # (Auto) Abs Immat Gran (auto) Absolute Neuts (auto) Absolute Nucleated RBC Nucleated RBC % (auto) Sodium Potassium Chloride Carbon Dioxide Anion Gap BUN Creatinine Estim Creat Clear Calc Estimated GFR Fasting Glucose Estimat Average Glucose Hemoglobin A1c % Calcium Iron TIBC % Saturation Unsat Iron Binding Ferritin Total Bilirubin AST ALT Alkaline Phosphatase Total Protein Albumin Vitamin B12 Folate Stool Occult Blood Vancomycin Trough IgE SAFIA Screen SAFIA Titer SAFIA Titer 2 SAFIA Titer 3 SAFIA Pattern SAFIA Pattern 2 SAFIA Pattern 3 Blood Type Antibody Screen Crossmatch Microbiology Microbiology Results: Microbiology 02/14/21 09:00 Sputum - Expectorated Gram Stain - Final 02/14/21 09:00 Sputum - Expectorated Sputum Culture - Final 02/13/21 00:55 Blood - Venous Blood Culture - Preliminary No growth after 48 hours. 02/13/21 00:45 Blood - Venous Blood Culture - Preliminary No growth after 48 hours. 02/13/21 08:46 Sputum - Expectorated Gram Stain - Final 02/13/21 08:46 Sputum - Expectorated Sputum Culture - Final Review of Systems Review of Systems Yes all other systems are reviewed and are negative Physical Exam Vital Signs: Vital Signs: Last Vital Signs Temp 98 F 02/16/21 15:19 Pulse 86 02/16/21 15:26 Resp 16 02/16/21 15:19 BP 160/80 H 02/16/21 15:19 Pulse Ox 98 02/16/21 15:19 Oxygen Flow Rate 7 02/12/21 22:57 Body Mass Index 28.0 Patient sitting in the chair, using high-flow O2, Looks quite pale, Const: General: healthy appearing, comfortable, no acute distress, alert and awake Orientation/consciousness: patient oriented x3 HENMT: Head: Yes normal to inspection and Yes other (Alopecia of the scalp) General nose exam: No nasal polyps present and No nasal discharge present Face and sinus: Yes sinuses nontender Mouth: oropharynx normal Throat: Yes posterior oropharynx normal Eyes: General: appearance normal, both eyes and all related structures Neck: Neck: Yes normal visual inspection, Yes no lymphadenopathy, Yes trachea midline, Yes no JVD and Yes other (Mild erythema over the left clavicle at the attempted IV site.) Thyroid: Thyroid normal Chest: Chest palpation & inspection: normal inspection of the chest, normal palpation of entire chest wall and no tenderness Resp: Other: Percussion note is dull over the basilar areas. Breath sounds are distant, with prolonged expiratory phase. Inspiratory crepitations heard over the basilar areas . Cardio: Palpation: normal PMI Rate: regular rate Rhythm: regular rhythm Heart sounds: no gallops and no murmurs GI: Palpation (GI): Soft to palpation, nontender, No hepatosplenomegaly present and no masses Auscultation: normal bowel sounds Back/Spine/Pelvis: Thoracic/Lumbar Spine: thoracic and lumbar spine normal to inspection and thoraco-lumbar ROM limited Skin: General skin exam: no rashes or lesions noted Neuro: General: patient oriented x3 and no focal motor deficits Cranial nerves: Yes CN's II-XII intact bilaterally Extrem: General: Yes normal to inspection, Yes no clubbing, cyanosis or edema and Yes no calf tenderness Psych: Appearance: grossly normal Speech and movement: Normal speech and movement present Procedures Date of Service Date of Service: 02/16/21 Assessment and Plan Assessment and plan (1) Acute and chronic respiratory failure with hypoxia: Problem details: Patient has picture of respiratory distress, and is requiring O2 by high-flow 35 L/minute at this time. As her condition improved slowly she should be weaned down , and may be changed to nasal cannula when tolerated. Status: Acute (2) Multifocal pneumonia: Problem details: She has picture of alveolar densities in both lower lobes with some pleural effusion. It seems to be multifactorial, may be due to bacterial pneumonia worse is pneumonitis. Continue the antibiotics at this time, but cultures being negative I thing we should be able to stop vancomycin. Status: Acute (3) Pneumonitis: Problem details: The pattern of alveolar space disease, is suggestive of possible pneumonitis caused by chemotherapy, more specifically add him icing, which has been stopped. She has been treated with IV Solu-Medrol, and now on prednisone 40 mg a day, this should be continued for the next 1 week, And then will start gradual tapering . Watch for GI bleeding, and patient should be on gastric protection regimen. Status: Acute (4) Anemia: Problem details: She does have severe anemia at this time with hemoglobin 6.7. This may be contributing to her respiratory distress. Transfusion improve her hemoglobin level would be helpful. Status: Acute Time Spent With Patient Time: Total time spent is greater than 50% in coordination of care (as documented) at patient's floor/unit and/or counseling patient: Time with patient: 15 - 24 minutes Progress Note: Quality Stroke Does the patient have a stroke diagnosis?: No
[2021-02-16] MEDS: Apixaban 5 MG TABLET PO (21:40)
[2021-02-16] MEDS: traZODone HCL 100 MG TABLET PO (21:40)
[2021-02-16] MEDS: vancomycin HCL 1,500 MG in 0.9 % Sodium Chloride 500 ML 333.3 MG IV (22:31)
[2021-02-17] VITALS (10 sets, daily range): BP systolic 153–182; BP diastolic 73–94; PULSE 79–120; RESP 19–30; TEMP 36.2–37.2; O2SAT 81–99
[2021-02-17] MEDS: Piperacillin Sodium/Tazobactam 4.5 GM in 0.9 % Sodium Chloride 100 ML IV ×4 (03:34→22:37)
[2021-02-17] MEDS: Omeprazole 20 MG CAPSULE.DR PO ×2 (05:43→17:45)
[2021-02-17 06:13] LABS: MANUAL DIFF FLAG NO
--- NOTE | 2021-02-17 06:13 | MHC.PIE ---
Addendum entered by Lorena Robles RN 02/17/21 06:27: P: around 6am,Pt noted to be sating from 85-88% at 5L/mi nc, even at rest. I: RT paged for updraft and came. E:will cont to follow up pt. Original Note: P: PT was requesting for some cough syrup and saline nasal spray for c/o persistent non prod cough and clogged nose. I: Dr. Arceo was notified E: will cont to monitor pt and awaiting for order.
[2021-02-17] MEDS: Albuterol/Iprat 2.5/0.5MG 3 ML AMPUL.NEB INHALE ×3 (06:30→15:44)
[2021-02-17 07:03] LABS: Basophils Percent Auto 0.1 % (0-2); Hematocrit 30.5 % (37.0-47.0); Hemoglobin 10.2 g/dl (12.0-16.0); Imm Gran Abs Auto 0.36 X10*3/uL (0.00-0.03); Imm Gran Pct Auto 4.1 % (0.0-0.4); Lymphocytes Absolute Auto 0.9 X10*3/uL (1.2-4.9); Lymphocytes Percent Auto 9.8 % (20-40); Mean Corpuscular HGB Conc 33.4 g/dl (31.0-35.0); Mean Corpuscular Hemoglobin 30.7 pg (27.0-33.0); Mean Corpuscular Volume 91.9 fL (80.0-98.0); Mean Platelet Volume 8.8 fL (9.4-12.3); Monocytes Absolute Auto 0.3 X10*3/uL (0.1-1.2); Monocytes Percent Auto 3.5 % (2-11); NRBC Pct Auto 0.7 /100WBC (0.0-0.2); Neutrophils Absolute Auto 7.3 x10*3/uL (2.0-8.3); Neutrophils Percent Auto 82.5 % (45-73); Platelet Count 189 X10*3/uL (160-400); Red Blood Count 3.32 X10*6/uL (4.20-5.50); Red Cell Distribution Width 18.1 % (11.0-16.0); White Blood Count 8.8 X10*3/uL (4.8-10.8)
[2021-02-17 07:04] LABS: Alanine Aminotransferase 27 U/L (0-31); Albumin Level 2.8 g/dL (3.5-5.0); Alkaline Phosphatase 78 U/L (39-117); Anion Gap 16 (12-20); Aspartate Amino Transferase 22 U/L (5-31); Bilirubin Total 0.8 mg/dL (0.0-1.0); Blood Urea Nitrogen 19 mg/dL (9-16); Calcium 8.3 mg/dL (8.4-10.2); Carbon Dioxide 27 mmol/L (22-29); Chloride 102 mmol/L (96-108); Estimated Glomerular Filt Rate > 60; Glucose Fasting 89 mg/dL (60-99); Potassium 2.8 mmol/L (3.3-5.1); Sodium 142 mmol/L (135-145); Total Protein 5.6 g/dL (6.5-8.0)
--- NOTE | 2021-02-17 07:45 | HO.PM.IMPN ---
Subjective Subjective Date of Service: 02/18/21 Interval History: Acute hypoxemic respiratory failure sec to copd excerebation Review of Systems sob seems getting worse, feels slightly tighter Air entry has dry cough denies any nausea or vomiting or fever or chills or headache or abdominal pain. Physical Exam Vital Signs: Vital Signs: Last Vital Signs Temp 97.8 F 02/17/21 03:25 Pulse 88 02/17/21 06:32 Resp 22 H 02/17/21 03:25 BP 158/84 H 02/17/21 03:25 Pulse Ox 95 02/17/21 03:25 Oxygen Flow Rate 7 02/12/21 22:57 Body Mass Index 28.0 Appearance: Alert.? Oriented X3.sob worsening.? Eyes: Pupils equal, round and reactive to light.? Sclera nonicteric.? ENT: Pharynx normal.? Moist mucous membranes. cvs: rrr, [id number] , no murmur res:diminshed at bases similar as yesterday abd: no rebound or guarding ,nt, bs present. ext pulses present , no cyanosis . neuro: axo3 , nonfocal. Objective Data Active Medications Albuterol/Ipratropium (Albuterol/Iprat 2.5/0.5mg 3 Ml Ampul.Neb) 3 ml INHALE RQ4H WHILE AWAKE [facility] Last Admin: 02/17/21 06:30 Dose: 3 ml Documented by: ROBERTA Apixaban (Apixaban 5 Mg Tablet) 5 mg PO BID [facility] Last Admin: 02/16/21 21:40 Dose: 5 mg Documented by: MITCHELL Atorvastatin Calcium (Atorvastatin Calcium 40 Mg Tablet) 40 mg PO DAILY [facility] Last Admin: 02/16/21 08:46 Dose: 40 mg Documented by: ROBERTH Guaifenesin/Dextromethorphan (Guaifenesin Dm 100/10/5 Ml 5 Ml Syrup) 5 ml PO Q4H PRN PRN Reason: Cough Hydromorphone HCl (Hydromorphone Hcl 0.5 Mg/0.5 Ml Syringe) 0.5 mg IVPUSH Q1H PRN; Protocol PRN Reason: work of breathing Piperacillin Sod/Tazobactam (Sod 4.5 gm/ Sodium Chloride) 100 mls @ 200 mls/hr IV Q6H [facility] Last Infusion: 12/01/21 04:13 Dose: 0 mls/hr Documented by: MITCHELL Vancomycin HCl 1,500 mg/ (Sodium Chloride) 500 mls @ 333.333 mls/hr IV Q24H [facility] Last Infusion: 02/17/21 00:20 Dose: 0 mls/hr Documented by: MITCHELL Potassium Chloride () 10 meq in 100 mls @ 100 mls/hr IV Q1H [facility] Stop: 02/17/21 09:44 Loperamide HCl (Loperamide Hcl 2 Mg Capsule) 2 mg PO Q4H PRN PRN Reason: Diarrhea Last Admin: 02/14/21 21:05 Dose: 2 mg Documented by: NEELIMA Lorazepam (Lorazepam 0.5 Mg Tablet) 0.5 mg PO BID PRN PRN Reason: Anxiety Last Admin: 02/14/21 12:50 Dose: 0.5 mg Documented by: FAVIAN Patient Own Medication (Trelegy Ellipta) 1 each INHALE RDAILY [facility] Last Admin: 02/17/21 07:30 Dose: Not Given Documented by: JOSE Non-Admin Reason: refused Omeprazole (Omeprazole 20 Mg Capsule.Dr) 20 mg PO BID@0630,1630 [facility] Last Admin: 02/17/21 05:43 Dose: 20 mg Documented by: MITCHELL Ondansetron HCl (Ondansetron Odt 4 Mg Tab.Rapdis) 8 mg TRANSLINGU Q8H PRN PRN Reason: Nausea and Vomiting Oxybutynin Chloride (Oxybutynin Chloride Er 5 Mg Tab.Er.24) 10 mg PO DAILY [facility] Last Admin: 02/16/21 08:45 Dose: 10 mg Documented by: ROBERTH Pharmacy Consult (Consult Rx Perform Med Rec) 1 each MISCELLANE ONCE PRN PRN Reason: Consult order Potassium Chloride (Potassium Chloride Packet 20 Meq Packet) 40 meq PO ONCE ONE Stop: 02/17/21 07:44 Prednisone (Prednisone 20 Mg Tablet) 40 mg PO DAILY [facility] Last Admin: 02/16/21 08:45 Dose: 40 mg Documented by: ROBERTH Sodium Chloride (Sodium Chloride 0.65 % Nasal 44 Ml Sprbtl) 1 spray NOSTRIL-B Q1H PRN PRN Reason: Nasal Congestion Trazodone HCl (Trazodone Hcl 100 Mg Tablet) 100 mg PO BEDTIME VU Last Admin: 02/16/21 21:40 Dose: 100 mg Documented by: MITCHELL Labs CBC & Chem 7: 02/18/21 06:00 02/18/21 06:00 Labs: Laboratory Results - last 24 hr 02/14/21 02/14/21 02/16/21 13:50 13:50 05:10 MCV MCH MCHC RDW Plt Count MPV Immature Gran % (Auto) Neut % (Auto) Lymph % (Auto) [place] % (Auto) Eos % (Auto) Baso % (Auto) Lymph # (Auto) [place] # (Auto) Eos # (Auto) Baso # (Auto) Abs Immat Gran (auto) Absolute Neuts (auto) Absolute Nucleated RBC Nucleated RBC % (auto) Anion Gap Estim Creat Clear Calc Estimated GFR Fasting Glucose Estimat Average Glucose Hemoglobin A1c % Calcium Iron 70 TIBC 153 L % Saturation 46 Unsat Iron Binding 83 Ferritin 1494 H Total Bilirubin AST ALT Alkaline Phosphatase Total Protein Albumin Vitamin B12 Folate Stool Occult Blood IgE 22 SAFIA Titer TNP SAFIA Titer 2 TNP SAFIA Titer 3 TNP SAFIA Pattern TNP SAFIA Pattern 2 TNP SAFIA Pattern 3 TNP Blood Type Antibody Screen Crossmatch 02/16/21 02/16/21 02/16/21 05:10 05:10 06:55 MCV MCH MCHC RDW Plt Count MPV Immature Gran % (Auto) Neut % (Auto) Lymph % (Auto) [place] % (Auto) Eos % (Auto) Baso % (Auto) Lymph # (Auto) [place] # (Auto) Eos # (Auto) Baso # (Auto) Abs Immat Gran (auto) Absolute Neuts (auto) Absolute Nucleated RBC Nucleated RBC % (auto) Anion Gap Estim Creat Clear Calc Estimated GFR Fasting Glucose Estimat Average Glucose 105 Hemoglobin A1c % 5.3 Calcium Iron TIBC % Saturation Unsat Iron Binding Ferritin Total Bilirubin AST ALT Alkaline Phosphatase Total Protein Albumin Vitamin B12 658 Folate 6.0 Stool Occult Blood IgE SAFIA Titer SAFIA Titer 2 SAFIA Titer 3 SAFIA Pattern SAFIA Pattern 2 SAFIA Pattern 3 Blood Type O Positive Antibody Screen NEGATIVE Crossmatch See Detail 02/16/21 02/17/21 02/17/21 12:45 05:37 05:37 MCV 91.9 MCH 30.7 MCHC 33.4 RDW 18.1 H Plt Count 189 MPV 8.8 L Immature Gran % (Auto) 4.1 H Neut % (Auto) 82.5 H Lymph % (Auto) 9.8 L [place] % (Auto) 3.5 Eos % (Auto) 0.0 Baso % (Auto) 0.1 Lymph # (Auto) 0.9 L [place] # (Auto) 0.3 Eos # (Auto) 0.0 Baso # (Auto) 0.0 Abs Immat Gran (auto) 0.36 H Absolute Neuts (auto) 7.3 Absolute Nucleated RBC 0.060 H Nucleated RBC % (auto) 0.7 H Anion Gap 16 Estim Creat Clear Calc 64.0 Estimated GFR > 60 Fasting Glucose 89 Estimat Average Glucose Hemoglobin A1c % Calcium 8.3 L D Iron TIBC % Saturation Unsat Iron Binding Ferritin Total Bilirubin 0.8 AST 22 ALT 27 Alkaline Phosphatase 78 D Total Protein 5.6 L D Albumin 2.8 L Vitamin B12 Folate Stool Occult Blood POSITIVE IgE SAFIA Titer SAFIA Titer 2 SAFIA Titer 3 SAFIA Pattern SAFIA Pattern 2 SAFIA Pattern 3 Blood Type Antibody Screen Crossmatch Microbiology Microbiology Results: Microbiology 02/14/21 09:00 Gram Stain - Final Sputum - Expectorated Sputum Culture - Final Assessment and Plan (1) Pneumonitis: Status: Acute Assessment and Plan: 75-year-old female with known COPD on 2 L of oxygen by nasal cannula at home presents to the emergency room with ongoing shortness of breath and worsening dyspnea on exertion.? She was recently? admitted to [place] [id number] over the last 2 months.? Upon arrival to ER she was found to be 84% on 4 L; subsequently placed on non-rebreather with a respiratory rate of 36 was satting 90%.? She was initially treated with vanco and Zosyn along with a short course of BiPAP which improved her overall respiratory status.? At this point in time she is improved however still short of breath with minimal exertion.? Despite this she voices very little complaints 1. COPD exacerbation in backdrop of multifocal pneumonia Chest x-ray seems slightly better than before, vbg;reviewed seems better than yesterday vanco trough 8.9 on 02/15/21 since sob worsening-switched back to IV Solu-Medrol, continue Vanco and Zosyn as above. , nebs and steroids, now on Vent, mask around 13 liters. pulm follow pending , also d/w icu-continue above managment . 2. Pulmonary embolism:Established? on last admission; continue Eliquis . 3. Hypertension:?Continue amlodipine. 4. macrocytic anemia :iron studies-seems fine with low tibc and elevated ferritin , b12 and folate normal. h/h respond better than 1 prbc : h/h 8.7/27.2 fobt positive continue ppi 5. Hypokalemia, borderline magnesium.: Added IV and p.o. potassium, and IV magnesium. ?Full code ?Eliquis Quality Stroke Does the patient have a stroke diagnosis?: No VTE Prior VTE?: No VTE Risk Level:: Medical - moderate - high VTE Device Contraindication: N/A - Device Ordered VTE Drug Contraindication: N/A - Med Ordered
[2021-02-17 08:19] LABS: Magnesium 1.6 mg/dL (1.6-2.6)
[2021-02-17] MEDS: Potassium Chloride Packet 20 MEQ PACKET 40 MEQ PO (08:30)
[2021-02-17] MEDS: Potassium Chloride/H20 10 MEQ/100 ML PIGGYBACK 100 MEQ IV ×2 (08:31→09:00)
[2021-02-17] MEDS: predniSONE 20 MG TABLET 40 MG PO (08:31)
[2021-02-17] MEDS: Atorvastatin Calcium 40 MG TABLET PO (08:31)
[2021-02-17] MEDS: Apixaban 5 MG TABLET PO ×2 (08:31→20:16)
[2021-02-17] MEDS: LORazepam 0.5 MG TABLET PO ×2 (08:59→20:16)
--- NOTE | 2021-02-17 09:21 | PM.GICN ---
History of Present Illness Data of Consult Service Date: 02/17/21 Requesting physician: Prabha Mane Primary Care Provider: Unknown Physician HPI Reason for consult: anemia 75-year-old female with severe COPD on 2 L of oxygen at home, PTE, HTN, MGUS, cardiomyopathy and breast cancer on chemotherapy who I am seeing for assessment for anemia She initially was admitted with shortness of breath and worsening dyspnea on exertion with low oxygen sats requiring NRB and then a short course of BiPAP. She has been treated with steroids, along with vanc and zosyn for concern for multifocal pneumonia vs possible chemo related pneumonitis. This is apparently her 3 rd admission within the last month or so. She has been compliant with eliquis. Her HGB has been running around 8-9 g/dl this last month but had gone as low as 6.7 g/dl prompting transfusion with 1 unit of blood with HGB incrementing to around 10 g/dl. She denies any overt bleeding, no melena, no rectal bleeding, no nose bleeds, no hematuria. She has no abdominal pain but remains SOB. Denies chest pain. She has limited mobility due to her breathing. Review of Systems Review of Systems: Constitutional : No Weight loss, No Fever, No Chills ENT/Mouth : No sore throat, No Rhinorrhea Eyes: No Swelling, No Redness Cardiovascular : No Chest Pain, + SOB, No Edema Respiratory : + SOB Gastrointestinal : see HPI Genitourinary : NO Dysuria, No Urinary Frequency, No Hematuria, No Urgency Musculoskeletal : No joint pain, No Myalgias, No Joint Swelling Skin : No Skin Lesions, No rash Neuro : No Weakness, No Numbness, No Dizziness, No Headache Psych : No Anxiety/Panic, No Depression Heme/Lymph: No Bruising, No Lymphadenopathy Endocrine : No Polyuria, No Polydipsia All other systems reviewed and are negative. Yes all other systems are reviewed and are negative [facility] Past Medical History Medical History (Updated 02/16/21 @ 18:25 by Jaiden Esparza MD) Allergies Anemia Anxiety Bladder prolapse Chondrocalcinosis COPD (chronic obstructive pulmonary disease) COPD (chronic obstructive pulmonary disease) Dyslipidemia HTN (hypertension) Hypoxemia Mixed incontinence urge and stress Monoclonal gammopathies Osteoporosis Physical exam Pneumonitis Pulmonary nodules Family History Family History Father No problems noted. Mother HTN (hypertension) CVD (cardiovascular disease) Stroke Brother No problems noted. Sister No problems noted. Son No problems noted. Daughter No problems noted. Other Substance use disorder Surgical History Surgical History History of section Social History Social History Household Members: Family Housing: Other Housing Other:: Mobile Home Do you presently have visiting nurse or other home services: No Alcohol intake: never Patient Tobacco Use Status: Former Tobacco user Years Smoked: 20 years ago e-Cigarette/Vaping Use: Never Used Second Hand Smoke Exposure: Yes Advance Directives Date on File: 12/24/20 service: No Current occupational status: retired Current occupation: works as [employer] Current occupational exposures/hazards: No Meds Allergies Allergy/AdvReac Type Severity Reaction Status Date / Time hydrochlorothiazide Allergy Unknown hives Verified 01/21/21 15:05 Active Medications: Current Medications Albuterol/Ipratropium (Albuterol/Iprat 2.5/0.5mg 3 Ml Ampul.Neb) 3 ml INHALE RQ4H WHILE AWAKE [facility] Last Admin: 02/17/21 06:30 Dose: 3 ml Documented by: Apixaban (Apixaban 5 Mg Tablet) 5 mg PO BID [facility] Last Admin: 02/17/21 08:31 Dose: 5 mg Documented by: Atorvastatin Calcium (Atorvastatin Calcium 40 Mg Tablet) 40 mg PO DAILY [facility] Last Admin: 02/17/21 08:31 Dose: 40 mg Documented by: Guaifenesin/Codeine Phosphate (Guaifen/Codeine Sf 200/20/10ml 10 Ml Liquid) 10 ml PO Q4H PRN PRN Reason: Cough Piperacillin Sod/Tazobactam (Sod 4.5 gm/ Sodium Chloride) 100 mls @ 200 mls/hr IV Q6H [facility] Last Admin: 02/17/21 08:30 Dose: 200 mls/hr Documented by: Vancomycin HCl 1,500 mg/ (Sodium Chloride) 500 mls @ 333.333 mls/hr IV Q24H [facility] Last Infusion: 02/17/21 00:20 Dose: Infused Documented by: Potassium Chloride () 10 meq in 100 mls @ 100 mls/hr IV Q1H [facility] Stop: 02/17/21 09:44 Last Admin: 02/17/21 09:00 Dose: 100 mls/hr Documented by: Magnesium Sulfate/Dextrose (Magnesium Sulfate/D5w) 1 gm in 100 mls @ 100 mls/hr IV ONCE ONE Stop: 02/17/21 09:51 Loperamide HCl (Loperamide Hcl 2 Mg Capsule) 2 mg PO Q4H PRN PRN Reason: Diarrhea Last Admin: 02/14/21 21:05 Dose: 2 mg Documented by: Lorazepam (Lorazepam 0.5 Mg Tablet) 0.5 mg PO BID PRN PRN Reason: Anxiety Last Admin: 02/17/21 08:59 Dose: 0.5 mg Documented by: Patient Own Medication (Trelegy Ellipta) 1 each INHALE RDAILY [facility] Last Admin: 02/17/21 07:30 Dose: Not Given Documented by: Omeprazole (Omeprazole 20 Mg Capsule.Dr) 20 mg PO BID@0630,1630 [facility] Last Admin: 02/17/21 05:43 Dose: 20 mg Documented by: Ondansetron HCl (Ondansetron Odt 4 Mg Tab.Rapdis) 8 mg TRANSLINGU Q8H PRN PRN Reason: Nausea and Vomiting Oxybutynin Chloride (Oxybutynin Chloride Er 5 Mg Tab.Er.24) 10 mg PO DAILY [facility] Last Admin: 02/17/21 08:31 Dose: 10 mg Documented by: Pharmacy Consult (Consult Rx Perform Med Rec) 1 each MISCELLANE ONCE PRN PRN Reason: Consult order Prednisone (Prednisone 20 Mg Tablet) 40 mg PO DAILY [facility] Last Admin: 02/17/21 08:31 Dose: 40 mg Documented by: Sodium Chloride (Sodium Chloride 0.65 % Nasal 44 Ml Sprbtl) 1 spray NOSTRIL-B Q1H PRN PRN Reason: Nasal Congestion Trazodone HCl (Trazodone Hcl 100 Mg Tablet) 100 mg PO BEDTIME [facility] Last Admin: 02/16/21 21:40 Dose: 100 mg Documented by: Home Medications Medication Instructions Recorded Confirmed Last Taken Type fluticasone fur. 100 mcg-umeclid 1 puff PO DAILY 11/17/20 02/14/21 01/18/21 History 62.5 mcg-vilant 25 mcg inhalat.powder (Trelegy Ellipta) ondansetron HCl 4 mg tablet 8 mg PO Q8H PRN 12/31/20 02/14/21 Unknown History (Zofran) calcium carbonate 500 mg (1,250 1 tab PO DAILY 01/18/21 02/14/21 01/18/21 History mg)-vitamin D3 125 unit tablet Probiotic 1 cap PO DAILY 02/03/21 02/14/21 Unknown History acetaminophen 650 mg 650 mg PO BID 02/03/21 02/14/21 Unknown History tablet,extended release chlorthalidone 25 mg tablet 1 tab PO DAILY 02/03/21 02/14/21 Unknown History loperamide 2 mg capsule 2 mg PO Q4H PRN 02/03/21 02/14/21 Unknown History Physical Exam Vital Signs: Vital Signs: Last Vital Signs Temp 98.1 F 02/17/21 07:51 Pulse 111 H 02/17/21 07:51 Resp 19 02/17/21 07:51 BP 169/91 H 02/17/21 07:51 Pulse Ox 81 L 02/17/21 07:51 Oxygen Flow Rate 7 02/12/21 22:57 Body Mass Index 28.0 Const: General: alert Orientation/consciousness: patient oriented x3 HENMT: Head: Yes normal to inspection and Yes other (Alopecia of the scalp) General nose exam: No nasal polyps present, No nasal discharge present, Abnormal external nose present and Nasal discharge present Face and sinus: Yes sinuses nontender Mouth: oropharynx normal Throat: Yes posterior oropharynx normal Eyes: General: appearance normal, both eyes and all related structures Neck: Neck: Yes normal visual inspection, Yes full ROM, Yes no lymphadenopathy, Yes trachea midline, Yes no JVD and Yes other (Mild erythema over the left clavicle at the attempted IV site.) Thyroid: Thyroid normal Chest: Chest palpation & inspection: normal inspection of the chest, normal palpation of entire chest wall and no tenderness Resp: Effort & Inspection: not able to speak in complete sentences, abnormal respiratory pattern, decreased respiratory effort, pursed lip breathing, tachypneic, uses accessory muscles and prolonged expiratory phase Auscultation: crackles and diminished lung sounds Cardio: Palpation: normal PMI Rate: regular rate Rhythm: regular rhythm Heart sounds: S1 normal heart sound present, S2 normal heart sound present, no gallops and no murmurs GI: Palpation (GI): Soft to palpation, nontender, No hepatosplenomegaly present and no masses Auscultation: normal bowel sounds Back/Spine/Pelvis: Thoracic/Lumbar Spine: thoracic and lumbar spine normal to inspection and thoraco-lumbar ROM limited Skin: General skin exam: no rashes or lesions noted Neuro: General: patient oriented x3 and no focal motor deficits Cranial nerves: Yes CN's II-XII intact bilaterally Extrem: General: Yes normal to inspection, Yes no clubbing, cyanosis or edema and Yes no calf tenderness Psych: Appearance: grossly normal Speech and movement: Normal speech and movement present Results Labs CBC & Chem 7: 02/17/21 05:37 02/17/21 05:37 Labs: Short CBC 02/16/21 02/17/21 Range/Units 13:42 05:37 WBC 8.8 (4.8-10.8) X10*3/uL Hgb 8.7 L D 10.2 L (12.0-16.0) g/dl Hct 27.2 L D 30.5 L (37.0-47.0) % Plt Count 189 (160-400) X10*3/uL BMP 02/17/21 05:37 Sodium 142 Potassium 2.8 L Chloride 102 Carbon Dioxide 27 BUN 19 H Creatinine 0.80 Calcium 8.3 L D Liver Function 02/17/21 Range/Units 05:37 Total Bilirubin 0.8 (0.0-1.0) mg/dL AST 22 (5-31) U/L ALT 27 (0-31) U/L Alkaline Phosphatase 78 D (39-117) U/L Albumin 2.8 L (3.5-5.0) g/dL Microbiology Microbiology Results: Microbiology 02/14/21 09:00 Sputum - Expectorated Gram Stain - Final 02/14/21 09:00 Sputum - Expectorated Sputum Culture - Final 02/13/21 00:55 Blood - Venous Blood Culture - Preliminary No growth after 48 hours. 02/13/21 00:45 Blood - Venous Blood Culture - Preliminary No growth after 48 hours. 02/13/21 08:46 Sputum - Expectorated Gram Stain - Final 02/13/21 08:46 Sputum - Expectorated Sputum Culture - Final Imaging CT scan - chest: Attestation: I personally reviewed and interpreted this imaging study as follows: My impression: patchy alveolar infiltrates both lower lobes with pleural effusion on right, severe emphysema Assessment and Plan (1) Anemia: Status: Acute 1/ Subacute anemia in setting of anti coagulation and severe illness with chemotherapy, neoplasia and possible anemia of chronic disease as well no evidence of overt GI bleeding at this time. She would be very high risk for anesthesia and endoscopic assessment due to her poor functional capacitiy and diminished respiratory reserve. PLAN: 1/ Recommend low dose PPi to reduce risk of stress ucleration and steroid related gastritis 2/ optimize nutrition with supplements and protein drinks, zinc supplements 3/ reserve endoscopy only if evidence of life threatening GI bleeding where benefits may outweight risks 4/ check hemolysis labs for completeness 5/ will sign off, call for further qns, overall prognosis appears guarded Patient case, and labs, all details personally reviewed with hospitalist Dr Mane Procedures Date of Service Date of Service: 02/17/21
[2021-02-17 09:44] LABS: VBG Base Excess 11.1 mmol/L; VBG HCO3 33 mmol/L (22-26); VBG pCO2 35 mmHg; VBG pH 7.58 (7.32-7.43); VBG pO2 126 mmHg
[2021-02-17] MEDS: guaiFEN/Codeine SF 200/20/10ML 10 ML LIQUID PO ×2 (09:46→15:03)
[2021-02-17] MEDS: Magnesium Sulfate/D5W 1 GM/100 ML PIGGYBACK IV (09:46)
[2021-02-17 09:51] LABS: Venous Blood Gas Refer to POC result
--- NOTE | 2021-02-17 14:45 | MHC.CM.PN ---
per rounds pt not medically ready for dcpt will haVE A PT EVAL PRIOR TO DC
[2021-02-17] MEDS: methylPREDNISolone Sod Succ 40 MG/ML VIAL IVPUSH (14:59)
[2021-02-17] MEDS: Fluticasone Propionate Nasal 16 GM SPRAY 1 SPRAY NOSTRIL-B (14:59)
--- NOTE | 2021-02-17 15:40 | PC.NURSE ---
P_t alert and oriented x3. Pt had severe SOB with exertion. Unable to ambulate even short distances. Respiratory called and pt was put on Ventri O2. Per have pt maintain O2 sats of 88% and above. Guaffensin with codiene as well ativan 0.5mg given for anxiety. Pt reported feeling slightly better. Sinus Tachycardia on tele with HR up to the 120s. notified. Pt conrtinues on IV ABT therepy.
[2021-02-17] MEDS: amLODIPine Besylate 2.5 MG TABLET PO (17:47)
[2021-02-17] MEDS: traZODone HCL 100 MG TABLET PO (20:16)
[2021-02-17] MEDS: vancomycin HCL 1,500 MG in 0.9 % Sodium Chloride 500 ML 333.3 MG IV (23:13)
[2021-02-18] VITALS (11 sets, daily range): BP systolic 153–178; BP diastolic 84–96; PULSE 80–105; RESP 17–20; TEMP 36.1–36.9; O2SAT 90–95; BMI 28.4
[2021-02-18] MEDS: methylPREDNISolone Sod Succ 40 MG/ML VIAL IVPUSH ×2 (00:36→11:28)
[2021-02-18] MEDS: Piperacillin Sodium/Tazobactam 4.5 GM in 0.9 % Sodium Chloride 100 ML IV ×4 (04:02→20:57)
[2021-02-18] MEDS: Omeprazole 20 MG CAPSULE.DR PO ×2 (06:13→16:28)
[2021-02-18 07:00] LABS: Hematocrit 29.2 % (37.0-47.0); Hemoglobin 9.4 g/dl (12.0-16.0); Mean Corpuscular HGB Conc 32.2 g/dl (31.0-35.0); Mean Corpuscular Hemoglobin 29.7 pg (27.0-33.0); Mean Corpuscular Volume 92.4 fL (80.0-98.0); Mean Platelet Volume 8.9 fL (9.4-12.3); NRBC Pct Auto 0.4 /100WBC (0.0-0.2); Platelet Count 148 X10*3/uL (160-400); Red Blood Count 3.16 X10*6/uL (4.20-5.50); Red Cell Distribution Width 18.1 % (11.0-16.0); White Blood Count 6.7 X10*3/uL (4.8-10.8)
[2021-02-18 07:12] LABS: Anion Gap 12 (12-20); Blood Urea Nitrogen 17 mg/dL (9-16); Calcium 8.2 mg/dL (8.4-10.2); Carbon Dioxide 33 mmol/L (22-29); Chloride 101 mmol/L (96-108); Creatinine Clr Calc Pharmacy 70.1; Estimated Glomerular Filt Rate > 60; Glucose Random 142 mg/dL (60-115); Potassium 3.4 mmol/L (3.3-5.1); Sodium 143 mmol/L (135-145)
[2021-02-18] MEDS: Albuterol/Iprat 2.5/0.5MG 3 ML AMPUL.NEB INHALE ×4 (07:25→21:08)
[2021-02-18] MEDS: Apixaban 5 MG TABLET PO ×2 (07:36→20:56)
[2021-02-18] MEDS: Atorvastatin Calcium 40 MG TABLET PO (07:36)
[2021-02-18] MEDS: Fluticasone Propionate Nasal 16 GM SPRAY 1 SPRAY NOSTRIL-B (07:38)
[2021-02-18] MEDS: amLODIPine Besylate 5 MG TABLET PO (07:42)
--- NOTE | 2021-02-18 11:28 | HO.PM.IMPN ---
Subjective Subjective Date of Service: 02/18/21 Interval History: Acute hypoxemic respiratory failure secondary to COPD/ Pneumonia. Review of Systems Shortness of breath seems slightly better than yesterday also she slept well as per the patient, cough is also improving. Denies any chest pain or abdominal pain or fever chills or phlegm Physical Exam Vital Signs: Vital Signs: Last Vital Signs Temp 98.3 F 02/18/21 11:10 Pulse 90 02/18/21 11:10 Resp 19 02/18/21 11:10 BP 159/86 H 02/18/21 11:10 Pulse Ox 91 L 02/18/21 11:10 Oxygen Flow Rate 7 02/12/21 22:57 BMI result Body Mass Index 28.4 Appearance: Alert.? Oriented X3.sob slightly better than yesterday.? Eyes: Pupils equal, round and reactive to light.? Sclera nonicteric.? ENT: Pharynx normal.? Moist mucous membranes. cvs: rrr, [id number] , no murmur res:air entry improving , slightly diminshed at bases. abd: no rebound or guarding ,nt, bs present. ext pulses present , no cyanosis . neuro: axo3 , nonfocal. Objective Data Active Medications Albuterol/Ipratropium (Albuterol/Iprat 2.5/0.5mg 3 Ml Ampul.Neb) 3 ml INHALE RQ4H WHILE AWAKE [facility] [place] Last Admin: 02/18/21 11:07 Dose: 3 ml Documented by: MARIEL Amlodipine Besylate (Amlodipine Besylate 5 Mg Tablet) 5 mg PO DAILY [facility] [place]; Protocol Last Admin: 02/18/21 07:42 Dose: 5 mg Documented by: EDDY Apixaban (Apixaban 5 Mg Tablet) 5 mg PO BID [facility] [place] Last Admin: 02/18/21 07:36 Dose: 5 mg Documented by: EDDY Atorvastatin Calcium (Atorvastatin Calcium 40 Mg Tablet) 40 mg PO DAILY [facility] Last Admin: 02/18/21 07:36 Dose: 40 mg Documented by: EDDY Fluticasone Propionate (Fluticasone Propionate Nasal 16 Gm [place]) 1 spray NOSTRIL-B DAILY [facility] Last Admin: 02/18/21 07:38 Dose: 1 spray Documented by: EDDY Guaifenesin/Codeine Phosphate (Guaifen/Codeine Sf 200/20/10ml 10 Ml Liquid) 10 ml PO Q4H PRN PRN Reason: Cough Last Admin: 02/17/21 15:03 Dose: 10 ml Documented by: DEE DEE Piperacillin Sod/Tazobactam (Sod 4.5 gm/ Sodium Chloride) 100 mls @ 200 mls/hr IV Q6H [facility] Last Infusion: 02/18/21 10:17 Dose: 0 mls/hr Documented by: EDDY Vancomycin HCl 1,500 mg/ (Sodium Chloride) 500 mls @ 333.333 mls/hr IV Q24H [facility] [place] Last Infusion: 02/18/21 00:45 Dose: 0 mls/hr Documented by: RUBA Loperamide HCl (Loperamide Hcl 2 Mg Capsule) 2 mg PO Q4H PRN PRN Reason: Diarrhea Last Admin: 02/14/21 21:05 Dose: 2 mg Documented by: NEELIMA Lorazepam (Lorazepam 0.5 Mg Tablet) 0.5 mg PO BID PRN PRN Reason: Anxiety Last Admin: 02/17/21 20:16 Dose: 0.5 mg Documented by: RUBA Methylprednisolone Sodium Succinate (Methylprednisolone Sod Succ 40 Mg/Ml Vial) 40 mg IVPUSH Q12H [facility] [place] Last Admin: 02/18/21 00:36 Dose: 40 mg Documented by: RUBA Patient Own Medication (Trelegy Ellipta) 1 each INHALE RDAILY [facility] [place] Last Admin: 02/18/21 07:26 Dose: 1 each Documented by: MARIEL Omeprazole (Omeprazole 20 Mg Capsule.Dr) 20 mg PO BID@0630,1630 [facility] [place] Last Admin: 02/18/21 06:13 Dose: 20 mg Documented by: RUBA Ondansetron HCl (Ondansetron Odt 4 Mg Tab.Rapdis) 8 mg TRANSLINGU Q8H PRN PRN Reason: Nausea and Vomiting Oxybutynin Chloride (Oxybutynin Chloride Er 5 Mg Tab.Er.24) 10 mg PO DAILY [facility] [place] Last Admin: 02/18/21 07:37 Dose: 10 mg Documented by: EDDY Pharmacy Consult (Consult Rx Perform Med Rec) 1 each MISCELLANE ONCE PRN PRN Reason: Consult order Sodium Chloride (Sodium Chloride 0.65 % Nasal 44 Ml Sprbtl) 1 spray NOSTRIL-B Q1H PRN PRN Reason: Nasal Congestion Trazodone HCl (Trazodone Hcl 100 Mg Tablet) 100 mg PO BEDTIME [facility] Last Admin: 02/17/21 20:16 Dose: 100 mg Documented by: RUBA Labs CBC & Chem 7: 02/18/21 06:00 02/18/21 06:00 Labs: Laboratory Results - last 24 hr 02/18/21 02/18/21 02/18/21 06:00 06:00 06:00 MCV 92.4 MCH 29.7 MCHC 32.2 RDW 18.1 H Plt Count 148 L MPV 8.9 L Absolute Nucleated RBC 0.030 H Nucleated RBC % (auto) 0.4 H Anion Gap 12 Estim Creat Clear Calc Cancelled 70.1 Estimated GFR Cancelled > 60 Random Glucose 142 H Calcium 8.2 L Microbiology Microbiology Results: Microbiology 02/13/21 00:45 Blood Culture - Final Blood - Venous No growth after 5 days. 02/13/21 00:55 Blood Culture - Final Blood - Venous No growth after 5 days. Assessment and Plan (1) Acute and chronic respiratory failure with hypoxia: Status: Acute (2) Anemia: Status: Acute Assessment and Plan: 75-year-old female with known COPD on 2 L of oxygen by nasal cannula at home presents to the emergency room with ongoing shortness of breath and worsening dyspnea on exertion.? She was recently? admitted to [place] [address] over the last 2 months.? Upon arrival to ER she was found to be 84% on 4 L; subsequently placed on non-rebreather with a respiratory rate of 36 was satting 90%.? She was initially treated with vanco and Zosyn along with a short course of BiPAP which improved her overall respiratory status.? At this point in time she is improved however still short of breath with minimal exertion.? Despite this she voices very little complaints 1. COPD exacerbation in backdrop of multifocal pneumonia ?Chest x-ray seems slightly better than before, vbg;reviewed seems better than yesterday vanco trough 8.9 on 02/15/21 since sob worsening-switched back to IV Solu-Medrol, continue Zosyn , off vanco , nebs and steroids, now on Vent, mask around 10liters. pulm follow pending , also d/w icu-continue above managment . 2. Pulmonary embolism:Established? on last admission; continue Eliquis . 3. Hypertension:?Continue amlodipine. 4. macrocytic anemia :iron studies-seems fine with low tibc and elevated ferritin , b12 and folate normal. h/h respond better than 1 prbc : h/h 9-10 range stable fobt positive continue ppi gi -workup Outpatient since patient has acute respiratory issue going on currently. 5.? Hypokalemia, borderline magnesium.: ? repleted and improved.. ?Full code ?Eliquis Quality Stroke Does the patient have a stroke diagnosis?: No VTE Prior VTE?: No VTE Risk Level:: Medical - moderate - high VTE Device Contraindication: N/A - Device Ordered VTE Drug Contraindication: N/A - Med Ordered
[2021-02-18] MEDS: LORazepam 0.5 MG TABLET PO (14:37)
--- NOTE | 2021-02-18 17:27 | P.PNPL_ITS ---
Subjective Subjective Date of Service: 02/18/21 Principal diagnosis: pneumonia/Resp. distress Interval history: SHE IS SLOWLY GETTING BETTER, HAS BEEN AFEBRILE, COUGH IS LESS. DENIES ANY CHEST PAIN, OXYGEN REQUIREMENT IS DECREASED. Objective Data Labs CBC & Chem 7: 02/18/21 06:00 02/18/21 06:00 Labs: Laboratory Results - last 24 hr 02/18/21 02/18/21 02/18/21 06:00 06:00 06:00 WBC 6.7 RBC 3.16 L Hgb 9.4 L Hct 29.2 L MCV 92.4 MCH 29.7 MCHC 32.2 RDW 18.1 H Plt Count 148 L MPV 8.9 L Absolute Nucleated RBC 0.030 H Nucleated RBC % (auto) 0.4 H Sodium 143 Potassium 3.4 D Chloride 101 Carbon Dioxide 33 H Anion Gap 12 BUN 17 H Creatinine Cancelled 0.73 Estim Creat Clear Calc Cancelled 70.1 Estimated GFR Cancelled > 60 Random Glucose 142 H Calcium 8.2 L Microbiology Microbiology Results: Microbiology 02/13/21 00:45 Blood - Venous Blood Culture - Final No growth after 5 days. 02/13/21 00:55 Blood - Venous Blood Culture - Final No growth after 5 days. 02/14/21 09:00 Sputum - Expectorated Gram Stain - Final 02/14/21 09:00 Sputum - Expectorated Sputum Culture - Final 02/13/21 08:46 Sputum - Expectorated Gram Stain - Final 02/13/21 08:46 Sputum - Expectorated Sputum Culture - Final Review of Systems Constitutional: Reports as per HPI and Reports no additional constitutional complaints Eyes: Reports no additional eye complaints Reports system reviewed and no additional complaints, except as documented Cardiovascular: Denies chest pain, Denies irregular heart rhythm and Denies leg edema Respiratory: Reports as per HPI Gastrointestinal: Reports no additional gastrointestinal complaints Musculoskeletal: Reports muscle weakness Skin/Breast: Reports system reviewed and no additional complaints, except as docu Reports system reviewed and no additional complaints, except as documented Physical Exam Vital Signs: Vital Signs: Last Vital Signs Temp 98.3 F 02/18/21 11:10 Pulse 105 H 02/18/21 16:00 Resp 20 02/18/21 16:00 BP 157/96 H 02/18/21 16:00 Pulse Ox 93 02/18/21 16:00 Oxygen Flow Rate 7 02/12/21 22:57 BMI result Body Mass Index 28.4 Const: General: comfortable, no acute distress, alert and awake Orientation/consciousness: patient oriented x3 HENMT: Head: Yes normal to inspection General nose exam: No nasal polyps present and No nasal discharge present Face and sinus: Yes sinuses nontender Mouth: oropharynx normal Throat: Yes posterior oropharynx normal Eyes: General: appearance normal, both eyes and all related structures Neck: Neck: Yes normal visual inspection, Yes no lymphadenopathy, Yes trachea midline and Yes no JVD Thyroid: Thyroid normal Chest: Chest palpation & inspection: normal inspection of the chest, normal palpation of entire chest wall and no tenderness Resp: Other: Percussion note resonant except for some dullness over the basilar areas. Breath sounds are decreased over both bases, with a few inspiratory crackles. Cardio: Palpation: normal PMI Rate: regular rate Rhythm: regular rhythm Heart sounds: no gallops and no murmurs Peripheral pulses: Peripheral pu lses 2+ throughout GI: Palpation (GI): Soft to palpation, nontender, No hepatosplenomegaly present and no masses Auscultation: normal bowel sounds Back/Spine/Pelvis: Thoracic/Lumbar Spine: thoracic and lumbar spine normal to inspection Skin: General skin exam: no rashes or lesions noted Neuro: General: patient oriented x3, No gait normal (Gait impaired due to marked generalized weakness and especially in the lowe) and no focal motor deficits Cranial nerves: Yes CN's II-XII intact bilaterally Extrem: General: Yes normal to inspection, Yes no clubbing, cyanosis or edema and Yes no calf tenderness Psych: Speech and movement: Normal speech and movement present Procedures Date of Service Date of Service: 02/18/21 Assessment and Plan Assessment and plan (1) Anemia: Problem details: She does have severe anemia at this time with hemoglobin 6.7. Improved after transfusion of 1 unit . And she feels better. Status: Acute (2) Pneumonitis: Problem details: The pattern of alveolar space disease, is suggestive of possible pneumonitis cau sed by chemotherapy, more specifically Adriamycin which has been stopped. She is being treated with IV Solu-Medrol, 40 mg IV b.i.d. continue for another 1 or 2 days and then she will be started on prednisone taper. Chest x-ray on 02/17 show significant improvement, decrease in the alveolar density as well as in the pleural effusion. Status: Acute (3) Acute and chronic respiratory failure with hypoxia: Problem details: Patient has picture of respiratory distress, and is requiring high concentrat ions of O2. From high flow has been, wean down to Venti mask at 45% FiO2, and hopefully can be further weaned down to nasal cannula In the next few days. Status: Acute Time Spent With Patient Time: Total time spent is greater than 50% in coordination of care (as documented) at patient's floor/unit and/or counseling patient: Time with patient: 15 - 24 minutes Progress Note: Quality Stroke Does the patient have a stroke diagnosis?: No
[2021-02-18] MEDS: Gabapentin 100 MG CAPSULE PO (18:12)
[2021-02-18 20:24] LABS: Vancomycin Trough 12.2 mcg/mL (10.0-20.0)
[2021-02-18] MEDS: traZODone HCL 100 MG TABLET PO (20:56)
[2021-02-18] MEDS: Acetaminophen 325 MG TABLET 650 MG PO (22:12)
[2021-02-19] VITALS (8 sets, daily range): BP systolic 143–169; BP diastolic 78–91; PULSE 84–107; RESP 16–24; TEMP 36.9–37.1; O2SAT 1–97
[2021-02-19] MEDS: methylPREDNISolone Sod Succ 40 MG/ML VIAL IVPUSH ×2 (00:28→11:35)
[2021-02-19] MEDS: Piperacillin Sodium/Tazobactam 4.5 GM in 0.9 % Sodium Chloride 100 ML IV ×4 (04:06→22:04)
[2021-02-19] MEDS: Omeprazole 20 MG CAPSULE.DR PO ×2 (05:54→14:51)
[2021-02-19 06:45] LABS: Creatinine Clr Calc Pharmacy 64.4; Estimated Glomerular Filt Rate > 60
[2021-02-19] MEDS: Albuterol/Iprat 2.5/0.5MG 3 ML AMPUL.NEB INHALE ×4 (07:27→20:37)
[2021-02-19] MEDS: amLODIPine Besylate 5 MG TABLET PO (09:15)
[2021-02-19] MEDS: Apixaban 5 MG TABLET PO ×2 (09:15→22:04)
[2021-02-19] MEDS: Gabapentin 100 MG CAPSULE PO (09:15)
[2021-02-19] MEDS: LORazepam 0.5 MG TABLET PO (09:15)
[2021-02-19] MEDS: Atorvastatin Calcium 40 MG TABLET PO (09:15)
[2021-02-19] MEDS: Fluticasone Propionate Nasal 16 GM SPRAY 1 SPRAY NOSTRIL-B (09:51)
--- NOTE | 2021-02-19 12:05 | HO.PM.IMPN ---
Subjective Subjective Date of Service: 02/19/21 Interval History: Acute hypoxemic respiratory failure secondary to COPD/ pneumonia. Review of Systems Patient has advanced lung disease improving very slowly, says says feels slightly better than yesterday cough is improving denies any chest pain or abdominal pain or diarrhea or nausea vomiting. Physical Exam Vital Signs: Vital Signs: Last Vital Signs Temp 98.6 F 02/19/21 11:48 Pulse 107 H 02/19/21 11:48 Resp 24 H 02/19/21 11:48 BP 160/87 H 02/19/21 11:48 Pulse Ox 91 L 02/19/21 11:48 Oxygen Flow Rate 7 02/12/21 22:57 BMI result Body Mass Index 28.4 Appearance: Alert.? Oriented X3.sob slightly better than yesterday.? Eyes: Pupils equal, round and reactive to light.? Sclera nonicteric.? ENT: Pharynx normal.? Moist mucous membranes. cvs: rrr, [id number] , no murmur res:air entry improving , slightly diminshed at bases. abd: no rebound or guarding ,nt, bs present. ext pulses present , no cyanosis . neuro: axo3 , nonfocal. Objective Data Active Medications Acetaminophen (Acetaminophen 325 Mg Tablet) 650 mg PO Q6H PRN PRN Reason: Pain, Moderate (Pain Scale 4-6 Last Admin: 02/18/21 22:12 Dose: 650 mg Documented by: YULIET Albuterol/Ipratropium (Albuterol/Iprat 2.5/0.5mg 3 Ml Ampul.Neb) 3 ml INHALE RQ4H WHILE AWAKE [facility] Last Admin: 02/19/21 11:11 Dose: 3 ml Documented by: SIDNEY Amlodipine Besylate (Amlodipine Besylate 5 Mg Tablet) 5 mg PO DAILY [facility]; Protocol Last Admin: 02/19/21 09:15 Dose: 5 mg Documented by: CARITO Apixaban (Apixaban 5 Mg Tablet) 5 mg PO BID [facility] Last Admin: 02/19/21 09:15 Dose: 5 mg Documented by: CARITO Atorvastatin Calcium (Atorvastatin Calcium 40 Mg Tablet) 40 mg PO DAILY [facility] Last Admin: 02/19/21 09:15 Dose: 40 mg Documented by: CARITO Doxycycline Hyclate (Doxycycline Hyclate 100 Mg Tablet) 100 mg PO Q12H [facility] Last Admin: 02/19/21 11:35 Dose: 100 mg Documented by: CARITO Fluticasone Propionate (Fluticasone Propionate Nasal 16 Gm [place]) 1 spray NOSTRIL-B DAILY [facility] Last Admin: 02/19/21 09:51 Dose: 1 spray Documented by: CARITO Guaifenesin/Codeine Phosphate (Guaifen/Codeine Sf 200/20/10ml 10 Ml Liquid) 10 ml PO Q4H PRN PRN Reason: Cough Last Admin: 02/17/21 15:03 Dose: 10 ml Documented by: DEE DEE Piperacillin Sod/Tazobactam (Sod 4.5 gm/ Sodium Chloride) 100 mls @ 200 mls/hr IV Q6H [facility] Last Infusion: 02/19/21 10:16 Dose: 0 mls/hr Documented by: CARITO Loperamide HCl (Loperamide Hcl 2 Mg Capsule) 2 mg PO Q4H PRN PRN Reason: Diarrhea Last Admin: 02/14/21 21:05 Dose: 2 mg Documented by: NEELIMA Lorazepam (Lorazepam 0.5 Mg Tablet) 0.5 mg PO BID PRN PRN Reason: Anxiety Last Admin: 02/19/21 09:15 Dose: 0.5 mg Documented by: CARITO Methylprednisolone Sodium Succinate (Methylprednisolone Sod Succ 40 Mg/Ml Vial) 40 mg IVPUSH Q24H [facility] Last Admin: 02/19/21 11:35 Dose: 40 mg Documented by: CARITO Patient Own Medication (Trelegy Ellipta) 1 each INHALE RDAILY [facility] Last Admin: 02/19/21 07:27 Dose: 1 each Documented by: SIDNEY Omeprazole (Omeprazole 20 Mg Capsule.Dr) 20 mg PO BID@0630,1630 [facility] Last Admin: 02/19/21 05:54 Dose: 20 mg Documented by: REINALDO Ondansetron HCl (Ondansetron Odt 4 Mg Tab.Rapdis) 8 mg TRANSLINGU Q8H PRN PRN Reason: Nausea and Vomiting Oxybutynin Chloride (Oxybutynin Chloride Er 5 Mg Tab.Er.24) 10 mg PO DAILY [facility] Last Admin: 02/19/21 09:14 Dose: 10 mg Documented by: CARITO Pharmacy Consult (Consult Rx Perform Med Rec) 1 each MISCELLANE ONCE PRN PRN Reason: Consult order Pregabalin (Pregabalin 25 Mg Capsule) 25 mg PO DAILY [facility] Sodium Chloride (Sodium Chloride 0.65 % Nasal 44 Ml Sprbtl) 1 spray NOSTRIL-B Q1H PRN PRN Reason: Nasal Congestion Trazodone HCl (Trazodone Hcl 100 Mg Tablet) 100 mg PO BEDTIME VU Last Admin: 02/18/21 20:56 Dose: 100 mg Documented by: YULIET Labs CBC & Chem 7: 02/18/21 06:00 02/19/21 06:11 Labs: Laboratory Results - last 24 hr 02/18/21 02/19/21 19:49 06:11 Estim Creat Clear Calc 64.4 Estimated GFR > 60 Vancomycin Trough 12.2 Assessment and Plan (1) Pneumonitis: Status: Acute (2) Acute exacerbation of chronic obstructive pulmonary disease (COPD): Status: Acute Assessment and Plan: 75-year-old female with known COPD on 2 L of oxygen by nasal cannula at home presents to the emergency room with ongoing shortness of breath and worsening dyspnea on exertion.? She was recently? admitted to [facility] x2 over the last 2 months.? Upon arrival to ER she was found to be 84% on 4 L; subsequently placed on non-rebreather with a respiratory rate of 36 was satting 90%.? She was initially treated with vanco and Zosyn along with a short course of BiPAP which improved her overall respiratory status.? At this point in time she is improved however still short of breath with minimal exertion.? Despite this she voices very little complaints 1. COPD exacerbation in backdrop of multifocal pneumonia ?Chest x-ray seems slightly better than before, vbg;reviewed seems better than yesterday since sob worsening-switched back to IV Solu-Medrol, continue? Zosyn , off vanco , nebs and adjuted steroids, now on Vent, mask around 10liters. pulm follow-continue above managment . 2. Pulmonary embolism:Established? on last admission; continue Eliquis . 3. Hypertension:?Continue amlodipine. 4. macrocytic anemia :iron studies-seems fine with low tibc and elevated ferritin , b12 and folate normal. h/h respond better than 1 prbc : h/h 9-10 range stable fobt positive continue ppi gi -workup ? Outpatient since patient has acute respiratory issue going on currently. 5.? Hypokalemia, borderline magnesium.: ? repleted and improved. ?Full code ?Eliquis Quality Stroke Does the patient have a stroke diagnosis?: No VTE Prior VTE?: No VTE Risk Level:: Medical - moderate - high VTE Device Contraindication: N/A - Device Ordered VTE Drug Contraindication: N/A - Med Ordered
--- NOTE | 2021-02-19 12:44 | MHC.CM.PN ---
per rounds pt not ready for dc will be here over the weekend pt will likely need str when ready for dc a physical therapy eval will,nbe needed
[2021-02-19] MEDS: Pregabalin 25 MG CAPSULE PO (13:04)
[2021-02-19] MEDS: traZODone HCL 100 MG TABLET PO (22:04)
[2021-02-19] MEDS: guaiFEN/Codeine SF 200/20/10ML 10 ML LIQUID PO (22:18)
[2021-02-20] VITALS (12 sets, daily range): BP systolic 132–167; BP diastolic 80–96; PULSE 74–102; RESP 18–20; TEMP 36.1–37.1; O2SAT 84–100
[2021-02-20] MEDS: Piperacillin Sodium/Tazobactam 4.5 GM in 0.9 % Sodium Chloride 100 ML IV ×4 (03:53→22:00)
[2021-02-20] MEDS: guaiFEN/Codeine SF 200/20/10ML 10 ML LIQUID PO (03:53)
[2021-02-20] MEDS: Albuterol/Iprat 2.5/0.5MG 3 ML AMPUL.NEB INHALE ×4 (04:28→15:35)
[2021-02-20] MEDS: Omeprazole 20 MG CAPSULE.DR PO ×2 (06:19→16:02)
[2021-02-20] MEDS: Fluticasone Propionate Nasal 16 GM SPRAY 1 SPRAY NOSTRIL-B (08:25)
[2021-02-20] MEDS: amLODIPine Besylate 5 MG TABLET PO (08:25)
[2021-02-20] MEDS: Apixaban 5 MG TABLET PO ×2 (08:26→20:35)
[2021-02-20] MEDS: LORazepam 0.5 MG TABLET PO ×2 (08:26→16:02)
[2021-02-20] MEDS: Pregabalin 25 MG CAPSULE PO (08:26)
[2021-02-20] MEDS: Atorvastatin Calcium 40 MG TABLET PO (08:26)
[2021-02-20] MEDS: methylPREDNISolone Sod Succ 40 MG/ML VIAL IVPUSH (10:08)
--- NOTE | 2021-02-20 10:40 | P.PNPL_ITS ---
Subjective Subjective Date of Service: 02/20/21 Principal diagnosis: pneumonia/Resp. distress Interval history: This 75 years old female, with bilateral lower lobe pn eumonitis/ and respiratory distress, has gradually improved. Remains afebrile, respiratory distress is definitely decreased in the last few days. She is tolerating O2 by nasal cannula at 6 L/minute. Objective Data Labs CBC & Chem 7: 02/18/21 06:00 02/19/21 06:11 Microbiology Microbiology Results: Microbiology 02/13/21 00:45 Blood - Venous Blood Culture - Final No growth after 5 days. 02/13/21 00:55 Blood - Venous Blood Culture - Final No growth after 5 days. 02/14/21 09:00 Sputum - Expectorated Gram Stain - Final 02/14/21 09:00 Sputum - Expectorated Sputum Culture - Final 02/13/21 08:46 Sputum - Expectorated Gram Stain - Final 02/13/21 08:46 Sputum - Expectorated Sputum Culture - Final Physical Exam Vital Signs: Vital Signs: Last Vital Signs Temp 97.0 F 02/20/21 07:26 Pulse 97 02/20/21 08:25 Resp 18 02/20/21 07:26 BP 132/80 02/20/21 08:25 Pulse Ox 100 02/20/21 07:26 Oxygen Flow Rate 7 02/12/21 22:57 BMI result Body Mass Index 28.4 Const: General: comfortable (Still weak and non ambulatory), no acute distress, alert and awake Orientation/consciousness: patient oriented x3 HENMT: Head: Yes normal to inspection General nose exam: No nasal polyps present and No nasal discharge present Face and sinus: Yes sinuses nontender Mouth: oropharynx normal Throat: Yes posterior oropharynx normal Eyes: General: appearance normal, both eyes and all related structures Neck: Neck: Yes normal visual inspection, Yes no lymphadenopathy, Yes trachea midline and Yes no JVD Thyroid: Thyroid normal Chest: Chest palpation & inspection: normal inspection of the chest, normal palpation of entire chest wall and no tenderness Resp: Other: Percussion note is slightly dull over the basilar areas. Breath sounds are generally diminished with prolonged expiratory phase. Inspiratory crackles heard over both lower lobes. Cardio: Palpation: normal PMI Rate: regular rate Rhythm: regular rhythm Heart sounds: no gallops and no murmurs GI: Palpation (GI): Soft to palpation, nontender, No hepatosplenomegaly present and no masses Auscultation: normal bowel sounds Back/Spine/Pelvis: Thoracic/Lumbar Spine: thoracic and lumbar spine normal to inspection Skin: General skin exam: no rashes or lesions noted (Alopecia due to recent chemotherapy is noted) Neuro: General: patient oriented x3, No gait normal (Impaired due to general weakness) and no focal motor deficits Cranial nerves: Yes CN's II-XII intact bilaterally Extrem: General: Yes normal to inspection, Yes no clubbing, cyanosis or edema and Yes no calf tenderness Psych: Appearance: grossly normal and well kempt Speech and movement: Normal speech and movement present Procedures Date of Service Date of Service: 02/20/21 Assessment and Plan Assessment and plan (1) Pneumonitis: Problem details: The pattern of alveolar space disease, is suggestive of possible pneumonitis caused by chemotherapy, more specifically Adriamycin which has been stopped. She is being treated with IV Solu-Medrol, 40 mg IV b.i.d. Now patient may be started on prednisone taper over the next 1 week Chest x-ray on 02/17 shows significant improvement, decrease in the alveolar density as well as in the pleural effusion. Status: Acute (2) Acute exacerbation of chronic obstructive pulmonary disease (COPD): Problem details: Patient is a known case of chronic obstructive pulmonary disease, acute exacerbation caused by pneumonia as noted above. Treatment plan as under acute exacerbation of COPD. Status: Acute (3) Hypoxemia: Problem details: Patient had severe hypoxemia due to ARDS like picture. She was on high-flow O2 which is now downgraded to nasal cannula. Doing fairly well at 6 L/minute, this will need to be reduced gradually as tolerated. Status: Acute Time Spent With Patient Time: Total time spent is greater than 50% in coordination of care (as documented) at patient's floor/unit and/or counseling patient: Time with patient: 15 - 24 minutes Progress Note: Quality Stroke Does the patient have a stroke diagnosis?: No
--- NOTE | 2021-02-20 12:42 | P.PNIM_ITS ---
Subjective Subjective Date of Service: 02/20/21 Interval History: Acute hypoxemic respiratory failure secondary to COPD/pneumonia. Review of Systems Shortness of breath slowly improving cough is better than yesterday slept better overnight. Denies any nausea or vomiting or abdominal pain or fever or chills. Physical Exam Vital Signs: Vital Signs: Last Vital Signs Temp 98.1 F 02/20/21 11:13 Pulse 102 H 02/20/21 11:13 Resp 18 02/20/21 11:13 BP 164/82 H 02/20/21 11:13 Pulse Ox 94 02/20/21 11:13 Oxygen Flow Rate 7 02/12/21 22:57 BMI result Body Mass Index 28.4 physical exam: Appearance: Alert.? Oriented X3.sob slightly better than yesterday.? Eyes: Pupils equal, round and reactive to light.? Sclera nonicteric.? ENT: Pharynx normal.? Moist mucous membranes. cvs: rrr, [id number] , no murmur res: Air entry improving better than yesterday, has mild rhonchi otherwise no rales.. abd: no rebound or guarding ,nt, bs present. ext pulses present , no cyanosis . neuro: axo3 , nonfocal. Objective Data Active Medications Acetaminophen (Acetaminophen 325 Mg Tablet) 650 mg PO Q6H PRN PRN Reason: Pain, Moderate (Pain Scale 4-6 Last Admin: 02/18/21 22:12 Dose: 650 mg Documented by: YULITE Albuterol/Ipratropium (Albuterol/Iprat 2.5/0.5mg 3 Ml Ampul.Neb) 3 ml INHALE RQ4H WHILE AWAKE [facility] Last Admin: 02/20/21 11:02 Dose: 3 ml Documented by: SIDNEY Amlodipine Besylate (Amlodipine Besylate 5 Mg Tablet) 5 mg PO DAILY [facility]; Protocol Last Admin: 02/20/21 08:25 Dose: 5 mg Documented by: TIERA Apixaban (Apixaban 5 Mg Tablet) 5 mg PO BID [facility] Last Admin: 02/20/21 08:26 Dose: 5 mg Documented by: TIERA Atorvastatin Calcium (Atorvastatin Calcium 40 Mg Tablet) 40 mg PO DAILY [facility] Last Admin: 02/20/21 08:26 Dose: 40 mg Documented by: TIERA Doxycycline Hyclate (Doxycycline Hyclate 100 Mg Tablet) 100 mg PO Q12H [facility] Last Admin: 02/20/21 12:05 Dose: 100 mg Documented by: TIERA Fluticasone Propionate (Fluticasone Propionate Nasal 16 Gm [place]) 1 spray NOSTRIL-B DAILY [facility] Last Admin: 02/20/21 08:25 Dose: 1 spray Documented by: TIERA Guaifenesin/Codeine Phosphate (Guaifen/Codeine Sf 200/20/10ml 10 Ml Liquid) 10 ml PO Q4H PRN PRN Reason: Cough Last Admin: 02/20/21 03:53 Dose: 10 ml Documented by: PILI Piperacillin Sod/Tazobactam (Sod 4.5 gm/ Sodium Chloride) 100 mls @ 200 mls/hr IV Q6H [facility] Last Infusion: 02/20/21 11:00 Dose: 0 mls/hr Documented by: TIERA Loperamide HCl (Loperamide Hcl 2 Mg Capsule) 2 mg PO Q4H PRN PRN Reason: Diarrhea Last Admin: 02/14/21 21:05 Dose: 2 mg Documented by: NEELIMA Lorazepam (Lorazepam 0.5 Mg Tablet) 0.5 mg PO BID PRN PRN Reason: Anxiety Last Admin: 02/20/21 08:26 Dose: 0.5 mg Documented by: TIERA Methylprednisolone Sodium Succinate (Methylprednisolone Sod Succ 40 Mg/Ml Vial) 40 mg IVPUSH Q24H [facility] Last Admin: 02/20/21 10:08 Dose: 40 mg Documented by: TIERA Patient Own Medication (Trelegy Ellipta) 1 each INHALE RDAILY [facility] Last Admin: 02/20/21 07:41 Dose: 1 each Documented by: SIDNEY Omeprazole (Omeprazole 20 Mg Capsule.Dr) 20 mg PO BID@0630,1630 [facility] Last Admin: 02/20/21 06:19 Dose: 20 mg Documented by: PILI Ondansetron HCl (Ondansetron Odt 4 Mg Tab.Rapdis) 8 mg TRANSLINGU Q8H PRN PRN Reason: Nausea and Vomiting Oxybutynin Chloride (Oxybutynin Chloride Er 5 Mg Tab.Er.24) 10 mg PO DAILY [facility] Last Admin: 02/20/21 08:26 Dose: 10 mg Documented by: TIERA Pharmacy Consult (Consult Rx Perform Med Rec) 1 each MISCELLANE ONCE PRN PRN Reason: Consult order Pregabalin (Pregabalin 50 Mg Capsule) 50 mg PO DAILY [facility] Sodium Chloride (Sodium Chloride 0.65 % Nasal 44 Ml Sprbtl) 1 spray NOSTRIL-B Q1H PRN PRN Reason: Nasal Congestion Trazodone HCl (Trazodone Hcl 100 Mg Tablet) 100 mg PO BEDTIME [facility] Last Admin: 02/19/21 22:04 Dose: 100 mg Documented by: PILI Labs CBC & Chem 7: 02/18/21 06:00 02/19/21 06:11 Assessment and Plan (1) Acute exacerbation of chronic obstructive pulmonary disease (COPD): Status: Acute Assessment and Plan: 75-year-old female with known COPD on 2 L of oxygen by nasal cannula at home presents to the emergency room with ongoing shortness of breath and worsening dyspnea on exertion.? She was recently? admitted to [place] [id number] over the last 2 months.? Upon arrival to ER she was found to be 84% on 4 L; subsequently placed on non-rebreather with a respiratory rate of 36 was satting 90%.? She was initially treated with vanco and Zosyn along with a short course of BiPAP which improved her overall respiratory status.? At this point in time she is improved however still short of breath with minimal exertion.? Despite this she voices very little complaints 1. COPD exacerbation in backdrop of multifocal pneumonia ?Chest x-ray seems slightly better than before, vbg;reviewed seems better than yesterday since sob improving d/w pulm:-switched back to IV Solu-Medrol will switch to po steriods in am , completed antiobiotics 8days.. 2. Pulmonary embolism:Established? on last admission; continue Eliquis . 3. Hypertension:?Continue amlodipine. 4. macrocytic anemia :iron studies-seems fine with low tibc and elevated ferritin , b12 and folate normal. h/h respond better than 1 prbc : h/h 9-10 range stable fobt positive continue ppi gi -workup ? Outpatient since patient has acute respiratory issue going on curr ently. 5.? Hypokalemia, borderline magnesium.: ? repleted and improved. ?Full code ?Eliquis Quality Stroke Does the patient have a stroke diagnosis?: No VTE Prior VTE?: No VTE Risk Level:: Medical - moderate - high VTE Device Contraindication: N/A - Device Ordered VTE Drug Contraindication: N/A - Med Ordered
[2021-02-20] MEDS: traZODone HCL 100 MG TABLET PO (20:35)
[2021-02-21] VITALS (10 sets, daily range): BP systolic 156–191; BP diastolic 82–105; PULSE 84–97; RESP 18–24; TEMP 36.5–37; O2SAT 89–97
[2021-02-21] MEDS: Piperacillin Sodium/Tazobactam 4.5 GM in 0.9 % Sodium Chloride 100 ML IV (04:26)
[2021-02-21] MEDS: LORazepam 0.5 MG TABLET PO ×2 (05:03→20:48)
[2021-02-21] MEDS: Omeprazole 20 MG CAPSULE.DR PO ×2 (05:03→15:49)
[2021-02-21 06:46] LABS: Hematocrit 30.1 % (37.0-47.0); Hemoglobin 9.5 g/dl (12.0-16.0)
[2021-02-21 07:32] LABS: Blood Urea Nitrogen 15 mg/dL (9-16); Calcium 8.4 mg/dL (8.4-10.2); Creatinine Clr Calc Pharmacy 81.9; Estimated Glomerular Filt Rate > 60; Glucose Random 89 mg/dL (60-115)
[2021-02-21 07:43] LABS: Anion Gap 12 (12-20); Carbon Dioxide 35 mmol/L (22-29); Chloride 99 mmol/L (96-108); Potassium 2.8 mmol/L (3.3-5.1); Sodium 143 mmol/L (135-145)
[2021-02-21] MEDS: Pregabalin 50 MG CAPSULE PO (08:23)
[2021-02-21] MEDS: predniSONE 20 MG TABLET 40 MG PO (08:24)
[2021-02-21] MEDS: amLODIPine Besylate 5 MG TABLET PO (08:24)
[2021-02-21] MEDS: Atorvastatin Calcium 40 MG TABLET PO (08:24)
[2021-02-21] MEDS: Apixaban 5 MG TABLET PO ×2 (08:24→20:45)
[2021-02-21] MEDS: Fluticasone Propionate Nasal 16 GM SPRAY 1 SPRAY NOSTRIL-B (08:25)
[2021-02-21] MEDS: Albuterol/Iprat 2.5/0.5MG 3 ML AMPUL.NEB INHALE ×2 (08:38→15:15)
[2021-02-21] MEDS: Loratadine 10 MG TABLET PO (11:30)
[2021-02-21] MEDS: Nystatin Powder 15 GM BOTTLE 1 APPL TOPICAL ×2 (11:30→20:45)
--- NOTE | 2021-02-21 12:33 | HO.PM.IMPN ---
Subjective Subjective Date of Service: 02/21/21 Interval History: Acute hypoxemic respiratory failure secondary to ? COPD/pneumonia. Review of Systems Shortness of breath is improving but still get worked up as given by standing some nasal congestion. denies any abdominal pain or nausea or vomiting or fever or chills. Physical Exam Vital Signs: Vital Signs: Last Vital Signs Temp 98.0 F 02/21/21 11:53 Pulse 92 02/21/21 11:53 Resp 20 02/21/21 11:53 BP 158/92 H 02/21/21 11:53 Pulse Ox 94 02/21/21 11:53 Oxygen Flow Rate 7 02/12/21 22:57 BMI result Body Mass Index 28.4 Appearance: Alert.? Oriented X3.sob slightly better than yesterday.? Eyes: Pupils equal, round and reactive to light.? Sclera nonicteric.? ENT: Pharynx normal.? Moist mucous membranes. cvs: rrr, [id number] , no murmur res:? Air entry improvin, minimal rhonchii, no rales.. abd: no rebound or guarding ,nt, bs present. ext pulses present , no cyanosis . neuro: axo3 , nonfocal. Objective Data Active Medications Acetaminophen (Acetaminophen 325 Mg Tablet) 650 mg PO Q6H PRN PRN Reason: Pain, Moderate (Pain Scale 4-6 Last Admin: 02/18/21 22:12 Dose: 650 mg Documented by: YULIET Amlodipine Besylate (Amlodipine Besylate 5 Mg Tablet) 5 mg PO DAILY [facility]; Protocol Last Admin: 02/21/21 08:24 Dose: 5 mg Documented by: OCHOAOPEJulian Apixaban (Apixaban 5 Mg Tablet) 5 mg PO BID [facility] Last Admin: 02/21/21 08:24 Dose: 5 mg Documented by: OCHOAOPEJulian Atorvastatin Calcium (Atorvastatin Calcium 40 Mg Tablet) 40 mg PO DAILY [facility] Last Admin: 02/21/21 08:24 Dose: 40 mg Documented by: LYNN Fluticasone Propionate (Fluticasone Propionate Nasal 16 Gm [place]) 1 spray NOSTRIL-B DAILY [facility] Last Admin: 02/21/21 08:25 Dose: 1 spray Documented by: LYNN Guaifenesin/Codeine Phosphate (Guaifen/Codeine Sf 200/20/10ml 10 Ml Liquid) 10 ml PO Q4H PRN PRN Reason: Cough Last Admin: 02/20/21 03:53 Dose: 10 ml Documented by: PILI Loperamide HCl (Loperamide Hcl 2 Mg Capsule) 2 mg PO Q4H PRN PRN Reason: Diarrhea Last Admin: 02/14/21 21:05 Dose: 2 mg Documented by: NEELIMA Loratadine (Loratadine 10 Mg Tablet) 10 mg PO DAILY [facility] Last Admin: 02/21/21 11:30 Dose: 10 mg Documented by: LNYN Lorazepam (Lorazepam 0.5 Mg Tablet) 0.5 mg PO BID PRN PRN Reason: Anxiety Last Admin: 02/21/21 05:03 Dose: 0.5 mg Documented by: HENRRY Patient Own Medication (Trelegy Ellipta) 1 each INHALE RDAILY [facility] Last Admin: 02/21/21 08:41 Dose: 1 each Documented by: JAVYRICJenna Nystatin (Nystatin Powder 15 Gm [place]) 1 appl TOPICAL BID [facility]; Protocol Last Admin: 02/21/21 11:30 Dose: 1 appl Documented by: LYNN Omeprazole (Omeprazole 20 Mg Capsule.Dr) 20 mg PO BID@0630,1630 [facility] Last Admin: 02/21/21 05:03 Dose: 20 mg Documented by: HENRRY Ondansetron HCl (Ondansetron Odt 4 Mg Tab.Rapdis) 8 mg TRANSLINGU Q8H PRN PRN Reason: Nausea and Vomiting Oxybutynin Chloride (Oxybutynin Chloride Er 5 Mg Tab.Er.24) 10 mg PO DAILY [facility] Last Admin: 02/21/21 08:24 Dose: 10 mg Documented by: LYNN Pharmacy Consult (Consult Rx Perform Med Rec) 1 each MISCELLANE ONCE PRN PRN Reason: Consult order Prednisone (Prednisone 20 Mg Tablet) 40 mg PO DAILY [facility] Last Admin: 02/21/21 08:24 Dose: 40 mg Documented by: LYNN Pregabalin (Pregabalin 50 Mg Capsule) 50 mg PO DAILY [facility] Last Admin: 02/21/21 08:23 Dose: 50 mg Documented by: LYNN Sodium Chloride (Sodium Chloride 0.65 % Nasal 44 Ml Sprbtl) 1 spray NOSTRIL-B Q1H PRN PRN Reason: Nasal Congestion Trazodone HCl (Trazodone Hcl 100 Mg Tablet) 100 mg PO BEDTIME [facility]U Last Admin: 02/20/21 20:35 Dose: 100 mg Documented by: TASHA Labs CBC & Chem 7: 02/21/21 05:56 02/21/21 05:56 Labs: Laboratory Results - last 24 hr 02/21/21 05:56 Anion Gap 12 Estim Creat Clear Calc 81.9 Estimated GFR > 60 Random Glucose 89 Calcium 8.4 Assessment and Plan (1) Acute exacerbation of chronic obstructive pulmonary disease (COPD): Status: Acute Assessment and Plan: 75-year-old female with known COPD on 2 L of oxygen by nasal cannula at home presents to the emergency room with ongoing shortness of breath and worsening dyspnea on exertion.? She was recently? admitted to [facility] x2 over the last 2 months.? Upon arrival to ER she was found to be 84% on 4 L; subsequently placed on non-rebreather with a respiratory rate of 36 was satting 90%.? She was initially treated with vanco and Zosyn along with a short course of BiPAP which improved her overall respiratory status.? At this point in time she is improved however still short of breath with minimal exertion.? Despite this she voices very little complaints 1. COPD exacerbation in backdrop of multifocal pneumonia: since sob improving, still sob with minimal excersion d/w pulm:-switched switch to po steriods in am , completed antiobiotics 8days.. added loratidine -help with nasal congestion 2. Pulmonary embolism:Established? on last admission; continue Eliquis . 3. Hypertension:?Continue amlodipine. 4. macrocytic anemia :iron studies-seems fine with low tibc and elevated ferritin , b12 and folate normal. h/h respond better than 1 prbc : h/h 9-10 range stable fobt positive continue ppi gi -workup ? Outpatient since patient has acute respiratory issue going on currently. 5.? Hypokalemia, borderline magnesium.: ? added iv and po, added magnesium levels 6. rash in [place] area: possible canadial added nystatin power and lotramine cream ?Full code ?Eliquis Quality Stroke Does the patient have a stroke diagnosis?: No VTE Prior VTE?: No VTE Risk Level:: Medical - moderate - high VTE Device Contraindication: N/A - Device Ordered VTE Drug Contraindication: N/A - Med Ordered
[2021-02-21 12:57] LABS: Magnesium 1.5 mg/dL (1.6-2.6)
[2021-02-21] MEDS: Furosemide 20 MG/2 ML VIAL IVPUSH (13:22)
[2021-02-21] MEDS: Potassium Chloride/H20 10 MEQ/100 ML PIGGYBACK 100 MEQ IV ×2 (13:22→14:26)
[2021-02-21] MEDS: Potassium Chloride Packet 20 MEQ PACKET 40 MEQ PO (13:22)
[2021-02-21 15:47] LABS: Asperg fumigatus Precip Abs NEGATIVE (NEGATIVE); Micropoly faeni Abs NEGATIVE (NEGATIVE); Pigeon serum Abs NEGATIVE (NEGATIVE); Saccharo pora viridis Abs NEGATIVE (NEGATIVE); Thermo candidus Abs NEGATIVE (NEGATIVE); Thermoa vulgaris #1 NEGATIVE (NEGATIVE)
[2021-02-21] MEDS: traZODone HCL 100 MG TABLET PO (20:45)
[2021-02-22] VITALS (20 sets, daily range): BP systolic 116–160; BP diastolic 71–102; PULSE 73–105; RESP 13–26; TEMP 36.7–36.9; O2SAT 89–100; BMI 28.4
[2021-02-22] MEDS: Omeprazole 20 MG CAPSULE.DR PO ×2 (06:13→15:40)
--- NOTE | 2021-02-22 07:38 | P.PNIM_ITS ---
Subjective Subjective Date of Service: 02/22/21 Interval History: acute hypoxemic respiratory failure Review of Systems this morning seems more short of breath, using accessory muscles, Talking in very short sentences denies any chest pain or abdominal pain or nausea or vomiting or fever chills overnight Physical Exam Vital Signs: Vital Signs: Last Vital Signs Temp 98.5 F 02/22/21 03:58 Pulse 86 02/22/21 03:58 Resp 18 02/22/21 03:58 BP 156/76 H 02/22/21 03:58 Pulse Ox 94 02/22/21 03:58 Oxygen Flow Rate 7 02/12/21 22:57 BMI result Body Mass Index 28.4 Appearance: Alert.? Oriented X3.sob worseing, talking in short sentences.? Eyes: Pupils equal, round and reactive to light.? Sclera nonicteric.? ENT: Pharynx normal.? Moist mucous membranes. cvs: rrr, [id number] , no murmur res:?fiar air entry , slightly diminshed at bases. abd: no rebound or guarding ,nt, bs present. ext pulses present , no cyanosis . neuro: axo3 , nonfocal. Objective Data Active Medications Acetaminophen (Acetaminophen 325 Mg Tablet) 650 mg PO Q6H PRN PRN Reason: Pain, Moderate (Pain Scale 4-6 Last Admin: 02/18/21 22:12 Dose: 650 mg Documented by: YULIET Albuterol/Ipratropium (Albuterol/Iprat 2.5/0.5mg 3 Ml Ampul.Neb) 3 ml INHALE RQ4H WHILE AWAKE [facility] Last Admin: 02/21/21 20:16 Dose: Not Given Documented by: DAVY Non-Admin Reason: Patient Asleep Albuterol/Ipratropium (Albuterol/Iprat 2.5/0.5mg 3 Ml Ampul.Neb) 3 ml INHALE RQ4H PRN PRN Reason: sob Amlodipine Besylate (Amlodipine Besylate 5 Mg Tablet) 5 mg PO DAILY [facility]; Protocol Last Admin: 02/21/21 08:24 Dose: 5 mg Documented by: COOPEJulian Apixaban (Apixaban 5 Mg Tablet) 5 mg PO BID [facility] Last Admin: 02/21/21 20:45 Dose: 5 mg Documented by: TASHA Atorvastatin Calcium (Atorvastatin Calcium 40 Mg Tablet) 40 mg PO DAILY [facility] Last Admin: 02/21/21 08:24 Dose: 40 mg Documented by: LYNN Fluticasone Propionate (Fluticasone Propionate Nasal 16 Gm [place]) 1 spray NOSTRIL-B DAILY [facility] Last Admin: 02/21/21 08:25 Dose: 1 spray Documented by: LYNN Guaifenesin/Codeine Phosphate (Guaifen/Codeine Sf 200/20/10ml 10 Ml Liquid) 10 ml PO Q4H PRN PRN Reason: Cough Last Admin: 02/20/21 03:53 Dose: 10 ml Documented by: PILI Loperamide HCl (Loperamide Hcl 2 Mg Capsule) 2 mg PO Q4H PRN PRN Reason: Diarrhea Last Admin: 02/14/21 21:05 Dose: 2 mg Documented by: NEELIMA Loratadine (Loratadine 10 Mg Tablet) 10 mg PO DAILY [facility] Last Admin: 02/21/21 11:30 Dose: 10 mg Documented by: LYNN Lorazepam (Lorazepam 0.5 Mg Tablet) 0.5 mg PO BID PRN PRN Reason: Anxiety Last Admin: 02/21/21 20:48 Dose: 0.5 mg Documented by: TASHA Patient Own Medication (Trelegy Ellipta) 1 each INHALE RDAILY [facility] Last Admin: 02/21/21 08:41 Dose: 1 each Documented by: JOSE Nystatin (Nystatin Powder 15 Gm Bottle) 1 appl TOPICAL BID [facility]; Protocol Last Admin: 02/21/21 20:45 Dose: 1 appl Documented by: TASHA Omeprazole (Omeprazole 20 Mg Capsule.Dr) 20 mg PO BID@0630,1630 [facility] Last Admin: 02/22/21 06:13 Dose: 20 mg Documented by: DAVIDA Ondansetron HCl (Ondansetron Odt 4 Mg Tab.Rapdis) 8 mg TRANSLINGU Q8H PRN PRN Reason: Nausea and Vomiting Oxybutynin Chloride (Oxybutynin Chloride Er 5 Mg Tab.Er.24) 10 mg PO DAILY [facility] Last Admin: 02/21/21 08:24 Dose: 10 mg Documented by: LYNN Pharmacy Consult (Consult Rx Perform Med Rec) 1 each MISCELLANE ONCE PRN PRN Reason: Consult order Prednisone (Prednisone 20 Mg Tablet) 40 mg PO DAILY [facility] Last Admin: 02/21/21 08:24 Dose: 40 mg Documented by: COOPEB Pregabalin (Pregabalin 50 Mg Capsule) 50 mg PO DAILY [facility] Last Admin: 02/21/21 08:23 Dose: 50 mg Documented by: COOPEB Sodium Chloride (Sodium Chloride 0.65 % Nasal 44 Ml Sprbtl) 1 spray NOSTRIL-B Q1H PRN PRN Reason: Nasal Congestion Trazodone HCl (Trazodone Hcl 100 Mg Tablet) 100 mg PO BEDTIME [facility] Last Admin: 02/21/21 20:45 Dose: 100 mg Documented by: TASHA Labs CBC & Chem 7: 02/21/21 05:56 02/22/21 08:06 Labs: Laboratory Results - last 24 hr 02/14/21 02/21/21 13:50 05:56 Anion Gap 12 Magnesium 1.5 L [place] Serum IgG Ab NEGATIVE Saccharo. viridis Ab NEGATIVE T. candidus Antibody NEGATIVE T. vulgaris 1 Antibody NEGATIVE Aspergill fumigatus Ab NEGATIVE Micropolyspora faeni Ab NEGATIVE Assessment and Plan (1) Acute exacerbation of chronic obstructive pulmonary disease (COPD): Status: Acute Assessment and Plan: 75-year-old female with known COPD on 2 L of oxygen by nasal cannula at home presents to the emergency room with ongoing shortness of breath and worsening dyspnea on exertion.? She was recently? admitted to [place] [address] over the last 2 months.? Upon arrival to ER she was found to be 84% on 4 L; subsequently placed on non-rebreather with a respiratory rate of 36 was satting 90%.? She was initially treated with vanco and Zosyn along with a short course of BiPAP which improved her overall respiratory status.? At this point in time she is improved however still short of breath with minimal exertion.? Despite this she voices very little complaints 1. acute hypoxemic /hypercarbic respiratory failure-COPD exacerbation in backdrop of multifocal pneumonia: worsening shortness of breath this morning, using accessory muscles chest x-ray seems similar as before, ABG arriaga: PH in 7.5 range , pco2: 52, po2 :130 will continue nebs, added IV steroids back, give trial of lasix discussed with ICU- due to worsening of respiratory failure and increased work of breathing: patient may benefit from ICU level of care. 2. Pulmonary embolism:Established? on last admission; continue Eliquis . 3. Hypertension:?Continue amlodipine. 4. macrocytic anemia :iron studies-seems fine with low tibc and elevated ferritin , b12 and folate normal. h/h respond better than 1 prbc : h/h 9-10 range stable fobt positive continue ppi gi -workup ? Outpatient since patient has acute respiratory issue going on currently. 5.? Hypokalemia, borderline magnesium.: ? Repleted potassium po , iv magnesium, monitor electrolytes 6. rash in groinn area: possible canadial added nystatin power and lotramine cream ?Full code ?Eliquis Quality Stroke Does the patient have a stroke diagnosis?: No VTE Prior VTE?: No VTE Risk Level:: Medical - moderate - high VTE Device Contraindication: N/A - Device Ordered VTE Drug Contraindication: N/A - Med Ordered
[2021-02-22] MEDS: Albuterol/Iprat 2.5/0.5MG 3 ML AMPUL.NEB INHALE ×3 (07:44→15:52)
[2021-02-22 08:40] LABS: Anion Gap 10 (12-20); Blood Urea Nitrogen 16 mg/dL (9-16); Calcium 8.4 mg/dL (8.4-10.2); Carbon Dioxide 37 mmol/L (22-29); Chloride 97 mmol/L (96-108); Creatinine Clr Calc Pharmacy 83.2; Estimated Glomerular Filt Rate > 60; Glucose Random 90 mg/dL (60-115); Potassium 3.1 mmol/L (3.3-5.1); Sodium 141 mmol/L (135-145)
[2021-02-22 10:02] LABS: Venous Blood Gas Refer to POC result
[2021-02-22 10:03] LABS: VBG Base Excess 20.1 mmol/L; VBG HCO3 44 mmol/L (22-26); VBG pCO2 51 mmHg; VBG pH 7.55 (7.32-7.43); VBG pO2 60 mmHg
[2021-02-22 10:24] LABS: ABG Refer to POC result
[2021-02-22 10:25] LABS: ABG Base Excess 18.8 mmol/L; ABG HCO3 44 mmol/L (22-26); ABG pCO2 52 mmHg (32-45); ABG pH 7.52 (7.35-7.45); ABG pO2 130 mmHg (83-108)
[2021-02-22 11:12] LABS: Phosphorus 2.2 mg/dL (2.7-4.5)
[2021-02-22] MEDS: Atorvastatin Calcium 40 MG TABLET PO (11:13)
[2021-02-22] MEDS: Loratadine 10 MG TABLET PO (11:14)
[2021-02-22] MEDS: Pregabalin 50 MG CAPSULE PO (11:14)
[2021-02-22] MEDS: amLODIPine Besylate 5 MG TABLET PO (11:14)
[2021-02-22] MEDS: Apixaban 5 MG TABLET PO ×2 (11:15→22:48)
[2021-02-22] MEDS: Fluticasone Propionate Nasal 16 GM SPRAY 1 SPRAY NOSTRIL-B (11:15)
[2021-02-22] MEDS: methylPREDNISolone Sod Succ 40 MG/ML VIAL IVPUSH (11:21)
[2021-02-22] MEDS: Potassium Chloride Packet 20 MEQ PACKET 40 MEQ PO (11:22)
--- NOTE | 2021-02-22 12:22 | MHC.CLN ---
RE: CONSULT PT WITH INCREASED NUTRITION RISK R/T PRESSURE INJURIES PO INTAKE 50-100% VARIABLE AT TIMES DIET RX: REGULAR-APPROPRIATE PT RECEIVING ENSURE BID TO PROVIDE 700KCALS, 23GPROTEIN TO PROMOTE WOUND HEALING MONITOR PO INTAKE CLOSELY SEE ALSO CLINICAL NUTRITION ASSESSMENT
--- NOTE | 2021-02-22 12:46 | P.PNCC_ITS ---
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 She has been treated empirically for pneumonia and congestive heart failure exacerbation. Her hospital course is significant for worsening hypoxemia Likely secondary to an acute pneumonitis from her chemotherapy and/or lymphangitic spread of her underlying cancer. His FiO2 requirements prog ressively worsened and she required transfer to intensive care unit on 02/22/2021. Critical Care Time (minutes): 60 Physical Exam Vital Signs: Vital Signs: Last Vital Signs Temp 98.2 F 02/22/21 11:42 Pulse 105 H 02/22/21 12:11 Resp 26 H 02/22/21 12:00 BP 156/93 H 02/22/21 12:00 Pulse Ox 94 02/22/21 12:00 Oxygen Flow Rate 7 02/12/21 22:57 BMI result Body Mass Index 28.4 Const: General: no acute distress, alert and awake Eyes: Sclerae: sclerae normal EOM: EOMs intact bilaterally Neck: Neck: Yes no lymphadenopathy, Yes trachea midline and Yes supple Resp: Effort & Inspection: normal respiratory effort and no respiratory distress Auscultation: crackles ( Diffuse bilateral) Cardio: Rate: regular rate Rhythm: regular rhythm Heart sounds: no gallops, no murmurs and no rubs GI: Palpation (GI): Soft to palpation and Other GI palpation findings present ( Nontender) Auscultation: normal bowel sounds Extrem: General: No clubbing, No cyanosis and Yes pedal edema ( 1+ bilateral) Objective Data Labs CBC & Chem 7: 02/21/21 05:56 02/22/21 08:06 Labs: Laboratory Results - last 24 hr 02/14/21 02/21/21 02/22/21 13:50 05:56 08:06 O2 Saturation ABG pH at Pt Temp ABG pCO2 at Pt Temp ABG pO2 at Pt Temp ABG HCO3 ABG Base Excess (Actual) VBG pH VBG pCO2 VBG pO2 VBG HCO3 VBG O2 Saturation VBG Base Excess Sodium 141 Potassium 3.1 L Chloride 97 Carbon Dioxide 37 H Anion Gap 10 L BUN 16 Creatinine 0.62 Estim Creat Clear Calc 83.2 Estimated GFR > 60 Random Glucose 90 Calcium 8.4 Phosphorus 2.2 L Magnesium 1.5 L [place] Serum IgG Ab NEGATIVE Saccharo. viridis Ab NEGATIVE T. candidus Antibody NEGATIVE T. vulgaris 1 Antibody NEGATIVE Aspergill fumigatus Ab NEGATIVE Micropolyspora faeni Ab NEGATIVE 02/22/21 02/22/21 09:58 10:20 O2 Saturation 99.0 ABG pH at Pt Temp 7.52 H ABG pCO2 at Pt Temp 52 H ABG pO2 at Pt Temp 130 H ABG HCO3 44 H ABG Base Excess (Actual) 18.8 VBG pH 7.55 H VBG pCO2 51 VBG pO2 60 VBG HCO3 44 H VBG O2 Saturation 90.0 VBG Base Excess 20.1 Sodium Potassium Chloride Carbon Dioxide Anion Gap BUN Creatinine Estim Creat Clear Calc Estimated GFR Random Glucose Calcium Phosphorus Magnesium [place] Serum IgG Ab Saccharo. viridis Ab T. candidus Antibody T. vulgaris 1 Antibody Aspergill fumigatus Ab Micropolyspora faeni Ab Microbiology Microbiology Results: Microbiology 02/13/21 00:45 Blood - Venous Blood Culture - Final No growth after 5 days. 02/13/21 00:55 Blood - Venous Blood Culture - Final No growth after 5 days. 02/14/21 09:00 Sputum - Expectorated Gram Stain - Final 02/14/21 09:00 Sputum - Expectorated Sputum Culture - Final 02/13/21 08:46 Sputum - Expectorated Gram Stain - Final 02/13/21 08:46 Sputum - Expectorated Sputum Culture - Final Progress Note: A&P Assessment and plan (1) Cardiomyopathy: Status: Acute (2) Acute and chronic respiratory failure with hypoxia: Status: Acute (3) Pneumonitis: Status: Acute (4) Triple negative malignant neoplasm of breast: Status: Acute (5) COPD (chronic obstructive pulmonary disease): Status: Acute Assessment and Plan: Assessment: 75-year-old lady with underlying breast cancer on chemotherapy and combined chronic systolic and diastolic dysfunction, supplemental oxygen dependent, admitted with worsening dyspnea Plan: Neuro: No acute issues. Cardiac: underlying chronic combined systolic and diastolic congestive heart failure. Continue to maintain euvolemia. Pulmonary: acute on chronic hypoxic respiratory failure with CT chest suggestive of pneumonitis versus as lymphangitic spread of underlying cancer. Will obtain induced sputum for cytology. Will repeat CT chest, If significant progression of infiltrates will be noted, will consider high-dose Solu-Medrol therapy. Subsegmental pulmonary emboli are unlikely an etiology for her worsening dyspnea. Renal: No acute issues. Endo: No acute issues. GI: No acute issues. ID: cultures are negative today, no evidence of an acute infection. Heme/Onc: No acute issues. Psych: No acute issues. Miscellaneous: No acute issues. Prophylaxis: Eliquis Diet: regular Critical care time spent: 60 minutes Quality Stroke Does the patient have a stroke diagnosis?: No VTE Prior VTE?: No VTE Risk Level:: Medical - moderate - high VTE Device Contraindication: N/A - Device Ordered VTE Drug Contraindication: N/A - Med Ordered
[2021-02-22] MEDS: Nystatin Powder 15 GM BOTTLE 1 APPL TOPICAL ×2 (12:47→22:48)
[2021-02-22] MEDS: fentaNYL citrate/PF 100 MCG/2 ML VIAL 25 MCG IVPUSH (12:48)
[2021-02-22] MEDS: Magnesium Sulfate/H2O 2 GM/50 ML PIGGYBACK IV (12:50)
[2021-02-22] MEDS: Potassium Phosphate 30 MMOL in 0.9 % Sodium Chloride 500 ML 85 MMOL IV (13:06)
[2021-02-22] MEDS: methylPREDNISolone Sod Succ 125 MG/2 ML VIAL 250 MG IVPUSH ×2 (15:40→22:47)
[2021-02-22] MEDS: Sodium Chloride 3 % Inhalation 4 ML VIAL.NEB INHALE (15:52)
[2021-02-22] MEDS: Furosemide 20 MG/2 ML VIAL IVPUSH (18:23)
[2021-02-22] MEDS: traZODone HCL 100 MG TABLET PO (22:48)
[2021-02-23] VITALS (28 sets, daily range): BP systolic 129–174; BP diastolic 71–111; PULSE 72–104; RESP 10–24; TEMP 36.4–36.8; O2SAT 68–100
[2021-02-23] MEDS: methylPREDNISolone Sod Succ 125 MG/2 ML VIAL 250 MG IVPUSH ×4 (03:10→20:46)
[2021-02-23 05:39] LABS: VBG Base Excess 25.7 mmol/L; VBG HCO3 53 mmol/L (22-26); VBG pCO2 72 mmHg; VBG pH 7.47 (7.32-7.43); VBG pO2 43 mmHg
[2021-02-23 05:45] LABS: Venous Blood Gas Refer to POC result
[2021-02-23] MEDS: Omeprazole 20 MG CAPSULE.DR PO ×2 (05:50→16:45)
[2021-02-23 06:00] LABS: MANUAL DIFF FLAG NO
[2021-02-23 06:06] LABS: Hematocrit 27.1 % (37.0-47.0); Hemoglobin 8.7 g/dl (12.0-16.0); Imm Gran Abs Auto 0.17 X10*3/uL (0.00-0.03); Imm Gran Pct Auto 3.3 % (0.0-0.4); Lymphocytes Absolute Auto 0.3 X10*3/uL (1.2-4.9); Mean Corpuscular HGB Conc 32.1 g/dl (31.0-35.0); Mean Corpuscular Hemoglobin 29.8 pg (27.0-33.0); Mean Corpuscular Volume 92.8 fL (80.0-98.0); Mean Platelet Volume 9.1 fL (9.4-12.3); Monocytes Absolute Auto 0.1 X10*3/uL (0.1-1.2); Neutrophils Absolute Auto 4.6 x10*3/uL (2.0-8.3); Neutrophils Percent Auto 89.7 % (45-73); Platelet Count 148 X10*3/uL (160-400); Red Blood Count 2.92 X10*6/uL (4.20-5.50); Red Cell Distribution Width 17.2 % (11.0-16.0); White Blood Count 5.2 X10*3/uL (4.8-10.8)
[2021-02-23 06:44] LABS: Albumin Level 2.5 g/dL (3.5-5.0); Anion Gap 11 (12-20); Blood Urea Nitrogen 18 mg/dL (9-16); Calcium 7.7 mg/dL (8.4-10.2); Carbon Dioxide 38 mmol/L (22-29); Chloride 95 mmol/L (96-108); Creatinine Clr Calc Pharmacy 79.3; Estimated Glomerular Filt Rate > 60; Glucose Random 176 mg/dL (60-115); Magnesium 1.8 mg/dL (1.6-2.6); Phosphorus 4.1 mg/dL (2.7-4.5); Potassium 4.3 mmol/L (3.3-5.1); Sodium 140 mmol/L (135-145)
[2021-02-23] MEDS: Albuterol/Iprat 2.5/0.5MG 3 ML AMPUL.NEB INHALE ×4 (08:52→21:01)
[2021-02-23] MEDS: Albumin Human 25 % 100 ML IV ×3 (08:54→20:45)
[2021-02-23] MEDS: Magnesium Sulfate/H2O 2 GM/50 ML PIGGYBACK IV (08:54)
[2021-02-23] MEDS: acetaZOLAMIDE sodium 500 MG VIAL 250 MG IVPUSH ×2 (08:55→20:47)
[2021-02-23] MEDS: Furosemide 20 MG/2 ML VIAL IVPUSH ×2 (08:56→16:45)
[2021-02-23] MEDS: amLODIPine Besylate 5 MG TABLET PO (08:56)
[2021-02-23] MEDS: Apixaban 5 MG TABLET PO ×2 (08:56→20:47)
[2021-02-23] MEDS: Atorvastatin Calcium 40 MG TABLET PO (08:56)
[2021-02-23] MEDS: Pregabalin 50 MG CAPSULE PO (08:56)
[2021-02-23] MEDS: Fluticasone Propionate Nasal 16 GM SPRAY 1 SPRAY NOSTRIL-B (08:58)
[2021-02-23] MEDS: Nystatin Powder 15 GM BOTTLE 1 APPL TOPICAL ×2 (08:58→20:47)
[2021-02-23] MEDS: fentaNYL citrate/PF 100 MCG/2 ML VIAL 25 MCG IVPUSH ×2 (10:22→16:54)
--- NOTE | 2021-02-23 11:51 | P.PNCC_ITS ---
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 She has been treated empirically for pneumonia and congestive heart failure exacerbation. Her hospital course is significant for worsening hypoxemia Likely secondary to an acute pneumonitis from her chemotherapy and/or lymphangitic spread of her underlying cancer. His FiO2 requirements progressively worsened and she required transfer to intensive care unit on 02/22/2021. No events overnight. Oxygen requirements are without significant changes. Critical Care Time (minutes): 45 Physical Exam Vital Signs: Vital Signs: Last Vital Signs Temp 98.3 F 02/23/21 10:00 Pulse 87 02/23/21 11:27 Resp 16 02/23/21 11:00 BP 162/88 H 02/23/21 11:00 Pulse Ox 96 02/23/21 11:00 Oxygen Flow Rate 7 02/12/21 22:57 BMI result Body Mass Index 28.4 Const: General: no acute distress, alert and awake Eyes: Sclerae: sclerae normal EOM: EOMs intact bilaterally Neck: Neck: Yes no lymphadenopathy, Yes trachea midline and Yes supple Resp: Effort & Inspection: normal respiratory effort and no respiratory distress Auscultation: crackles ( Diffuse bilateral) Cardio: Rate: regular rate Rhythm: regular rhythm Heart sounds: no gallops, no murmurs and no rubs GI: Palpation (GI): Soft to palpation and Other GI palpation findings present ( Nontender) Auscultation: normal bowel sounds Extrem: General: No clubbing, No cyanosis and Yes pedal edema ( 2+ bilateral) Objective Data Labs CBC & Chem 7: 02/23/21 05:28 02/23/21 05:28 Labs: Laboratory Results - last 24 hr 02/23/21 02/23/21 02/23/21 05:28 05:28 05:34 WBC 5.2 RBC 2.92 L Hgb 8.7 L Hct 27.1 L MCV 92.8 MCH 29.8 MCHC 32.1 RDW 17.2 H Plt Count 148 L MPV 9.1 L Immature Gran % (Auto) 3.3 H Neut % (Auto) 89.7 H Lymph % (Auto) 6.0 L [place] % (Auto) 1.0 L Eos % (Auto) 0.0 Baso % (Auto) 0.0 Lymph # (Auto) 0.3 L [place] # (Auto) 0.1 Eos # (Auto) 0.0 Baso # (Auto) 0.0 Abs Immat Gran (auto) 0.17 H Absolute Neuts (auto) 4.6 Absolute Nucleated RBC 0.000 Nucleated RBC % (auto) 0.0 VBG pH 7.47 H VBG pCO2 72 VBG pO2 43 VBG HCO3 53 H VBG O2 Saturation 69.0 VBG Base Excess 25.7 Sodium 140 Potassium 4.3 D Chloride 95 L Carbon Dioxide 38 H Anion Gap 11 L BUN 18 H Creatinine 0.65 Estim Creat Clear Calc 79.3 Estimated GFR > 60 Random Glucose 176 H Calcium 7.7 L D Phosphorus 4.1 Magnesium 1.8 Albumin 2.5 L Microbiology Microbiology Results: Microbiology 02/13/21 00:45 Blood - Venous Blood Culture - Final No growth after 5 days. 02/13/21 00:55 Blood - Venous Blood Culture - Final No growth after 5 days. 02/14/21 09:00 Sputum - Expectorated Gram Stain - Final 02/14/21 09:00 Sputum - Expectorated Sputum Culture - Final 02/13/21 08:46 Sputum - Expectorated Gram Stain - Final 02/13/21 08:46 Sputum - Expectorated Sputum Culture - Final Progress Note: A&P Assessment and plan (1) Pneumonitis: Status: Acute (2) Acute and chronic respiratory failure with hypoxia: Status: Acute (3) Pulmonary embolism: Status: Acute (4) Cardiomyopathy: Status: Acute (5) Triple negative malignant neoplasm of breast: Status: Acute (6) COPD (chronic obstructive pulmonary disease): Status: Acute Assessment and Plan: Assessment: 75-year-old lady with underlying breast cancer on chemotherapy and combined chronic systolic and diastolic dysfunction, supplemental oxygen depen dent, admitted with worsening dyspnea Plan: Neuro: No acute issues. Cardiac: Underlying chronic combined systolic and diastolic congestive heart failure. Will increase the diuretic regimen. Pulmonary: Acute on chronic hypoxic respiratory failure with follow-up CT chest suggestive of worsening pneumonitis versus lymphangitic spread of underlying cancer. Will obtain induced sputum for cytology. Subsegmental pulmonary emboli are unlikely an etiology for her worsening dyspnea. will proce ed with high-dose Solu-Medrol 1 g for 3 days. continue to titrate off supplemental oxygen as tolerated. Renal: No acute issues. Endo: No acute issues. GI: No acute issues. ID: Cultures are negative today, no evidence of an acute infection. Heme/Onc: No acute issues. Psych: No acute issues. Miscellaneous: No acute issues. Prophylaxis: Eliquis Diet: regular Critical care time spent: 45 minutes Quality Stroke Does the patient have a stroke diagnosis?: No VTE Prior VTE?: No VTE Risk Level:: Medical - moderate - high VTE Device Contraindication: N/A - Device Ordered VTE Drug Contraindication: N/A - Med Ordered
--- NOTE | 2021-02-23 13:28 | MHC.CM.PN ---
Pt transferred to ICU for increasing O2 demand: Pt now on HF and NRB: HCP on file: d/c plan was for a return to home with family and VNA support vs STR: No STR referrals made at this time as her prognosis and plan of care is too guarded at this time. CM to follow
[2021-02-23] MEDS: traZODone HCL 100 MG TABLET PO (20:47)
[2021-02-24] VITALS (30 sets, daily range): BP systolic 131–165; BP diastolic 64–93; PULSE 64–96; RESP 10–25; TEMP 36.2–36.4; O2SAT 88–100
[2021-02-24] MEDS: Albumin Human 25 % 100 ML IV (02:51)
[2021-02-24] MEDS: methylPREDNISolone Sod Succ 125 MG/2 ML VIAL 250 MG IVPUSH ×4 (02:51→22:19)
[2021-02-24 05:36] LABS: VBG Base Excess 17.2 mmol/L; VBG HCO3 43 mmol/L (22-26); VBG pCO2 63 mmHg; VBG pH 7.44 (7.32-7.43); VBG pO2 52 mmHg
[2021-02-24 05:42] LABS: Venous Blood Gas Refer to POC result
[2021-02-24 06:02] LABS: Basophils Percent Auto 0.2 % (0-2); Hematocrit 22.5 % (37.0-47.0); Hemoglobin 7.2 g/dl (12.0-16.0); Imm Gran Abs Auto 0.11 X10*3/uL (0.00-0.03); Imm Gran Pct Auto 1.7 % (0.0-0.4); Lymphocytes Absolute Auto 0.3 X10*3/uL (1.2-4.9); Lymphocytes Percent Auto 4.5 % (20-40); MANUAL DIFF FLAG SCAN; Mean Corpuscular Hemoglobin 29.8 pg (27.0-33.0); Mean Platelet Volume 9.5 fL (9.4-12.3); Monocytes Absolute Auto 0.1 X10*3/uL (0.1-1.2); Monocytes Percent Auto 1.7 % (2-11); Neutrophils Absolute Auto 5.9 x10*3/uL (2.0-8.3); Neutrophils Percent Auto 91.9 % (45-73); Platelet Count 136 X10*3/uL (160-400); Red Blood Count 2.42 X10*6/uL (4.20-5.50); Red Cell Distribution Width 16.6 % (11.0-16.0); SCAN SMEAR FLAG 1; White Blood Count 6.4 X10*3/uL (4.8-10.8)
[2021-02-24 06:09] LABS: Albumin Level 3.9 g/dL (3.5-5.0); Anion Gap 10 (12-20); Blood Urea Nitrogen 18 mg/dL (9-16); Calcium 8.8 mg/dL (8.4-10.2); Carbon Dioxide 36 mmol/L (22-29); Chloride 97 mmol/L (96-108); Creatinine Clr Calc Pharmacy 73.7; Estimated Glomerular Filt Rate > 60; Glucose Random 186 mg/dL (60-115); Magnesium 2.1 mg/dL (1.6-2.6); Phosphorus 3.3 mg/dL (2.7-4.5); Potassium 2.9 mmol/L (3.3-5.1); Sodium 140 mmol/L (135-145)
[2021-02-24 06:29] LABS: SLIDE REVIEW VERIFIED
[2021-02-24] MEDS: Potassium Chloride Packet 20 MEQ PACKET 40 MEQ PO ×4 (07:45→22:16)
[2021-02-24] MEDS: acetaZOLAMIDE sodium 500 MG VIAL 250 MG IVPUSH ×2 (07:55→22:20)
[2021-02-24] MEDS: Potassium Chloride/H20 10 MEQ/100 ML PIGGYBACK 100 MEQ IV ×4 (07:57→12:07)
[2021-02-24] MEDS: Albuterol/Iprat 2.5/0.5MG 3 ML AMPUL.NEB INHALE ×4 (08:08→19:54)
[2021-02-24] MEDS: Pregabalin 50 MG CAPSULE PO (08:09)
[2021-02-24] MEDS: Apixaban 5 MG TABLET PO ×2 (08:09→22:17)
[2021-02-24] MEDS: Omeprazole 20 MG CAPSULE.DR PO ×2 (08:09→15:03)
[2021-02-24] MEDS: Atorvastatin Calcium 40 MG TABLET PO (08:11)
[2021-02-24] MEDS: amLODIPine Besylate 5 MG TABLET PO (08:11)
[2021-02-24] MEDS: Furosemide 20 MG/2 ML VIAL 40 MG IVPUSH ×2 (08:21→17:31)
[2021-02-24] MEDS: Sodium Chloride 0.65 % Nasal 44 ML SPRBTL 1 SPRAY NOSTRIL-B (08:25)
[2021-02-24] MEDS: fentaNYL citrate/PF 100 MCG/2 ML VIAL 25 MCG IVPUSH ×2 (08:30→22:19)
[2021-02-24] MEDS: Sodium Chloride 3 % Inhalation 15 ML VIAL.NEB 4 ML INHALE (09:19)
[2021-02-24] MEDS: Nystatin Powder 15 GM BOTTLE 1 APPL TOPICAL ×2 (10:10→22:20)
[2021-02-24] MEDS: Fluticasone Propionate Nasal 16 GM SPRAY 1 SPRAY NOSTRIL-B (10:10)
--- NOTE | 2021-02-24 10:26 | MHC.CLN ---
F/U PO INTAKE REMAINS VARIABLE AT TIMES DIET RX: REGULAR-APPROPRIATE PT RECEIVING ENSURE BID TO PROVIDE 700KCALS, 23GPROTEIN TO PROMOTE WOUND HEALING MONITOR PO INTAKE CLOSELY
--- NOTE | 2021-02-24 11:34 | P.PNCC_ITS ---
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 She has been treated empirically for pneumonia and congestive heart failure exacerbation. Her hospital course is significant for worsening hypoxemia Likely secondary to an acute pneumonitis from her chemotherapy and/or lymphangitic spread of her underlying cancer. His FiO2 requirements progressively worsened and she required transfer to intensive care unit on 02/22/2021. No events overnight. Oxygen requirements down to 9 L. Critical Care Time (minutes): 30 Physical Exam Vital Signs: Vital Signs: Last Vital Signs Temp 97.4 F 02/24/21 08:00 Pulse 80 02/24/21 11:00 Resp 18 02/24/21 11:00 BP 142/64 H 02/24/21 11:00 Pulse Ox 94 02/24/21 11:00 Oxygen Flow Rate 7 02/12/21 22:57 BMI result Body Mass Index 28.4 Const: General: no acute distress, alert, awake and other ( anasarca) Eyes: Sclerae: sclerae normal EOM: EOMs intact bilaterally Neck: Neck: Yes no lymphadenopathy, Yes trachea midline and Yes supple Resp: Effort & Inspection: normal respiratory effort and no respiratory distress Auscultation: clear to auscultation bilaterally Cardio: Rate: regular rate Rhythm: regular rhythm Heart sounds: no gallops, no murmurs and no rubs GI: Palpation (GI): Soft to palpation and Other GI palpation findings present ( Nontender) Auscultation: normal bowel sounds Extrem: General: Yes no pedal edema, No clubbing and No cyanosis Objective Data Labs CBC & Chem 7: 02/24/21 05:31 02/24/21 05:31 Labs: Laboratory Results - last 24 hr 02/24/21 02/24/21 02/24/21 05:30 05:31 05:31 WBC 6.4 RBC 2.42 L Hgb 7.2 L Hct 22.5 L MCV 93.0 MCH 29.8 MCHC 32.0 RDW 16.6 H Plt Count 136 L MPV 9.5 Immature Gran % (Auto) 1.7 H Neut % (Auto) 91.9 H Lymph % (Auto) 4.5 L [place] % (Auto) 1.7 L Eos % (Auto) 0.0 Baso % (Auto) 0.2 Lymph # (Auto) 0.3 L [place] # (Auto) 0.1 Eos # (Auto) 0.0 Baso # (Auto) 0.0 Abs Immat Gran (auto) 0.11 H Absolute Neuts (auto) 5.9 Absolute Nucleated RBC 0.000 Nucleated RBC % (auto) 0.0 Smear Tech's Comments VERIFIED VBG pH 7.44 H VBG pCO2 63 VBG pO2 52 VBG HCO3 43 H VBG O2 Saturation 83.0 VBG Base Excess 17.2 Sodium 140 Potassium 2.9 L D Chloride 97 Carbon Dioxide 36 H Anion Gap 10 L BUN 18 H Creatinine 0.70 Estim Creat Clear Calc 73.7 Estimated GFR > 60 Random Glucose 186 H Calcium 8.8 D Phosphorus 3.3 Magnesium 2.1 Albumin 3.9 D Microbiology Microbiology Results: Microbiology 02/13/21 00:45 Blood - Venous Blood Culture - Final No growth after 5 days. 02/13/21 00:55 Blood - Venous Blood Culture - Final No growth after 5 days. 02/14/21 09:00 Sputum - Expectorated Gram Stain - Final 02/14/21 09:00 Sputum - Expectorated Sputum Culture - Final 02/13/21 08:46 Sputum - Expectorated Gram Stain - Final 02/13/21 08:46 Sputum - Expectorated Sputum Culture - Final Progress Note: A&P Assessment and plan (1) Pneumonitis: Status: Acute (2) Acute and chronic respiratory failure with hypoxia: Status: Acute (3) Pulmonary embolism: Status: Acute (4) Triple negative malignant neoplasm of breast: Status: Acute (5) COPD (chronic obstructive pulmonary disease): Status: Acute (6) Cardiomyopathy: Status: Acute Assessment and Plan: Assessment: 75-year-old lady with underlying breast cancer on chemotherapy and combined chronic systolic and diastolic dysfunction, supplemental oxygen dependent, admitted with worsening dyspnea Plan: Neuro: No acute issues. Cardiac: Underlying chronic combined systolic and diastolic congestive heart failure. Continue with diuresis. Pulmonary: Acute on chronic hypoxic respiratory failure with follow-up CT chest suggestive of worsening pneumonitis versus lymphangitic spread of underlying cancer. Will obtain induced sputum for cytology. Subsegmental pulmonary emboli are unlikely an etiology for her worsening dyspnea. Continues on Solu-Medrol 1 g day 2/3. May consider rituximab, if no significant improvement with glucocorticoids. Continue to titrate off supplemental oxygen as tolerated. Renal: No acute issues. Endo: No acute issues. GI: No acute issues. ID: Cultures are negative today, no evidence of an acute infection. Heme/Onc: No acute issues. Psych: No acute issues. Miscellaneous: No acute issues. Prophylaxis: Eliquis Diet: regular Critical care time spent: 30 minutes Quality Stroke Does the patient have a stroke diagnosis?: No VTE Prior VTE?: No VTE Risk Level:: Medical - moderate - high VTE Device Contraindication: N/A - Device Ordered VTE Drug Contraindication: N/A - Med Ordered
--- NOTE | 2021-02-24 16:09 | MHC.CM.PN ---
Pt now on high flow O2 d/t worsening respiratory functioning. Unsure of d/c needs at this time: will await improvement in condition and discuss options with pt and family.
[2021-02-24 19:40] LABS: Anion Gap 14 (12-20); Blood Urea Nitrogen 20 mg/dL (9-16); Calcium 8.9 mg/dL (8.4-10.2); Carbon Dioxide 33 mmol/L (22-29); Chloride 96 mmol/L (96-108); Creatinine Clr Calc Pharmacy 62.9; Estimated Glomerular Filt Rate > 60; Glucose Random 261 mg/dL (60-115); Potassium 3.3 mmol/L (3.3-5.1); Sodium 140 mmol/L (135-145)
[2021-02-24] MEDS: traZODone HCL 100 MG TABLET PO (22:17)
[2021-02-24] MEDS: Albuterol Sulfate (0.083%) 2.5 MG/3 ML VIAL.NEB INHALE (22:23)
[2021-02-25] VITALS (31 sets, daily range): BP systolic 121–173; BP diastolic 59–122; PULSE 72–103; RESP 12–25; TEMP 36.6–37.5; O2SAT 86–100
[2021-02-25] MEDS: methylPREDNISolone Sod Succ 125 MG/2 ML VIAL 250 MG IVPUSH ×4 (02:30→21:23)
[2021-02-25 05:33] LABS: VBG Base Excess 13.1 mmol/L; VBG HCO3 39 mmol/L (22-26); VBG pCO2 57 mmHg; VBG pH 7.43 (7.32-7.43); VBG pO2 51 mmHg
[2021-02-25 05:42] LABS: Venous Blood Gas Refer to POC result
[2021-02-25 05:50] LABS: Hematocrit 25.6 % (37.0-47.0); Hemoglobin 8.1 g/dl (12.0-16.0); Imm Gran Abs Auto 0.14 X10*3/uL (0.00-0.03); Imm Gran Pct Auto 1.7 % (0.0-0.4); Lymphocytes Absolute Auto 0.2 X10*3/uL (1.2-4.9); Lymphocytes Percent Auto 2.1 % (20-40); MANUAL DIFF FLAG SCAN; Mean Corpuscular HGB Conc 31.6 g/dl (31.0-35.0); Mean Corpuscular Hemoglobin 29.6 pg (27.0-33.0); Mean Corpuscular Volume 93.4 fL (80.0-98.0); Mean Platelet Volume 9.2 fL (9.4-12.3); Monocytes Absolute Auto 0.1 X10*3/uL (0.1-1.2); Monocytes Percent Auto 1.5 % (2-11); Neutrophils Absolute Auto 7.7 x10*3/uL (2.0-8.3); Neutrophils Percent Auto 94.7 % (45-73); Platelet Count 170 X10*3/uL (160-400); Red Blood Count 2.74 X10*6/uL (4.20-5.50); Red Cell Distribution Width 16.5 % (11.0-16.0); SCAN SMEAR FLAG 1; White Blood Count 8.1 X10*3/uL (4.8-10.8)
[2021-02-25 06:05] LABS: Alanine Aminotransferase 28 U/L (0-31); Albumin Level 3.8 g/dL (3.5-5.0); Alkaline Phosphatase 84 U/L (39-117); Anion Gap 11 (12-20); Aspartate Amino Transferase 15 U/L (5-31); Bilirubin Total 1.1 mg/dL (0.0-1.0); Blood Urea Nitrogen 22 mg/dL (9-16); Calcium 8.8 mg/dL (8.4-10.2); Carbon Dioxide 33 mmol/L (22-29); Chloride 100 mmol/L (96-108); Creatinine Clr Calc Pharmacy 69.7; Estimated Glomerular Filt Rate > 60; Glucose Random 210 mg/dL (60-115); Magnesium 1.8 mg/dL (1.6-2.6); Phosphorus 2.3 mg/dL (2.7-4.5); Potassium 3.5 mmol/L (3.3-5.1); Sodium 140 mmol/L (135-145); Total Protein 5.8 g/dL (6.5-8.0)
[2021-02-25 06:18] LABS: SLIDE REVIEW VERIFIED
--- NOTE | 2021-02-25 06:24 | MHC.PIE ---
Shift eval 7p-7a: patient initially on 8 liters philip - tolerating very well. Putting out >1 liter of urine 7p-11p (received lasix earlier), Patient then had sudden episode of SOB, O2sat staying in low 80's. NRB put back on, PRN fentanyl given - Patient recovered to >90%. Patient refused to take off NRB until 6am - Patient put back on philip 8 liters. Fine crackles heard left lower base. No distress at this time - fentanyl helped RR improve and patient relax.
[2021-02-25] MEDS: Albuterol/Iprat 2.5/0.5MG 3 ML AMPUL.NEB INHALE ×3 (08:00→19:25)
[2021-02-25] MEDS: acetaZOLAMIDE sodium 500 MG VIAL 250 MG IVPUSH ×2 (08:43→21:23)
[2021-02-25] MEDS: Furosemide 20 MG/2 ML VIAL 40 MG IVPUSH ×2 (08:47→18:43)
[2021-02-25] MEDS: Nystatin Powder 15 GM BOTTLE 1 APPL TOPICAL ×2 (08:49→20:29)
[2021-02-25] MEDS: amLODIPine Besylate 5 MG TABLET PO (08:54)
[2021-02-25] MEDS: Potassium Chloride Packet 20 MEQ PACKET 40 MEQ PO ×2 (08:54→19:23)
[2021-02-25] MEDS: Sodium,Potassium Phosphates POWD.PACK 2 PACKET PO ×2 (08:54)
[2021-02-25] MEDS: Apixaban 5 MG TABLET PO ×2 (08:55→20:28)
[2021-02-25] MEDS: Atorvastatin Calcium 40 MG TABLET PO (08:55)
[2021-02-25] MEDS: Pregabalin 50 MG CAPSULE PO (08:56)
[2021-02-25] MEDS: Fluticasone Propionate Nasal 16 GM SPRAY 1 SPRAY NOSTRIL-B (09:02)
--- NOTE | 2021-02-25 09:58 | MHC.CM.PN ---
Pt remains in ICU on [place] O2 at 6 liters: pt continues to diurese: VBG's are improved: plan is to continue respiratory care and possibly transfer pt to C on 02/26 if her O2 needs allow. Pt 's d/c plan was for a return to home with family and VNA vs STR - functional abilities will need to be formally assessed for finalization of plans
--- NOTE | 2021-02-25 13:38 | PM.CCPN ---
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 She has been treated empirically for pneumonia and congestive heart failure exacerbation. Her hospital course is significant for worsening hypoxemia Likely secondary to an acute pneumonitis from her chemotherapy and/or lymphangitic spread of her underlying cancer. His FiO2 requirements progressively worsened and she required transfer to intensive care unit on 02/22/2021. Patient was treated with high-dose Solu-Medrol 1 g for 3 days and diuresis with some improvement in her oxygenation, but not yet at baseline. No events overnight. Oxygen requirements down to 6 L. Critical Care Time (minutes): 45 Physical Exam Vital Signs: Vital Signs: Last Vital Signs Temp 99.1 F 02/25/21 13:00 Pulse 99 02/25/21 13:00 Resp 25 H 02/25/21 13:00 BP 153/75 H 02/25/21 13:00 Pulse Ox 88 L 02/25/21 13:00 Oxygen Flow Rate 7 02/12/21 22:57 BMI result Body Mass Index 28.4 Const: General: no acute distress, alert and awake Eyes: Sclerae: sclerae normal EOM: EOMs intact bilaterally Neck: Neck: Yes no lymphadenopathy, Yes trachea midline and Yes supple Resp: Effort & Inspection: normal respiratory effort and no respiratory distress Auscultation: clear to auscultation bilaterally Cardio: Rate: regular rate Rhythm: regular rhythm Heart sounds: no gallops, no murmurs and no rubs GI: Palpation (GI): Soft to palpation and Other GI palpation findings present ( Nontender) Auscultation: normal bowel sounds Extrem: General: No clubbing, No cyanosis and Yes pedal edema ( Trace bilateral) Objective Data Labs CBC & Chem 7: 02/25/21 05:21 02/25/21 05:21 Labs: Laboratory Results - last 24 hr 02/24/21 02/25/21 02/25/21 19:14 05:21 05:21 WBC 8.1 RBC 2.74 L Hgb 8.1 L Hct 25.6 L MCV 93.4 MCH 29.6 MCHC 31.6 RDW 16.5 H Plt Count 170 MPV 9.2 L Immature Gran % (Auto) 1.7 H Neut % (Auto) 94.7 H Lymph % (Auto) 2.1 L [place] % (Auto) 1.5 L Eos % (Auto) 0.0 Baso % (Auto) 0.0 Lymph # (Auto) 0.2 L [place] # (Auto) 0.1 Eos # (Auto) 0.0 Baso # (Auto) 0.0 Abs Immat Gran (auto) 0.14 H Absolute Neuts (auto) 7.7 Absolute Nucleated RBC 0.000 Nucleated RBC % (auto) 0.0 Smear Tech's Comments VERIFIED VBG pH VBG pCO2 VBG pO2 VBG HCO3 VBG O2 Saturation VBG Base Excess Sodium 140 140 Potassium 3.3 3.5 Chloride 96 100 Carbon Dioxide 33 H 33 H Anion Gap 14 11 L BUN 20 H 22 H Creatinine 0.82 0.74 Estim Creat Clear Calc 62.9 69.7 Estimated GFR > 60 > 60 Random Glucose 261 H 210 H Calcium 8.9 8.8 Phosphorus 2.3 L Magnesium 1.8 Total Bilirubin 1.1 H AST 15 ALT 28 Alkaline Phosphatase 84 Total Protein 5.8 L Albumin 3.8 02/25/21 05:26 WBC RBC Hgb Hct MCV MCH MCHC RDW Plt Count MPV Immature Gran % (Auto) Neut % (Auto) Lymph % (Auto) [place] % (Auto) Eos % (Auto) Baso % (Auto) Lymph # (Auto) [place] # (Auto) Eos # (Auto) Baso # (Auto) Abs Immat Gran (auto) Absolute Neuts (auto) Absolute Nucleated RBC Nucleated RBC % (auto) Smear Tech's Comments VBG pH 7.43 VBG pCO2 57 VBG pO2 51 VBG HCO3 39 H VBG O2 Saturation 80.0 VBG Base Excess 13.1 Sodium Potassium Chloride Carbon Dioxide Anion Gap BUN Creatinine Estim Creat Clear Calc Estimated GFR Random Glucose Calcium Phosphorus Magnesium Total Bilirubin AST ALT Alkaline Phosphatase Total Protein Albumin Microbiology Microbiology Results: Microbiology 02/13/21 00:45 Blood - Venous Blood Culture - Final No growth after 5 days. 02/13/21 00:55 Blood - Venous Blood Culture - Final No growth after 5 days. 02/14/21 09:00 Sputum - Expectorated Gram Stain - Final 02/14/21 09:00 Sputum - Expectorated Sputum Culture - Final 02/13/21 08:46 Sputum - Expectorated Gram Stain - Final 02/13/21 08:46 Sputum - Expectorated Sputum Culture - Final Progress Note: A&P Assessment and plan (1) Pneumonitis: Status: Acute (2) Acute and chronic respiratory failure with hypoxia: Status: Acute (3) Pulmonary embolism: Status: Acute (4) Cardiomyopathy: Status: Acute (5) MGUS (monoclonal gammopathy of unknown significance): Status: Acute (6) Triple negative malignant neoplasm of breast: Status: Acute Assessment and Plan: Assessment: 75-year-old lady with underlying breast cancer on chemotherapy and combined chronic systolic and diastolic dysfunction, supplemental oxygen dependent, admitted with worsening dyspnea Plan: Neuro: No acute issues. Cardiac: Underlying chronic combined systolic and diastolic congestive heart failure. Continue with diuresis. Pulmonary: Acute on chronic hypoxic respiratory failure with follow-up CT chest suggestive of worsening pneumonitis versus lymphangitic spread of underlying cancer. Unable to obtaininduced sputum for cytology. Subsegmental pulmonary emboli are unlikely an etiology for her worsening dyspnea. finished Solu-Medrol 1 g for 3 days. May consider infliximab 5mg/kg x5 days. Continue to titrate off supplemental oxygen as tolerated. Renal: No acute issues. Endo: No acute issues. GI: No acute issues. ID: Cultures are negative today, no evidence of an acute infection. Heme/Onc: No acute issues. Psych: No acute issues. Miscellaneous: No acute issues. Prophylaxis: Eliquis Diet: regular Critical care time spent: 30 minutes Quality Stroke Does the patient have a stroke diagnosis?: No VTE Prior VTE?: No VTE Risk Level:: Medical - moderate - high VTE Device Contraindication: N/A - Device Ordered VTE Drug Contraindication: N/A - Med Ordered
[2021-02-25] MEDS: Omeprazole 20 MG CAPSULE.DR PO (15:28)
[2021-02-25 18:43] LABS: Anion Gap 13 (12-20); Blood Urea Nitrogen 27 mg/dL (9-16); Calcium 8.8 mg/dL (8.4-10.2); Carbon Dioxide 31 mmol/L (22-29); Chloride 101 mmol/L (96-108); Creatinine Clr Calc Pharmacy 70.6; Estimated Glomerular Filt Rate > 60; Glucose Random 222 mg/dL (60-115); Sodium 142 mmol/L (135-145)
[2021-02-25] MEDS: Potassium Chloride/H20 10 MEQ/100 ML PIGGYBACK 100 MEQ IV ×4 (19:28→22:32)
[2021-02-25] MEDS: traZODone HCL 100 MG TABLET PO (20:28)
[2021-02-26] VITALS (29 sets, daily range): BP systolic 118–182; BP diastolic 57–99; PULSE 71–102; RESP 13–24; TEMP 36.7–37.5; O2SAT 84–100
[2021-02-26] MEDS: methylPREDNISolone Sod Succ 125 MG/2 ML VIAL 250 MG IVPUSH ×2 (04:05→08:52)
[2021-02-26 05:30] LABS: VBG Base Excess 9.4 mmol/L; VBG HCO3 35 mmol/L (22-26); VBG pCO2 53 mmHg; VBG pH 7.42 (7.32-7.43); VBG pO2 51 mmHg
[2021-02-26 05:36] LABS: Venous Blood Gas Refer to POC result
[2021-02-26 06:06] LABS: Basophils Percent Auto 0.1 % (0-2); Hematocrit 27.6 % (37.0-47.0); Hemoglobin 8.7 g/dl (12.0-16.0); Imm Gran Abs Auto 0.17 X10*3/uL (0.00-0.03); Imm Gran Pct Auto 1.9 % (0.0-0.4); Lymphocytes Absolute Auto 0.3 X10*3/uL (1.2-4.9); MANUAL DIFF FLAG SCAN; Mean Corpuscular HGB Conc 31.5 g/dl (31.0-35.0); Mean Corpuscular Hemoglobin 29.6 pg (27.0-33.0); Mean Corpuscular Volume 93.9 fL (80.0-98.0); Mean Platelet Volume 9.2 fL (9.4-12.3); Monocytes Absolute Auto 0.2 X10*3/uL (0.1-1.2); Monocytes Percent Auto 1.8 % (2-11); Neutrophils Absolute Auto 8.2 x10*3/uL (2.0-8.3); Neutrophils Percent Auto 93.2 % (45-73); Platelet Count 199 X10*3/uL (160-400); Red Blood Count 2.94 X10*6/uL (4.20-5.50); Red Cell Distribution Width 16.6 % (11.0-16.0); SCAN SMEAR FLAG 1; White Blood Count 8.8 X10*3/uL (4.8-10.8)
[2021-02-26] MEDS: Omeprazole 20 MG CAPSULE.DR PO (06:15)
[2021-02-26 06:31] LABS: SLIDE REVIEW VERIFIED
[2021-02-26 07:13] LABS: Albumin Level 3.8 g/dL (3.5-5.0); Anion Gap 12 (12-20); Blood Urea Nitrogen 29 mg/dL (9-16); Calcium 8.6 mg/dL (8.4-10.2); Carbon Dioxide 29 mmol/L (22-29); Chloride 102 mmol/L (96-108); Creatinine Clr Calc Pharmacy 73.7; Estimated Glomerular Filt Rate > 60; Glucose Random 237 mg/dL (60-115); Magnesium 1.8 mg/dL (1.6-2.6); Phosphorus 2.5 mg/dL (2.7-4.5); Potassium 3.2 mmol/L (3.3-5.1); Sodium 140 mmol/L (135-145)
[2021-02-26] MEDS: Albuterol/Iprat 2.5/0.5MG 3 ML AMPUL.NEB INHALE ×3 (08:24→19:09)
[2021-02-26] MEDS: fentaNYL citrate/PF 100 MCG/2 ML VIAL 25 MCG IVPUSH ×2 (08:51→19:45)
[2021-02-26] MEDS: Furosemide 20 MG/2 ML VIAL 40 MG IVPUSH ×2 (08:55→18:06)
[2021-02-26] MEDS: Sodium,Potassium Phosphates POWD.PACK 2 PACKET PO (09:02)
[2021-02-26] MEDS: Potassium Chloride Packet 20 MEQ PACKET 60 MEQ PO (09:02)
[2021-02-26] MEDS: Magnesium Sulfate/H2O 2 GM/50 ML PIGGYBACK IV (09:03)
[2021-02-26] MEDS: Pregabalin 50 MG CAPSULE PO (09:04)
[2021-02-26] MEDS: Apixaban 5 MG TABLET PO ×2 (09:04→20:27)
[2021-02-26] MEDS: amLODIPine Besylate 5 MG TABLET PO (09:04)
[2021-02-26] MEDS: Nystatin Powder 15 GM BOTTLE 1 APPL TOPICAL ×2 (09:05→20:34)
[2021-02-26] MEDS: Atorvastatin Calcium 40 MG TABLET PO (09:05)
[2021-02-26] MEDS: Fluticasone Propionate Nasal 16 GM SPRAY 1 SPRAY NOSTRIL-B (09:05)
--- NOTE | 2021-02-26 10:29 | MHC.CLN ---
F/U PO INTAKE REMAINS VARIABLE AT TIMES DIET RX: REGULAR-APPROPRIATE PT RECEIVING ENSURE BID TO PROVIDE 700KCALS, 23GPROTEIN TO PROMOTE WOUND HEALING CONTINUE TO MONITOR PO INTAKE CLOSELY
--- NOTE | 2021-02-26 11:54 | P.PNCC_ITS ---
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 She has been treated empirically for pneumonia and congestive heart failure exacerbation. Her hospital course is significant for worsening hypoxemia Likely secondary to an acute pneumonitis from her chemotherapy and/or lymphangitic spread of her underlying cancer. His FiO2 requirements progressively worsened and she required transfer to intensive care unit on 02/22/2021. Patient was treated with high-dose Solu-Medrol 1 g for 3 days and diuresis with some improvement in her oxygenation, but not yet at baseline. No events overnight. Patient has received infliximab. Critical Care Time (minutes): 30 Physical Exam Vital Signs: Vital Signs: Last Vital Signs Temp 98.6 F 02/26/21 11:00 Pulse 93 02/26/21 11:00 Resp 23 H 02/26/21 11:00 BP 150/83 H 02/26/21 11:00 Pulse Ox 91 L 02/26/21 11:00 Oxygen Flow Rate 7 02/12/21 22:57 BMI result Body Mass Index 28.4 Const: General: no acute distress, alert and awake Eyes: Sclerae: sclerae normal EOM: EOMs intact bilaterally Neck: Neck: Yes no lymphadenopathy, Yes trachea midline and Yes supple Resp: Effort & Inspection: normal respiratory effort and no respiratory distress Auscultation: crackles ( Bibasilar) Cardio: Rate: tachycardic Rhythm: regular rhythm Heart sounds: no gallops, no murmurs and no rubs GI: Palpation (GI): Soft to palpation and Other GI palpation findings present ( Nontender) Auscultation: normal bowel sounds Extrem: General: No clubbing, No cyanosis and Yes pedal edema ( trace bilateral) Objective Data Labs CBC & Chem 7: 02/26/21 05:19 02/26/21 05:20 Labs: Laboratory Results - last 24 hr 02/25/21 02/26/21 02/26/21 18:13 05:19 05:20 WBC 8.8 RBC 2.94 L Hgb 8.7 L Hct 27.6 L MCV 93.9 MCH 29.6 MCHC 31.5 RDW 16.6 H Plt Count 199 MPV 9.2 L Immature Gran % (Auto) 1.9 H Neut % (Auto) 93.2 H Lymph % (Auto) 3.0 L [place] % (Auto) 1.8 L Eos % (Auto) 0.0 Baso % (Auto) 0.1 Lymph # (Auto) 0.3 L [place] # (Auto) 0.2 Eos # (Auto) 0.0 Baso # (Auto) 0.0 Abs Immat Gran (auto) 0.17 H Absolute Neuts (auto) 8.2 Absolute Nucleated RBC 0.000 Nucleated RBC % (auto) 0.0 Smear Tech's Comments VERIFIED VBG pH VBG pCO2 VBG pO2 VBG HCO3 VBG O2 Saturation VBG Base Excess Sodium 142 140 Potassium 3.0 L 3.2 L Chloride 101 102 Carbon Dioxide 31 H 29 Anion Gap 13 12 BUN 27 H 29 H Creatinine 0.73 0.70 Estim Creat Clear Calc 70.6 73.7 Estimated GFR > 60 > 60 Random Glucose 222 H 237 H Calcium 8.8 8.6 Phosphorus 2.5 L Magnesium 1.8 Albumin 3.8 02/26/21 05:23 WBC RBC Hgb Hct MCV MCH MCHC RDW Plt Count MPV Immature Gran % (Auto) Neut % (Auto) Lymph % (Auto) [place] % (Auto) Eos % (Auto) Baso % (Auto) Lymph # (Auto) [place] # (Auto) Eos # (Auto) Baso # (Auto) Abs Immat Gran (auto) Absolute Neuts (auto) Absolute Nucleated RBC Nucleated RBC % (auto) Smear Tech's Comments VBG pH 7.42 VBG pCO2 53 VBG pO2 51 VBG HCO3 35 H VBG O2 Saturation 78.0 VBG Base Excess 9.4 Sodium Potassium Chloride Carbon Dioxide Anion Gap BUN Creatinine Estim Creat Clear Calc Estimated GFR Random Glucose Calcium Phosphorus Magnesium Albumin Microbiology Microbiology Results: Microbiology 02/13/21 00:45 Blood - Venous Blood Culture - Final No growth after 5 days. 02/13/21 00:55 Blood - Venous Blood Culture - Final No growth after 5 days. 02/14/21 09:00 Sputum - Expectorated Gram Stain - Final 02/14/21 09:00 Sputum - Expectorated Sputum Culture - Final 02/13/21 08:46 Sputum - Expectorated Gram Stain - Final 02/13/21 08:46 Sputum - Expectorated Sputum Culture - Final Progress Note: A&P Assessment and plan (1) Pneumonitis: Status: Acute (2) Acute and chronic respiratory failure with hypoxia: Status: Acute (3) Pulmonary embolism: Status: Acute (4) Cardiomyopathy: Status: Acute (5) Triple negative malignant neoplasm of breast: Status: Acute Assessment and Plan: Assessment: 75-year-old lady with underlying breast cancer on chemotherapy and combined chronic systolic and diastolic dysfunction, supplemental oxygen dependent, admitted with worsening dyspnea Plan: Neuro: No acute issues. Cardiac: Underlying chronic combined systolic and diastolic congestive heart failure. Continue with diuresis. Pulmonary: Acute on chronic hypoxic respiratory failure with follow-up CT chest suggestive of worsening pneumonitis versus lymphangitic spread of underlying cancer. Unable to obtaininduced sputum for cytology. Subsegmental pulmonary emboli are unlikely an etiology for her worsening dyspnea. finished Solu-Medrol 1 g for 3 days. Has received infliximab 5mg/kg. May consider CellCept for 5 days. Continue to titrate off supplemental oxygen as tolerated. Renal: No acute issues. Endo: No acute issues. GI: No acute issues. ID: Cultures are negative today, no evidence of an acute infection. Heme/Onc: No acute issues. Psych: No acute issues. Miscellaneous: No acute issues. Prophylaxis: Eliquis Diet: regular Critical care time spent: 30 minutes Quality Stroke Does the patient have a stroke diagnosis?: No VTE Prior VTE?: No VTE Risk Level:: Medical - moderate - high VTE Device Contraindication: N/A - Device Ordered VTE Drug Contraindication: N/A - Med Ordered
[2021-02-26 13:23] LABS: OBS Int Ctl Valid YES
[2021-02-26 13:24] LABS: OBS1 POSITIVE (NEGATIVE)
[2021-02-26 18:17] LABS: Anion Gap 13 (12-20); Blood Urea Nitrogen 28 mg/dL (9-16); Calcium 8.8 mg/dL (8.4-10.2); Carbon Dioxide 31 mmol/L (22-29); Chloride 104 mmol/L (96-108); Creatinine Clr Calc Pharmacy 69.7; Estimated Glomerular Filt Rate > 60; Glucose Random 245 mg/dL (60-115); Potassium 3.5 mmol/L (3.3-5.1); Sodium 144 mmol/L (135-145)
[2021-02-26] MEDS: Potassium Chloride/H20 10 MEQ/100 ML PIGGYBACK 100 MEQ IV ×4 (19:19→23:25)
[2021-02-26] MEDS: methylPREDNISolone Sod Succ 40 MG/ML VIAL IVPUSH (20:27)
[2021-02-26] MEDS: traZODone HCL 100 MG TABLET PO (20:27)
[2021-02-27] VITALS (29 sets, daily range): BP systolic 123–174; BP diastolic 61–100; PULSE 73–969; RESP 13–30; TEMP 37.1–37.7; O2SAT 86–99
[2021-02-27 05:28] LABS: VBG Base Excess 15.9 mmol/L; VBG HCO3 40 mmol/L (22-26); VBG pCO2 51 mmHg; VBG pH 7.51 (7.32-7.43); VBG pO2 47 mmHg
[2021-02-27 05:33] LABS: Venous Blood Gas Refer to POC result
[2021-02-27 05:47] LABS: Basophils Percent Auto 0.1 % (0-2); Hematocrit 28.2 % (37.0-47.0); Hemoglobin 9.1 g/dl (12.0-16.0); Imm Gran Abs Auto 0.16 X10*3/uL (0.00-0.03); Imm Gran Pct Auto 1.5 % (0.0-0.4); Lymphocytes Absolute Auto 0.3 X10*3/uL (1.2-4.9); Lymphocytes Percent Auto 2.8 % (20-40); MANUAL DIFF FLAG SCAN; Mean Corpuscular HGB Conc 32.3 g/dl (31.0-35.0); Mean Corpuscular Hemoglobin 30.1 pg (27.0-33.0); Mean Corpuscular Volume 93.4 fL (80.0-98.0); Mean Platelet Volume 9.2 fL (9.4-12.3); Monocytes Absolute Auto 0.4 X10*3/uL (0.1-1.2); Monocytes Percent Auto 3.5 % (2-11); NRBC Pct Auto 0.2 /100WBC (0.0-0.2); Neutrophils Absolute Auto 9.8 x10*3/uL (2.0-8.3); Neutrophils Percent Auto 92.1 % (45-73); Platelet Count 195 X10*3/uL (160-400); Red Blood Count 3.02 X10*6/uL (4.20-5.50); Red Cell Distribution Width 16.5 % (11.0-16.0); SCAN SMEAR FLAG 1; White Blood Count 10.7 X10*3/uL (4.8-10.8)
[2021-02-27 06:03] LABS: Albumin Level 3.6 g/dL (3.5-5.0); Anion Gap 13 (12-20); Blood Urea Nitrogen 31 mg/dL (9-16); Calcium 8.9 mg/dL (8.4-10.2); Carbon Dioxide 34 mmol/L (22-29); Chloride 102 mmol/L (96-108); Creatinine Clr Calc Pharmacy 74.7; Estimated Glomerular Filt Rate > 60; Glucose Random 196 mg/dL (60-115); Magnesium 2.2 mg/dL (1.6-2.6); Phosphorus 2.6 mg/dL (2.7-4.5); Potassium 3.7 mmol/L (3.3-5.1); Sodium 145 mmol/L (135-145)
[2021-02-27] MEDS: Omeprazole 20 MG CAPSULE.DR PO (06:13)
[2021-02-27 06:16] LABS: SLIDE REVIEW VERIFIED
[2021-02-27] MEDS: Sodium,Potassium Phosphates POWD.PACK 2 PACKET PO ×2 (07:55→10:05)
[2021-02-27] MEDS: Atorvastatin Calcium 40 MG TABLET PO (07:56)
[2021-02-27] MEDS: amLODIPine Besylate 5 MG TABLET PO (07:56)
[2021-02-27] MEDS: Pregabalin 50 MG CAPSULE PO (07:56)
[2021-02-27] MEDS: Apixaban 5 MG TABLET PO ×2 (07:56→21:01)
[2021-02-27] MEDS: Furosemide 20 MG/2 ML VIAL 40 MG IVPUSH ×2 (07:57→18:01)
[2021-02-27] MEDS: methylPREDNISolone Sod Succ 40 MG/ML VIAL IVPUSH ×2 (07:57→21:01)
[2021-02-27] MEDS: Nystatin Powder 15 GM BOTTLE 1 APPL TOPICAL (08:05)
[2021-02-27] MEDS: Fluticasone Propionate Nasal 16 GM SPRAY 1 SPRAY NOSTRIL-B (08:06)
[2021-02-27] MEDS: Albuterol/Iprat 2.5/0.5MG 3 ML AMPUL.NEB INHALE ×4 (08:16→19:53)
[2021-02-27] MEDS: Potassium Chloride Packet 20 MEQ PACKET 60 MEQ PO (10:06)
--- NOTE | 2021-02-27 10:31 | P.PNCC_ITS ---
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 She has been treated empirically for pneumonia and congestive heart failure exacerbation. Her hospital course is significant for worsening hypoxemia Likely secondary to an acute pneumonitis from her chemotherapy and/or lymphangitic spread of her underlying cancer. His FiO2 requirements progressively worsened and she required transfer to intensive care unit on 02/22/2021. Patient was treated with high-dose Solu-Medrol 1 g for 3 days and diuresis with some improvement in her oxygenation, but not yet at baseline. No events overnight. No significant changes in oxygen requirements. Critical Care Time (minutes): 30 Physical Exam Vital Signs: Vital Signs: Last Vital Signs Temp 99.5 F 02/27/21 10:00 Pulse 105 H 02/27/21 10:00 Resp 27 H 02/27/21 10:00 BP 123/70 02/27/21 10:00 Pulse Ox 91 L 02/27/21 10:00 Oxygen Flow Rate 7 02/12/21 22:57 BMI result Body Mass Index 28.4 Const: General: no acute distress, alert and awake Eyes: Sclerae: sclerae normal EOM: EOMs intact bilaterally Neck: Neck: Yes no lymphadenopathy, Yes trachea midline and Yes supple Resp: Effort & Inspection: normal respiratory effort and no respiratory distress Auscultation: crackles (Diffuse bilateral) Cardio: Rate: regular rate Rhythm: regular rhythm Heart sounds: no gallops, no murmurs and no rubs GI: Palpation (GI): Soft to palpation and Other GI palpation findings present ( Nontender) Auscultation: normal bowel sounds Extrem: General: No clubbing, No cyanosis and Yes pedal edema (Trace bilateral) Objective Data Labs CBC & Chem 7: 02/27/21 05:19 02/27/21 05:19 Labs: Laboratory Results - last 24 hr 02/26/21 02/26/21 02/27/21 13:08 17:56 05:19 WBC 10.7 RBC 3.02 L Hgb 9.1 L Hct 28.2 L MCV 93.4 MCH 30.1 MCHC 32.3 RDW 16.5 H Plt Count 195 MPV 9.2 L Immature Gran % (Auto) 1.5 H Neut % (Auto) 92.1 H Lymph % (Auto) 2.8 L [place] % (Auto) 3.5 Eos % (Auto) 0.0 Baso % (Auto) 0.1 Lymph # (Auto) 0.3 L [place] # (Auto) 0.4 Eos # (Auto) 0.0 Baso # (Auto) 0.0 Abs Immat Gran (auto) 0.16 H Absolute Neuts (auto) 9.8 H Absolute Nucleated RBC 0.020 H Nucleated RBC % (auto) 0.2 Smear Tech's Comments VERIFIED VBG pH VBG pCO2 VBG pO2 VBG HCO3 VBG O2 Saturation VBG Base Excess Sodium 144 Potassium 3.5 Chloride 104 Carbon Dioxide 31 H Anion Gap 13 BUN 28 H Creatinine 0.74 Estim Creat Clear Calc 69.7 Estimated GFR > 60 Random Glucose 245 H Calcium 8.8 Phosphorus Magnesium Albumin Stool Occult Blood POSITIVE 02/27/21 02/27/21 05:19 05:21 WBC RBC Hgb Hct MCV MCH MCHC RDW Plt Count MPV Immature Gran % (Auto) Neut % (Auto) Lymph % (Auto) [place] % (Auto) Eos % (Auto) Baso % (Auto) Lymph # (Auto) [place] # (Auto) Eos # (Auto) Baso # (Auto) Abs Immat Gran (auto) Absolute Neuts (auto) Absolute Nucleated RBC Nucleated RBC % (auto) Smear Tech's Comments VBG pH 7.51 H VBG pCO2 51 VBG pO2 47 VBG HCO3 40 H VBG O2 Saturation 77.0 VBG Base Excess 15.9 Sodium 145 Potassium 3.7 Chloride 102 Carbon Dioxide 34 H Anion Gap 13 BUN 31 H Creatinine 0.69 Estim Creat Clear Calc 74.7 Estimated GFR > 60 Random Glucose 196 H Calcium 8.9 Phosphorus 2.6 L Magnesium 2.2 Albumin 3.6 Stool Occult Blood Microbiology Microbiology Results: Microbiology 02/13/21 00:45 Blood - Venous Blood Culture - Final No growth after 5 days. 02/13/21 00:55 Blood - Venous Blood Culture - Final No growth after 5 days. 02/14/21 09:00 Sputum - Expectorated Gram Stain - Final 02/14/21 09:00 Sputum - Expectorated Sputum Culture - Final 02/13/21 08:46 Sputum - Expectorated Gram Stain - Final 02/13/21 08:46 Sputum - Expectorated Sputum Culture - Final Progress Note: A&P Assessment and plan (1) Pneumonitis: Status: Acute (2) Acute and chronic respiratory failure with hypoxia: Status: Acute (3) Cardiomyopathy: Status: Acute (4) Pulmonary embolism: Status: Acute (5) Invasive ductal carcinoma of right breast: Status: Acute (6) HTN (hypertension): Status: Acute (7) COPD (chronic obstructive pulmonary disease): Status: Acute Assessment and Plan: Assessment: 75-year-old lady with underlying breast cancer on chemotherapy and combined chronic systolic and diastolic dysfunction, supplemental oxygen dependent, admitted with worsening dyspnea Plan: Neuro: No acute issues. Cardiac: Underlying chronic combined systolic and diastolic congestive heart failure. Continue with diuresis. Pulmonary: Acute on chronic hypoxic respiratory failure with follow-up CT chest suggestive of worsening pneumonitis versus lymphangitic spread of underlying cancer. Unable to obtaininduced sputum for cytology. Subsegmental pulmonary emboli are unlikely an etiology for her worsening dyspnea. finished Solu-Medrol 1 g for 3 days. Has received infliximab 5mg/kg. Will treat with CellCept for 5 days. Continue to titrate off supplemental oxygen as tolerated. Renal: No acute issues. Endo: No acute issues. GI: No acute issues. ID: Cultures are negative today, no evidence of an acute infection. Heme/Onc: No acute issues. Psych: No acute issues. Miscellaneous: No acute issues. Prophylaxis: Eliquis Diet: regular Critical care time spent: 30 minutes Quality Stroke Does the patient have a stroke diagnosis?: No VTE Prior VTE?: No VTE Risk Level:: Medical - moderate - high VTE Device Contraindication: N/A - Device Ordered VTE Drug Contraindication: N/A - Med Ordered
[2021-02-27 19:15] LABS: TS Negative Control Passed; TS Panel A 0; TS Panel B 0; TS Positive Control Passed; TSpotTB Negative (Negative)
[2021-02-27] MEDS: mycophenolate mofetiL 250 MG CAPSULE 1000 MG PO (20:56)
[2021-02-27] MEDS: traZODone HCL 100 MG TABLET PO (21:00)
[2021-02-28] VITALS (27 sets, daily range): BP systolic 110–151; BP diastolic 51–99; PULSE 80–127; RESP 14–31; TEMP 37.5–38.2; O2SAT 84–99
[2021-02-28 05:24] LABS: VBG Base Excess 19.4 mmol/L; VBG HCO3 43 mmol/L (22-26); VBG pCO2 47 mmHg; VBG pH 7.57 (7.32-7.43); VBG pO2 45 mmHg
[2021-02-28 05:50] LABS: Basophils Percent Auto 0.1 % (0-2); Hematocrit 27.1 % (37.0-47.0); Hemoglobin 8.6 g/dl (12.0-16.0); Imm Gran Abs Auto 0.13 X10*3/uL (0.00-0.03); Imm Gran Pct Auto 1.7 % (0.0-0.4); Lymphocytes Absolute Auto 0.3 X10*3/uL (1.2-4.9); Lymphocytes Percent Auto 3.5 % (20-40); MANUAL DIFF FLAG SCAN; Mean Corpuscular HGB Conc 31.7 g/dl (31.0-35.0); Mean Corpuscular Hemoglobin 30.2 pg (27.0-33.0); Mean Corpuscular Volume 95.1 fL (80.0-98.0); Mean Platelet Volume 9.5 fL (9.4-12.3); Monocytes Absolute Auto 0.3 X10*3/uL (0.1-1.2); Monocytes Percent Auto 3.5 % (2-11); Neutrophils Percent Auto 91.2 % (45-73); Platelet Count 162 X10*3/uL (160-400); Red Blood Count 2.85 X10*6/uL (4.20-5.50); Red Cell Distribution Width 16.8 % (11.0-16.0); SCAN SMEAR FLAG 1; Venous Blood Gas Refer to POC result; White Blood Count 7.6 X10*3/uL (4.8-10.8)
[2021-02-28 06:07] LABS: Alanine Aminotransferase 33 U/L (0-31); Albumin Level 3.4 g/dL (3.5-5.0); Alkaline Phosphatase 90 U/L (39-117); Anion Gap 12 (12-20); Aspartate Amino Transferase 11 U/L (5-31); Bilirubin Total 1.1 mg/dL (0.0-1.0); Blood Urea Nitrogen 29 mg/dL (9-16); Calcium 8.6 mg/dL (8.4-10.2); Carbon Dioxide 36 mmol/L (22-29); Chloride 101 mmol/L (96-108); Creatinine Clr Calc Pharmacy 75.8; Estimated Glomerular Filt Rate > 60; Glucose Random 241 mg/dL (60-115); Magnesium 1.9 mg/dL (1.6-2.6); Phosphorus 3.3 mg/dL (2.7-4.5); Potassium 3.9 mmol/L (3.3-5.1); Sodium 145 mmol/L (135-145); Total Protein 5.3 g/dL (6.5-8.0)
[2021-02-28 06:15] LABS: SLIDE REVIEW VERIFIED
[2021-02-28] MEDS: Omeprazole 20 MG CAPSULE.DR PO ×2 (06:23→17:37)
[2021-02-28] MEDS: Albuterol/Iprat 2.5/0.5MG 3 ML AMPUL.NEB INHALE ×2 (08:25→11:22)
[2021-02-28] MEDS: methylPREDNISolone Sod Succ 40 MG/ML VIAL IVPUSH ×2 (08:51→20:04)
[2021-02-28] MEDS: amLODIPine Besylate 5 MG TABLET PO (08:51)
[2021-02-28] MEDS: mycophenolate mofetiL 250 MG CAPSULE 1000 MG PO ×2 (08:51→20:03)
[2021-02-28] MEDS: Furosemide 20 MG/2 ML VIAL 40 MG IVPUSH (08:51)
[2021-02-28] MEDS: Pregabalin 50 MG CAPSULE PO (08:52)
[2021-02-28] MEDS: Apixaban 5 MG TABLET PO ×2 (08:52→20:04)
[2021-02-28] MEDS: Nystatin Powder 15 GM BOTTLE 1 APPL TOPICAL ×2 (08:52→20:07)
[2021-02-28] MEDS: Fluticasone Propionate Nasal 16 GM SPRAY 1 SPRAY NOSTRIL-B (08:52)
[2021-02-28] MEDS: Atorvastatin Calcium 40 MG TABLET PO (08:52)
--- NOTE | 2021-02-28 09:52 | P.PNCC_ITS ---
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 She has been treated empirically for pneumonia and congestive heart failure exacerbation. Her hospital course is significant for worsening hypoxemia Likely secondary to an acute pneumonitis from her chemotherapy and/or lymphang itic spread of her underlying cancer. His FiO2 requirements progressively worsened and she required transfer to intensive care unit on 02/22/2021. Patient was treated with high-dose Solu-Medrol, infliximab, and now on CellCept. No events overnight. Continues to require Ventimask at 50% or [place] canula at 8 L. Critical Care Time (minutes): 30 Physical Exam Vital Signs: Vital Signs: Last Vital Signs Temp 99.5 F 02/28/21 09:00 Pulse 114 H 02/28/21 09:00 Resp 25 H 02/28/21 09:00 BP 143/99 H 02/28/21 09:00 Pulse Ox 90 L 02/28/21 09:00 Oxygen Flow Rate 7 02/12/21 22:57 BMI result Body Mass Index 28.4 Const: General: no acute distress, alert and awake Eyes: Sclerae: sclerae normal EOM: EOMs intact bilaterally Neck: Neck: Yes no lymphadenopathy, Yes trachea midline and Yes supple Resp: Effort & Inspection: normal respiratory effort and no respiratory distress Auscultation: clear to auscultation bilaterally Cardio: Rate: tachycardic Rhythm: regular rhythm Heart sounds: no gall ops, no murmurs and no rubs GI: Palpation (GI): Soft to palpation and Other GI palpation findings present ( Nontender) Auscultation: normal bowel sounds Extrem: General: No clubbing, No cyanosis and Yes pedal edema ( trace bilateral) Objective Data Labs CBC & Chem 7: 02/28/21 05:18 02/28/21 05:19 Labs: Laboratory Results - last 24 hr 02/25/21 02/28/21 02/28/21 16:04 05:18 05:18 WBC 7.6 RBC 2.85 L Hgb 8.6 L Hct 27.1 L MCV 95.1 MCH 30.2 MCHC 31.7 RDW 16.8 H Plt Count 162 MPV 9.5 Immature Gran % (Auto) 1.7 H Neut % (Auto) 91.2 H Lymph % (Auto) 3.5 L [place] % (Auto) 3.5 Eos % (Auto) 0.0 Baso % (Auto) 0.1 Lymph # (Auto) 0.3 L [place] # (Auto) 0.3 Eos # (Auto) 0.0 Baso # (Auto) 0.0 Abs Immat Gran (auto) 0.13 H Absolute Neuts (auto) 7.0 Absolute Nucleated RBC 0.000 Nucleated RBC % (auto) 0.0 Smear Tech's Comments VERIFIED VBG pH 7.57 H VBG pCO2 47 VBG pO2 45 VBG HCO3 43 H VBG O2 Saturation 77.0 VBG Base Excess 19.4 Sodium Potassium Chloride Carbon Dioxide Anion Gap BUN Creatinine Estim Creat Clear Calc Estimated GFR Random Glucose Calcium Phosphorus Magnesium Total Bilirubin AST ALT Alkaline Phosphatase Total Protein Albumin TB Test (T-Spot) Com Negative TB Test Nil Control Passed TB Test Panel A 0 TB Test Panel B 0 TB Test Positive Cntrl Passed 02/28/21 05:19 WBC RBC Hgb Hct MCV MCH MCHC RDW Plt Count MPV Immature Gran % (Auto) Neut % (Auto) Lymph % (Auto) [place] % (Auto) Eos % (Auto) Baso % (Auto) Lymph # (Auto) [place] # (Auto) Eos # (Auto) Baso # (Auto) Abs Immat Gran (auto) Absolute Neuts (auto) Absolute Nucleated RBC Nucleated RBC % (auto) Smear Tech's Comments VBG pH VBG pCO2 VBG pO2 VBG HCO3 VBG O2 Saturation VBG Base Excess Sodium 145 Potassium 3.9 Chloride 101 Carbon Dioxide 36 H Anion Gap 12 BUN 29 H Creatinine 0.68 Estim Creat Clear Calc 75.8 Estimated GFR > 60 Random Glucose 241 H Calcium 8.6 Phosphorus 3.3 Magnesium 1.9 Total Bilirubin 1.1 H AST 11 ALT 33 H Alkaline Phosphatase 90 Total Protein 5.3 L Albumin 3.4 L TB Test (T-Spot) Com TB Test Nil Control TB Test Panel A TB Test Panel B TB Test Positive Cntrl Microbiology Microbiology Results: Microbiology 02/13/21 00:45 Blood - Venous Blood Culture - Final No growth after 5 days. 02/13/21 00:55 Blood - Venous Blood Culture - Final No growth after 5 days. 02/14/21 09:00 Sputum - Expectorated Gram Stain - Final 02/14/21 09:00 Sputum - Expectorated Sputum Culture - Final 02/13/21 08:46 Sputum - Expectorated Gram Stain - Final 02/13/21 08:46 Sputum - Expectorated Sputum Culture - Final Progress Note: A&P Assessment and plan (1) Pneumonitis: Status: Acute (2) Acute and chronic respiratory failure with hypoxia: Status: Acute (3) Pulmonary embolism: Status: Acute (4) Cardiomyopathy: Status: Acute (5) Triple negative malignant neoplasm of breast: Status: Acute (6) COPD (chronic obstructive pulmonary disease): Status: Acute Assessment and Plan: Assessment: 75-year-old lady with underlying breast cancer on chemotherapy and combined chronic systolic and diastolic dysfunction, supplemental oxygen dependent, admitted with worsening dyspnea Plan: Neuro: No acute issues. Cardiac: Underlying chronic combined systolic and diastolic congestive heart failure. Continue with diuresis. Pulmonary: Acute on chronic hypoxic respiratory failure with follow-up CT chest suggestive of worsening pneumonitis versus lymphangitic spread of underlying cancer (less likely, as time frame is more consistent with chemotherapy-induced pneumonitis, and there have been no worsening over the last few weeks, as it would be expected with lymphangitic spread of underlying cancer). Unable to obtaininduced sputum for cytology. Subsegmental pulmonary emboli are unlikely an etiology for her worsening dyspnea. finished Solu-Medrol 1 g for 3 days. Has received infliximab 5mg/kg. Now on CellCept day 2/. Continue to titrate off supplemental oxygen as tolerated. Renal: No acute issues. Endo: No acute issues. GI: No acute issues. ID: Cultures are negative today, no evidence of an acute infection. Heme/Onc: No acute issues. Psych: No acute issues. Miscellaneous: No acute issues. Prophylaxis: Eliquis Diet: regular Critical care time spent: 30 minutes Quality Stroke Does the patient have a stroke diagnosis?: No VTE Prior VTE?: No VTE Risk Level:: Medical - moderate - high VTE Device Contraindication: N/A - Device Ordered VTE Drug Contraindication: N/A - Med Ordered
--- NOTE | 2021-02-28 10:25 | PC.NURSE ---
Wound assessment completed today. Patient has incontinent skin dermatitis with stage 2 pressure injuries to bilateral buttocks and coccyx. Wound areas cleaned with wound cleanser and Triad apply to all rash areas then Hydrofera Blue applied to stage 2 ulcers cover with abd pad then an incontinent wrap and mesh underwear. Since admission the skin and ulcers have worsened but are still stage 2 due to diarrhea and leaking catheter. Greater steps have been taken to reduce moisture on the skin. Will follow closely.
[2021-02-28] MEDS: Acetaminophen 325 MG TABLET 650 MG PO (10:26)
[2021-02-28] MEDS: traZODone HCL 100 MG TABLET PO (20:04)
[2021-03-01] VITALS (15 sets, daily range): BP systolic 125–159; BP diastolic 64–92; PULSE 85–114; RESP 12–27; TEMP 36.9–37.7; O2SAT 92–100
[2021-03-01 05:19] LABS: VBG Base Excess 18.8 mmol/L; VBG HCO3 42 mmol/L (22-26); VBG pCO2 42 mmHg; VBG pO2 41 mmHg
[2021-03-01 05:31] LABS: Basophils Percent Auto 0.1 % (0-2); Hematocrit 29.5 % (37.0-47.0); Hemoglobin 9.4 g/dl (12.0-16.0); Imm Gran Abs Auto 0.22 X10*3/uL (0.00-0.03); Imm Gran Pct Auto 1.6 % (0.0-0.4); Lymphocytes Absolute Auto 0.4 X10*3/uL (1.2-4.9); Lymphocytes Percent Auto 2.5 % (20-40); MANUAL DIFF FLAG SCAN; Mean Corpuscular HGB Conc 31.9 g/dl (31.0-35.0); Mean Corpuscular Volume 94.2 fL (80.0-98.0); Mean Platelet Volume 9.9 fL (9.4-12.3); Monocytes Absolute Auto 0.3 X10*3/uL (0.1-1.2); Monocytes Percent Auto 2.5 % (2-11); Neutrophils Absolute Auto 12.9 x10*3/uL (2.0-8.3); Neutrophils Percent Auto 93.3 % (45-73); Platelet Count 185 X10*3/uL (160-400); Red Blood Count 3.13 X10*6/uL (4.20-5.50); Red Cell Distribution Width 16.5 % (11.0-16.0); SCAN SMEAR FLAG 1; White Blood Count 13.8 X10*3/uL (4.8-10.8)
[2021-03-01 05:35] LABS: Venous Blood Gas Refer to POC result
[2021-03-01] MEDS: Omeprazole 20 MG CAPSULE.DR PO ×2 (05:47→16:19)
[2021-03-01 05:55] LABS: Alanine Aminotransferase 37 U/L (0-31); Albumin Level 3.4 g/dL (3.5-5.0); Alkaline Phosphatase 93 U/L (39-117); Anion Gap 13 (12-20); Aspartate Amino Transferase 11 U/L (5-31); Bilirubin Total 1.3 mg/dL (0.0-1.0); Blood Urea Nitrogen 27 mg/dL (9-16); Calcium 8.6 mg/dL (8.4-10.2); Carbon Dioxide 36 mmol/L (22-29); Chloride 98 mmol/L (96-108); Creatinine Clr Calc Pharmacy 72.7; Estimated Glomerular Filt Rate > 60; Glucose Random 272 mg/dL (60-115); Magnesium 1.8 mg/dL (1.6-2.6); Phosphorus 2.5 mg/dL (2.7-4.5); Potassium 3.5 mmol/L (3.3-5.1); Sodium 143 mmol/L (135-145); Total Protein 5.4 g/dL (6.5-8.0)
[2021-03-01 06:02] LABS: SLIDE REVIEW VERIFIED
--- NOTE | 2021-03-01 08:18 | PM.CCPN ---
Subjective Subjective Date of Service: 03/01/21 Interval History: 75-year-old female who was known to me because I have been seeing her on the floor for Dr. Mane a lady with metastatic breast carcinoma who was on a combination of 3 chemo agents including pembrolizumab and a taxel who presented with acute hypoxemic lung failure superimposed on oxygen-dependent COPD and because of the pattern which appears to be interstitial and somewhat progressive of course the chemotherapy was stopped she was given 3 days of pulse steroid therapy and is currently on mycophenolate to treat her as a potential hypersensitivity pneumonitis related to th e original chemotherapy she was given a full course of antibiotics but this does not appear to be an infectious related issue but toward that and she never did get intubated and she never did get a bronchoscopy so other more remote diagnoses such as and a latent form of either typical or atypical mycobacterial disease certainly has not been ruled out but this has not gotten progressively worse despite the steroids and the chemotherapy the patient herself seems to feel that she is better and better no complaints of any dyspnea issues and she is awake she is eating talks in full sentences without taking a breath and on nasal cannula currently oxygen saturation 90-91% in sinus tachycardia with no acute changes at a rate of 108 blood pressure 130/76 she has been receiving 40 mg of IV Lasix on a daily basis and currently has very significant metabolic alkalosis and I think as a diuretic for her underlying cardiomyopathy I am going to simply switch from Lasix to Diamox and follow her electrolytes Critical Care Time (minutes): 45 Physical Exam Vital Signs: Vital Signs: Last Vital Signs Temp 99.9 F 03/01/21 08:00 Pulse 90 03/01/21 08:11 Resp 18 03/01/21 08:11 BP 130/76 03/01/21 08:00 Pulse Ox 95 03/01/21 08:00 Oxygen Flow Rate 7 02/12/21 22:57 BMI result Body Mass Index 28.4 awake alert oriented and nonfocal myles rologically no neck vein distension and she has adequate bilateral carotid upstrokes and no gallops no edema and skin is inta ct abdomen soft no organomegaly chest with diminished bilateral breath sounds but no adventitious sounds no respiratory effort no accessory muscle or diaphragmatic use Objective Data Labs CBC & Chem 7: 03/01/21 05:09 03/01/21 05:09 Labs: Laboratory Results - last 24 hr 03/01/21 03/01/21 03/01/21 05:09 05:09 05:12 WBC 13.8 H RBC 3.13 L Hgb 9.4 L Hct 29.5 L MCV 94.2 MCH 30.0 MCHC 31.9 RDW 16.5 H Plt Count 185 MPV 9.9 Immature Gran % (Auto) 1.6 H Neut % (Auto) 93.3 H Lymph % (Auto) 2.5 L [place] % (Auto) 2.5 Eos % (Auto) 0.0 Baso % (Auto) 0.1 Lymph # (Auto) 0.4 L [place] # (Auto) 0.3 Eos # (Auto) 0.0 Baso # (Auto) 0.0 Abs Immat Gran (auto) 0.22 H Absolute Neuts (auto) 12.9 H Absolute Nucleated RBC 0.000 Nucleated RBC % (auto) 0.0 Smear Tech's Comments VERIFIED VBG pH 7.60 H* VBG pCO2 42 VBG pO2 41 VBG HCO3 42 H VBG O2 Saturation 70.0 VBG Base Excess 18.8 Sodium 143 Potassium 3.5 Chloride 98 Carbon Dioxide 36 H Anion Gap 13 BUN 27 H Creatinine 0.71 Estim Creat Clear Calc 72.7 Estimated GFR > 60 Random Glucose 272 H Calcium 8.6 Phosphorus 2.5 L Magnesium 1.8 Total Bilirubin 1.3 H AST 11 ALT 37 H Alkaline Phosphatase 93 Total Protein 5.4 L Albumin 3.4 L Microbiology Microbiology Results: Microbiology 02/13/21 00:45 Blood - Venous Blood Culture - Final No growth after 5 days. 02/13/21 00:55 Blood - Venous Blood Culture - Final No growth after 5 days. 02/14/21 09:00 Sputum - Expectorated Gram Stain - Final 02/14/21 09:00 Sputum - Expectorated Sputum Culture - Final 02/13/21 08:46 Sputum - Expectorated Gram Stain - Final 02/13/21 08:46 Sputum - Expectorated Sputum Culture - Final Progress Note: A&P Assessment and plan (1) Anemia: Status: Acute (2) Pneumonitis: Status: Acute (3) Acute exacerbation of chronic obstructive pulmonary disease (COPD): Status: Acute (4) Acute and chronic respiratory failure with hypoxia: Status: Acute (5) Multifocal pneumonia: Status: Acute (6) Pulmonary embolism: Status: Acute (7) Cardiomyopathy: Status: Acute (8) Pulmonary embolism: Status: Acute (9) Hypoxemia: Status: Acute (10) MGUS (monoclonal gammopathy of unknown significance): Status: Acute (11) Triple negative malignant neoplasm of breast: Status: Acute (12) HTN (hypertension): Status: Acute (13) Shingles: Status: Acute (14) Allergic rhinitis: Status: Acute (15) COPD (chronic obstructive pulmonary disease): Status: Acute (16) HTN (hypertension): Status: Acute Assessment and Plan: compensated cardiomyopathy and no signs of significant fluid overload at this point and another repeat CT scan which is now another week down the line would be merited completing a 5 day course of the mycophenolate as well and changing her diuretic from Lasix to Diamox to correct the metabolic alkalosis that I think the Lasix in large part induced Quality Stroke Does the patient have a stroke diagnosis?: No VTE Prior VTE?: No VTE Risk Level:: Medical - moderate - high VTE Device Contraindication: N/A - Device Ordered VTE Drug Contraindication: N/A - Med Ordered
--- NOTE | 2021-03-01 09:46 | MHC.CLN ---
F/U PO INTAKE SLIGHTLY IMPROVED OVER WEEKEND DIET RX: REGULAR-APPROPRIATE PT RECEIVING ENSURE BID TO PROVIDE 700KCALS, 23GPROTEIN TO PROMOTE WOUND HEALING CONTINUE TO MONITOR PO INTAKE CLOSELY
[2021-03-01] MEDS: methylPREDNISolone Sod Succ 40 MG/ML VIAL IVPUSH ×2 (09:54→22:10)
[2021-03-01] MEDS: acetaZOLAMIDE sodium 500 MG VIAL 250 MG IVPUSH (09:54)
[2021-03-01] MEDS: Pregabalin 50 MG CAPSULE PO (09:54)
[2021-03-01] MEDS: mycophenolate mofetiL 250 MG CAPSULE 1000 MG PO ×2 (09:54→22:10)
[2021-03-01] MEDS: Nystatin Powder 15 GM BOTTLE 1 APPL TOPICAL ×2 (09:55→22:10)
[2021-03-01] MEDS: Apixaban 5 MG TABLET PO ×2 (09:55→22:10)
[2021-03-01] MEDS: Fluticasone Propionate Nasal 16 GM SPRAY 1 SPRAY NOSTRIL-B (09:55)
[2021-03-01] MEDS: guaiFENesin 200 MG/10 ML 10 ML LIQUID PO (17:18)
--- NOTE | 2021-03-01 17:43 | PM.EVENT ---
Event Note Date of Service: 03/01/21 Event Note: 75-year-old female with past medical history of COPD O2 dependent and triple negative breast cancer well known to me transferred out of ICU. Chart reviewed patient examined. Exam unchanged since earlier. Agree with plan as per Dr. Milton. Continue plan as or her
[2021-03-01] MEDS: hydrOXYzine HCL 25 MG TABLET PO (22:10)
[2021-03-01] MEDS: traZODone HCL 100 MG TABLET PO (22:10)
[2021-03-02] VITALS (8 sets, daily range): BP systolic 121–198; BP diastolic 60–99; PULSE 72–99; RESP 19–21; TEMP 36.3–37.1; O2SAT 90–100
--- NOTE | 2021-03-02 04:43 | PC.NURSE ---
coretext to Dr. Serra for elevated temp 102.0 temporal & c/o chills & sinus tachycardia 110's, blood cultures drawn x2 as ordered, then tylenol 650mg po crushed in pudding taken. will continue to monitor.
--- NOTE | 2021-03-02 04:46 | PC.NURSE ---
pt with elev bp 198/99 with manual of 184/106. pt asymptomatic - denies h/a, dizzyness, lightheadedness or blurry vision., updated md on change of lasix 40mg iv qd to diamox 250mg iv qd yesterday for alkalosis. f/c approx 350ml in bag since 11pm. pt denies sob or chest pain. no new orders.
[2021-03-02] MEDS: Omeprazole 20 MG CAPSULE.DR PO ×2 (05:45→16:55)
[2021-03-02 07:08] LABS: Basophils Percent Auto 0.1 % (0-2); Hematocrit 31.4 % (37.0-47.0); Hemoglobin 10.1 g/dl (12.0-16.0); Imm Gran Abs Auto 0.42 X10*3/uL (0.00-0.03); Imm Gran Pct Auto 2.2 % (0.0-0.4); Lymphocytes Absolute Auto 0.5 X10*3/uL (1.2-4.9); Lymphocytes Percent Auto 2.4 % (20-40); MANUAL DIFF FLAG SCAN; Mean Corpuscular HGB Conc 32.2 g/dl (31.0-35.0); Mean Corpuscular Hemoglobin 30.1 pg (27.0-33.0); Mean Corpuscular Volume 93.7 fL (80.0-98.0); Mean Platelet Volume 9.6 fL (9.4-12.3); Monocytes Absolute Auto 0.6 X10*3/uL (0.1-1.2); Monocytes Percent Auto 3.2 % (2-11); Neutrophils Absolute Auto 17.7 x10*3/uL (2.0-8.3); Neutrophils Percent Auto 92.1 % (45-73); Platelet Count 216 X10*3/uL (160-400); Red Blood Count 3.35 X10*6/uL (4.20-5.50); Red Cell Distribution Width 16.5 % (11.0-16.0); SCAN SMEAR FLAG 1; White Blood Count 19.2 X10*3/uL (4.8-10.8)
[2021-03-02 07:24] LABS: Alanine Aminotransferase 41 U/L (0-31); Albumin Level 3.3 g/dL (3.5-5.0); Alkaline Phosphatase 102 U/L (39-117); Anion Gap 12 (12-20); Aspartate Amino Transferase 11 U/L (5-31); Bilirubin Total 1.3 mg/dL (0.0-1.0); Blood Urea Nitrogen 29 mg/dL (9-16); Calcium 8.8 mg/dL (8.4-10.2); Carbon Dioxide 32 mmol/L (22-29); Chloride 98 mmol/L (96-108); Creatinine Clr Calc Pharmacy 73.7; Estimated Glomerular Filt Rate > 60; Glucose Fasting 233 mg/dL (60-99); Potassium 3.2 mmol/L (3.3-5.1); Sodium 139 mmol/L (135-145); Total Protein 5.5 g/dL (6.5-8.0)
[2021-03-02] MEDS: acetaZOLAMIDE sodium 500 MG VIAL 250 MG IVPUSH (07:52)
[2021-03-02] MEDS: methylPREDNISolone Sod Succ 40 MG/ML VIAL IVPUSH ×2 (07:53→21:59)
[2021-03-02] MEDS: Pregabalin 50 MG CAPSULE PO (07:55)
[2021-03-02] MEDS: mycophenolate mofetiL 250 MG CAPSULE 1000 MG PO ×2 (07:57→21:59)
[2021-03-02] MEDS: Apixaban 5 MG TABLET PO ×2 (07:57→21:59)
[2021-03-02] MEDS: Nystatin Powder 15 GM BOTTLE 1 APPL TOPICAL ×2 (07:59→21:59)
[2021-03-02] MEDS: Fluticasone Propionate Nasal 16 GM SPRAY 1 SPRAY NOSTRIL-B (07:59)
[2021-03-02 08:45] LABS: SLIDE REVIEW VERIFIED
[2021-03-02] MEDS: Potassium Chloride Packet 20 MEQ PACKET 40 MEQ PO (12:03)
--- NOTE | 2021-03-02 16:38 | P.PNIM_ITS ---
Subjective Subjective Date of Service: 03/02/21 Interval History: No acute issues overnight. Remains comfortable Review of Systems Denies chest pain Denies shortness Physical Exam Vital Signs: Vital Signs: Last Vital Signs Temp 97.8 F 03/02/21 11:32 Pulse 89 03/02/21 11:32 Resp 20 03/02/21 12:12 BP 171/84 H 03/02/21 11:32 Pulse Ox 99 03/02/21 12:12 Oxygen Flow Rate 7 02/12/21 22:57 BMI result Body Mass Index 28.4 Const: Other: a somewhat tachypneic but no acute distress Resp: Other: diminished all bueno Cardio: Other: no S4; positive S1-S2; no S3 murmurs rubs gallops GI: Other: soft nontender nondistended with normoactive bowel sounds Neuro: Other: cranial nerves 2-12 grossly intact as tested; motor is 5/5 all extremities; sensation intact Extrem: Other: trace edema Objective Data Active Medications Acetaminophen (Acetaminophen 325 Mg Tablet) 650 mg PO Q6H PRN PRN Reason: Pain, Moderate (Pain Scale 4-6 Last Admin: 02/28/21 10:26 Dose: 650 mg Documented by: YOSELYN Acetazolamide (Acetazolamide Sodium 500 Mg Vial) 250 mg IVPUSH DAILY [facility] Last Admin: 03/02/21 07:52 Dose: 250 mg Documented by: ISHA Apixaban (Apixaban 5 Mg Tablet) 5 mg PO BID [facility] Last Admin: 03/02/21 07:57 Dose: 5 mg Documented by: ISHA Diphenhydramine HCl (Diphenhydramine Hcl 50 Mg/Ml Vial) 50 mg IVPUSH ONCE PRN PRN Reason: Allergic Reaction Fluticasone Propionate (Fluticasone Propionate Nasal 16 Gm [place]) 1 spray NOSTRIL-B DAILY [facility] Last Admin: 03/02/21 07:59 Dose: 1 spray Documented by: ISHA Guaifenesin (Guaifenesin 200 Mg/10 Ml 10 Ml Liquid) 10 ml PO Q6H PRN PRN Reason: cough Last Admin: 03/01/21 17:18 Dose: 10 ml Documented by: TYRESE Loperamide HCl (Loperamide Hcl 2 Mg Capsule) 2 mg PO Q4H PRN PRN Reason: Diarrhea Last Admin: 02/14/21 21:05 Dose: 2 mg Documented by: NEELIMA Methylprednisolone Sodium Succinate (Methylprednisolone Sod Succ 40 Mg/Ml Vial) 40 mg IVPUSH BID [facility] Last Admin: 03/02/21 07:53 Dose: 40 mg Documented by: ISHA Mycophenolate Mofetil (Mycophenolate Mofetil 250 Mg Capsule) 1,000 mg PO BID [facility] Stop: 03/04/21 20:59 Last Admin: 03/02/21 07:57 Dose: 1,000 mg Documented by: ISHA Patient Own Medication (Trelegy Ellipta) 1 each INHALE RDAILY [facility] Last Admin: 03/02/21 07:50 Dose: Not Given Documented by: SIDNEY Non-Admin Reason: pt self admin mdi Nystatin (Nystatin Powder 15 Gm Bottle) 1 appl TOPICAL BID [facility]; Protocol Last Admin: 03/02/21 07:59 Dose: 1 appl Documented by: ISHA Omeprazole (Omeprazole 20 Mg Capsule.Dr) 20 mg PO BID@0630,1630 [facility] Last Admin: 03/02/21 05:45 Dose: 20 mg Documented by: PILI Ondansetron HCl (Ondansetron Odt 4 Mg Tab.Rapdis) 8 mg TRANSLINGU Q8H PRN PRN Reason: Nausea and Vomiting Ondansetron HCl (Ondansetron Hcl 4 Mg/2 Ml Vial) 4 mg IVPUSH ONCE PRN PRN Reason: Nausea and Vomiting Oxybutynin Chloride (Oxybutynin Chloride Er 5 Mg Tab.Er.24) 10 mg PO DAILY [facility] Last Admin: 03/02/21 07:54 Dose: 10 mg Documented by: ISHA Pharmacy Consult (Consult Rx Perform Med Rec) 1 each MISCELLANE ONCE PRN PRN Reason: Consult order Pregabalin (Pregabalin 50 Mg Capsule) 50 mg PO DAILY [facility] Last Admin: 03/02/21 07:55 Dose: 50 mg Documented by: ISHA Sodium Chloride (Sodium Chloride 0.65 % Nasal 44 Ml Sprbtl) 1 spray NOSTRIL-B Q1H PRN PRN Reason: Nasal Congestion Last Admin: 02/24/21 08:25 Dose: 1 spray Documented by: JHONATAN Trazodone HCl (Trazodone Hcl 100 Mg Tablet) 100 mg PO BEDTIME VU Last Admin: 03/01/21 22:10 Dose: 100 mg Documented by: NEELIMA Labs CBC & Chem 7: 03/02/21 06:30 03/02/21 06:31 Labs: Laboratory Results - last 24 hr 03/02/21 03/02/21 06:30 06:31 MCV 93.7 MCH 30.1 MCHC 32.2 RDW 16.5 H Plt Count 216 MPV 9.6 Immature Gran % (Auto) 2.2 H Neut % (Auto) 92.1 H Lymph % (Auto) 2.4 L [place] % (Auto) 3.2 Eos % (Auto) 0.0 Baso % (Auto) 0.1 Lymph # (Auto) 0.5 L [place] # (Auto) 0.6 Eos # (Auto) 0.0 Baso # (Auto) 0.0 Abs Immat Gran (auto) 0.42 H Absolute Neuts (auto) 17.7 H Absolute Nucleated RBC 0.000 Nucleated RBC % (auto) 0.0 Smear Tech's Comments VERIFIED Anion Gap 12 Estim Creat Clear Calc 73.7 Estimated GFR > 60 Fasting Glucose 233 H Calcium 8.8 Total Bilirubin 1.3 H AST 11 ALT 41 H Alkaline Phosphatase 102 Total Protein 5.5 L Albumin 3.3 L Assessment and Plan (1) Pneumonitis: Status: Acute (2) Acute exacerbation of chronic obstructive pulmonary disease (COPD): Status: Acute Assessment and Plan: 75-year-old female with known COPD on 2 L of oxygen by nasal cannula at home presents to the emergency room with ongoing shortness of breath and worsening dyspnea on exertion. She was recently admitted to [facility] [place] x2 over the last 2 months. Upon arrival to ER she was found to be 84% on 4 L; subsequently placed on non-rebreather with a respiratory rate of 36 was satting 90%. She was initially treated with vanco and Zosyn along with a short course of BiPAP which improved her overall respiratory status. At this point in time she is improved however still short of breath with minimal exertion. Despite this she voices very little complaints 1. COPD exacerbation in backdrop of multifocal pneumonia Continue Solu-Medrol pulse dose as ordered. Oral taper upon DC. Further plans based on response to therapy and forthcoming data. 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 Pulmonary embolism Established on 1st admission; continue Eliquis as ordered 3. Hypertension Continue amlodipine at as ordered adjust as indicated Full code Eliquis Quality Stroke Does the patient have a stroke diagnosis?: No VTE Prior VTE?: No VTE Risk Level:: Medical - moderate - high VTE Device Contraindication: N/A - Device Ordered VTE Drug Contraindication: N/A - Med Ordered
[2021-03-02] MEDS: guaiFENesin 200 MG/10 ML 10 ML LIQUID PO (16:55)
[2021-03-02] MEDS: traZODone HCL 100 MG TABLET PO (21:59)
[2021-03-03] VITALS (7 sets, daily range): BP systolic 135–168; BP diastolic 72–81; PULSE 67–101; RESP 18–22; TEMP 36.7–37.2; O2SAT 92–99
[2021-03-03] MEDS: Omeprazole 20 MG CAPSULE.DR PO ×2 (06:17→16:28)
[2021-03-03] MEDS: guaiFENesin 200 MG/10 ML 10 ML LIQUID PO ×2 (06:21→21:44)
[2021-03-03 07:40] LABS: Basophils Percent Auto 0.1 % (0-2); Hemoglobin 9.1 g/dl (12.0-16.0); Imm Gran Abs Auto 0.14 X10*3/uL (0.00-0.03); Imm Gran Pct Auto 1.4 % (0.0-0.4); Lymphocytes Absolute Auto 0.3 X10*3/uL (1.2-4.9); Lymphocytes Percent Auto 2.4 % (20-40); MANUAL DIFF FLAG SCAN; Mean Corpuscular HGB Conc 31.4 g/dl (31.0-35.0); Mean Corpuscular Hemoglobin 29.8 pg (27.0-33.0); Mean Corpuscular Volume 95.1 fL (80.0-98.0); Mean Platelet Volume 10.1 fL (9.4-12.3); Monocytes Absolute Auto 0.3 X10*3/uL (0.1-1.2); Monocytes Percent Auto 2.9 % (2-11); Neutrophils Absolute Auto 9.6 x10*3/uL (2.0-8.3); Neutrophils Percent Auto 93.2 % (45-73); Platelet Count 174 X10*3/uL (160-400); Red Blood Count 3.05 X10*6/uL (4.20-5.50); Red Cell Distribution Width 16.1 % (11.0-16.0); SCAN SMEAR FLAG 1; White Blood Count 10.3 X10*3/uL (4.8-10.8)
[2021-03-03 08:08] LABS: Alanine Aminotransferase 38 U/L (0-31); Alkaline Phosphatase 97 U/L (39-117); Anion Gap 13 (12-20); Aspartate Amino Transferase 12 U/L (5-31); Bilirubin Total 0.9 mg/dL (0.0-1.0); Blood Urea Nitrogen 29 mg/dL (9-16); Calcium 8.6 mg/dL (8.4-10.2); Carbon Dioxide 30 mmol/L (22-29); Chloride 101 mmol/L (96-108); Creatinine Clr Calc Pharmacy 74.7; Estimated Glomerular Filt Rate > 60; Glucose Fasting 248 mg/dL (60-99); Potassium 3.5 mmol/L (3.3-5.1); Sodium 140 mmol/L (135-145); Total Protein 5.2 g/dL (6.5-8.0)
[2021-03-03] MEDS: mycophenolate mofetiL 250 MG CAPSULE 1000 MG PO ×2 (08:20→21:44)
[2021-03-03] MEDS: Pregabalin 50 MG CAPSULE PO (08:21)
[2021-03-03] MEDS: Fluticasone Propionate Nasal 16 GM SPRAY 1 SPRAY NOSTRIL-B (08:22)
[2021-03-03] MEDS: Apixaban 5 MG TABLET PO ×2 (08:22→21:44)
[2021-03-03] MEDS: acetaZOLAMIDE sodium 500 MG VIAL 250 MG IVPUSH (08:23)
[2021-03-03 08:25] LABS: SLIDE REVIEW VERIFIED
[2021-03-03] MEDS: methylPREDNISolone Sod Succ 40 MG/ML VIAL IVPUSH ×2 (08:25→21:44)
[2021-03-03] MEDS: Nystatin Powder 15 GM BOTTLE 1 APPL TOPICAL ×2 (08:41→21:49)
--- NOTE | 2021-03-03 12:27 | MHC.CLN ---
F/U PO INTAKE VARIABLE DIET RX: REGULAR-APPROPRIATE PT RECEIVING ENSURE BID TO PROVIDE 700KCALS, 23GPROTEIN TO PROMOTE WOUND HEALING CONTINUE TO MONITOR PO INTAKE CLOSELY
--- NOTE | 2021-03-03 12:57 | MHC.CM.PN ---
Patient is accepted for STR @ [facility]. Her oxygen demand must decrease to 5L. Pt and Ot evals requested by facility. Asked MD for orders. Facility notified that they will be sent when complete. CM will follow.
--- NOTE | 2021-03-03 14:29 | HO.PM.IMPN ---
Subjective Subjective Date of Service: 03/03/21 Interval History: Slowly improving but remains severely deconditioned. Offers no complaints today Review of Systems Denies chest pain Denies shortness of breath Denies nausea vomiting diarrhea Physical Exam Vital Signs: Vital Signs: Last Vital Signs Temp 98.2 F 03/03/21 11:34 Pulse 101 H 03/03/21 11:34 Resp 20 03/03/21 11:34 BP 135/80 03/03/21 11:34 Pulse Ox 96 03/03/21 11:34 Oxygen Flow Rate 7 02/12/21 22:57 BMI result Body Mass Index 28.4 Const: Other: a somewhat tachypneic but no acute distress Resp: Other: diminished all bueno Cardio: Other: no S4; positive S1-S2; no S3 murmurs rubs gallops GI: Other: soft nontender nondistended with normoactive bowel sounds Neuro: Other: cranial nerves 2-12 grossly intact as tested; motor is 5/5 all extremities; sensation intact Extrem: Other: trace edema Objective Data Active Medications Acetaminophen (Acetaminophen 325 Mg Tablet) 650 mg PO Q6H PRN PRN Reason: Pain, Moderate (Pain Scale 4-6 Last Admin: 02/28/21 10:26 Dose: 650 mg Documented by: YOSELYN Acetazolamide (Acetazolamide Sodium 500 Mg Vial) 250 mg IVPUSH DAILY [facility] Last Admin: 03/03/21 08:23 Dose: 250 mg Documented by: ROBERTH Apixaban (Apixaban 5 Mg Tablet) 5 mg PO BID [facility] Last Admin: 03/03/21 08:22 Dose: 5 mg Documented by: ROBERTH Diphenhydramine HCl (Diphenhydramine Hcl 50 Mg/Ml Vial) 50 mg IVPUSH ONCE PRN PRN Reason: Allergic Reaction Fluticasone Propionate (Fluticasone Propionate Nasal 16 Gm [place]) 1 spray NOSTRIL-B DAILY [facility] Last Admin: 03/03/21 08:22 Dose: 1 spray Documented by: ROBERTH Guaifenesin (Guaifenesin 200 Mg/10 Ml 10 Ml Liquid) 10 ml PO Q6H PRN PRN Reason: cough Last Admin: 03/03/21 06:21 Dose: 10 ml Documented by: TERESITA Loperamide HCl (Loperamide Hcl 2 Mg Capsule) 2 mg PO Q4H PRN PRN Reason: Diarrhea Last Admin: 02/14/21 21:05 Dose: 2 mg Documented by: NEELIMA Methylprednisolone Sodium Succinate (Methylprednisolone Sod Succ 40 Mg/Ml Vial) 40 mg IVPUSH BID [facility] Last Admin: 03/03/21 08:25 Dose: 40 mg Documented by: ROBERTH Mycophenolate Mofetil (Mycophenolate Mofetil 250 Mg Capsule) 1,000 mg PO BID [facility] Stop: 03/04/21 20:59 Last Admin: 03/03/21 08:20 Dose: 1,000 mg Documented by: ROBERTH Patient Own Medication (Trelegy Ellipta) 1 each INHALE RDAILY [facility] Last Admin: 03/03/21 08:01 Dose: 1 each Documented by: MARIEL Nystatin (Nystatin Powder 15 Gm Bottle) 1 appl TOPICAL BID [facility]; Protocol Last Admin: 03/03/21 08:41 Dose: 1 appl Documented by: ROBERTH Omeprazole (Omeprazole 20 Mg Capsule.Dr) 20 mg PO BID@0630,1630 [facility] Last Admin: 03/03/21 06:17 Dose: 20 mg Documented by: TERESITA Ondansetron HCl (Ondansetron Odt 4 Mg Tab.Rapdis) 8 mg TRANSLINGU Q8H PRN PRN Reason: Nausea and Vomiting Ondansetron HCl (Ondansetron Hcl 4 Mg/2 Ml Vial) 4 mg IVPUSH ONCE PRN PRN Reason: Nausea and Vomiting Oxybutynin Chloride (Oxybutynin Chloride Er 5 Mg Tab.Er.24) 10 mg PO DAILY [facility] Last Admin: 03/03/21 08:21 Dose: 10 mg Documented by: ROBERTH Pharmacy Consult (Consult Rx Perform Med Rec) 1 each MISCELLANE ONCE PRN PRN Reason: Consult order Pregabalin (Pregabalin 50 Mg Capsule) 50 mg PO DAILY [facility] Last Admin: 03/03/21 08:21 Dose: 50 mg Documented by: ROBERTH Sodium Chloride (Sodium Chloride 0.65 % Nasal 44 Ml Sprbtl) 1 spray NOSTRIL-B Q1H PRN PRN Reason: Nasal Congestion Last Admin: 02/24/21 08:25 Dose: 1 spray Documented by: JHONATAN Trazodone HCl (Trazodone Hcl 100 Mg Tablet) 100 mg PO BEDTIME VU Last Admin: 03/02/21 21:59 Dose: 100 mg Documented by: TYRESE Labs CBC & Chem 7: 03/03/21 06:33 03/03/21 06:33 Labs: Laboratory Results - last 24 hr 03/03/21 03/03/21 06:33 06:33 MCV 95.1 MCH 29.8 MCHC 31.4 RDW 16.1 H Plt Count 174 MPV 10.1 Immature Gran % (Auto) 1.4 H Neut % (Auto) 93.2 H Lymph % (Auto) 2.4 L [place] % (Auto) 2.9 Eos % (Auto) 0.0 Baso % (Auto) 0.1 Lymph # (Auto) 0.3 L [place] # (Auto) 0.3 Eos # (Auto) 0.0 Baso # (Auto) 0.0 Abs Immat Gran (auto) 0.14 H Absolute Neuts (auto) 9.6 H Absolute Nucleated RBC 0.000 Nucleated RBC % (auto) 0.0 Smear Tech's Comments VERIFIED Anion Gap 13 Estim Creat Clear Calc 74.7 Estimated GFR > 60 Fasting Glucose 248 H Calcium 8.6 Total Bilirubin 0.9 AST 12 ALT 38 H Alkaline Phosphatase 97 Total Protein 5.2 L Albumin 3.0 L Assessment and Plan (1) Pneumonitis: Status: Acute (2) Acute exacerbation of chronic obstructive pulmonary disease (COPD): Status: Acute (3) Multifocal pneumonia: Status: Acute Assessment and Plan: 75-year-old female with known COPD on 2 L of oxygen by nasal cannula at home presents to the emergency room with ongoing shortness of breath and worsening dyspnea on exertion. She was recently admitted to [facility] x2 over the last 2 months. Upon arrival to ER she was found to be 84% on 4 L; subsequently placed on non-rebreather with a respiratory rate of 36 was satting 90%. She was initially treated with vanco and Zosyn along with a short course of BiPAP which improved her overall respiratory status. At this point in time she is improved however still short of breath with minimal exertion. Despite this she voices very little complaints 1. COPD exacerbation in backdrop of multifocal pneumonia Continue Solu-Medrol pulse dose as ordered. Oral taper upon DC. Further plans based on response to therapy and forthcoming data. Query related to chemo related pneumonitis as per notes Titrate O2 2. Pulmonary embolism Established on 1st admission; continue Eliquis as ordered 3. Hypertension Continue amlodipine at as ordered adjust as indicated 4. Disposition Interested in [facility]; will obtain PT eval. [facility] will accept when O2 requirement 5 L or less Full code Eliquis Quality Stroke Does the patient have a stroke diagnosis?: No VTE Prior VTE?: No VTE Risk Level:: Medical - moderate - high VTE Device Contraindication: N/A - Device Ordered VTE Drug Contraindication: N/A - Med Ordered
[2021-03-03] MEDS: traZODone HCL 100 MG TABLET PO (21:44)
[2021-03-04] VITALS (7 sets, daily range): BP systolic 116–157; BP diastolic 62–82; PULSE 85–115; RESP 15–24; TEMP 36.1–37.4; O2SAT 87–100
[2021-03-04] MEDS: Omeprazole 20 MG CAPSULE.DR PO ×2 (06:08→18:16)
[2021-03-04 07:15] LABS: Basophils Percent Auto 0.1 % (0-2); Hematocrit 29.4 % (37.0-47.0); Hemoglobin 9.4 g/dl (12.0-16.0); Imm Gran Abs Auto 0.22 X10*3/uL (0.00-0.03); Imm Gran Pct Auto 1.6 % (0.0-0.4); Lymphocytes Absolute Auto 0.5 X10*3/uL (1.2-4.9); Lymphocytes Percent Auto 3.2 % (20-40); MANUAL DIFF FLAG SCAN; Mean Corpuscular Hemoglobin 29.9 pg (27.0-33.0); Mean Corpuscular Volume 93.6 fL (80.0-98.0); Mean Platelet Volume 10.2 fL (9.4-12.3); Monocytes Absolute Auto 0.6 X10*3/uL (0.1-1.2); Monocytes Percent Auto 4.5 % (2-11); Neutrophils Absolute Auto 12.6 x10*3/uL (2.0-8.3); Neutrophils Percent Auto 90.6 % (45-73); Platelet Count 202 X10*3/uL (160-400); Red Blood Count 3.14 X10*6/uL (4.20-5.50); Red Cell Distribution Width 16.3 % (11.0-16.0); SCAN SMEAR FLAG 1; White Blood Count 13.9 X10*3/uL (4.8-10.8)
[2021-03-04 07:52] LABS: Alanine Aminotransferase 44 U/L (0-31); Albumin Level 3.1 g/dL (3.5-5.0); Alkaline Phosphatase 101 U/L (39-117); Anion Gap 12 (12-20); Aspartate Amino Transferase 12 U/L (5-31); Blood Urea Nitrogen 21 mg/dL (9-16); Calcium 8.5 mg/dL (8.4-10.2); Carbon Dioxide 30 mmol/L (22-29); Chloride 101 mmol/L (96-108); Creatinine Clr Calc Pharmacy 83.2; Estimated Glomerular Filt Rate > 60; Glucose Fasting 196 mg/dL (60-99); Potassium 3.2 mmol/L (3.3-5.1); Sodium 140 mmol/L (135-145); Total Protein 5.2 g/dL (6.5-8.0)
--- NOTE | 2021-03-04 08:36 | PC.NURSE ---
Skin/wound assessment completed today. Patient has incontinent dermatitis to perineal and buttocks with stage 2 ulcers on buttocks/coccyx. Critic clear antifungal barrier cream to periarea and buttocks and Hydrofera blue applied to stage 2 pressure ulcers covered with ABD pads, incontinent wrap and underwear. No other skin issues noted at this time.
[2021-03-04] MEDS: LORazepam 2 MG/ML VIAL 0.5 MG IVPUSH (09:25)
[2021-03-04] MEDS: methylPREDNISolone Sod Succ 40 MG/ML VIAL IVPUSH ×2 (09:25→20:06)
[2021-03-04] MEDS: acetaZOLAMIDE sodium 500 MG VIAL 250 MG IVPUSH (09:25)
[2021-03-04] MEDS: mycophenolate mofetiL 250 MG CAPSULE 1000 MG PO (09:26)
[2021-03-04] MEDS: Pregabalin 50 MG CAPSULE PO (09:26)
[2021-03-04] MEDS: Apixaban 5 MG TABLET PO ×2 (09:26→20:06)
[2021-03-04] MEDS: guaiFENesin 200 MG/10 ML 10 ML LIQUID PO ×2 (11:30→20:06)
[2021-03-04] MEDS: Miconazole Nitrate 2% Oint 57 GM OINT...G. 1 APPL TOPICAL ×2 (11:30→20:12)
[2021-03-04] MEDS: Fluticasone Propionate Nasal 16 GM SPRAY 1 SPRAY NOSTRIL-B (11:30)
[2021-03-04 11:54] LABS: SLIDE REVIEW VERIFIED
--- NOTE | 2021-03-04 12:04 | P.PNIM_ITS ---
Subjective Subjective Date of Service: 03/04/21 Interval History: f/u acute on chronic respriatory failure, anxious, respriatory status not worse Review of Systems Denies chest pain Denies shortness of breath Denies nausea vomiting diarrhea high anxious r Physical Exam Vital Signs: Vital Signs: Last Vital Signs Temp 99.3 F 03/04/21 08:00 Pulse 115 H 03/04/21 08:00 Resp 24 H 03/04/21 08:00 BP 149/81 H 03/04/21 08:00 Pulse Ox 87 L 03/04/21 08:00 Oxygen Flow Rate 7 02/12/21 22:57 BMI result Body Mass Index 28.4 Const: Other: General: AO X 3, no acute distress Resp: CTA bilateral CVS: S1,S2,RRR GI: +BS, NT, no distention Skin: No rash Neuro: motor grossly intact Psych: appropriate affect Objective Data Active Medications Acetaminophen (Acetaminophen 325 Mg Tablet) 650 mg PO Q6H PRN PRN Reason: Pain, Moderate (Pain Scale 4-6 Last Admin: 02/28/21 10:26 Dose: 650 mg Documented by: YOSELYN Acetazolamide (Acetazolamide Sodium 500 Mg Vial) 250 mg IVPUSH DAILY [facility] Last Admin: 03/04/21 09:25 Dose: 250 mg Documented by: DEIDRE Apixaban (Apixaban 5 Mg Tablet) 5 mg PO BID [facility] Last Admin: 03/04/21 09:26 Dose: 5 mg Documented by: DEIDRE Diphenhydramine HCl (Diphenhydramine Hcl 50 Mg/Ml Vial) 50 mg IVPUSH ONCE PRN PRN Reason: Allergic Reaction Fluticasone Propionate (Fluticasone Propionate Nasal 16 Gm [place]) 1 spray NOSTRIL-B DAILY [facility] Last Admin: 03/04/21 11:30 Dose: 1 spray Documented by: DEIDRE Guaifenesin (Guaifenesin 200 Mg/10 Ml 10 Ml Liquid) 10 ml PO Q6H PRN PRN Reason: cough Last Admin: 03/04/21 11:30 Dose: 10 ml Documented by: DEIDRE Loperamide HCl (Loperamide Hcl 2 Mg Capsule) 2 mg PO Q4H PRN PRN Reason: Diarrhea Last Admin: 02/14/21 21:05 Dose: 2 mg Documented by: NEELIMA Lorazepam (Lorazepam 2 Mg/Ml Vial) 0.5 mg IVPUSH Q4H PRN PRN Reason: Anxiety Last Admin: 03/04/21 09:25 Dose: 0.5 mg Documented by: DEIDRE Methylprednisolone Sodium Succinate (Methylprednisolone Sod Succ 40 Mg/Ml Vial) 40 mg IVPUSH BID [facility] Last Admin: 03/04/21 09:25 Dose: 40 mg Documented by: DEIDRE Miconazole Nitrate (Miconazole Nitrate 2% Oint 57 Gm Oint...G.) 1 appl TOPICAL BID [facility]; Protocol Last Admin: 03/04/21 11:30 Dose: 1 appl Documented by: DEIDRE Morphine Sulfate (Morphine Sulfate 2 Mg/Ml Cartridge) 2 mg IVPUSH Q4H PRN; Protocol PRN Reason: Pain, Severe (Pain Scale 7-10) Mycophenolate Mofetil (Mycophenolate Mofetil 250 Mg Capsule) 1,000 mg PO BID [facility] Stop: 03/04/21 20:59 Last Admin: 03/04/21 09:26 Dose: 1,000 mg Documented by: DEIDRE Patient Own Medication (Trelegy Ellipta) 1 each INHALE RDAILY [facility] Last Admin: 03/04/21 08:12 Dose: 1 each Documented by: MARIEL Nystatin (Nystatin Powder 15 Gm Bottle) 1 appl TOPICAL BID [facility]; Protocol Last Admin: 03/04/21 11:32 Dose: Not Given Documented by: DEIDRE Non-Admin Reason: discontinued per wound nurse Omeprazole (Omeprazole 20 Mg Rod.) 20 mg PO BID@0630,6720 [facility] Last Admin: 03/04/21 06:08 Dose: 20 mg Documented by: KEYSHA Ondansetron HCl (Ondansetron Odt 4 Mg Tab.Rapdis) 8 mg TRANSLINGU Q8H PRN PRN Reason: Nausea and Vomiting Ondansetron HCl (Ondansetron Hcl 4 Mg/2 Ml Vial) 4 mg IVPUSH ONCE PRN PRN Reason: Nausea and Vomiting Oxybutynin Chloride (Oxybutynin Chloride Er 5 Mg Tab.Er.24) 10 mg PO DAILY [facility] Last Admin: 03/04/21 09:25 Dose: 10 mg Documented by: DEIDRE Pharmacy Consult (Consult Rx Perform Med Rec) 1 each MISCELLANE ONCE PRN PRN Reason: Consult order Pregabalin (Pregabalin 50 Mg Capsule) 50 mg PO DAILY [facility] Last Admin: 03/04/21 09:26 Dose: 50 mg Documented by: DEIDRE Sodium Chloride (Sodium Chloride 0.65 % Nasal 44 Ml Sprbtl) 1 spray NOSTRIL-B Q1H PRN PRN Reason: Nasal Congestion Last Admin: 02/24/21 08:25 Dose: 1 spray Documented by: JHONATAN Trazodone HCl (Trazodone Hcl 100 Mg Tablet) 100 mg PO BEDTIME [facility] Last Admin: 03/03/21 21:44 Dose: 100 mg Documented by: KEYSHA Labs CBC & Chem 7: 03/04/21 06:42 03/04/21 06:42 Labs: Laboratory Results - last 24 hr 03/04/21 03/04/21 06:42 06:42 MCV 93.6 MCH 29.9 MCHC 32.0 RDW 16.3 H Plt Count 202 MPV 10.2 Immature Gran % (Auto) 1.6 H Neut % (Auto) 90.6 H Lymph % (Auto) 3.2 L [place] % (Auto) 4.5 Eos % (Auto) 0.0 Baso % (Auto) 0.1 Lymph # (Auto) 0.5 L [place] # (Auto) 0.6 Eos # (Auto) 0.0 Baso # (Auto) 0.0 Abs Immat Gran (auto) 0.22 H Absolute Neuts (auto) 12.6 H Absolute Nucleated RBC 0.000 Nucleated RBC % (auto) 0.0 Smear Tech's Comments VERIFIED Anion Gap 12 Estim Creat Clear Calc 83.2 Estimated GFR > 60 Fasting Glucose 196 H Calcium 8.5 Total Bilirubin 1.0 AST 12 ALT 44 H Alkaline Phosphatase 101 Total Protein 5.2 L Albumin 3.1 L Assessment and Plan (1) Pneumonitis: Status: Acute (2) Acute exacerbation of chronic obstructive pulmonary disease (COPD): Status: Acute (3) Multifocal pneumonia: Status: Acute Assessment and Plan: 75-year-old female with known COPD on 2 L of oxygen by nasal cannula at home presents to the emergency room with ongoing shortness of breath and worsening dyspnea on exertion. She was recently admitted to [facility] x2 over the last 2 months. Upon arrival to ER she was found to be 84% on 4 L; subsequently placed on non-rebreather with a respiratory rate of 36 was satting 90%. She was initially treated with vanco and Zosyn along with a short course of BiPAP which improved her overall respiratory status. At this point in time she is improved however still short of breath with minimal exertion. Despite this she voices very little complaints 1. COPD exacerbation and underlying multifocal pneumonia Continue Solu-Medrol, to oral prednisone in a day or 2 Further plans based on response to therapy and forthcoming data. 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 Pulmonary embolism Established on 1st admission; continue Eliquis as ordered 3. Hypertension Continue amlodipine at as ordered adjust as indicated 4. Disposition Interested in [facility]; when medically ready [facility] will accept when O2 requirement 5 L or less 5. Lung cancer--further care by Onc and probably good candidate for hospice Full code Eliquis Quality Stroke Does the patient have a stroke diagnosis?: No VTE Prior VTE?: No VTE Risk Level:: Medical - moderate - high VTE Device Contraindication: N/A - Device Ordered VTE Drug Contraindication: N/A - Med Ordered
[2021-03-04] MEDS: traZODone HCL 100 MG TABLET PO (20:06)
[2021-03-05 03:19] VITALS: BP 123/72; PULSE 93; RESP 19; TEMP 36.3; O2SAT 94
[2021-03-05] MEDS: Omeprazole 20 MG CAPSULE.DR PO ×2 (05:58→18:47)
[2021-03-05 07:44] VITALS: PULSE 91; RESP 24; O2SAT 92
[2021-03-05 08:00] VITALS: BP 147/88; PULSE 101; RESP 18; TEMP 37; O2SAT 92
[2021-03-05] MEDS: acetaZOLAMIDE sodium 500 MG VIAL 250 MG IVPUSH (10:22)
--- NOTE | 2021-03-05 10:23 | HO.PM.IMPN ---
Subjective Subjective Date of Service: 03/05/21 Interval History: f/u acute on chronic respriatory failure, anxious, she feels better, breathing easier, O2 weaned to 10 liters Review of Systems Denies chest pain Denies shortness of breath Denies nausea vomiting diarrhea high anxious r Physical Exam Vital Signs: Vital Signs: Last Vital Signs Temp 98.6 F 03/05/21 08:00 Pulse 101 H 03/05/21 08:00 Resp 18 03/05/21 08:00 BP 147/88 H 03/05/21 08:00 Pulse Ox 92 03/05/21 08:00 Oxygen Flow Rate 7 02/12/21 22:57 BMI result Body Mass Index 28.4 Const: Other: General: AO X 3, no acute distress Resp: CTA bilateral CVS: S1,S2,RRR GI: +BS, NT, no distention Skin: No rash Neuro: motor grossly intact Psych: appropriate affect Objective Data Active Medications Acetaminophen (Acetaminophen 325 Mg Tablet) 650 mg PO Q6H PRN PRN Reason: Pain, Moderate (Pain Scale 4-6 Last Admin: 02/28/21 10:26 Dose: 650 mg Documented by: YOSELYN Acetazolamide (Acetazolamide Sodium 500 Mg Vial) 250 mg IVPUSH DAILY [facility] Last Admin: 03/04/21 09:25 Dose: 250 mg Documented by: DEIDRE Apixaban (Apixaban 5 Mg Tablet) 5 mg PO BID [facility] Last Admin: 03/04/21 20:06 Dose: 5 mg Documented by: KEYSHA Diphenhydramine HCl (Diphenhydramine Hcl 50 Mg/Ml Vial) 50 mg IVPUSH ONCE PRN PRN Reason: Allergic Reaction Fluticasone Propionate (Fluticasone Propionate Nasal 16 Gm [place]) 1 spray NOSTRIL-B DAILY [facility] Last Admin: 03/04/21 11:30 Dose: 1 spray Documented by: DEIDRE Guaifenesin (Guaifenesin 200 Mg/10 Ml 10 Ml Liquid) 10 ml PO Q6H PRN PRN Reason: cough Last Admin: 03/04/21 20:06 Dose: 10 ml Documented by: KEYSHA Loperamide HCl (Loperamide Hcl 2 Mg Capsule) 2 mg PO Q4H PRN PRN Reason: Diarrhea Last Admin: 02/14/21 21:05 Dose: 2 mg Documented by: NEELIMA Lorazepam (Lorazepam 2 Mg/Ml Vial) 0.5 mg IVPUSH Q4H PRN PRN Reason: Anxiety Last Admin: 03/04/21 09:25 Dose: 0.5 mg Documented by: DEIDRE Methylprednisolone Sodium Succinate (Methylprednisolone Sod Succ 40 Mg/Ml Vial) 40 mg IVPUSH BID [facility] Last Admin: 03/04/21 20:06 Dose: 40 mg Documented by: KEYSHA Miconazole Nitrate (Miconazole Nitrate 2% Oint 57 Gm Oint...G.) 1 appl TOPICAL BID [facility]; Protocol Last Admin: 03/04/21 20:12 Dose: 1 appl Documented by: KEYSHA Morphine Sulfate (Morphine Sulfate 2 Mg/Ml Cartridge) 2 mg IVPUSH Q4H PRN; Protocol PRN Reason: Pain, Severe (Pain Scale 7-10) Patient Own Medication (Trelegy Ellipta) 1 each INHALE RDAILY [facility] Last Admin: 03/05/21 07:43 Dose: 1 each Documented by: SIDNEY Nystatin (Nystatin Powder 15 Gm Bottle) 1 appl TOPICAL BID [facility]; Protocol Last Admin: 03/04/21 20:14 Dose: Not Given Documented by: KEYSHA Non-Admin Reason: Med Not Available Omeprazole (Omeprazole 20 Mg Capsule.) 20 mg PO BID@0630,1630 [facility] Last Admin: 03/05/21 05:58 Dose: 20 mg Documented by: NENA Ondansetron HCl (Ondansetron Odt 4 Mg Tab.Rapdis) 8 mg TRANSLINGU Q8H PRN PRN Reason: Nausea and Vomiting Ondansetron HCl (Ondansetron Hcl 4 Mg/2 Ml Vial) 4 mg IVPUSH ONCE PRN PRN Reason: Nausea and Vomiting Oxybutynin Chloride (Oxybutynin Chloride Er 5 Mg Tab.Er.24) 10 mg PO DAILY [facility] Last Admin: 03/04/21 09:25 Dose: 10 mg Documented by: DEIDRE Pharmacy Consult (Consult Rx Perform Med Rec) 1 each MISCELLANE ONCE PRN PRN Reason: Consult order Pregabalin (Pregabalin 50 Mg Capsule) 50 mg PO DAILY [facility] Last Admin: 03/04/21 09:26 Dose: 50 mg Documented by: DEIDRE Sodium Chloride (Sodium Chloride 0.65 % Nasal 44 Ml Sprbtl) 1 spray NOSTRIL-B Q1H PRN PRN Reason: Nasal Congestion Last Admin: 02/24/21 08:25 Dose: 1 spray Documented by: JHONATAN Trazodone HCl (Trazodone Hcl 100 Mg Tablet) 100 mg PO BEDTIME [facility] Last Admin: 03/04/21 20:06 Dose: 100 mg Documented by: KEYSHA Labs CBC & Chem 7: 03/04/21 06:42 03/04/21 06:42 Labs: Laboratory Results - last 24 hr 03/04/21 06:42 MCV 93.6 MCH 29.9 MCHC 32.0 RDW 16.3 H Plt Count 202 MPV 10.2 Immature Gran % (Auto) 1.6 H Neut % (Auto) 90.6 H Lymph % (Auto) 3.2 L [place] % (Auto) 4.5 Eos % (Auto) 0.0 Baso % (Auto) 0.1 Lymph # (Auto) 0.5 L [place] # (Auto) 0.6 Eos # (Auto) 0.0 Baso # (Auto) 0.0 Abs Immat Gran (auto) 0.22 H Absolute Neuts (auto) 12.6 H Absolute Nucleated RBC 0.000 Nucleated RBC % (auto) 0.0 Smear Tech's Comments VERIFIED Assessment and Plan (1) Pneumonitis: Status: Acute (2) Acute exacerbation of chronic obstructive pulmonary disease (COPD): Status: Acute (3) Multifocal pneumonia: Status: Acute Assessment and Plan: 75-year-old female with known COPD on 2 L of oxygen by nasal cannula at home presents to the emergency room with ongoing shortness of breath and worsening dyspnea on exertion. She was recently admitted to [place] [address] over the last 2 months. Upon arrival to ER she was found to be 84% on 4 L; subsequently placed on non-rebreather with a respiratory rate of 36 was satting 90%. She was initially treated with vanco and Zosyn along with a short course of BiPAP which improved her overall respiratory status. At this point in time she is improved however still short of breath with minimal exertion. Despite this she voices very little complaints 1. COPD exacerbation and underlying multifocal pneumonia Continue Solu-Medrol, to oral prednisone starting today Further plans based on response to therapy and forthcoming data. 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 Pulmonary embolism present on admision, continue Eliquis 3. Hypertension Continue amlodipine at as ordered adjust as indicated 4. Disposition Interested in [facility]; when medically ready [facility] will accept when O2 requirement 5 L or less 5. Lung cancer--further care by Onc and probably good candidate for hospice Full code Eliquis Quality Stroke Does the patient have a stroke diagnosis?: No VTE Prior VTE?: No VTE Risk Level:: Medical - moderate - high VTE Device Contraindication: N/A - Device Ordered VTE Drug Contraindication: N/A - Med Ordered
[2021-03-05] MEDS: Apixaban 5 MG TABLET PO ×2 (10:24→20:45)
[2021-03-05] MEDS: Pregabalin 50 MG CAPSULE PO (10:25)
[2021-03-05] MEDS: Fluticasone Propionate Nasal 16 GM SPRAY 1 SPRAY NOSTRIL-B (10:26)
[2021-03-05] MEDS: Miconazole Nitrate 2% Oint 57 GM OINT...G. 1 APPL TOPICAL ×2 (10:27→20:49)
[2021-03-05] MEDS: methylPREDNISolone Sod Succ 40 MG/ML VIAL IVPUSH (10:27)
--- NOTE | 2021-03-05 11:26 | MHC.CM.PN ---
Per ROUNDS discussion, Patient is not yet medically cleared for dc (IV Diamox, IV ativan and IV Solu Medrol, 10 L O2).STR is the goal for dc once O2 requirements can be managed at SNF level; CM will follow.
[2021-03-05] MEDS: guaiFENesin 200 MG/10 ML 10 ML LIQUID PO (11:33)
[2021-03-05] MEDS: Morphine Sulfate 2 MG/ML CARTRIDGE IVPUSH (11:43)
[2021-03-05 12:00] VITALS: BP 126/73; PULSE 112; RESP 20; TEMP 36.9; O2SAT 93
--- NOTE | 2021-03-05 14:26 | MHC.CLN ---
F/U PO INTAKE REMAINS VARIABLE DIET RX: REGULAR-APPROPRIATE PT RECEIVING ENSURE BID TO PROVIDE 700KCALS, 23GPROTEIN TO PROMOTE WOUND HEALING CONTINUE TO MONITOR PO INTAKE CLOSELY
[2021-03-05 15:46] VITALS: BP 140/75; PULSE 101; RESP 18; TEMP 36; O2SAT 96
--- NOTE | 2021-03-05 16:33 | PC.NURSE ---
Report given to JUANITA Fortune.
[2021-03-05 20:00] VITALS: BP 124/77; PULSE 85; RESP 18; TEMP 36.6; O2SAT 99
[2021-03-05] MEDS: traZODone HCL 100 MG TABLET PO (20:45)
[2021-03-05] MEDS: LORazepam 2 MG/ML VIAL 0.5 MG IVPUSH (20:46)
[2021-03-06] VITALS (7 sets, daily range): BP systolic 112–134; BP diastolic 63–73; PULSE 84–108; RESP 18–24; TEMP 36.2–36.7; O2SAT 89–99
[2021-03-06] MEDS: Omeprazole 20 MG CAPSULE.DR PO ×2 (05:35→17:17)
--- NOTE | 2021-03-06 09:37 | HO.PM.IMPN ---
Subjective Subjective Date of Service: 03/06/21 Interval History: f/u acute on chronic respriatory failure, less anxious, breathing easier Review of Systems -fever +SOB pain at [place] Physical Exam Vital Signs: Vital Signs: Last Vital Signs Temp 98.1 F 03/06/21 07:48 Pulse 90 03/06/21 08:07 Resp 22 H 03/06/21 08:07 BP 112/71 03/06/21 07:48 Pulse Ox 92 03/06/21 07:48 Oxygen Flow Rate 7 02/12/21 22:57 BMI result Body Mass Index 28.4 Const: Other: General: AO X 3, no acute distress Resp: CTA bilateral CVS: S1,S2,RRR GI: +BS, NT, no distention Skin: No rash, decub pressure ulcer stage 1 to 2 Neuro: motor grossly intact Psych: appropriate affect Objective Data Active Medications Acetaminophen (Acetaminophen 325 Mg Tablet) 650 mg PO Q6H PRN PRN Reason: Pain, Moderate (Pain Scale 4-6 Last Admin: 02/28/21 10:26 Dose: 650 mg Documented by: YOSELYN Acetazolamide (Acetazolamide Sodium 500 Mg Vial) 250 mg IVPUSH DAILY [facility] Last Admin: 03/05/21 10:22 Dose: 250 mg Documented by: ISHA Apixaban (Apixaban 5 Mg Tablet) 5 mg PO BID [facility] Last Admin: 03/05/21 20:45 Dose: 5 mg Documented by: RUBA Diphenhydramine HCl (Diphenhydramine Hcl 50 Mg/Ml Vial) 50 mg IVPUSH ONCE PRN PRN Reason: Allergic Reaction Fluticasone Propionate (Fluticasone Propionate Nasal 16 Gm [place]) 1 spray NOSTRIL-B DAILY [facility] Last Admin: 03/05/21 10:26 Dose: 1 spray Documented by: ISHA Guaifenesin (Guaifenesin 200 Mg/10 Ml 10 Ml Liquid) 10 ml PO Q6H PRN PRN Reason: cough Last Admin: 03/05/21 11:33 Dose: 10 ml Documented by: ISHA Loperamide HCl (Loperamide Hcl 2 Mg Capsule) 2 mg PO Q4H PRN PRN Reason: Diarrhea Last Admin: 02/14/21 21:05 Dose: 2 mg Documented by: NEELIMA Lorazepam (Lorazepam 2 Mg/Ml Vial) 0.5 mg IVPUSH Q4H PRN PRN Reason: Anxiety Last Admin: 03/05/21 20:46 Dose: 0.5 mg Documented by: RUBA Miconazole Nitrate (Miconazole Nitrate 2% Oint 57 Gm Oint...G.) 1 appl TOPICAL BID [facility]; Protocol Last Admin: 03/05/21 20:49 Dose: 1 appl Documented by: RUBA Morphine Sulfate (Morphine Sulfate 2 Mg/Ml Cartridge) 2 mg IVPUSH Q4H PRN; Protocol PRN Reason: Pain, Severe (Pain Scale 7-10) Last Admin: 03/05/21 11:43 Dose: 2 mg Documented by: ISHA Patient Own Medication (Trelegy Ellipta) 1 each INHALE RDAILY [facility] Last Admin: 03/06/21 08:03 Dose: 1 each Documented by: JOSE Nystatin (Nystatin Powder 15 Gm Bottle) 1 appl TOPICAL BID [facility]; Protocol Last Admin: 03/05/21 20:50 Dose: Not Given Documented by: RUBA Non-Admin Reason: Med Not Available Omeprazole (Omeprazole 20 Mg Capsule.Dr) 20 mg PO BID@0630,1630 [facility] Last Admin: 03/06/21 05:35 Dose: 20 mg Documented by: RUBA Ondansetron HCl (Ondansetron Odt 4 Mg Tab.Rapdis) 8 mg TRANSLINGU Q8H PRN PRN Reason: Nausea and Vomiting Ondansetron HCl (Ondansetron Hcl 4 Mg/2 Ml Vial) 4 mg IVPUSH ONCE PRN PRN Reason: Nausea and Vomiting Oxybutynin Chloride (Oxybutynin Chloride Er 5 Mg Tab.Er.24) 10 mg PO DAILY [facility] Last Admin: 03/05/21 10:24 Dose: 10 mg Documented by: ISHA Pharmacy Consult (Consult Rx Perform Med Rec) 1 each MISCELLANE ONCE PRN PRN Reason: Consult order Pregabalin (Pregabalin 50 Mg Capsule) 50 mg PO DAILY [facility] Last Admin: 03/05/21 10:25 Dose: 50 mg Documented by: ISHA Sodium Chloride (Sodium Chloride 0.65 % Nasal 44 Ml Sprbtl) 1 spray NOSTRIL-B Q1H PRN PRN Reason: Nasal Congestion Last Admin: 02/24/21 08:25 Dose: 1 spray Documented by: JHONATAN Trazodone HCl (Trazodone Hcl 100 Mg Tablet) 100 mg PO BEDTIME [facility] Last Admin: 03/05/21 20:45 Dose: 100 mg Documented by: RUBA Labs CBC & Chem 7: 03/04/21 06:42 03/04/21 06:42 Assessment and Plan (1) Pneumonitis: Status: Acute (2) Acute exacerbation of chronic obstructive pulmonary disease (COPD): Status: Acute (3) Multifocal pneumonia: Status: Acute Assessment and Plan: 75-year-old female with known COPD on 2 L of oxygen by nasal cannula at home presents to the emergency room with ongoing shortness of breath and worsening dyspnea on exertion. She was recently admitted to [place] [address] over the last 2 months. Upon arrival to ER she was found to be 84% on 4 L; subsequently placed on non-rebreather with a respiratory rate of 36 was satting 90%. She was initially treated with vanco and Zosyn along with a short course of BiPAP which improved her overall respiratory status. At this point in time she is improved however still short of breath with minimal exertion. Despite this she voices very little complaints 1. COPD exacerbation and underlying multifocal pneumonia Transitioned from solumedrol to Prednisone now wean off O2 as sachi, presently 10 L by [place] which is better 2. Pulmonary embolism present on admision, continue Eliquis 3. Hypertension Continue amlodipine at as ordered adjust as indicated 4. Disposition Interested in [facility]; when medically ready [facility] will accept when O2 requirement 5 L or less 5. Lung cancer--further care by Onc and probably good candidate for hospice Full code Eliquis Quality Stroke Does the patient have a stroke diagnosis?: No VTE Prior VTE?: No VTE Risk Level:: Medical - moderate - high VTE Device Contraindication: N/A - Device Ordered VTE Drug Contraindication: N/A - Med Ordered
[2021-03-06] MEDS: acetaZOLAMIDE sodium 500 MG VIAL 250 MG IVPUSH (09:53)
[2021-03-06] MEDS: Ondansetron ODT 4 MG TAB.RAPDIS 8 MG TRANSLINGU (09:54)
[2021-03-06] MEDS: predniSONE 20 MG TABLET 40 MG PO (09:55)
[2021-03-06] MEDS: Apixaban 5 MG TABLET PO ×2 (09:55→20:51)
[2021-03-06] MEDS: Pregabalin 50 MG CAPSULE PO (09:55)
[2021-03-06] MEDS: Miconazole Nitrate 2% Oint 57 GM OINT...G. 1 APPL TOPICAL ×2 (09:57→20:52)
[2021-03-06] MEDS: Fluticasone Propionate Nasal 16 GM SPRAY 1 SPRAY NOSTRIL-B (09:57)
[2021-03-06] MEDS: guaiFENesin 200 MG/10 ML 10 ML LIQUID PO (11:53)
[2021-03-06] MEDS: Morphine Sulfate 2 MG/ML CARTRIDGE IVPUSH (11:56)
[2021-03-06] MEDS: traZODone HCL 100 MG TABLET PO (20:51)
[2021-03-07] VITALS (7 sets, daily range): BP systolic 125–154; BP diastolic 63–87; PULSE 85–110; RESP 16–24; TEMP 36.3–36.9; O2SAT 88–99
[2021-03-07] MEDS: Omeprazole 20 MG CAPSULE.DR PO ×2 (05:37→15:03)
[2021-03-07] MEDS: guaiFENesin 200 MG/10 ML 10 ML LIQUID PO ×2 (05:40→08:40)
[2021-03-07] MEDS: Morphine Sulfate 2 MG/ML CARTRIDGE IVPUSH (08:33)
[2021-03-07] MEDS: Apixaban 5 MG TABLET PO ×2 (08:34→21:49)
[2021-03-07] MEDS: acetaZOLAMIDE sodium 500 MG VIAL 250 MG IVPUSH (08:34)
[2021-03-07] MEDS: Pregabalin 50 MG CAPSULE PO (08:34)
[2021-03-07] MEDS: predniSONE 20 MG TABLET 40 MG PO (08:34)
[2021-03-07] MEDS: Miconazole Nitrate 2% Oint 57 GM OINT...G. 1 APPL TOPICAL ×2 (08:35→21:45)
[2021-03-07] MEDS: Fluticasone Propionate Nasal 16 GM SPRAY 1 SPRAY NOSTRIL-B (08:35)
[2021-03-07 08:53] LABS: Hematocrit 30.8 % (37.0-47.0); Hemoglobin 9.8 g/dl (12.0-16.0); Mean Corpuscular HGB Conc 31.8 g/dl (31.0-35.0); Mean Corpuscular Hemoglobin 29.8 pg (27.0-33.0); Mean Corpuscular Volume 93.6 fL (80.0-98.0); Mean Platelet Volume 9.9 fL (9.4-12.3); Platelet Count 195 X10*3/uL (160-400); Red Blood Count 3.29 X10*6/uL (4.20-5.50); Red Cell Distribution Width 16.4 % (11.0-16.0); White Blood Count 15.3 X10*3/uL (4.8-10.8)
[2021-03-07 09:07] LABS: Anion Gap 12 (12-20); Blood Urea Nitrogen 22 mg/dL (9-16); Calcium 8.6 mg/dL (8.4-10.2); Carbon Dioxide 33 mmol/L (22-29); Chloride 98 mmol/L (96-108); Creatinine Clr Calc Pharmacy 87.4; Estimated Glomerular Filt Rate > 60; Glucose Random 107 mg/dL (60-115); Sodium 140 mmol/L (135-145)
--- NOTE | 2021-03-07 09:13 | P.PNIM_ITS ---
Subjective Subjective Date of Service: 03/07/21 Interval History: f/u acute on chronic respriatory failure, not doing well, increased O2 requirement overnight and now on NRB with sat only about 88 on 15 L, having hard time keeping on O2 Review of Systems -fever +SOB pain at [place] Physical Exam Vital Signs: Vital Signs: Last Vital Signs Temp 98.5 F 03/07/21 07:53 Pulse 100 03/07/21 07:53 Resp 16 03/07/21 07:53 BP 154/87 H 03/07/21 07:53 Pulse Ox 88 L 03/07/21 07:53 Oxygen Flow Rate 7 02/12/21 22:57 BMI result Body Mass Index 28.4 Const: Other: General: AO X 2, no acute distress Resp: barry rhochi, wheeze CVS: S1,S2,RRR GI: +BS, NT, no distention Skin: No rash, decub pressure ulcer stage 1 to 2 Neuro: motor grossly intact Psych: anxious Objective Data Active Medications Acetaminophen (Acetaminophen 325 Mg Tablet) 650 mg PO Q6H PRN PRN Reason: Pain, Moderate (Pain Scale 4-6 Last Admin: 02/28/21 10:26 Dose: 650 mg Documented by: YOSELYN Acetazolamide (Acetazolamide Sodium 500 Mg Vial) 250 mg IVPUSH DAILY [facility] Last Admin: 03/07/21 08:34 Dose: 250 mg Documented by: DAMASO Apixaban (Apixaban 5 Mg Tablet) 5 mg PO BID [facility] Last Admin: 03/07/21 08:34 Dose: 5 mg Documented by: DAMASO Diphenhydramine HCl (Diphenhydramine Hcl 50 Mg/Ml Vial) 50 mg IVPUSH ONCE PRN PRN Reason: Allergic Reaction Fluticasone Propionate (Fluticasone Propionate Nasal 16 Gm [place]) 1 spray NOSTRIL-B DAILY [facility] Last Admin: 03/07/21 08:35 Dose: 1 spray Documented by: DAMASO Guaifenesin (Guaifenesin 200 Mg/10 Ml 10 Ml Liquid) 10 ml PO Q6H PRN PRN Reason: cough Last Admin: 03/07/21 08:40 Dose: 10 ml Documented by: DAMASO Loperamide HCl (Loperamide Hcl 2 Mg Capsule) 2 mg PO Q4H PRN PRN Reason: Diarrhea Last Admin: 02/14/21 21:05 Dose: 2 mg Documented by: NEELIMA Lorazepam (Lorazepam 2 Mg/Ml Vial) 0.5 mg IVPUSH Q4H PRN PRN Reason: Anxiety Last Admin: 03/05/21 20:46 Dose: 0.5 mg Documented by: RUBA Miconazole Nitrate (Miconazole Nitrate 2% Oint 57 Gm Oint...G.) 1 appl TOPICAL BID [facility]; Protocol Last Admin: 03/07/21 08:35 Dose: 1 appl Documented by: DAMASO Morphine Sulfate (Morphine Sulfate 2 Mg/Ml Cartridge) 2 mg IVPUSH Q4H PRN; Protocol PRN Reason: Pain, Severe (Pain Scale 7-10) Last Admin: 03/07/21 08:33 Dose: 2 mg Documented by: DAMASO Patient Own Medication (Trelegy Ellipta) 1 each INHALE RDAILY [facility] Last Admin: 03/07/21 07:46 Dose: 1 each Documented by: SIDNEY Nystatin (Nystatin Powder 15 Gm Bottle) 1 appl TOPICAL BID [facility]; Protocol Last Admin: 03/07/21 09:08 Dose: Not Given Documented by: DAMASO Non-Admin Reason: per wound nurse Omeprazole (Omeprazole 20 Mg Capsule.Dr) 20 mg PO BID@0630,1630 [facility] Last Admin: 03/07/21 05:37 Dose: 20 mg Documented by: RUBA Ondansetron HCl (Ondansetron Hcl 4 Mg/2 Ml Vial) 4 mg IVPUSH ONCE PRN PRN Reason: Nausea and Vomiting Ondansetron HCl (Ondansetron Odt 8 Mg Tab.Rapdis) 8 mg TRANSLINGU Q8H PRN PRN Reason: Nausea and Vomiting Oxybutynin Chloride (Oxybutynin Chloride Er 5 Mg Tab.Er.24) 10 mg PO DAILY [facility] Last Admin: 03/07/21 08:34 Dose: 10 mg Documented by: DAMASO Pharmacy Consult (Consult Rx Perform Med Rec) 1 each MISCELLANE ONCE PRN PRN Reason: Consult order Prednisone (Prednisone 20 Mg Tablet) 40 mg PO DAILY [facility] Last Admin: 03/07/21 08:34 Dose: 40 mg Documented by: DAMASO Pregabalin (Pregabalin 50 Mg Capsule) 50 mg PO DAILY [facility] Last Admin: 03/07/21 08:34 Dose: 50 mg Documented by: DAMASO Sodium Chloride (Sodium Chloride 0.65 % Nasal 44 Ml Sprbtl) 1 spray NOSTRIL-B Q1H PRN PRN Reason: Nasal Congestion Last Admin: 02/24/21 08:25 Dose: 1 spray Documented by: JHONATAN Trazodone HCl (Trazodone Hcl 100 Mg Tablet) 100 mg PO BEDTIME [facility] Last Admin: 03/06/21 20:51 Dose: 100 mg Documented by: RUBA Labs CBC & Chem 7: 03/07/21 08:22 03/07/21 08:22 Labs: Laboratory Results - last 24 hr 03/07/21 03/07/21 08:22 08:22 MCV 93.6 MCH 29.8 MCHC 31.8 RDW 16.4 H Plt Count 195 MPV 9.9 Absolute Nucleated RBC 0.000 Nucleated RBC % (auto) 0.0 Anion Gap 12 Estim Creat Clear Calc 87.4 Estimated GFR > 60 Random Glucose 107 Calcium 8.6 Assessment and Plan (1) Pneumonitis: Status: Acute (2) Acute exacerbation of chronic obstructive pulmonary disease (COPD): Status: Acute (3) Multifocal pneumonia: Status: Acute Assessment and Plan: 75-year-old female with known COPD on 2 L of oxygen by nasal cannula at home presents to the emergency room with ongoing shortness of breath and worsening dyspnea on exertion. She was recently admitted to [place] [id number] over the last 2 months. Upon arrival to ER she was found to be 84% on 4 L; subsequently placed on non-rebreather with a respiratory rate of 36 was satting 90%. She was initially treated with vanco and Zosyn along with a short course of BiPAP which improved her overall respiratory status. 1. Acute on chronic hypoxic respiratory failure d/t COPD, underlying lung CA-- clinically not doing well get another CXR today continue steroid IV wean off O2 as sachi, presently 10 L by MN which is better 2. Pulmonary embolism present on admision, continue Eliquis 3. Hypertension Continue amlodipine at as ordered adjust as indicated 4. Disposition Interested in [facility]; when medically ready [facility] will accept when O2 requirement 5 L or less 5. Lung cancer--further care by Onc and probably good candidate for hospice DNR/DNI Eliquis for DVT prophy Quality Stroke Does the patient have a stroke diagnosis?: No VTE Prior VTE?: No VTE Risk Level:: Medical - moderate - high VTE Device Contraindication: N/A - Device Ordered VTE Drug Contraindication: N/A - Med Ordered
[2021-03-07] MEDS: methylPREDNISolone Sod Succ 40 MG/ML VIAL IVPUSH ×3 (11:35→21:49)
--- NOTE | 2021-03-07 12:12 | W.MHC.ACPN ---
Advanced Care Planning Note Advanced Care Planning Note Time spent (in minutes): 20 Narrative: Met with patient, son Jeremías and daughter Bertha and grandchildren and discussed gaols of care in light of worsening condition despite apropriate management and other available treatment. Patient and family at this point wants hospice care at home. Case management will faciliate this. Conversation took 20 minutes. JUANITA Islas present Problems Discussed (1) Pneumonitis: (2) Acute exacerbation of chronic obstructive pulmonary disease (COPD): (3) Multifocal pneumonia:
--- NOTE | 2021-03-07 14:14 | MHC.CM.PN ---
LANDEN INFORMED PT/FAMILY INTERESTED IN HOSPICE. LANDEN MET WITH PT, HER DAUGHTER AND HER NEPHEW AT BEDSIDE THEY REPORT THE PLAN WOULD BE FOR PT TO RETURN HOME WITH HOSPICE SERVICES THEY REQUEST A RE[facility]ERRAL [facility] FOR INFO SESSION REFERRAL MADE
--- NOTE | 2021-03-07 18:42 | PC.NURSE ---
Hospice Plan MD met with family and patient to discuss next steps regarding end of life care; both patient and family agreed and will continue to enact plan tomorrow. Pt was taken off monitor per MD order
[2021-03-07] MEDS: traZODone HCL 100 MG TABLET PO (21:49)
[2021-03-08] VITALS (8 sets, daily range): BP systolic 120–149; BP diastolic 70–87; PULSE 76–88; RESP 16–20; TEMP 36.3–37.1; O2SAT 99–100
[2021-03-08] MEDS: Omeprazole 20 MG CAPSULE.DR PO ×2 (05:51→15:41)
[2021-03-08] MEDS: methylPREDNISolone Sod Succ 40 MG/ML VIAL IVPUSH ×4 (05:51→20:30)
[2021-03-08] MEDS: Pregabalin 50 MG CAPSULE PO (08:52)
[2021-03-08] MEDS: acetaZOLAMIDE sodium 500 MG VIAL 250 MG IVPUSH (08:52)
[2021-03-08] MEDS: Apixaban 5 MG TABLET PO ×2 (08:52→20:26)
[2021-03-08] MEDS: Fluticasone Propionate Nasal 16 GM SPRAY 1 SPRAY NOSTRIL-B (08:54)
[2021-03-08] MEDS: Miconazole Nitrate 2% Oint 57 GM OINT...G. 1 APPL TOPICAL ×2 (08:54→20:29)
--- NOTE | 2021-03-08 12:22 | MHC.CLN ---
F/U PO INTAKE REMAINS VARIABLE DIET RX: REGULAR-APPROPRIATE PT RECEIVING ENSURE BID TO PROVIDE 700KCALS, 23GPROTEIN TO PROMOTE WOUND HEALING PT PENDING HOSPICE SERVICES AND GOAL IS TO RETURN HOME WILL FOLLOW WITH TEAM AND PROVIDE SUPPORT NEEDED
--- NOTE | 2021-03-08 12:23 | MHC.CM.PN ---
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
--- NOTE | 2021-03-08 14:16 | HO.PM.IMPN ---
Subjective Subjective Date of Service: 03/08/21 Interval History: no acute issues overnight. Resting comfortably in bed Review of Systems denies chest pain Denies shortness of breath only with exertion Denies nausea vomiting diarrhea Physical Exam Vital Signs: Vital Signs: Last Vital Signs Temp 98.5 F 03/08/21 12:00 Pulse 88 03/08/21 12:00 Resp 19 03/08/21 12:00 BP 149/87 H 03/08/21 12:00 Pulse Ox 100 03/08/21 12:00 Oxygen Flow Rate 7 02/12/21 22:57 BMI result Body Mass Index 28.4 Const: Other: a somewhat tachypneic but no acute distress Resp: Other: diminished all bueno with scattered expiratory wheezes. Coarse rhonchi that clear with cough Cardio: Other: no S4; positive S1-S2; no S3 murmurs rubs gallops GI: Other: soft nontender nondistended with normoactive bowel sounds Neuro: Other: cranial nerves 2-12 grossly intact as tested; motor is 5/5 all extremities; sensation intact Extrem: Other: trace edema Objective Data Active Medications Acetaminophen (Acetaminophen 325 Mg Tablet) 650 mg PO Q6H PRN PRN Reason: Pain, Moderate (Pain Scale 4-6 Last Admin: 02/28/21 10:26 Dose: 650 mg Documented by: YOSELYN Acetazolamide (Acetazolamide Sodium 500 Mg Vial) 250 mg IVPUSH DAILY [facility] Last Admin: 03/08/21 08:52 Dose: 250 mg Documented by: GAVIN Apixaban (Apixaban 5 Mg Tablet) 5 mg PO BID [facility] Last Admin: 03/08/21 08:52 Dose: 5 mg Documented by: GAVIN Diphenhydramine HCl (Diphenhydramine Hcl 50 Mg/Ml Vial) 50 mg IVPUSH ONCE PRN PRN Reason: Allergic Reaction Fluticasone Propionate (Fluticasone Propionate Nasal 16 Gm [place]) 1 spray NOSTRIL-B DAILY [facility] Last Admin: 03/08/21 08:54 Dose: 1 spray Documented by: GAVIN Guaifenesin (Guaifenesin 200 Mg/10 Ml 10 Ml Liquid) 10 ml PO Q6H PRN PRN Reason: cough Last Admin: 03/07/21 08:40 Dose: 10 ml Documented by: DAMASO Loperamide HCl (Loperamide Hcl 2 Mg Capsule) 2 mg PO Q4H PRN PRN Reason: Diarrhea Last Admin: 02/14/21 21:05 Dose: 2 mg Documented by: NEELIMA Lorazepam (Lorazepam 2 Mg/Ml Vial) 0.5 mg IVPUSH Q4H PRN PRN Reason: Anxiety Last Admin: 03/05/21 20:46 Dose: 0.5 mg Documented by: RUBA Methylprednisolone Sodium Succinate (Methylprednisolone Sod Succ 40 Mg/Ml Vial) 40 mg IVPUSH Q6H [facility] Last Admin: 03/08/21 08:52 Dose: 40 mg Documented by: GAVIN Miconazole Nitrate (Miconazole Nitrate 2% Oint 57 Gm Oint...G.) 1 appl TOPICAL BID [facility]; Protocol Last Admin: 03/08/21 08:54 Dose: 1 appl Documented by: GAVIN Morphine Sulfate (Morphine Sulfate 2 Mg/Ml Cartridge) 2 mg IVPUSH Q4H PRN; Protocol PRN Reason: Pain, Severe (Pain Scale 7-10) Last Admin: 03/07/21 08:33 Dose: 2 mg Documented by: DAMASO Patient Own Medication (Trelegy Ellipta) 1 each INHALE RDAILY [facility] Last Admin: 03/08/21 07:26 Dose: 1 each Documented by: BENNIE Nystatin (Nystatin Powder 15 Gm Bottle) 1 appl TOPICAL BID [facility]; Protocol Last Admin: 03/08/21 09:40 Dose: Not Given Documented by: GAVIN Non-Admin Reason: per documentation, per wound RN Omeprazole (Omeprazole 20 Mg Capsule.Dr) 20 mg PO BID@0630,1630 [facility] Last Admin: 03/08/21 05:51 Dose: 20 mg Documented by: DAVIDA Ondansetron HCl (Ondansetron Hcl 4 Mg/2 Ml Vial) 4 mg IVPUSH ONCE PRN PRN Reason: Nausea and Vomiting Ondansetron HCl (Ondansetron Odt 8 Mg Tab.Rapdis) 8 mg TRANSLINGU Q8H PRN PRN Reason: Nausea and Vomiting Oxybutynin Chloride (Oxybutynin Chloride Er 5 Mg Tab.Er.24) 10 mg PO DAILY [facility] Last Admin: 03/08/21 08:52 Dose: 10 mg Documented by: GAVIN Pharmacy Consult (Consult Rx Perform Med Rec) 1 each MISCELLANE ONCE PRN PRN Reason: Consult order Pregabalin (Pregabalin 50 Mg Capsule) 50 mg PO DAILY [facility] Last Admin: 03/08/21 08:52 Dose: 50 mg Documented by: GAVIN Sodium Chloride (Sodium Chloride 0.65 % Nasal 44 Ml Sprbtl) 1 spray NOSTRIL-B Q1H PRN PRN Reason: Nasal Congestion Last Admin: 02/24/21 08:25 Dose: 1 spray Documented by: Trazodone HCl (Trazodone Hcl 100 Mg Tablet) 100 mg PO BEDTIME [facility] Last Admin: 03/07/21 21:49 Dose: 100 mg Documented by: DAVIDA Labs CBC & Chem 7: 03/07/21 08:22 03/07/21 08:22 Assessment and Plan (1) Acute exacerbation of chronic obstructive pulmonary disease (COPD): Status: Acute (2) Pulmonary embolism: Status: Acute Assessment and Plan: 75-year-old female with known COPD on 2 L of oxygen by nasal cannula at home presents to the emergency room with ongoing shortness of breath and worsening dyspnea on exertion. She was recently admitted to [place] [address] over the last 2 months. Upon arrival to ER she was found to be 84% on 4 L; subsequently placed on non-rebreather with a respiratory rate of 36 was satting 90%. She was initially treated with vanco and Zosyn along with a short course of BiPAP which improved her overall respiratory status. 1. Acute on chronic hypoxic respiratory failure d/t COPD, underlying lung CA--clinically not doing well Patient and family have decided on hospice. Will continue all therapies and discharge tomorrow at noon time to home with hospice care 2. Pulmonary embolism present on admision, continue Eliquis 3. Hypertension Continue amlodipine at as ordered adjust as indicated 4. Disposition Home with Hospice DNR/DNI Eliquis for DVT prophy Quality Stroke Does the patient have a stroke diagnosis?: No VTE Prior VTE?: No VTE Risk Level:: Medical - moderate - high VTE Device Contraindication: N/A - Device Ordered VTE Drug Contraindication: N/A - Med Ordered
[2021-03-08] MEDS: guaiFENesin 200 MG/10 ML 10 ML LIQUID PO (15:41)
[2021-03-08] MEDS: Acetaminophen 325 MG TABLET 650 MG PO (15:49)
[2021-03-08] MEDS: traZODone HCL 100 MG TABLET PO (20:26)
[2021-03-09 03:33] VITALS: BP 161/88; PULSE 81; RESP 18; TEMP 36.9; O2SAT 98
[2021-03-09] MEDS: methylPREDNISolone Sod Succ 40 MG/ML VIAL IVPUSH ×2 (03:34→09:37)
[2021-03-09] MEDS: Omeprazole 20 MG CAPSULE.DR PO (05:31)
[2021-03-09 08:00] VITALS: BP 125/68; PULSE 85; RESP 17; TEMP 36.3; O2SAT 92
[2021-03-09] MEDS: acetaZOLAMIDE sodium 500 MG VIAL 250 MG IVPUSH (09:37)
[2021-03-09] MEDS: Pregabalin 50 MG CAPSULE PO (09:37)
[2021-03-09] MEDS: Apixaban 5 MG TABLET PO (09:37)
[2021-03-09] MEDS: Fluticasone Propionate Nasal 16 GM SPRAY 1 SPRAY NOSTRIL-B (09:38)
[2021-03-09] MEDS: Miconazole Nitrate 2% Oint 57 GM OINT...G. 1 APPL TOPICAL (09:39)
--- NOTE | 2021-03-09 09:55 | P.DS_ITS ---
DS: Providers Provider Date of Service: 03/09/21 Date of admission: 02/13/21 06:59 Date of discharge: 03/09/21 Primary care physician: Nacho Kovacs MD Consults: 02/13/21 16:15 Consult to Pulmonology Routine Consulting Provider: Jacques Celis Reason for consultation: Bilat pulmon infiltrates; r/o lymphangitic spread Has provider been notified: Yes 02/16/21 08:34 Consult to Pulmonology Routine Consulting Provider: Jaiden Esparza Reason for consultation: COPD/pneumonia/ history of PE- worsening anemia Has provider been notified: No 02/16/21 16:37 Consult to Gastroenterology Routine Consulting Provider: Dilcia Mina Reason for consultation: recent Pulm embolism on apixiban , worsening anemia occult positive Has provider been notified: No DS: Diagnosis Discharge Diagnosis (1) Acute exacerbation of chronic obstructive pulmonary disease (COPD): Status: Acute (2) Pulmonary embolism: Status: Acute DS: Summary Hospital Course Hospital Course: The patient is a 75 yo woman with the following PMHx: ?- COPD currently on 2L NC at home.? Previous [employer] labs show no evidence of CO2 retention. ?- Triple negative breast cancer dx?d 10/2020, port implanted 12/15, started chemo begin of December. ?- HTN ?- Dyslipidemia ?- Cardiomyopathy (see below) She was admitted to [facility] Jan 18 for COPD exacerbation.? Improved quickly with Solu-Medrol and bronchodilators, and was discharged the next day. ECHO 01/19 notable for: - Normal LV cavity size and wall thickness.? EF 35-40%, with grade I (mild) diastolic dysfunction. - Normal RV cavity size and systolic function. - Normal IVC with > 50% inspiratory collapse.? RVSP 35mm. She was admitted again to the [facility] for pneumonia and a small segmental pulmonary embolism on February 03.? She was treated with heparin and Zosyn.? Transitioned to Eliquis.? Discharged on February 10 on Augmentin to complete 10 days of antibiotics. February 13 readmitted to ICU with Acute respiratory failure. Continued to wax/wane but unable to wean from high flow O2; seen by Pulmonology. Given poor response to antibiotics, felt this was an organizing pneumonia as a result of her chemotherapy. She was placed on pulse dose steroids but failed to improve. Discussion with discharge planning and family yielded a request to be discharged home with hospice. Given such, patient will be discharged to home with hospice and palliative meds. CONNIE completed Time Spent with Patient Time attestation: Total time spent providing and/or coordinating discharge services: Discharge coordination time: Greater than 30 minutes Quality: Stroke Does the patient have a stroke diagnosis?: No Physical Exam Vital Signs: Vital Signs: Last Vital Signs Temp 97.3 F 03/09/21 08:00 Pulse 85 03/09/21 08:00 Resp 17 03/09/21 08:00 BP 125/68 03/09/21 08:00 Pulse Ox 92 03/09/21 08:00 Oxygen Flow Rate 7 02/12/21 22:57 BMI result Body Mass Index 28.4 Const: Other: a somewhat tachypneic but no acute distress Resp: Other: diminished all bueno with scattered expiratory wheezes. Coarse rhonchi that clear with cough Cardio: Other: no S4; positive S1-S2; no S3 murmurs rubs gallops GI: Other: soft nontender nondistended with normoactive bowel sounds Neuro: Other: cranial nerves 2-12 grossly intact as tested; motor is 5/5 all extremities; sensation intact Extrem: Other: trace edema DS: Data Data Completed and Pending Completed studies during hospitalization [Text1]: Procedures Transfusion of Nonautologous Red Blood Cells into Peripheral Vein, Percutaneous Approach (02/03/21) Discharge Plan Discharge Patient Disposition: Hospice - Home Discharge Diagnosis: End stage COPD; pneumonitis secondary to chemotherapy Referrals: Nacho Kovacs MD [Primary Care Provider] - 1 Week Discharge Medications: New morphine concentrate 100 mg/5 mL (20 mg/mL) solution 10 mg PO Q3H PRN (Reason: pain) Qty: 30 RF: 0 lorazepam [Ativan] 0.5 mg tablet 0.5 mg PO Q6H PRN (Reason: anxiety) Qty: 20 RF: 0 Continued trazodone 100 mg tablet 100 mg PO BEDTIME Qty: 30 RF: 5 amlodipine 5 mg tablet 5 mg PO DAILY Qty: 90 RF: 1 atorvastatin 40 mg tablet 40 mg PO DAILY 90 Days Qty: 90 RF: 2 oxybutynin chloride 5 mg tablet 5 mg PO BID 30 Days Qty: 60 RF: 2 lisinopril 40 mg tablet 40 mg PO DAILY 90 Days Qty: 90 RF: 3 albuterol sulfate [Ventolin HFA] 90 mcg/actuation HFA aerosol inhaler 1 inh inhalation QID PRN (Reason: shortness of breath or wheezing) 30 Days Qty: 18 RF: 12 Trelegy Ellipta 100-62.5-25 mcg blister with device 1 puff PO DAILY RF: 0 ondansetron HCl [Zofran] 4 mg tablet 8 mg PO Q8H PRN (Reason: Nausea) RF: 0 prednisone 10 mg Tablet 30 mg PO DAILY Qty: 30 RF: 4 dexamethasone [Decadron] 4 mg Tablet 4 mg PO BID Qty: 100 RF: 4 calcium carbonate-vitamin D3 500 mg(1,250mg) -125 unit Tablet 1 tab PO DAILY RF: 0 chlorthalidone 25 mg tablet 1 tab PO DAILY RF: 0 loperamide 2 mg Capsule 2 mg PO Q4H PRN (Reason: Diarrhea) RF: 0 Probiotic 1 cap PO DAILY RF: 0 acetaminophen 650 mg tablet extended release 650 mg PO BID RF: 0 Eliquis 5 mg Tablet 5 mg PO BID Qty: 60 RF: 3 amoxicillin-pot clavulanate [Augmentin] 875-125 mg tablet 1 tab PO BID Qty: 20 RF: 0 lorazepam [Ativan] 0.5 mg tablet 0.5 mg PO BID PRN (Reason: anxiety) Qty: 30 RF: 0 cetirizine [All Day Allergy (cetirizine)] 10 mg tablet 10 mg PO BID PRN (Reason: allergy symptoms) 30 Days Qty: 60 RF: 2 albuterol sulfate 1.25 mg/3 mL solution for nebulization 2.5 mg inhalation Q4-6H PRN (Reason: shortness of breath or wheezing) 30 Days Qty: 90 RF: 2 Discharge Orders: Discharge Order (Routine); Ordered 03/09/21 Ordered By: Carmelo Díaz Diet: advance to usual diet Activity on Discharge: As tolerated Stand Alone Forms: Patient Portal Discharge page Care Plan Goals: as per hospice Health Concerns: comfort care Plan of Treatment: comfort care Assessment: as above
== END 2021-03-09 12:33 | disposition hospice, home (50) | DRG 205 ==
LOC: HO.ED 23:58 → HO.EDOVER 02-13 13:15 → HO.ICU 02-13 13:15 → HO.IMC 02-13 19:22 → HO.ICU 02-22 11:17 → HO.IMC 03-01 11:38
PROVIDERS: Anesthesiology; Hospitalist; Internal Medicine; Internal Medicine Pulmonary Disease; Physician Assistant; Registered Nurse Community Health; Admitting Provider Physician Assistant Medical; Emergency Provider Student in an Organized Health Care Education/Training Program; PCP Internal Medicine; Visit Provider Hospitalist
DX: J70.2 Acute drug-induced interstitial lung disorders (principal); J96.21 Acute and chronic respiratory failure with hypoxia; J96.22 Acute and chronic respiratory failure with hypercapnia; J44.0 Chronic obstructive pulmonary disease with (acute) lower respiratory infection; I42.9 Cardiomyopathy, unspecified; I50.42 Chronic combined systolic (congestive) and diastolic (congestive) heart failure; C34.90 Malignant neoplasm of unspecified part of unspecified bronchus or lung; J44.1 Chronic obstructive pulmonary disease with (acute) exacerbation; C50.919 Malignant neoplasm of unspecified site of unspecified female breast; Z17.1 Estrogen receptor negative status [ER-]; T45.1X5A Adverse effect of antineoplastic and immunosuppressive drugs, initial encounter; Y92.9 Unspecified place or not applicable; E87.6 Hypokalemia; D63.0 Anemia in neoplastic disease; B37.2 Candidiasis of skin and nail; Z86.711 Personal history of pulmonary embolism; Z20.822 Contact with and (suspected) exposure to COVID-19; Z99.81 Dependence on supplemental oxygen; Z87.891 Personal history of nicotine dependence; Z79.01 Long term (current) use of anticoagulants; Z79.899 Other long term (current) drug therapy; Z66 Do not resuscitate
CPT/HCPCS: 36415; 36600; 71045; 71250; 80048; 80053; 80076; 80202; 81003; 82040; 82272; 82565; 82607; 82728; 82746; 82785; 82803; 83036; 83540; 83605; 83735; 83880; 84100; 84145; 84484; 85014; 85018; 85025; 85027; 85379; 85652; 86038; 86039; 86200; 86331; 86481; 86606; 86609; 86850; 86900; 86901; 86923; 87040; 87070; 87205; 87635; 93005; 93970; 94640; 94660; 96365; 96366; 96367; 96375; 97163; 99285; 99291; 99497; C1758; J1745; J1940; J2060; J2270; J2405; J2543; J2920; J2930; J3010; J3370; J3475; P9016; P9047